=== PATIENT | male | born 1945 | race Caucasian/White ===

== ENCOUNTER → 2018-04-30 07:45 | Outpatient (CLI) | payer OTHER, SELFPAY ==
--- NOTE | 2018-04-30 07:49 | US_ITS ---
STUDY: THYROID ULTRASOUND REASON FOR EXAM: Male, 72 years old. Nodules follow-up. TECHNIQUE: Ultrasound evaluation of the thyroid was performed with real-time and static briggs-scale imaging. COMPARISON: None. FINDINGS: RIGHT LOBE: The right lobe of the thyroid gland measures 4.9 x 1.7 x 1.7 cm. There is a homogeneous echotexture. There is a stable 10 x 8 x 7 mm complex nodule at the mid pole. A second 7 x 6 x 4 mm hypoechoic/cystic lesion in the anterior midpole is also unchanged. LEFT LOBE: The left lobe of the thyroid gland measures 4.9 x 1.8 x 1.7 cm. There is a homogeneous echotexture. A complex mixed echogenicity 14 x 11 x 11 mm lesion in the upper pole is grossly unchanged. This shows marginal flow on color Doppler. Ill-defined solid 11 x 8 x 8 mm nodule in the posterolateral mid to lower pole is mildly increased in size. 3 x 3 x 1 mm cystic-appearing lesion in the anterior mid to lower pole is unchanged. ISTHMUS: The isthmus measures 4.0 mm. The 5 x 4 mm cyst/nodule of the thyroid isthmus seen on previous study is not apparent today. The regional lymph nodes are normal. US/Thyroid IMPRESSION: Findings of a multinodular goiter again noted. An 11 mm solid nodule in the posterolateral mid to lower pole left lobe is mildly increased in size. One might consider ultrasound-guided needle biopsy. Electronically Signed: Yonis Dill MD at 15:58 EDT , Service support ,
== END ==
PROVIDERS: Family Provider Internal Medicine; PCP Internal Medicine; Visit Provider Internal Medicine
DX: E04.1 Nontoxic single thyroid nodule (principal)
CPT/HCPCS: 76536

== ENCOUNTER → 2018-06-03 15:10 | Outpatient (CLI) | payer OTHER, SELFPAY ==
[2018-06-03 16:00] LABS: PSA,Total - Annual Screen 3.55 ng/mL (0.00-4.00)
== END ==
PROVIDERS: Family Provider Internal Medicine; PCP Internal Medicine; Visit Provider Urology
DX: Z12.5 Encounter for screening for malignant neoplasm of prostate (principal)
CPT/HCPCS: 36415; 84153; G0103

== ENCOUNTER → 2018-09-19 07:08 | Outpatient (CLI) | payer SELFPAY ==
--- NOTE | 2018-09-19 07:13 | CT_ITS ---
STUDY: CT CHEST WITHOUT CONTRAST REASON FOR EXAM: Male, 72 years old. Asthma. Cough RADIATION DOSAGE (If Supplied By Facility): CTDIvol = ( 13.28 ) mGy, DLP = ( 489.55 ) mGycm TECHNIQUE: Transaxial imaging was performed without the administration of intravenous contrast material. Multiplanar coronal and sagittal images were reformatted. Individualized dose optimization techniques were used for this CT. COMPARISON: None. FINDINGS: There is right upper lung calcified granuloma. There is left upper lobe calcified granuloma. There are scattered 0.2 cm noncalcified nodular densities. There is no demonstrated pleural abnormality. There are calcifications of the coronary arteries. There are calcified mediastinal and right hilar lymph nodes. Normal hilar regions. Normal unenhanced pulmonary arteries. There is atherosclerotic calcification of the aortic arch with tortuosity and elongation of the aortic arch and descending thoracic aorta. There are multi-level degenerative changes of the thoracic spine. Degenerative change of the shoulders. There is fatty infiltration of the liver. CT/Chest without Contrast IMPRESSION: No focal infiltrate. Old granulomatous disease. Electronically Signed: Robbi Benítez MD at 10:40 EDT , Service support ,
== END ==
PROVIDERS: Family Provider Internal Medicine; PCP Internal Medicine; Referring Provider Internal Medicine Pulmonary Disease; Visit Provider Internal Medicine Pulmonary Disease
DX: J45.909 Unspecified asthma, uncomplicated (principal); R05 Cough
CPT/HCPCS: 71250

== ENCOUNTER → 2019-05-12 09:29 | Outpatient (CLI) | payer MEDICARE, BC, SELFPAY ==
--- NOTE | 2019-05-12 09:48 | ECHOD_ITS ---
Reason For Study: PVCs Procedure This was a 2D Doppler, Color Flow transthoracic echocardiogram. Exam performed in department. Left Ventricle Normal LV size. The estimated ejection fraction is 60 %. Normal diastology for age. No regional wall motion abnormalities noted. Right Ventricle Normal RV size. Normal systolic function. Atria Normal left atrium. Normal right atrium. Patent foramen ovale. Mitral Valve Normal mitral valve. Mild (1+) eccentric mitral valve insufficiency. Tricuspid Valve Normal tricuspid valve. Mild (1+) tricuspid valve insufficiency. Pulmonary artery systolic pressure is 35 mmHg. Aortic Valve Trisinus/trileaflet aortic valve. Mild focal aortic valve calcification. Pulmonic Valve Normal pulmonic valve. Great Vessels Normal aortic root. The pulmonary artery is normal size. Normal inferior vena cava. Pericardium/Pleural No pericardial effusion. Medication Performed a rapid injection of agitated mix of 9 cc saline and 1cc air to assess for atrial septal defect. MMode/2D Measurements & Calculations LVIDd: 5.0 cm IVSd: 1.2 cm Ao root diam: 3.4 cm LVIDs: 3.1 cm LVPWd: 1.1 cm RVDd: 4.2 cm FS: 38.1 % LAV(MOD-bp): 64.6 ml LVAd ap4: 31.8 cm2 SV(MOD-sp4): 67.9 ml LAV(MOD-bp) Indexed: 31.7 ml/m2 EDV(MOD-sp4): 101.5 ml LAV(MOD-sp2): 82.9 ml EDV(sp4-el): 105.1 ml LAV(MOD-sp4): 46.4 ml LVAs ap4: 16.3 cm2 ESV(MOD-sp4): 33.6 ml ESV(sp4-el): 33.6 ml EF(MOD-sp4): 66.9 % EF(sp4-el): 68.1 % SV(sp4-el): 71.6 ml LA A4 area: 17.8 cm2 LA dimension(2D): 5.0 cm RA A4 area: 24.7 cm2 Doppler Measurements & Calculations MV E max adria: 71.7 cm/sec Lat Peak E' Adria: 8.5 cm/sec Med Peak E' Adria: 5.6 cm/sec MV A max adria: 49.1 cm/sec E/E' lat: 8.4 E/E' med: 12.8 MV E/A: 1.5 Ao V2 max: 140.6 cm/sec AI max adria: 396.7 cm/sec LV V1 max: 107.5 cm/sec Ao max P.9 mmHg AI max P.0 mmHg LV V1 max P.7 mmHg Ao V2 mean: 98.4 cm/sec Ao mean P.3 mmHg AI dec slope: 212.1 cm/sec2 Ao V2 VTI: 31.7 cm AI P1/2t: 547.6 msec PA V2 max: 102.7 cm/sec PI end-d adria: 124.1 cm/sec TR max adria: 282.5 cm/sec TR max P.9 mmHg Interpretation Summary Normal LV size. The estimated ejection fraction is 60 %. Normal diastology for age. Mild (1+) eccentric mitral valve insufficiency. Patent foramen ovale. Ordering Physician: Kiara Spence Referring Physician: Kiara Spence Performed By: Torrie Qiu, VALERIE, RVT
== END ==
PROVIDERS: Family Provider Internal Medicine; PCP Internal Medicine; Referring Provider Internal Medicine; Visit Provider Internal Medicine
DX: I49.3 Ventricular premature depolarization (principal); E04.1 Nontoxic single thyroid nodule
CPT/HCPCS: 93225; 93226; 93306; A4216

== ENCOUNTER → 2019-05-29 17:34 | Outpatient (CLI) | payer MEDICARE, BC, SELFPAY ==
--- NOTE | 2019-05-29 17:38 | CT_ITS ---
HISTORY:RT RENAL MASSSURG-UROLIFT RT RENAL MASSSURG-UROLIFT TECHNIQUE: Helically acquired images were obtained of the abdomen and pelvis following IV contrast. A radiation dose optimization technique was used for this scan. IV Contrast dosage and agent:100CC Isovue 300 Oral contrast: None. COMPARISON: None FINDINGS: # of images incl. paperwork: [phone] LOWER CHEST: Lung bases are clear. No cardiomegaly or pericardial effusion observed. LIVER: Steatosis. No focal masses GALLBLADDER AND BILIARY TREE: No calcified gallstones. There is no gallbladder distension or wall edema. No intra- or extrahepatic biliary ductal dilation. KIDNEYS AND URETERS: There is a heterogenous enhancing mass seen within the right kidney. This measures approximately 6 cm transverse by 5 cm AP by 5.2 cm craniocaudad. This extends into the renal cortex as well as the mandibular. No significant hydronephrosis. There are additional simple appearing cysts seen bilaterally. I would recommend MRI with contrast for additional information if clinically indicated. The ureters are not distended ADRENAL GLANDS: Non-enlarged. SPLEEN: Normal size without focal cystic or solid mass. PANCREAS: Mild steatosis BOWEL: The stomach is unremarkable There are fluid-filled mildly distended loops of ileum. This may be secondary to ileus or enteritis. There are small bowel loops that contain fecalized material suggesting slow transit. Correlate clinically. No diverticulitis. The appendix is unremarkable LYMPH NODES: No enlarged mesenteric or retroperitoneal lymph nodes. PERITONEUM: No ascites or free air. No other fluid collection. VESSELS: Scattered atherosclerotic plaque URINARY BLADDER: Bladder is poorly distended with wall thickening. Correlate clinically for cystitis. REPRODUCTIVE ORGANS: The prostate gland contains multiple metallic implants. ABDOMINAL WALL: No discrete abdominal or pelvic wall hernia observed. BONES: Degenerative changes seen within the lumbar spine. Grade 1 anterior spondylolisthesis of L5 on S1 with bilateral spondylolysis at L5. Intra-vertebral disc protrusion at the level of L3 inferior endplate Subchondral cysts at the iliac side of the right sacroiliac joint. Also at the bilateral acetabulum. No acute osseous abnormality. CT/Abdomen/Pelvis WITH Contrast IMPRESSION: Heterogenous enhancing lesion of the right kidney. This is suspect for a renal neoplasm. Consider MRI for further evaluation with contrast if clinically indicated Additional bilateral renal cysts are noted Mildly distended fluid-filled loops of ileum. There are also loops of small bowel that contain fecalized material suggesting slow transit Poorly distended bladder with wall thickening. Correlate clinically for cystitis Individualized dose optimization techniques were used for this CT. at 2908 Reported and signed by: Tonya Hankins DO Electronically Signed: Tonya Hankins DO at 21:56 EDT Tel , Service support ,
== END ==
PROVIDERS: Family Provider Internal Medicine; PCP Internal Medicine; Referring Provider Internal Medicine; Visit Provider Internal Medicine
DX: N28.89 Other specified disorders of kidney and ureter (principal)
CPT/HCPCS: 74177; Q9967

== ENCOUNTER → 2019-06-03 08:24 | Outpatient (CLI) | payer MEDICARE, BC, SELFPAY ==
[2019-06-03] VITALS (8 sets, daily range): BP systolic 129–210; BP diastolic 75–106; PULSE 56–69; RESP 18; TEMP 36.6; O2SAT 91–97; BMI 24.5
--- NOTE | 2019-06-03 | IMM_PTH ---
PATIENT: LUKE MENDEZ LOC: CT U#:[id number] AGE/SX: 80/M ROOM: RE06/03/[address]: Dr. Willard Kirby DO : 1945 BED: DIS: SPEC #: [id number] RECD: 06/04/19 12:36 STATUS: NATY REQ #: [id number] NGA: 06/03/19 00:[address]: Willard Kirby DEPT: IMMUNOHISTOCHEMISTRY RECD BY: Manuela Quiñones ENTERED: 06/04/19 12:39 SP TYPE: IMMUNO OTHR DR: Dr. Kiara Spence DO Tissues: Vertebra, NOS Procedures: RCC (add) NAPSIN A (add) CD10 (add) CK20 (add) CK5-6 (add) CK7 (add) CK8 (add) HEP PAR (add) TTF1 (add) Vimentin (add) Pankeratin (initial) P40 (add) PSAP (add) PHYSICIAN & [address] [address] SPECIMEN INFORMATION: Tissue Source: T12 lesion, right side Clinical Info: T12 lesion, right side Specimen Number: [id number] CPT code: 83716, 13109 x12 METHODOLOGY: Deparaffinized sections of prefer/formalin-fixed tissue or PAP/DQ stained slides are incubated with monoclonal/polyclonal antibodies/oligonucleotide probes. Localization is made via biotin free immunoperoxidase method. Appropriate controls are performed and reacted as expected. Results on target cell population are indicated in the following table: RESULTS: ANTIBODY / CLONE RESULT AE1-3 (AE1/AE3/PCK26) positive CK7 (OV-TL12/30) negative CK8 (34bxqkT90) positive CD20 (L26) negative CD10 (56C6) positive Vimentin (V9) positive TTF-1 (8G7G3/1) negative Napsin A (Rabbit Polyclonal) positive HepPar (OCh1E5) negative RCC (PN-15) positive PSAP (PASE/4LJ) negative CK5-6 (D5 & 1684) negative P40 (BC28) negative These tests were developed and their performance characteristics determined by [facility]. They may not have been cleared or approved by the U.S. Food and Drug Administration. The FDA has determined that such clearance or approval is not necessary. INTERPRETATION: T12 lesion, right side, CT-guided biopsy: Metastatic carcinoma, consistent with renal primary. SJ:ruiz 06/05/19
--- NOTE | 2019-06-03 | ASPIGT_PTH ---
PATIENT: LUKE MENDEZ LOC: CT U#:[id number] AGE/SX: 80/M ROOM: RE06/03/[address]: Dr. Willard Kirby DO : 1945 BED: DIS: SPEC #: [id number] RECD: 06/03/19 10:30 STATUS: NATY RESaumya #: [id number] NGA: 06/03/19 00:[address]: Willard Kirby DEPT: SURGICAL PATHOLOGY RECD BY: Cristy Orantes ENTERED: 06/03/19 11:04 SP TYPE: ASP RAD OTHR DR: Dr. Kiara Spence DO Tissues: Vertebra, NOS Procedures: FNA Specimen Adequacy Special Stain Group II Surgery Specimen Level IV Imprint (control) HEADER OPERATION: CT guided T12 biopsy PRE-OP DIAGNOSIS: T12 lesion, right side TISSUE SUBMITTED: T12 lesion, right side CT-guided core biopsy 18 gauge core x4 MICROSCOPIC DIAGNOSIS T12 lesion, right side, CT-guided core biopsy: Metastatic carcinoma, consistent with renal primary, Terri grade 3. See comment. MEGHANA:ruiz 06/04/19 COMMENT The specimen is evaluated at the time of biopsy by Dr. Corrales. Immediate Evaluation: Set #1 (4 smears) - Mostly blood. Rare atypical cells. Set #2 (3 smears) - Mostly blood. Rare atypical cells. Immunohistochemistry ([id number]) supports the above diagnosis. Correlation with clinical, radiologic findings and appropriate follow up are necessary. Case has been reviewed in consultation with Dr. Adams who concurs with the above diagnosis. IDC:AM MICROSCOPIC DESCRIPTION Slides are reviewed. GROSS DESCRIPTION Received in fixative is one container labeled with the patient's name and designated T12 lesion biopsy. The specimen consists of multiple irregular fragments of light hussein soft tissue that in aggregate measure 1 x 0.2 x 0.1 cm. The specimen is totally submitted in one cassette. Seven touch imprints (four for set #1, three for set #2) were prepared at the time of core biopsy. / MEGHANA:ruiz 06/03/19 TC:0 CPT: 91216, 23552, 30124
--- NOTE | 2019-06-03 08:37 | CT_ITS ---
STUDY: CT CHEST WITH CONTRAST REASON FOR EXAM: Male, 73 years old. Right renal mass. T12 metastatic lesion. RADIATION DOSAGE (If Supplied By Facility): CTDIvol = ( 18.10 ) mGy, DLP = ( 327.14 ) mGycm TECHNIQUE: Transaxial imaging was performed following intravenous administration of 100mL IV Isovue 300. Multiplanar coronal and sagittal images were reformatted. Individualized dose optimization techniques were used for this CT. COMPARISON: Comparison is made with prior study dated September 19, 2018. FINDINGS: Mild degree of thickening of the right major fissure. There is no demonstrated pleural abnormality. There are calcifications of the coronary arteries. There are multiple small lymph nodes within the mediastinum, which are normal in size and morphology most compatible with reactive lymph hyperplasia. Normal hilar regions. Normal enhanced pulmonary arteries. There is atherosclerotic calcification of the aortic arch. There is a 2.6 cm x 3.9 cm soft tissue mass causing destruction of the pedicle of the T12 vertebrae on the right side. This extends into the spinal canal and the right intervertebral foramen. The mineralization of the thoracic vertebrae. Fatty infiltration of the liver. CT/Chest WITH Contrast IMPRESSION: 2.6 cm x 3.9 cm soft tissue mass causing destruction of the pedicle of the T12 vertebrae on the right side. No other abnormality is seen. Electronically Signed: Lucho Bond, at 11:14 EDT , Service support ,
--- NOTE | 2019-06-03 08:39 | CT_ITS ---
PROCEDURE: CT GUIDED biopsy of the right pedicle of the T12 vertebrae. DATE: June 03, 2019. INDICATION: Male, 73 years old. Metastatic renal cell carcinoma. PHYSICIAN: Lucho Bond M.D. RADIATION DOSAGE (If Supplied By Facility): CTDIvol = ( 18 ) mGy, DLP = ( 327.14 ) mGycm. Individualized dosed catheterization techniques were utilized. PROCEDURE: The risks, benefits, and alternatives to the procedure were explained to the patient. The specific risk of hemorrhage requiring further treatment or intervention was detailed and accepted. Follow-up instructions were discussed with the patient as well. Written informed consent was obtained. The patient was brought into the CT suite and placed in the prone position. . An appropriate entry site was identified. The overlying skin was prepped and draped in the usual sterile fashion. 1% lidocaine was administered subcutaneously for local anesthesia. Conscious sedation was performed. The patient received 2 mg of Versed and 50 mcg of fentanyl intravenously. Conscious sedation was started at 9:49 AM and terminated at 10:16 AM. The patient was independently monitored by the department nurse. Under CT guidance, a total of 4 passes were performed utilizing a 18-gauge core biopsy needle. The specimens were then placed in the appropriate fluid and transported to the laboratory for analysis. Hemostasis was obtained. The patient tolerated the procedure well without immediate complications. CT/Biopsy/Inj or Needle Placement IMPRESSION: Successful CT guided biopsy of the right T12 pedicle, as described above. Electronically Signed: Lucho Bond, at 11:09 EDT , Service support ,
[2019-06-03 08:47] LABS: Prothrombin Time (Protime)PT. 12.7 SECONDS (11.7-14.9)
[2019-06-03] MEDS: fentaNYL 100 MCG/2 ML Ampul IV (09:49)
[2019-06-03] MEDS: Midazolam 2 MG/2 ML Syringe IV (09:49)
== END ==
PROVIDERS: Family Provider Internal Medicine; PCP Internal Medicine; Referring Provider Internal Medicine Hematology & Oncology; Visit Provider Internal Medicine Hematology & Oncology
DX: N28.89 Other specified disorders of kidney and ureter (principal); C80.1 Malignant (primary) neoplasm, unspecified; C79.51 Secondary malignant neoplasm of bone
CPT/HCPCS: 62267; 36415; 71260; 77012; 85610; 88172; 88305; 88313; 88341; 88342; 99156; 99157; J7040; Q9967; A4216

== ENCOUNTER → 2019-06-11 08:52 | Outpatient (CLI) | payer MEDICARE, BC, SELFPAY ==
[2019-06-03 09:17] VITALS: BMI 24.5
--- NOTE | 2019-06-11 08:54 | US_ITS ---
STUDY: THYROID ULTRASOUND REASON FOR EXAM: Male, 73 years old. Nodules TECHNIQUE: Ultrasound evaluation of the thyroid was performed with real-time and static briggs-scale imaging. COMPARISON: 04/30/2018 FINDINGS: RIGHT LOBE: The right lobe of the thyroid gland measures 4.6 x 1.9 x 1.7 cm. There is a heterogeneous echotexture. Stable complex 1 cm nodule, stable 8 mm cyst. LEFT LOBE: The left lobe of the thyroid gland measures 4.5 x 1.9 x 2.0 cm. There is a homogeneous echotexture. Stable complex 1.5 cm nodule ISTHMUS: The isthmus measures 3 mm. The regional lymph nodes are normal. US/Thyroid IMPRESSION: Normal sized thyroid gland. The right lobe is heterogeneous with a stable complex solid/cystic 1 cm nodule and simple 0.8 cm cyst. Homogeneous left lobe of the thyroid gland with a stable 1.5 cm solid/cystic nodule. Electronically Signed: Yonis Levine MD at 10:07 EDT , Service support ,
== END ==
PROVIDERS: Family Provider Internal Medicine; PCP Internal Medicine; Referring Provider Internal Medicine; Visit Provider Internal Medicine
DX: E04.1 Nontoxic single thyroid nodule (principal)
CPT/HCPCS: 76536

== ENCOUNTER → 2019-07-07 13:24 | Outpatient (CLI) | payer MEDICARE, BC, SELFPAY ==
[2019-07-04 11:29] VITALS: BMI 23.8
--- NOTE | 2019-07-07 13:26 | STEWCON_ITS ---
Reason For Study: Pre-Op Stress Results Protocol: Cirilo Protocol Maximum Predicted HR: 147 bpm Target HR: 125 bpm % Maximum Predicted HR: 127 % DurationHeart Rate Stage (mm:ss) (bpm) BP Comment Baseline 96 108/60No Chest Pain; Diluted Definity 3 ML Given Cirilo Protocol Stage I 3:00 150 128/62No Chest Pain; Mild Dyspnea Cirilo Protocol Stage II 1:45 187 140/60No Chest Pain; Mild to Moderate Dyspnea Recovery 93 130/62No Chest Pain Stress Duration: 4:45 mm:ss Maximum Stress HR: 187 bpm METS: 7 Baseline Echocardiogram Findings The estimated ejection fraction is 65 %. Stress Echo Wall motion Data Resting WM Intermediate WM Stress WM Resting Wall Motion Wall Motion Stress No regional wall motion No regional wall motion abnormalities noted. abnormalities noted. EKG Data The baseline ECG displays normal sinus rhythm. The patient exercised according to the regular Cirilo protocol for a total duration of 4:45. The maximum heart rate attained was 187 beats per minute. This was 127% of maximum predicted heart rate. The patient exercised into stage 2 of the Cirilo protocol. During stress, there were no ST or T wave changes noted to suggest ischemia. No clinical angina was noted. Interpretation Summary The estimated ejection fraction is 65 %. Normal, adequate, Cirilo treadmill echocardiogram. Negative for ischemia by EKG and echocardiographic criteria. No anginal symptoms noted. Frequent PACs and rare PVCs noted. Below average exercise capacity for age. Decreased sensitivity due to poor echo windows requiring Definity agent. Test terminated due to dyspnea and frequent PACs. Final LVEF is 75%. No complications. The study was technically difficult. Contrast injection was performed. Ordering Physician: Kiel Marquez Referring Physician: Kiara Spence Performed By: Torrie Qiu, VALERIE, RVT
== END ==
PROVIDERS: Family Provider Internal Medicine; PCP Internal Medicine; Referring Provider Internal Medicine Cardiovascular Disease; Visit Provider Internal Medicine Cardiovascular Disease
DX: Z01.810 Encounter for preprocedural cardiovascular examination (principal); I48.91 Unspecified atrial fibrillation; Q21.1 Atrial septal defect; I10 Essential (primary) hypertension; E78.5 Hyperlipidemia, unspecified
CPT/HCPCS: 93017; 93350; Q9957; A4216; C8928

== ENCOUNTER → 2019-07-08 10:38 | Outpatient (CLI) | payer MEDICARE, BC, SELFPAY ==
[2019-07-04 11:29] VITALS: BMI 23.8
--- NOTE | 2019-07-08 10:41 | RAD_ITS ---
STUDY: X-RAY CHEST REASON FOR EXAM: Male, 73 years old. Preop for abdominal surgery TECHNIQUE: PA and lateral views of the chest. COMPARISON: Previous CTs FINDINGS: There are interstitial fibrotic changes of the lungs. There is no demonstrated pleural abnormality. Normal size heart. Normal mediastinum and teresa. Normal visualized pulmonary arteries. Normal visualized aortic arch and descending thoracic aorta. There are diffuse degenerative changes of the visualized thoracic spine. Normal visualized ribs, clavicles, and shoulders. There is no demonstrated abnormality of the visualized soft tissue structures of the upper abdomen. RAD/Chest PA and Lateral IMPRESSION: Chronic interstitial changes, no superimposed acute pulmonary process Electronically Signed: Yonis Levine MD at 10:53 EDT , Service support ,
--- NOTE | 2019-07-08 13:03 | CT_ITS ---
STUDY: CTA CHEST REASON FOR EXAM: Male, 73 years old. Hypoxia RADIATION DOSAGE (If Supplied By Facility): CTDIvol = ( 10.8 ) mGy, DLP = ( 490.50 ) mGycm TECHNIQUE: The examination was performed with the intravenous administration of 100 IV Isovue 370. Post-processing of the angiographic images was performed, with multiplanar reformation and 3D reconstruction. Individualized dose optimization techniques were used for this CT. COMPARISON: None. FINDINGS: Normal enhancement of the main pulmonary artery and right and left pulmonary arteries. Normal enhancement of the bilateral peripheral pulmonary arteries. There is no demonstrated pulmonary embolism. Normal thoracic aorta and visualized great vessels. There is no demonstrated aortic dissection. Normal heart and pericardium. There is no demonstrated mediastinal lymphadenopathy or mediastinal mass lesion. Normal hilar regions. Normal visualized trachea and bronchi. The lungs are well expanded. Mild dependent atelectasis in the lung bases bilaterally. Normal pleura. No evidence of pleural effusion. Unremarkable chest wall structures. There are degenerative changes of thoracic spine. There is diffuse fatty infiltration of the liver. CT/CTA Chest W/WO Contrast IMPRESSION: Normal CTA chest examination, without a demonstrated pulmonary embolism or arterial dissection. Mild dependent atelectasis in the lung bases bilaterally. Diffuse fatty change of liver parenchyma. Electronically Signed: Lucas Lockwood MD at 14:27 EDT Tel [phone], Service support ,
== END ==
PROVIDERS: Family Provider Internal Medicine; PCP Internal Medicine; Referring Provider Internal Medicine; Visit Provider Internal Medicine
DX: R09.02 Hypoxemia (principal); R05 Cough
CPT/HCPCS: 71046; 71275; Q9967

== ENCOUNTER 2019-07-09 05:54 | Inpatient (IN) | payer MEDICARE, BC, SELFPAY ==
[2019-06-03 09:17] VITALS: BMI 24.5
[2019-07-01 11:17] VITALS: BP 105/70; PULSE 98; RESP 18; TEMP 36.4; O2SAT 96; BMI 23.8
--- NOTE | 2019-07-01 11:25 | SDCEKG_ITS ---
Test Reason : Blood Pressure : / mmHG Vent. Rate : 100 BPM Atrial Rate : 208 BPM P-R Int : 000 ms QRS Dur : 084 ms QT Int : 328 ms P-R-T Axes : 000 037 069 degrees QTc Int : 423 ms Atrial fibrillation Abnormal ECG Confirmed by KAYLI ROBLEDO ([id number]), film editor supervisor MARIE PAGAN ([id number]) on 07/03/2019 2:13:42 PM Referred By: PROJU Confirmed By:KAYLI ROBLEDO
[2019-07-01 11:57] LABS: Hematocrit 43.5 % (40-54); Hemoglobin 14.1 g/dL (13.0-16.5); Mean Corp Hgb Conc 32.4 g/dL (32-36); Mean Corpuscular Hgb 33.3 pg (27.0-32.0); Mean Corpuscular Volume 102.8 fL (80-94); Mean Platelet Vol. 10.1 fl (6.2-12.0); Platelet Count 108 K/mm3 (150-450); RBC Distribution Width SD 52.8 fl (35.1-43.9); Red Blood Count 4.23 M/mm3 (4.6-6.2); White Blood Count 7.7 K/mm3 (4.4-11.0)
[2019-07-01 12:07] LABS: Prothrombin Time (Protime)PT. 12.6 SECONDS (11.7-14.9)
[2019-07-01 12:08] LABS: Partial Thromboplast Time 27.2 Seconds (24.1-36.2)
[2019-07-01 12:28] LABS: AST(SGOT) 27 U/L (15-37); Alanine Aminotransfer ALT/SGPT 72 U/L (16-61); Albumin, Serum 2.7 g/dL (3.2-5.0); Alkaline Phosphatase 60 U/L (45-117); Anion Gap 8 (5-15); BUN 27 mg/dL (7-18); Bilirubin, Direct 0.14 mg/dL (0.00-0.30); Calcium,Total 8.8 mg/dL (8.5-10.1); Chloride 104 mmol/L (98-107); Creatinine, Serum 1.23 mg/dL (0.70-1.30); EST Glomerular Filtration Rate 61 mL/min (>60); Est Glom Filt Rate - Afr Amer 74 mL/min (>60); Estimated Creatinine Clearance 58.71 ml/min; Globulin 3.8 g/dL (2.2-4.2); Glucose 125 mg/dL (74-106); Potassium 3.9 mmol/L (3.5-5.1); Protein, Total 6.5 g/dL (6.4-8.2); Sodium Level 142 mmol/L (136-145)
[2019-07-04 11:29] VITALS: BMI 23.8
--- NOTE | 2019-07-04 12:10 | HP_ITS ---
HPI HPI History of Present Illness Surgical H&P: Yes Details: Mr. Cr is a very pleasant 73-year-old gentleman with a history of hypertension, hyperlipidemia, nondiabetic, who was recently diagnosed with renal cancer and is scheduled to have a right radical nephrectomy. EKG was performed and preop admission on 07/01/2019 which showed what appeared to be atrial flutter with controlled ventricular response. This was a new diagnosis for the patient, and he was referred to our office. Currently a repeat EKG shows normal sinus rhythm, left atrial enlargement, normal intervals, incomplete right bundle branch block, no previous myocardial infarction. Patient has never smoked, does not use drugs, drinks about 1 drink of caffeine per day. He denies any chest pain, angina, shortness of breath, dyspnea on exertion. Patient was completely unaware of his palpitations or his atrial flutter on his EKG. The patient does state that he has had some challenges from a respiratory standpoint and has been treated in the past with inhalers, as well as prednisone. He has been on antibiotics for the past 10 days without much improvement. He states that he most likely took his inhaler immediately prior to his recent EKG which showed atrial flutter. He has never been diagnosed with atrial fibrillation or atrial flutter in the past. He has no previous cardiac history He underwent a 24-hour Holter monitor on 05/15/2019 which showed normal sinus rhythm with periods of Wenke Bach and nonconducted PACs, 334 atrial couplets cut 2 atrial triplets and rare isolated PVCs and one ventricular couplet. His echocardiogram dated 05/12/2019 showed an EF of 60%, RVSP of 35 mmHg, mild MR and mild TR. Also was found to have a patent PFO. His most recent stress test on 06/02/2016 was a exercise/MPI which was negative for inducible ischemia. In our office today's blood pressure is 90/50, pulse is 88 and regular. Physical exam demonstrates clear lungs bilaterally, regular rate and rhythm, normal S1/S2. No murmurs are noted. He has no edema. EKG is as above. Intake Vital Signs 07/04/19 Height 6 ft 07/04/19 Weight: 176 lb 07/04/19 Body Mass Index (BMI) 23.8 07/04/19 Blood Pressure 90/50 L 07/04/19 Blood Pressure Location Lt brachial 07/04/19 Blood Pressure Position Sitting 07/04/19 Respiratory Rate 20 H 07/04/19 Pulse Rate 88 07/04/19 Pulse Source Auscultation Intake Visit Reasons: ABN EKG (REGINA) Allergies No Known Allergies Allergy (Verified 07/04/19 08:46) Medications Fluticasone/Vilanterol [Breo Ellipta Inhaler] 1 ea IH DAILY 06/03/19 [History Confirmed 07/04/19] Levocetirizine Dihydrochloride 5 mg PO DAILY 07/01/19 [History Confirmed 07/04/19] Montelukast [Singulair] 10 mg PO DAILY 07/01/19 [History Confirmed 07/04/19] Prednisone 10 mg PO DAILY 07/01/19 [History Confirmed 07/04/19] albuterol sulfate 90 mcg/actuation breath activated powder inhaler 1 inh INHALATION Q4H PRN 07/04/19 [History Confirmed 07/04/19] diazepam 5 mg tablet 5 mg PO DAILY PRN tab 07/04/19 [History Confirmed 07/04/19] doxazosin 4 mg tablet 4 mg PO BID tab 07/04/19 [History Confirmed 07/04/19] naproxen 500 mg tablet 500 mg PO BID PRN 07/04/19 [History Confirmed 07/04/19] oxycodone 5 mg tablet 5 mg PO .COMPLEX 07/04/19 [History Confirmed 07/04/19] simvastatin 20 mg tablet 20 mg PO QHS 07/04/19 [History Confirmed 07/04/19] trazodone 50 mg tablet 75 mg PO QHS PRN tab 07/04/19 [History Confirmed 07/04/19] PFS Medical History Pre-operative cardiovascular examination (Acute) New onset atrial fibrillation (Acute) Patent foramen ovale (Chronic) Renal cancer (Acute) Right kidney mass (Acute) Hypertension (Chronic) Hyperlipidemia (Chronic) Bradycardia (Chronic) Thyroid nodule (Chronic) Moderate persistent asthma (Chronic) Arthritis (Chronic) History of deviated nasal septum (Chronic) Degenerative disc disease (Chronic) Allergic rhinitis (Acute) Paresthesia (Resolved) Surgical History Hx of repair of right rotator cuff (Resolved) History of cystoscopy (Chronic 06/22/17) Post-circumcision adhesion of penis (Chronic 2014) history of transrectal biopsy ultrasound (Chronic 06/22/17) Family History Mother Colon cancer Father Emphysema lung Social History (Updated 07/04/19 @ 12:11 by Kiel Marquez MD) Smoking Status: Never smoker second hand exposure: No alcohol intake: current alcohol intake frequency: a few times a month substance use type: does not use caffeine: Yes what type of physical activity do you participate in: bicycling frequency: 5-6 times per week duration: other details: 15 miles seatbelt use: always ROS Const Const: Positive for other (Is to have right radical nephrectomy 07/09, new onset a-fib per PAT ekg); negative for fatigue, weakness, body ache, fever(s), headache(s), chills, frequent falls, night sweats, daytime sleepiness, difficulty sleeping, excessive sweating, weight gain, weight loss, increased appetite, poor appetite or anorexia Eyes Eyes: Negative for blind spots, loss of peripheral vision, transient loss of vision, blurry vision, change in vision, double vision, floaters, tunnel vision or other ENT ENT: Negative for headache(s), dizziness, hearing loss, tinnitus, Nosebleed/epistaxis, balance problems, post nasal drip, lip swelling, tongue swelling, bleeding gums, hoarseness, neck pain, dry mouth or other Cardio Chest Pain: No Palpitations: No Edema: None Muscle aches with walking: None Resp Respiratory: Positive for SOB with activity (less active at present, usually rode bike 5 miles a day.) and Cough (productive yellow, on ATB); negative for SOB at rest, SOB orthopnea\SOB lying down, Coughing up blood/hemoptysis, chest congestion, pain on inspiration, snoring, stridor, wheezing, crackles, paroxysmal nocturnal dyspnea or other GI GI: Negative nausea, vomiting, heartburn, constipation, belching, bloating, cramping, vomiting blood/hematemesis, bright, red blood in stools, black,tarry stools, loose stools, Difficulty Swallowing or other : Negative for hematuria, frequent nighttime urination/ nocturia, erectile dysfunction or abnormal vaginal bleeding Musc Musc: Negative for muscle aches/ myalgia, muscle weakness, joint pain or balance problems Skin Skin: Negative redness, non-healing lesions, rash, unusual bruising, skin ulcer, wounds, jaundice or other Neuro Neuro: Negative for dizziness, lightheadedness, near syncope, syncope, orthostatic symptoms, frequent falls, headache(s), weakness, confusion, memory loss, restless legs, blurry vision, double vision, vertigo, seizures, lack of coordination or other Mario Hematologic/Lymphatic: Negative for easy bleeding, easy bruising, enlarged lymph nodes or other Endo Endo: Negative for fatigue, cold intolerance, heat intolerance, excessive sweating, flushing, increased thirst/drinking, increased hunger, hair loss, hair growth or other Psych Psych: Negative for anxiety, depression, thoughts of harming anyone, thoughts of harming yourself, visual hallucinations, panic attacks or audible hallucinations Allergy Allergy/Immunology: Negative for throat swelling, Negative for tongue swelling, Negative for hives, Negative for rash, Negative for lip swelling Cardiology Exam Const Appearance: cooperative, healthy appearing and no acute distress Nutritional Appearance: well nourished Orientation: alert, oriented x3 and oriented to person Head Head: normal to inspection, normocephalic and atraumatic Nose: external nose normal Face and Sinus: face symmetric Mouth: oral mucosae normal Eyes General: appearance normal, both eyes and all related structures Eyelids: eyelids normal Conjunctivae: conjunctivae normal Pupils: PERRL and normal by confrontation EOM: EOM intact bilaterally Neck Neck: normal visual inspection and full ROM Carotids: normal carotid upstroke Chest Chest inspection: normal inspection of the chest Auscultation: Bilateral: Clear to Auscultation Cardio Palpation: normal PMI Rate: regular rate Rhythm: regular rhythm Heart sounds: S1 normal and S2 normal GI GI: normal to inspection, no hepatosplenomegaly and bowel sounds present Neuro General: alert, awake, oriented x3, CN's II-XI intact bilaterally and moves all extremities Skin Skin: no rashes or lesions noted Extremities Pulses: Normal: Right Femoral Pulse, Left Femoral Pulse, Right Dorsalis Pedis Pulse, Left Dorsalis Pedis Pulse, Right Posterior Tibial Pulse, Left Posterior Tibial Pulse, Right Radial Pulse, Left Radial Pulse Lower Extremity Edema: None: Bilateral Psych Psychological: normal affect Assessment & Plan 1. Pre-operative cardiovascular examination Z01.810 Plan 1. Preoperative stratification: The patient presents for preoperative stratification for right radical nephrectomy for renal cancer which appears to have spread to T12. His most recent echocardiogram in April 2019 showed essentially intact and normal LV function and normal pulmonary pressures. He may also noted a possible PFO. The patient denies any chest pain, angina, does have chronic lung issues, and is being treated by Dr. Shafer with inhaler therapy. His preop EKG demonstrated what appeared to be a atypical flutter, with controlled ventricular response which may have been affected by his inhaler therapy. I recommended the patient undergo a treadmill echocardiogram to risk stratify him for upcoming surgery as well as from a cardiac standpoint. If the stress test is negative, he will be deemed at low risk for noncardiac surgery. If his stress test however shows any abnormalities of ischemia, he may require diagnostic coronary angiogram prior to his right radical nephrectomy. His EKG is reverted back to normal sinus rhythm and given his need for urgent renal cancer surgery, we will hold off on applying antibiotic therapy at this time. I would however recommend he start on Cardizem CD 120 mill grams p.o. daily given his atrial flutter so as not to interfere with doing his surgery, or to hopefully prevent perioperative atrial fibrillation/atrial flutter. Orders Orders: 12 Lead EKG performed by [facility] Stress Test Echo W/Contrast 07/07/19 2. Hyperlipidemia E78.5 Plan 2. Hyperlipidemia: Repeat lipids are pending. Continue Zocor. 3. Return office in 6 months. This note was generated using a voice recognition system and there may be incorrect words, spelling or punctuation that were not noted when reviewing the office note prior to saving. Orders Orders: Stress Test Echo W/Contrast 07/07/19 Plan Detail Other Orders Orders: 12 Lead EKG performed by [facility] I48.91, N28.89, Q21.1 Stress Test Echo W/Contrast 07/07/19 I10, I48.91, Q21.1 Other Medications New: diazepam (Valium) 5 mg PO DAILY PRN trazodone 75 mg PO QHS PRN oxycodone 5 mg PO q 4 to 6 hours prn; Follow Up +6M (Marquez) Coding Level of Care Code Off vis,new,level 4 Diagnoses Pre-operative cardiovascular examination Z01.810 Hyperlipidemia E78.5 Coding Level of Care Code Off vis,new,level 4 Diagnoses Pre-operative cardiovascular examination Z01.810 Hyperlipidemia E78.5 Supplemental Info Supplemental Information Diagnostics Electrocardiogram 07/04/19 Echocardiogram 05/12/19 Stress Test Nuclear Medicine 06/02/16 07/04/19 1211 <Electronically signed by Kiel Marquez MD> Date _ Kiel Marquez MD
[2019-07-09] VITALS (16 sets, daily range): BP systolic 98–145; BP diastolic 46–78; PULSE 63–115; RESP 14–20; TEMP 36.4–38.1; O2SAT 92–96; BMI 23.8
--- NOTE | 2019-07-09 | KID_PTH ---
PATIENT: LUKE MENDEZ LOC: MS3 U#:[id number] AGE/SX: 73/M ROOM: [facility]321 RE07/09/[address]: Dr. Kory Adkins MD : 1945 BED: 1 DIS: 07/12/2019 SPEC #: [id number] RECD: 07/09/19 10:04 STATUS: NATY LUANA #: [id number] NGA: 07/09/19 00:[address]: Kory Adkins DEPT: SURGICAL PATHOLOGY RECD BY: Manuela Quiñones ENTERED: 07/09/19 11:11 SP TYPE: KIDNEY OTHR DR: Dr. Kiara Spence DO Tissues: Kidney, NOS Procedures: Frozen Section (charge) Surgery Specimen Level V HEADER OPERATION: Lap robotic radical nephrectomy PRE-OP DIAGNOSIS: Renal cancer TISSUE SUBMITTED: Right kidney sent for frozen at 0957 FROZEN SECTION DIAGNOSIS Right kidney, radical nephrectomy: Renal cell carcinoma. 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 See Cancer Summary below. RENAL CANCER SUMMARY: Procedure - Radical nephrectomy. Specimen laterality - right. Tumor site - middle portion of the kidney, larger tumor lower portion of kidney - smaller tumor Tumor size -- Larger tumor - 6.5 x 5 x 5 cm - Smaller tumor - 3.5 cm in greatest dimension Tumor focality - multifocal Microscopic extent of tumor - tumor limited to kidney Histologic type - larger tumor - mixed clear cell and chromophobe carcinoma Smaller tumor - cystic clear cell renal cell carcinoma. Sarcomatoid features - not identified. Tumor necrosis - not identified. Histologic grade (Terri nuclear grade)- larger tumor - grade 3 Smaller tumor - grade 1 Microscopic tumor extension - tumor limited to kidney. Margins - margins uninvolved by invasive carcinoma. Lymph-Vascular invasion - not identified. Regional lymph nodes - no nodes submitted or found Distant metastasis - present. See comment. Pathologic finding in non-neoplastic kidney - interstitial chronic inflammation PATHOLOGIC STAGE: pT1b (M), pNX, pM1 The above summary is in compliance with [employer] (CAP) Cancer Protocols Checklist and [place] Joint Committee on Cancer (AJCC), Staging Manual, 7th Ed. SJ:bradley 07/14/19 COMMENT Please make reference to previous specimen [id number] guided core biopsy diagnosis metastatic carcinoma, consistent with renal primary. Case has been reviewed in consultation with Dr. Adams who concurs with the above diagnosis. IDC:AM MICROSCOPIC DESCRIPTION Slides are reviewed. GROSS DESCRIPTION Received fresh for frozen section diagnosis labeled with the patient's name is a specimen designated right kidney. The specimen consists of a radical nephrectomy specimen consisting of a right kidney containing a mass and is surrounded by an irregular envelope of fibroadipose tissue. Neoplasm does not extend into the perirenal fat which measures up to 4 cm in thickness and not present at the soft tissue line of the specimen. The specimen weighs 704 gm and measures 24 x 13 x 6 cm. The kidney measures 13 x7 x 5 cm. The mass involves the mid portion of the kidney. Dissection of the renal veins, particularly those draining the area of the mass does not show the intravascular presence of the neoplasm. On sectioning, the tumorous mass is roughly spherical and measures 6.5 x 5 x 5 cm. It is composed of yellow soft tissue in which there are foci of hemorrhage and softening. The tumor does not invade to the pelvocaliceal system and renal sinus. The tumor is sharply demarcated from the renal parenchymal which appears essentially unremarkable. A second cystic lesion is also noted in the lower portion of the kidney which measures 3.5 cm in greatest dimension. The cyst wall is smooth and measures 0.1 cm in thickness. Additional satellite nodules of tumor are not present in the renal tissue. The adrenal gland is not identified. A 6.5 cm segment of ureter is present and is essentially unremarkable. Product Safety Administrator sections are submitted in 12 cassettes as follows: 1 - frozen section, tumor with adjacent normal renal parenchyma, 2 - resection margins, renal vessels and ureter, 3 & 4 - cystic lesion with adjacent renal tissue, 5-9 - tumor, 10 - renal pelvis, ureter and renal sinus adipose tissue, 11 - uninvolved portion of kidney, 12 - perirenal adipose tissue with inked margin. / SJ:ruiz 07/10/19 TC: 0 CPT: 08933, 54468 More sections are submitted as follows: 13-15, the larger tumor is 16 with cystic lesion. MEGHANA:bradley 07/14/19 ADDENDUM ADDENDUM ADDENDUM ADDENDUM ADDENDUM ADDENDUM ADDENDUM ADDENDUM ADDENDUM ADDENDUM 09/25/2019 12:19 ADDENDUM 09/25/2019 12:19 ADDENDUM 09/25/2019 12:19 ADDENDUM 09/25/2019 12:19 ADDENDUM 09/25/2019 12:19 This addendum is added to incorporate an outside pathology consultation report. The case was examined at [facility] (#[id number]) and the following diagnosis was rendered. Right kidney, radical nephrectomy: Renal cell carcinoma, clear cell type. Please see complete above mentioned consultation report in EMR
--- NOTE | 2019-07-09 | IMM_PTH ---
PATIENT: LUKE MENDEZ LOC: MS3 U#:[id number] AGE/SX: 73/M ROOM: MS321 RE07/09/[address]: Dr. Kory Adkins MD : 1945 BED: 1 DIS: 07/12/2019 SPEC #: [id number] RECD: 07/15/19 10:46 STATUS: NATY REQ #: [id number] NGA: 07/09/19 00:[address]: Kory Adkins DEPT: IMMUNOHISTOCHEMISTRY RECD BY: Cristy Orantes ENTERED: 07/15/19 10:47 SP TYPE: IMMUNO OTHR DR: DO Dr. Jasper Paredes DO Tissues: Kidney, NOS Procedures: RCC (add) CD10 (add) CK7 (add) CK8 (add) Vimentin (add) 34BE12 (add) Pankeratin (initial) Pankeratin (add) PHYSICIAN & [address] [address] SPECIMEN INFORMATION: Tissue Source: Right kidney Clinical Info: Renal cancer Specimen Number: [id number] Block 7 and Block 16 CPT code: 20354 x2, 17672 x12 METHODOLOGY: Deparaffinized sections of prefer/formalin-fixed tissue or PAP/DQ stained slides are incubated with monoclonal/polyclonal antibodies/oligonucleotide probes. Localization is made via biotin free immunoperoxidase method. Appropriate controls are performed and reacted as expected. Results on target cell population are indicated in the following table: RESULTS: ANTIBODY / CLONE RESULT Block 7 AE1-3 (AE1/AE3/PCK26) positive, focal CK7 (OV-TL12/30) negative CK8 (28ndjnL16) positive CD10 (56C6) positive Vimentin (V9) negative 34BE12 (34BE12) negative RCC (PN-15) positive, focal Block 16 AE1-3 (AE1/AE3/PCK26) positive CK7 (OV-TL12/30) positive CK8 (57wzcnA03) positive CD10 (56C6) positive Vimentin (V9) positive 34BE12 (34BE12) negative RCC (PN-15) positive, weak These tests were developed and their performance characteristics determined by [facility]. They may not have been cleared or approved by the U.S. Food and Drug Administration. The FDA has determined that such clearance or approval is not necessary. INTERPRETATION: Right kidney, radical nephrectomy: Larger lesion - Renal cell carcinoma, mixed type, clear cell and chromophobe carcinoma. Smaller cystic lesion - Cystic clear cell renal cell carcinoma. Case has been reviewed in consultation with Dr. Adams who concurs with the above diagnosis. IDC:RA SJ:bradley 07/16/2019
[2019-07-09] MEDS: Lactated Ringers 1,000 ML 100 ML IV ×3 (07:05→11:08)
[2019-07-09] MEDS: Ipratropium/Albuterol Sulfate 3 ML AMPUL.NEB INHALATION ×2 (07:17→11:40)
[2019-07-09] MEDS: Cefazolin 2 GM in 0.9% Normal Saline 100 ML IV (07:29)
[2019-07-09] MEDS: Bupivacaine Mpf 0.5% 30 ML VIAL (10:20)
--- NOTE | 2019-07-09 11:00 | OP.PCM_ITS ---
Report of Operation Date of Procedure: 07/09/19 Pre-Operative Diagnosis: Right large renal mass known history of metastatic disease Post-Operative Diagnosis: The same Surgery/Procedure Performed:: Laparoscopic robotic assisted right radical nephrectomy Description of Surgical Findings:: 73-year-old male who presented with a large right renal mass unfortunately also we found that he has a mass in the spine that was treated with radiation ther apy. In consultation with his screwhead stoner and polisher we have agreed to proceed with a cytoreductive nephrectomy patient understands that this may not be curative that he may have micrometastatic disease. Prior to the procedure he had a an extensive work-up with cardiology who cleared him and he also was being treated for pulmonary bronchitis by his physician and runner man. He has lost some weight which is concerning but at this point he is probably the strongest he is going to be so and we decided to proceed with a radical nephrectomy today for a cytoreductive in the left nephrectomy. Patient understands that this may not be curative and we may find that he has more disease later on. 73-year-old male was taken back to the operating room after smooth induction of general anesthesia he was placed supine on the table and then we placed in the full flank with the right side up the abdomen was shaved prepped and draped in usual sterile fashion the bed was flexed he was positioned in the table with a axillary roll in place support in the back legs flexed. After position the patient for a approach to the right kidney with a flank approach we made our first incision in the abdomen advanced a Veress needle into the abdomen filled the abdomen with CO2 gas placed my camera trocar, and also placed my right arm trocar, left arm trocar, and then fourth arm trocar, placed in air seal port be tween my camera and left arm. And then we docked the robot and proceeded with the dissection first thing and it was incised the white line of Toldt and reflected the colon off the kidney I started in the mid kidney worked my all the way down to the pelvis and then worked from the mid kidney up behind the liver up to the top of the kidney once this was completely reflected then I kocherized the duodenum then identified the inferior vena cava and I slowly marched down the inferior vena cava inferiorly below the gonadal elevated the kidney up and identified the ureter and the gonadal vein and then was able to elevate underneath Gerota fascia at this point I then used the fourth time to get underneath the arm the kidney elevate the kidney up and then I went through the gonadal vein at the insertion point into the inferior vena cava placed 2 clips down and one clip up and then slowly marched along the inferior vena cava until I encountered the renal vein this was dissected out very carefully around the renal vein I went superior to the renal vein and identified the adrenal gland and then behind the renal vein identified 1 of the arteries, renal artery. Place a clip on this we artery 2 clips down to put up and I transected this appeared to be the only artery so then I laced 2 clips down in the renal vein and one clip up but after doing this I encountered some backbleeding from the kidney I dissected further to the hilum and encountered a second branching renal artery this was then clipped fairly quickly and ended the backbleeding from the kidney placed 2 clips on this down one clip up and then transected to the renal artery and then dissected the kidney off its posterior attachments the fat was really sticky very sticky sticky fat coming off the the hilum of the kidney more sticky than usual try to take as much lymph node tissue with the kidney and and removing the kidney off the hilum marched superiorly left the adrenal gland in place as it was not involved and then dissected underneath the kidney all the way up to the top of the kidney I then came above the kidney and reflected the kidney off the sidewall I then transected to the lower tail the kidney going to the ureter and the gonadal vein the kidney was then rolled and freed up completely we placed an Endo Catch bag opened up her extraction site in the lower abdomen and extracted the kidney and a bag. We then lowered the pneumoperitoneum went back in there was no significant bleeding from the hilum we pelvic irrigated copiously inside the abdomen lower the pressure of the watch the hilum again there was no signs of bleeding we then closed the extraction site with interrupted stitches and then we closed our to 1012 trochars with Chuck Perdomo stitch patient's all the stitches were then used to particular stitches of the skin incisions bandages were placed he was extubated taken back to PACU in good condition frozen section was sent off and this came back renal cell carcinoma about 6 cm in size. When spoke to the family regarding the findings and surgery and will have to await the final pathology report. Type of Anesthesia:: General Drains: quinn - Admit VTE Documentation VTE Present on Admission: No VTE Mechan Device Prophylaxis: SCD's
[2019-07-09 11:05] LABS: Hematocrit 35.9 % (40-54); Hemoglobin 11.6 g/dL (13.0-16.5); Mean Corp Hgb Conc 32.3 g/dL (32-36); Mean Corpuscular Hgb 33.5 pg (27.0-32.0); Mean Corpuscular Volume 103.8 fL (80-94); Mean Platelet Vol. 9.5 fl (6.2-12.0); POSITIVE COUNT YES; POSITIVE DIFFERENTIAL YES; POSITIVE MORPHOLOGY YES; Platelet Count 154 K/mm3 (150-450); RBC Distribution Width CV 14.1 % (11.6-14.6); RBC Distribution Width SD 53.5 fl (35.1-43.9); Red Blood Count 3.46 M/mm3 (4.6-6.2)
[2019-07-09 11:06] LABS: Differential Indicated MANUAL DIFF
[2019-07-09 11:19] LABS: Anion Gap 6 (5-15); BUN 22 mg/dL (7-18); Calcium,Total 8.1 mg/dL (8.5-10.1); Chloride 109 mmol/L (98-107); Creatinine, Serum 1.16 mg/dL (0.70-1.30); EST Glomerular Filtration Rate 66 mL/min (>60); Est Glom Filt Rate - Afr Amer 79 mL/min (>60); Estimated Creatinine Clearance 62.25 ml/min; Glucose 226 mg/dL (74-106); Potassium 4.6 mmol/L (3.5-5.1); Sodium Level 141 mmol/L (136-145)
[2019-07-09 11:26] LABS: Lymphocyte 7 % (19-41); Metamyelocyte 1 % (0-1); Monocyte 1 % (0-10); Myelocyte 2 (0-0); Neutrophil-Band 3 % (0-5); Neutrophil-Segmented 85 % (47-70); Promyelocyte 1 (0-0); Total Cells Counted 100 (MANUAL DIFF)
[2019-07-09 11:27] LABS: Platelet Estimate ADEQUATE (ADEQ); Red Cell Morphology NORM C+C NORMAL (NORM C&C)
[2019-07-09 11:28] LABS: Absolute Lymphocyte Count 0.56 X10^3/uL (0.83-4.51)
[2019-07-09] MEDS: Morphine 2 MG/ML Syringe IV ×4 (13:09→21:59)
[2019-07-09] MEDS: Hydrocortisone Sod Succinate 100 MG/2 ML Vial IV ×2 (14:15→21:11)
[2019-07-09] MEDS: 0.45% Normal Saline 1,000 ML 125 ML IV ×2 (14:15→22:34)
[2019-07-09] MEDS: 0.9% NaCl Peripheral Flush Adult/Peds IV ×2 (17:15→19:26)
[2019-07-09] MEDS: levoFLOXacin 500 MG Tablet PO (17:22)
[2019-07-09] MEDS: Acetaminophen 500 MG Tablet PO (18:31)
[2019-07-09] MEDS: oxyCODONE CR 15 MG Tablet PO (18:32)
[2019-07-09] MEDS: Albuterol 2.5 MG/3 ML VIAL.NEB. INHALATION (19:06)
[2019-07-09] MEDS: Docusate Sodium 100 MG Capsule PO (21:10)
[2019-07-09] MEDS: Atorvastatin Calcium 10 MG Tablet PO (21:10)
[2019-07-09] MEDS: HYDROcodone Bitartrate/Apap 5/325 Tablet PO (21:11)
[2019-07-10] VITALS (8 sets, daily range): BP systolic 115–172; BP diastolic 46–89; PULSE 71–101; RESP 16–20; TEMP 36.3–37.2; O2SAT 90–98
[2019-07-10] MEDS: Enoxaparin 40 MG/0.4 ML Syringe SC (05:45)
[2019-07-10] MEDS: levoFLOXacin 500 MG Tablet PO (05:45)
[2019-07-10] MEDS: Hydrocortisone Sod Succinate 100 MG/2 ML Vial IV (05:45)
[2019-07-10] MEDS: oxyCODONE CR 15 MG Tablet PO ×2 (05:46→17:55)
[2019-07-10 06:05] LABS: Anion Gap 6 (5-15); BUN 19 mg/dL (7-18); BUN/Creat Ratio 17.9 RATIO (10-20); Calcium,Total 7.8 mg/dL (8.5-10.1); Chloride 109 mmol/L (98-107); Creatinine, Serum 1.06 mg/dL (0.70-1.30); EST Glomerular Filtration Rate 73 mL/min (>60); Est Glom Filt Rate - Afr Amer 88 mL/min (>60); Estimated Creatinine Clearance 68.12 ml/min; Glucose 129 mg/dL (74-106); Potassium 4.4 mmol/L (3.5-5.1); Sodium Level 142 mmol/L (136-145)
[2019-07-10] MEDS: 0.45% Normal Saline 1,000 ML 125 ML IV (06:38)
[2019-07-10] MEDS: Albuterol 2.5 MG/3 ML VIAL.NEB. INHALATION (06:46)
--- NOTE | 2019-07-10 07:34 | PCM.PN.BLA ---
Progress Note Postoperative day #1 status post a right radical nephrectomy for renal cell carcinoma clinically is doing well he does have bronchitis with a cough he is on Levaquin with this we can restart his doxazosin today and will remove the catheter for voiding trial good to KVO his fluids we will advance him to a full liquid diet. And then we will have him ambulate in the hallways. Still requiring oxygen will see when he is ready to go home awaiting consult from pulmonary.
[2019-07-10] MEDS: HYDROcodone Bitartrate/Apap 5/325 Tablet PO ×2 (08:27→21:11)
[2019-07-10] MEDS: predniSONE 10 MG Tablet PO (08:28)
[2019-07-10] MEDS: dilTIAZem CD 120 MG Capsule PO (08:29)
[2019-07-10] MEDS: Docusate Sodium 100 MG Capsule PO ×2 (08:29→21:12)
[2019-07-10] MEDS: Pantoprazole Sodium 20 MG Tablet PO (08:29)
[2019-07-10] MEDS: Montelukast 10 MG Tablet PO (08:29)
[2019-07-10] MEDS: Loratadine 10 MG Tablet 5 MG PO (08:29)
[2019-07-10] MEDS: Magnesium Hydroxide 30 ML UDC 15 ML PO (08:32)
[2019-07-10] MEDS: Doxazosin 4 MG Tablet PO ×2 (08:32→21:14)
[2019-07-10] MEDS: guaiFENesin 1,200 MG Tablet 1200 MG PO ×2 (10:16→21:12)
[2019-07-10] MEDS: Ipratropium/Albuterol Sulfate 3 ML AMPUL.NEB INHALATION ×3 (11:06→18:53)
[2019-07-10 11:56] LABS: Pathologist Review Reviewed
--- NOTE | 2019-07-10 12:40 | CASEMGMT ---
RN CM FULLER BRUSH WORKER CM to room to meet with patient for initial transition planning/care coordination assessment. TAWNYA EDWARDS introduced self and role at [facility]. Pt voices understanding and consents to assessment at this time. Pt resting in bed in no distress at this time. Pt is A/O at this time and answers all questions appropriately. Care providers, pharmacy, and demographics verified/updated at this time. PCP:Jordy Specialists:Hollis--pulmonology, Jed-uirology, Jimmy-cardiology, Basali-pain mgmt Preferred [facility]acy: [facility] Insurance:Christian VELASQUEZ Prescription Benefit: [employer] Living Will/HPOA: Has both LW and HCPOA who is his , Eden ROBERTS: and 3 adult children Living Arrangements:Lives with his in 2 story home w/basement. Has FFSU. Independent prior to admission. able to assist as needed. Transportation: Pt states drives self and states no transportation concerns at this time. will drive @ d/c. DME: States has the following DME: tub bench, nebulizer Pt states no need for further DME at this time. HHC/SNF: No history of either and denies needs. Pt wishes to return home and states has no concerns with going home at time of discharge. CM to follow for home oxygen needs and any further discharge planning/needs. Pt voices no further concerns/needs at this time. Advised pt to ask for CM if any further questions/concerns/needs arise. Voices understanding. PLAN: Home with spousal support and discharge plans in place. Pastor OMALLEY RN, CM
[2019-07-10] MEDS: Morphine 2 MG/ML Syringe IV (13:34)
[2019-07-10] MEDS: 0.9% NaCl Peripheral Flush Adult/Peds IV (13:35)
[2019-07-10] MEDS: Atorvastatin Calcium 10 MG Tablet PO (21:12)
[2019-07-11] VITALS (14 sets, daily range): BP systolic 91–145; BP diastolic 49–92; PULSE 72–142; RESP 16–20; TEMP 36.8–37.1; O2SAT 91–96
[2019-07-11] MEDS: levoFLOXacin 500 MG Tablet PO (06:00)
[2019-07-11] MEDS: oxyCODONE CR 15 MG Tablet PO ×2 (06:00→18:59)
[2019-07-11] MEDS: Enoxaparin 40 MG/0.4 ML Syringe SC (06:00)
[2019-07-11] MEDS: Ipratropium/Albuterol Sulfate 3 ML AMPUL.NEB INHALATION ×4 (06:58→19:25)
--- NOTE | 2019-07-11 08:06 | PCM.PROGNOTE ---
Subjective: Advancing sputum with flutter valve Copious amounts of clear material today No chest pressure or pain Shortness of breath is minimal He does report wheezing He has been compliant with aerosol treatments Not describing abdominal discomfort Review of systems significant for loss abdominal bloating, no leg pain, dry mucous membranes, no chest pressure pain, - Physical Exam General: Alert, Oriented x3, Cooperative HEENT: Atraumatic, PERRLA, EOMI, Normocephalic Oral: Dry Mucosa Neck: Supple, No JVD, Negative Carotid Bruits, Trachea Midline Lungs: - - Good air entry, expiratory wheeze, scattered rhonchi, coarse rhonchi are bilateral, no change in 24 hour, no rales prolonged expiratory phase 1: 1.5 Cardiovascular: Regular rate, Regular Rhythm, No murmurs, - - No S3, borderline tachycardia Abdomen: Bowel Sounds Present, Soft, - - Bowel sounds present minimal tenderness no hepatosplenomegaly, some distention Extremities: No edema, Capillary Refill Less than 3 Seconds Skin: No rashes, No breakdown Musculoskeletal: No Tenderness to Palpation of Joints or Extremities Neurological: Cranial nerves II-XII grossly intact Psych/Mental Status: Normal Affect, Appropriate Vital Signs Temp Pulse Resp BP Pulse Ox 98.7 F 96 18 139/83 H 91 07/11/19 02:00 07/11/19 06:58 07/11/19 06:58 07/11/19 02:00 07/11/19 06:58 Oxygen Flow Rate (L/min) 2 Oxygen Delivery Method Room Air Weight: 79.7 kg Body Mass Index (BMI) 23.8 Intake and Output for Last 24 Hours 07/09/19 07/10/19 07/11/19 23:59 23:59 23:59 Intake Total 4381.67 / 4381.67 2477.92 / 2777.92 400 / 400 Output Total 1350 / 1350 3425 / 3625 1400 / 1400 Balance 3031.67 / 3031.67 -947.08 / -847.08 -1000 / -1000 Microbiology Past 72 Hours 07/10/19 08:40 Gram Stain - Final Sputum, Expectorated/Coughed Laboratory Tests Past 24 Hrs 07/09/19 10:55 [address] Review Reviewed Medical Necessity - Tobacco Use Smoking Status: Never smoker Tobacco Use: Non-smoker Assessment/Plan All Active Problems (Last Reviewed 07/04/19 @ 11:29 by Anuradha Salazar) Pre-operative cardiovascular examination (Acute) New onset atrial fibrillation (Acute) Renal cancer (Acute) Right kidney mass (Acute) Renal insufficiency (Acute) Hx of repair of right rotator cuff (Resolved) Allergic rhinitis (Acute) Paresthesia (Resolved) Atypical presentation with 6 weeks of chronic cough poorly responsive to steroids and antibiotics Aggressive pulmonary toilet for 24 hours, little benefit Flutter valve every hour, aerosol treatments every 4 hours, Mucinex 1200 twice a day, completing IV steroids for stress dosing Sputum culture is pending Patient is not hypoxic and the dyspnea is no worse He indicates that he coughed up a lot this morning On discharge today I am recommending nebulized budesonide 1000 mg twice a day I suggest follow-up in my office early next week Continue Breo 200 Albuterol nebulized 4 times a day Mucinex 1200 twice a day Await sputum culture Call for questions
[2019-07-11] MEDS: predniSONE 10 MG Tablet PO (09:41)
[2019-07-11] MEDS: guaiFENesin 1,200 MG Tablet 1200 MG PO ×2 (09:41→20:10)
[2019-07-11] MEDS: Pantoprazole Sodium 20 MG Tablet PO (09:42)
[2019-07-11] MEDS: dilTIAZem CD 120 MG Capsule PO (09:42)
[2019-07-11] MEDS: Docusate Sodium 100 MG Capsule PO ×2 (09:42→20:10)
[2019-07-11] MEDS: Montelukast 10 MG Tablet PO (09:42)
[2019-07-11] MEDS: Loratadine 10 MG Tablet 5 MG PO (09:42)
[2019-07-11] MEDS: 0.9% NaCl Peripheral Flush Adult/Peds IV ×2 (09:44→11:09)
[2019-07-11] MEDS: Magnesium Hydroxide 30 ML UDC 15 ML PO (09:46)
[2019-07-11] MEDS: Doxazosin 4 MG Tablet PO (09:48)
--- NOTE | 2019-07-11 10:44 | PCM.PROGNOTE ---
Subjective: had a fallthis am will consult medical for evaluation. reg diet ambulate ++ flatus - Physical Exam General: Alert, Oriented x3, Cooperative HEENT: Atraumatic, PERRLA, EOMI, Normocephalic Neck: Supple, No JVD, Negative Carotid Bruits Lungs: Clear to auscultation, Normal air movement Cardiovascular: Regular rate, No murmurs Abdomen: Bowel Sounds Present, Soft, Non Tender Extremities: No edema, Capillary Refill Less than 3 Seconds Skin: No rashes, No breakdown Musculoskeletal: No Tenderness to Palpation of Joints or Extremities Neurological: Cranial nerves II-XII grossly intact Psych/Mental Status: Normal Affect, Appropriate Vital Signs Temp Pulse Resp BP Pulse Ox 98.2 F 92 16 145/92 H 95 07/11/19 09:25 07/11/19 09:25 07/11/19 09:25 07/11/19 09:25 07/11/19 09:25 Oxygen Flow Rate (L/min) 2 Oxygen Delivery Method Room Air Weight: 79.7 kg Body Mass Index (BMI) 23.8 Orthostatic Vital Signs Start: 07/11/19 09:53 Freq: q24h Status: Active Protocol: Activity Type Activity Date Activity User E-Sign Co-Sign Detail Recorded Client Recorded Date Recorded By Document 07/11/19 09:25 [facility] [id number] 07/11/19 09:54 [facility] 07/11/19 09:25 Orthostatic Vitals Standing -Blood Pressure (90/60-120/80) 92/49 L -Extremity Use Right Arm -Pulse Rate (60-100) 72 Lying -Blood Pressure (90/60-120/80) 145/92 H -Extremity Use Right Arm -Pulse Rate (60-100) 92 Intake and Output for Last 24 Hours 07/09/19 07/10/19 07/11/19 23:59 23:59 23:59 Intake Total 4381.67 / 4381.67 2477.92 / 2777.92 400 / 400 Output Total 1350 / 1350 3425 / 3625 1400 / 1400 Balance 3031.67 / 3031.67 -947.08 / -847.08 -1000 / -1000 Microbiology Past 72 Hours 07/10/19 08:40 Gram Stain - Final Sputum, Expectorated/Coughed Laboratory Tests Past 24 Hrs 07/09/19 10:[address] Review Reviewed Medical Necessity - Tobacco Use Smoking Status: Never smoker Tobacco Use: Non-smoker Assessment/Plan All Active Problems (Last Reviewed 07/04/19 @ 11:29 by Anuradha Salazar) Pre-operative cardiovascular examination (Acute) New onset atrial fibrillation (Acute) Renal cancer (Acute) Right kidney mass (Acute) Renal insufficiency (Acute) Hx of repair of right rotator cuff (Resolved) Allergic rhinitis (Acute) Paresthesia (Resolved) 73 yo male right nephrectomyd adv reg diet fluid bolus ambulat maybe home tomorrow. check labs
[2019-07-11] MEDS: 0.9% Normal Saline 1,000 ML 999 ML IV (11:09)
[2019-07-11] MEDS: HYDROcodone Bitartrate/Apap 5/325 Tablet PO ×2 (11:13→20:09)
--- NOTE | 2019-07-11 12:29 | PN_ITS ---
Subjective: Pt fell while ambulating today. + orthos. He is now resting comfortably in bed with no dizziness/LH/palp. He does c/o some wheezing for which he follows Dr. Shafer. He carries a dx of asthma and says it has been worse the past 2 weeks. He currently has minimal pain. - Physical Exam General: Alert, Oriented x3, Cooperative HEENT: Atraumatic, PERRLA, EOMI, Normocephalic Neck: Supple, No JVD, Negative Carotid Bruits Lungs: Normal air movement, Rhonchi Cardiovascular: Regular rate, No murmurs Abdomen: Bowel Sounds Present, Soft, Non Tender Extremities: No edema, Capillary Refill Less than 3 Seconds Skin: No rashes, No breakdown Musculoskeletal: No Tenderness to Palpation of Joints or Extremities Neurological: Cranial nerves II-XII grossly intact Psych/Mental Status: Normal Affect, Appropriate Vital Signs Temp Pulse Resp BP Pulse Ox 98.2 F 98 18 145/92 H 95 07/11/19 09:25 07/11/19 10:58 07/11/19 10:58 07/11/19 09:25 07/11/19 09:25 Oxygen Flow Rate (L/min) 2 Oxygen Delivery Method Room Air Weight: 175 lb 11.335 oz Body Mass Index (BMI) 23.8 Orthostatic Vital Signs Start: 07/11/19 09:53 Freq: q24h Status: Active Protocol: Activity Type Activity Date Activity User E-Sign Co-Sign Detail Recorded Client Recorded Date Recorded By Document 07/11/19 09:25 [facility] [id number] 07/11/19 09:54 [facility] 07/11/19 09:25 Orthostatic Vitals Standing -Blood Pressure (90/60-120/80) 92/49 L -Extremity Use Right Arm -Pulse Rate (60-100) 72 Lying -Blood Pressure (90/60-120/80) 145/92 H -Extremity Use Right Arm -Pulse Rate (60-100) 92 Intake and Output for Last 24 Hours 07/09/19 07/10/19 07/11/19 23:59 23:59 23:59 Intake Total 4381.67 / 4381.67 2477.92 / 2777.92 1400 / 1400 Output Total 1350 / 1350 3425 / 3625 1400 / 1400 Balance 3031.67 / 3031.67 -947.08 / -847.08 0 / 0 Microbiology Past 72 Hours 07/10/19 08:40 Gram Stain - Final Sputum, Expectorated/Coughed Respiratory Culture - Preliminary Gram negative carlene Medical Necessity - Tobacco Use Smoking Status: Never smoker Tobacco Use: Non-smoker Assessment/Plan All Active Problems (Last Reviewed 07/04/19 @ 11:29 by Anuradha Salazar) Pre-operative cardiovascular examination (Acute) New onset atrial fibrillation (Acute) Renal cancer (Acute) Right kidney mass (Acute) Renal insufficiency (Acute) Hx of repair of right rotator cuff (Resolved) Allergic rhinitis (Acute) Paresthesia (Resolved) 1. Fall 2/2 Orthostatic hypotension - with small scalp abrasion. bolus 1L and trend orthos q8. Check repeat H/H. 2. renal cancer s/p right nephrectomy post op D#2 3. asthma - Dr. Shafer following. Continue budesonide and duonebs. Recent CTA chest 07/08/19 some atelectasis. Encouraged IS and PEP therapy. 4. Afib - pt of Dr. Marquez. Rate controlled. Cardizem. Not on OAC. DVT ppx: per surgery - lovenox. Thank you for the opportunity to participate in the care of this patient. This patient was seen by Apolinar Blackmon PA-C under the supervision of Dr. Rowe.
[2019-07-11 12:42] LABS: Hematocrit 36.9 % (40-54); Hemoglobin 11.7 g/dL (13.0-16.5)
[2019-07-11] MEDS: Atorvastatin Calcium 10 MG Tablet PO (20:10)
[2019-07-12] VITALS (7 sets, daily range): BP systolic 112–158; BP diastolic 66–86; PULSE 78–152; RESP 16–18; TEMP 36.9–37.6; O2SAT 92–96
[2019-07-12] MEDS: HYDROcodone Bitartrate/Apap 5/325 Tablet PO ×2 (03:42→08:29)
[2019-07-12] MEDS: oxyCODONE CR 15 MG Tablet PO (06:45)
[2019-07-12] MEDS: Enoxaparin 40 MG/0.4 ML Syringe SC (06:48)
[2019-07-12] MEDS: levoFLOXacin 500 MG Tablet PO (06:49)
[2019-07-12] MEDS: Ipratropium/Albuterol Sulfate 3 ML AMPUL.NEB INHALATION ×2 (07:32→11:45)
--- NOTE | 2019-07-12 08:01 | DS.PCM_ITS ---
Discharge Date and Diagnosis Date of Admission: 07/09/19 Date of Discharge: 07/12/19 - Secondary Discharge Diagnosis Chronic Problems (Last Reviewed 07/04/19 @ 11:29 by Anuradha Salazar) Patent foramen ovale (Chronic) Per echo 05/12/2019@ [facility] Hypertension (Chronic) Hyperlipidemia (Chronic) Bradycardia (Chronic) Thyroid nodule (Chronic) Moderate persistent asthma (Chronic) Arthritis (Chronic) History of deviated nasal septum (Chronic) Degenerative disc disease (Chronic) Hospital Course and Treatment Pulmonary, and hospitalist service Operations: - - Right robotic radical nephrectomy Procedures: None Summary of Care Provided: The patient is a 73 year old male who was found to have renal cell carcinoma in his right kidney also had a metastatic spot in his near his spine, he underwent radiotherapy for the metastatic spot the plan to do immunotherapy but we can proceed with cytoreductive nephrectomy. He underwent cytoreductive nephrectomy on 07/09/2018 minimal blood loss after surgery he was stable. Did not receive any blood transfusions. On postoperative day #1 he was advanced to full liquid diet was ambulating. On postoperative day #2 he was advanced to regular diet Hep-Lock his fluids he did have a syncopal event and was given a fluid bolus was found to be orthostatic. Also during his hospital stay required hospitalist consult to help medical management. Also be consulted pulmonary because of his bronchitis which she had before surgery. He was given breathing treatments continue with steroids and Levaquin for antibiotics. On postoperative day #3 he had a good nights rest, tolerating regular diet, had coughed up a lot of mucus and was feeling better, was breathing well on room air did not require any oxygen he ambulated the hallways, his abdomen was soft and benign, had passed gas no bowel movement yet but his belly was benign and soft. He was discharged to home with instructions to resume all his medications, Girdletree for pain, Colace, and finish another 10 days of Levaquin he is also going to follow-up with pulmonary as an outpatient. He will follow-up with urology in a week for postop check and also will follow up with his oncologist in about 2 or 3 weeks to possibly start immunotherapy. - Physical Exam General: Alert, Oriented x3, Cooperative HEENT: Atraumatic, PERRLA, EOMI, Normocephalic Neck: Supple, No JVD, Negative Carotid Bruits Lungs: Clear to auscultation, Normal air movement Cardiovascular: Regular rate, No murmurs Abdomen: Bowel Sounds Present, Soft, Non Tender Extremities: No edema, Capillary Refill Less than 3 Seconds Skin: No rashes, No breakdown Musculoskeletal: No Tenderness to Palpation of Joints or Extremities Neurological: Cranial nerves II-XII grossly intact Psych/Mental Status: Normal Affect, Appropriate Vital Signs Temp Pulse Resp BP Pulse Ox 98.5 F 86 18 152/80 H 96 07/12/19 03:00 07/12/19 07:30 07/12/19 03:00 07/12/19 06:00 07/12/19 03:00 Oxygen Flow Rate (L/min) 2 Oxygen Delivery Method Room Air Weight: 79.7 kg Body Mass Index (BMI) 23.8 Orthostatic Vital Signs Start: 07/11/19 09:53 Freq: Q8H Status: Active Protocol: Activity Type Activity Date Activity User E-Sign Co-Sign Detail Recorded Client Recorded Date Recorded By Document 07/12/19 06:00 [facility] [id number] 07/12/19 06:52 [facility] 07/12/19 06:00 Orthostatic Vitals Sitting -Blood Pressure (90/60-120/80) 131/84 H -Extremity Use Right Arm -Pulse Rate (60-100) 136 H Standing -Blood Pressure (90/60-120/80) 112/66 -Extremity Use Right Arm -Pulse Rate (60-100) 152 H Lying -Blood Pressure (90/60-120/80) 152/80 H -Extremity Use Right Arm -Pulse Rate (60-100) 84 Intake and Output for Last 24 Hours 07/10/19 07/11/19 07/12/19 23:59 23:59 23:59 Intake Total 2477.92 / 2777.92 2900 / 3250 350 / 350 Output Total 3425 / 3625 1400 / 1850 1250 / 1250 Balance -947.08 / -847.08 1500 / 1400 -900 / -900 Microbiology Past 72 Hours 07/10/19 08:40 Gram Stain - Final Sputum, Expectorated/Coughed Respiratory Culture - Final Pseudomonas aeroginosa Laboratory Tests Past 24 Hrs 07/11/19 12:28 Hgb 11.7 L Hct 36.9 L Discharge Diet: Light diet - advance as tolerated Discharge Activity: May Not Drive, May not drive while taking narcotic pain medications. May shower in (days): 1 Call your doctor if your incision/area has: Continuous Slow Oozing, Sudden Increased Bleeding, Increased Pain/ Swelling, Increased Redness, Foul Smelling Discharge, Swelling at the incision site Call your doctor if you observe: Fever of 101 or Higher, Inability to have a bowel movement, Shortness of breath, Uncontrolled pain Suture Line Care: Avoid Pulling/Pushing, Avoid Pinching/Bending Home Medications: Medications to take at Discharge Fluticasone/Vilanterol [Breo Ellipta Inhaler] 1 ea IH DAILY 06/03/19 Levocetirizine Dihydrochloride 5 mg PO DAILY 07/01/19 Montelukast [Singulair] 10 mg PO DAILY 07/01/19 Prednisone 10 mg PO DAILY 07/01/19 albuterol sulfate 90 mcg/actuation breath activated powder inhaler 1 inh INHALATION Q4H PRN 07/04/19 diazepam 5 mg tablet 5 mg PO DAILY PRN tab 07/04/19 diltiazem ER 120 mg capsule,24 hr,extended release 120 mg PO DAILY #30 cap 07/04/19 doxazosin 4 mg tablet 4 mg PO BID tab 07/04/19 naproxen 500 mg tablet 500 mg PO BID PRN 07/04/19 oxycodone 5 mg tablet 5 mg PO .COMPLEX 07/04/19 simvastatin 20 mg tablet 20 mg PO QHS 07/04/19 trazodone 50 mg tablet 75 mg PO QHS PRN tab 07/04/19 Oxycodone Myristate [Xtampza ER] 13.5 mg PO Q12H 07/09/19 Docusate Sodium [Colace] 100 mg PO BID #20 cap 07/12/19 Hydrocodone/Acetaminophen [Girdletree 5-325 Tablet] 1 ea PO Q4H PRN PRN 5 Days #14 tab 07/12/19 Levofloxacin [Levaquin] 500 mg PO DAILY #10 tab 07/12/19 Following Prescrptions Were Given to Patient: Docusate Sodium [Colace] 100 mg PO BID #20 cap Prescription Printed Levofloxacin [Levaquin] 500 mg PO DAILY #10 tab Prescription Printed Hydrocodone/Acetaminophen [Girdletree 5-325 Tablet] 1 ea PO Q4H PRN PRN 5 Days #14 tab PRN Reason: Pain Prescription Printed Primary Care Physician: Kiara Spence DO [Primary Care Provider] - Please Follow Up With: Kory Adkins MD When: please call to make an appointment. Medical Necessity - Tobacco Use Smoking Status: Never smoker Tobacco Use: Non-smoker Meaningful Use Info Meaningful Use Diagnoses (Choose all that apply): None applicable
[2019-07-12] MEDS: guaiFENesin 1,200 MG Tablet 1200 MG PO (08:28)
[2019-07-12] MEDS: Montelukast 10 MG Tablet PO (08:28)
[2019-07-12] MEDS: predniSONE 10 MG Tablet PO (08:28)
[2019-07-12] MEDS: Pantoprazole Sodium 20 MG Tablet PO (08:28)
[2019-07-12] MEDS: Loratadine 10 MG Tablet 5 MG PO (08:28)
[2019-07-12] MEDS: dilTIAZem CD 120 MG Capsule PO (08:28)
--- NOTE | 2019-07-12 08:31 | NURSING ---
am meds given at this time as pt takes at home
== END 2019-07-12 12:45 | disposition home or self-care (01) | DRG 657 ==
LOC: ACINP 05:55 → MS3 08:23
PROVIDERS: Anesthesiology; Physician Assistant; Admitting Provider Urology; Family Provider Internal Medicine; PCP Internal Medicine; Referring Provider Urology; Visit Provider Urology
PROC: 0TT04ZZ Resection of Right Kidney, Percutaneous Endoscopic Approach (ICD-10-PCS; CPT 50546; principal; 2019-07-09 07:10)
DX: C64.1 Malignant neoplasm of right kidney, except renal pelvis (principal); C79.51 Secondary malignant neoplasm of bone; Q21.1 Atrial septal defect; Z92.3 Personal history of irradiation; J40 Bronchitis, not specified as acute or chronic; I95.1 Orthostatic hypotension; I48.91 Unspecified atrial fibrillation; S00.01XA Abrasion of scalp, initial encounter; W19.XXXA Unspecified fall, initial encounter; Y92.231 Patient bathroom in hospital as the place of occurrence of the external cause; E78.5 Hyperlipidemia, unspecified; J45.40 Moderate persistent asthma, uncomplicated; I10 Essential (primary) hypertension; R05 Cough
CPT/HCPCS: 36415; 71046; 71275; 80048; 80076; 85014; 85018; 85025; 85027; 85610; 85730; 86850; 86900; 86901; 86920; 86922; 87070; 87077; 87184; 87186; 87205; 88307; 88331; 88341; 88342; 93005; 93017; 93350; 94640; 94667; 94668; 97161; 97166; J7030; J7120; Q9957; Q9967; A4216; C8928; J2405

== ENCOUNTER 2019-07-14 06:06 | Inpatient (IN) | payer MEDICARE, BC, SELFPAY ==
[2019-07-09 12:39] VITALS: BMI 23.8
[2019-07-14] VITALS (23 sets, daily range): BP systolic 68–149; BP diastolic 50–99; PULSE 56–133; RESP 15–26; TEMP 36.8–37.8; O2SAT 91–95; BMI 24.3; BMI 23.6
--- NOTE | 2019-07-14 06:25 | RAD_ITS ---
HISTORY: Fever . RECENT KIDNEY REMOVAL SURGERY EXAMINATION/TECHNIQUE: XR Chest 2 Views: COMPARISON: 07/08/2019 FINDINGS: EKG leads in place. Normal heart size. Left basilar mild subsegmental atelectasis. As seen on the lateral view, bilateral tiny pleural effusions, new compared to the previous exam. No vascular congestion or pulmonary consolidation. No pneumothorax. Atherosclerotic thoracic aorta. RAD/Chest PA and Lateral IMPRESSION: 1. Left basilar mild subsegmental atelectasis. Bilateral tiny pleural effusions, new compared to previous. 2. No pneumonia seen. at 0718 Reported and signed by: Esau Souza MD Electronically Signed: Esau Souza, at 7:16 EDT Tel , Service support ,
--- NOTE | 2019-07-14 06:45 | CT_ITS ---
HISTORY: ABD PAIN, FEVER TODAY, S/P NEPHRECTOMY 07/09/19, ABD DISTENDED, HX-ASTHMA, KIDNEY CA-T12 LESION WITH RAD TX, PREV UROLIFT EXAMINATION: CT Abdomen And Pelvis W/O Contrast TECHNIQUE: Helically acquired images were obtained of the abdomen and pelvis without oral or IV contrast as per renal stone protocol. A radiation dose optimization technique was used for this scan. IV Contrast dosage and agent: None. Oral contrast: None. COMPARISON: None FINDINGS: Recent right nephrectomy. Large subcutaneous emphysema at the right flank and gas extends to the anterolateral abdominal wall in the right. This may reflect laparoscopic insufflation of air. Additional smaller soft tissue gas emphysema deep to the oblique muscle group at the right flank. Additional small gas collection within the right retroperitoneum. No pneumoperitoneum and no pneumothorax seen. Small free fluid within the pelvis posterior to the urinary bladder and additional small free fluid at the right abdomen surrounding the liver and involving the subhepatic space. Lower thorax: Tiny right pleural effusion with right basilar subsegmental atelectasis. Left basilar mild subsegmental atelectasis. No pericardial effusion. No radiopaque gallstones and no biliary dilatation. The liver is upper normal in size and shows fatty infiltration. No focal hepatic lesion. Normal spleen. Atrophic pancreas. Surgical absence of the right kidney. The left kidney is normal in position and shows a 4 x 2 mm calyceal stone and adjacent 2 mm calyceal stone at the lower pole. No hydronephrosis or hydroureter. Bilateral wedge into glands appear normal. Abdominal aorta is atherosclerotic as normal in caliber. No retroperitoneal lymph enlargement. GI tract: No obstruction. Mild diverticulosis coli. Pelvis: Small free fluid. Normal urinary bladder. The prostate gland shows fiducial markers. No pelvic lymph node enlargement. Right inguinal small soft tissue gas which represents inferior extension of subcutaneous is seen at the right flank and anterolateral right abdomen. 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 The lesion measures approximately 4.3 x 2.[address]/Abdomen/Pelvis without Cont IMPRESSION: 1. Recent right nephrectomy with considerable subcutaneous emphysema at the right flank extending to the anterolateral abdominal wall on the right. This gas may be laparoscopic in origin. 2. No pneumothorax or pneumoperitoneum. 3. Pelvic and right abdominal small free fluid which is new compared to previous CT and compatible with postsurgical change. 4. Right retroperitoneal small gas collection without air-fluid level compatible with postsurgical change. 5. Left renal small nonobstructing stones. Negative for hydronephrosis. 6. 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 7. Tiny right pleural effusion with bibasilar mild atelectatic changes. Individualized dose optimization techniques were used for this CT. at 0757 Reported and signed by: Esau Souza MD Electronically Signed: Esau Souza, at 7:56 EDT Tel , Service support ,
--- NOTE | 2019-07-14 06:48 | ED.VISSUMM ---
- ER Visit Summary Date of Service: 07/14/19 Chief Complaint: Fever History of Present Illness: The patient is a 73 M who presents with a fever that began today. Patient states he had a recent right nephrectomy by Dr. Adkins. Patient started having fever of 102 this morning. Patient states he has pain in his right flank and right low back. Patient states this is worse with movement. Patient states he has oxycodone at home which has been helping with his pain. Patient did not take any today. Patient does admit to some shortness of breath. Patient states he has been using his incentive spirometer. Physical Examination: Vital signs are stable except for tachycardia of 124. Patient is afebrile here. Patient is in no acute distress. Oral mucosa is pink and moist. Neck is supple. Trachea is midline. There is no JVD noted. Heart was regular and tachycardic. Lungs are clear and equal bilaterally. There is adequate respiratory effort. Abdomen is soft. Bowel sounds are normal. There is right-sided tenderness. There is no rebound. There is some voluntary guarding. The incisions appear to be healing well. There is erythema warmth over the right abdomen. Cranial nerves II through XII are intact. There are no focal motor or sensory deficits noted. Test Results: CBC and basic metabolic profile were obtained. Creatinine was slightly elevated at 1.56 BUN was 23. PA and lateral chest x-ray was obtained. There is left basilar atelectasis but no acute infiltrate. CT scan of the abdomen and pelvis was obtained. Lactate level was obtained was normal at 1.6. Blood cultures were obtained. Emergency Department Course and Treatment: Patient was given IV fluids and morphine here. Disposition: Care of the patient was turned over to the oncoming physician pending CT results. Impression: 1. Postoperative fever This note was generated with [employer] dictation software. It may contain incorrect words, spelling, and punctuation that were not noted in review of the chart prior to signing ED Disposition - Plan for ED Patient: Referrals: Kiara Spence DO [Primary Care Provider] -
[2019-07-14 06:57] LABS: Hematocrit 39.9 % (40-54); Hemoglobin 13.2 g/dL (13.0-16.5); Mean Corp Hgb Conc 33.1 g/dL (32-36); Mean Corpuscular Hgb 33.7 pg (27.0-32.0); Mean Corpuscular Volume 101.8 fL (80-94); Mean Platelet Vol. 9.9 fl (6.2-12.0); POSITIVE COUNT YES; POSITIVE MORPHOLOGY YES; Platelet Count 207 K/mm3 (150-450); RBC Distribution Width CV 14.1 % (11.6-14.6); RBC Distribution Width SD 52.3 fl (35.1-43.9); Red Blood Count 3.92 M/mm3 (4.6-6.2); White Blood Count 8.3 K/mm3 (4.4-11.0)
[2019-07-14 07:01] LABS: Differential Indicated MANUAL DIFF; Prothrombin Time (Protime)PT. 13.3 SECONDS (11.7-14.9)
[2019-07-14 07:02] LABS: Partial Thromboplast Time 30.3 Seconds (24.1-36.2)
[2019-07-14 07:02] LABS: Lactic Acid 1.6 mmol/L (0.4-2.0)
[2019-07-14 07:11] LABS: ALB/GLOB Ratio 0.5 RATIO (0.9-2.4); AST(SGOT) 48 U/L (15-37); Alanine Aminotransfer ALT/SGPT 77 U/L (16-61); Albumin, Serum 2.2 g/dL (3.2-5.0); Alkaline Phosphatase 64 U/L (45-117); Anion Gap 6 (5-15); BUN 23 mg/dL (7-18); BUN/Creat Ratio 14.7 RATIO (10-20); Calcium,Total 8.5 mg/dL (8.5-10.1); Chloride 106 mmol/L (98-107); Creatinine, Serum 1.56 mg/dL (0.70-1.30); EST Glomerular Filtration Rate 47 mL/min (>60); Est Glom Filt Rate - Afr Amer 56 mL/min (>60); Estimated Creatinine Clearance 46.29 ml/min; Globulin 4.3 g/dL (2.2-4.2); Glucose 98 mg/dL (74-106); Potassium 4.8 mmol/L (3.5-5.1); Protein, Total 6.5 g/dL (6.4-8.2); Sodium Level 138 mmol/L (136-145)
[2019-07-14] MEDS: 0.9% Normal Saline 1,000 ML 50 ML IV (07:14)
[2019-07-14] MEDS: Morphine 4 MG/ML Syringe IV ×2 (07:14→13:15)
[2019-07-14 07:23] LABS: Eosinophil 1 % (0-5); Lymphocyte 3 % (19-41); Metamyelocyte 2 % (0-1); Monocyte 3 % (0-10); Myelocyte 1 (0-0); Neutrophil-Segmented 90 % (47-70); Nucleated Red Bld Cells,Manual 1 % (0-5); Platelet Estimate ADEQUATE (ADEQ); Red Cell Morphology NORM C+C NORMAL (NORM C&C); Total Cells Counted 100 (MANUAL DIFF)
[2019-07-14 07:24] LABS: Absolute Lymphocyte Count 0.25 X10^3/uL (0.83-4.51); Absolute Neutrophil Count 7.5 X10^3/uL (2.0-7.7); Lymphocyte # 0.25 X10^3/ul (4.0); Neutrophil # 7.47 X10^3/uL (2.7-7.7)
[2019-07-14 09:43] LABS: Bacteria 0 SEEN /hpf (None Seen); Mucous, Urine 0 SEEN /hpf (<or=2+); Squamous Epithelial Cells - UA 0 SEEN /hpf (0-5); White Blood Cells 0 SEEN /hpf (0-5)
[2019-07-14 09:45] LABS: Color, Urine Yellow (Yellow); Glucose, Dipstick Normal (Normal); Ketone-Dipstick Negative (Negative); Leukocyte Esterase-Dipstick Negative /ul (Negative); Nitrite-Dipstick Negative (Negative); Occult Blood-Urine 250 /ul (Negative); Protein-Dipstick 15 mg/dl (Negative); Urine Bilirubin Dipstick Negative (Negative); Urine Clarity Sl. Cloudy (Clear); Urine Urobilinogen Normal (Normal); Urine pH 6.5 (5.0 - 8.0)
[2019-07-14 09:50] LABS: Red Blood Cells-Urine 10-25 SEEN /hpf (0-5)
[2019-07-14] MEDS: 0.9% Normal Saline 1,000 ML 999 ML IV (10:21)
[2019-07-14] MEDS: 0.9% Normal Saline 1,000 ML 150 ML IV ×3 (10:21→23:53)
--- NOTE | 2019-07-14 10:32 | CT_ITS ---
STUDY: CT CHEST WITHOUT CONTRAST REASON FOR EXAM: Male, 73 years old. Fever and shortness of breath. Chronic bronchitis. RADIATION DOSAGE (If Supplied By Facility): CTDIvol = ( 16.59 ) mGy, DLP = ( 607.19 ) mGycm TECHNIQUE: Transaxial imaging was performed without the administration of intravenous contrast material. Multiplanar coronal and sagittal images were reformatted. Individualized dose optimization techniques were used for this CT. COMPARISON: Comparison is made with prior examination dated July 08, 2019 and June 03, 2019. FINDINGS: There now is evidence of subcutaneous emphysema overlying the right lower thoracic wall. Small bilateral pleural effusions with mild dependent bibasilar atelectasis. There are now increased markings with areas of confluence in the anterior aspect of both right and left upper lobes. There are calcifications of the coronary arteries. Small pericardial effusion. This is new as compared to prior study. There are multiple small lymph nodes within the mediastinum, which are normal in size and morphology most compatible with reactive lymph hyperplasia. Calcified right hilar lymph nodes. Normal unenhanced pulmonary arteries. There is atherosclerotic calcification of the aortic arch. Stable soft tissue mass with bony destruction involving the T12 vertebrae more prominent on the right side. Stable appearance of the thoracic spine with demineralization. Stable soft tissue mass on the right side of the T12 thoracic vertebrae. Fatty infiltration of the liver. CT/Chest without Contrast IMPRESSION: New small bilateral pleural effusions with bibasilar atelectasis. Increased markings in the anterior aspects of both upper lobes. New small pericardial effusion. There now is evidence of subcutaneous emphysema overlying the right lower chest. Electronically Signed: Lucho Bond, at 11:28 EDT , Service support ,
[2019-07-14] MEDS: Albuterol 2.5 MG/3 ML VIAL.NEB. INHALATION (11:30)
--- NOTE | 2019-07-14 12:05 | HP.PCM_ITS ---
Problem List (1) ARF (acute renal failure) Status: Acute (2) Patent foramen ovale Status: Chronic Comment: Per echo 05/12/2019@ [facility] (3) Renal cancer Status: Chronic Qualifiers: Laterality: right Qualified Code(s): C64.1 - Malignant neoplasm of right kidney, except renal pelvis Comment: S/P right nephrectomy 07/09/[address] Adkins (4) Hypertension Status: Chronic (5) Hyperlipidemia Status: Chronic (6) Bradycardia Status: Chronic (7) Thyroid nodule Status: Chronic (8) Moderate persistent asthma Status: Chronic (9) Arthritis Status: Chronic (10) History of deviated nasal septum Status: Chronic (11) Degenerative disc disease Status: Chronic (12) Allergic rhinitis Status: Acute (13) Pseudomonas pneumonia Status: Acute (14) Paroxysmal atrial fibrillation Status: Chronic (15) Chronic back pain Status: Chronic (16) Narcotic dependence Status: Chronic History of Present Illness Date of Admission: 07/14/19 Chief Complaint: fever The patient is a 73 year old M with a Past medical history of paroxysmal atrial fibrillation, hypertension, hyperlipidemia, moderate persistent asthma, chronic pain syndrome with chronic back pain, narcotic dependence, renal cancer with a large metastatic mass adjacent to and involving T12, patent foramen ovale, thyroid nodule and bradycardia who presented to the ED at [facility] on 07/14 c/o fevers. He had a R nephrectomy on 07/09/19. 1 Day prior to the surgery he had a fever with shaking chills and cough. A sputum culture on 07/10/19 grew pseudomonas aeruginosa resistant to fluoroquinolones. He was discharged from the hospital on 07/12/2019 on Levaquin. He has an aerosol machine at home and was using it prior to surgery. He tells me he cleans the machine after each use. He has been coughing up a lot of sputum. He denies chest pain. He does have SOB and he feels very fatigued. He has been passing gas and had a BM today. Denies Nausea/vomiting/lightheadedness. He denies chest pain and hemoptysis and has not calf pain. He is c/o pain in the abdomen and the back and is requesting MS. He had not taken any Percocet for breakthrough today. He received MS 4 mg in the ED. He is being admitted to the hospital with suspected PNA and will continue the Zosyn started in the ED. Past Medical History Past Medical History (Chronic Problems): Chronic Problems (Last Reviewed 07/04/19 @ 11:29 by Anuradha Salazar) Paroxysmal atrial fibrillation (Chronic) Chronic back pain (Chronic) Narcotic dependence (Chronic) Patent foramen ovale (Chronic) Per echo 05/12/2019@ [facility] Renal cancer (Chronic) S/P right nephrectomy 07/09/[address] Adkins Hypertension (Chronic) Hyperlipidemia (Chronic) Bradycardia (Chronic) Thyroid nodule (Chronic) Moderate persistent asthma (Chronic) Arthritis (Chronic) History of deviated nasal septum (Chronic) Degenerative disc disease (Chronic) Medical History: Medical History (Last Reviewed 07/14/19 @ 15:33 by Phoebe Moe DO) Patent foramen ovale (Chronic) Q21.1 Per echo 05/12/2019@ [facility] Renal cancer (Chronic) C64.9 S/P right nephrectomy 07/09/[address] Adkins Hypertension (Chronic) I10 Hyperlipidemia (Chronic) E78.5 Bradycardia (Chronic) R00.1 Thyroid nodule (Chronic) E04.1 Moderate persistent asthma (Chronic) J45.40 Arthritis (Chronic) M19.90 History of deviated nasal septum (Chronic) Z87.09 Degenerative disc disease (Chronic) Allergic rhinitis (Acute) J30.9 Paresthesia (Resolved) R20.2 Allergies No Known Allergies Allergy (Verified 07/14/19 06:07) Home Medications: Ambulatory Orders Medication Instructions Recorded Fluticasone/Vilanterol [Breo 1 ea IH DAILY 06/03/19 Ellipta 100-25 Mcg INH] Levocetirizine Dihydrochloride 5 mg PO DAILY 07/01/19 Montelukast [Singulair] 10 mg PO DAILY 07/01/19 simvastatin 20 mg tablet 20 mg PO QHS 07/04/19 Oxycodone Myristate [Xtampza ER] 13.5 mg PO Q12H 07/09/19 Albuterol Sulfate [Proair 1 inh INHALATION 4X/DAY #1 07/12/19 Respiclick] [email or web address] Docusate Sodium [Colace] 100 mg PO BID #20 cap 07/12/19 Guaifenesin [Mucinex] 1,200 mg PO BID tab 07/12/19 Hydrocodone/Acetaminophen [[place] 1 ea PO Q4H PRN PRN 5 Days #14 tab 07/12/19 5-325 Tablet] Doxazosin Mesylate 8 mg PO BID 07/14/19 Naproxen [Naprosyn] 500 mg PO BID PRN PRN 07/14/19 Surgical History: Surgical History (Last Reviewed 07/14/19 @ 15:33 by Phoebe Moe DO) Hx of repair of right rotator cuff (Resolved) Z98.890 2003 History of cystoscopy Onset Date: 06/22/17 Z98.890 Post-circumcision adhesion of penis Onset Date: 2014 N99.89, N47.5 history of transrectal biopsy ultrasound Onset Date: 06/22/17 Lives: Spouse/ Significant Other Smoking Status: Never smoker Tobacco Use: Non-smoker Alcohol: Occasional Drugs: None - *Family History Maternal Family History: Family History (Last Reviewed 07/04/19 @ 11:29 by Anuradha Salazar) Mother Colon cancer Father Emphysema lung History Items: No pertinent history Paternal Family History: Family History (Last Reviewed 07/04/19 @ 11:29 by Anuradha Salazar) Mother Colon cancer Father Emphysema lung History Items: No pertinent history Review of Systems Constitutional: Reports: Fever, Weakness. Denies: Chills, Weight Change HEENT: Denies: Head Aches, Sinus Congestion, Sinus Drainage Cardiovascular: Reports: - - has been getting up at night and sitting up on the side of the bed so that he can cough up secretions. Denies: Chest Pain, Light Headedness, Palpitations, Syncope Respiratory: Reports: Shortness of Breath. Denies: Cough, Hemoptysis, Shortness of breath at rest, Sputum production Gastrointestinal: Denies: Abdominal Pain, Nausea, Vomiting Genitourinary: Denies: Dysuria Musculoskeletal: Denies: Joint Pain, Joint Tenderness Skin: Reports: Wounds - he has incisions from the recent R nephrectomy and has extensive ecchymosis over the right side of the abdomen.. Denies: Jaundice, Rash Neurological: Denies: Slurred speech, Confusion, Focal weakness, Numbness, Tingling Psychiatric: Denies: Anxiety, Depression, Homicidal Ideations, Suicidal Ideations Hematologic/ Lymphatic: Denies: Easy Bruising, Easy Bleeding, Hx of blood clot VTE Information - Inpt Only VTE Present on Admission: No VTE Mechan Device Prophylaxis: SCD's, Knee High CHRISSIE Hose VTE Pharm Prophylaxis ordered?: Yes Patient Problems: Active and Suspected Problems (Last Reviewed 07/04/19 @ 11:29 by Anuradha Salazar) Pseudomonas pneumonia (Acute) ARF (acute renal failure) (Acute) - Physical Exam General: Alert, Oriented x3, Cooperative, Well developed, Well nourished HEENT: Atraumatic, PERRLA, EOMI, Normocephalic Oral: Dry Mucosa Neck: Supple, No JVD, Negative Carotid Bruits, - - Carotids have brisk upstroke and good pulse volume bilaterally Lungs: Diminished, Wheezes Cardiovascular: Regular rate, Normal S1, Normal S2, No murmurs, Irregular Rate, No rub noted, No Gallop Abdomen: Soft, Non-Distended, Tender - There is extensive bruising on the right side of the abdomen .....I do not appreciate any significant erythema. There is mild increased warmth to touch when compared to the left. The skin is dry and cracked over the Left abdomen. Extremities: No clubbing, No cyanosis, No edema, No Calf Tenderness, Peripheral Pulses Normal Skin: No rashes, No breakdown Neurological: Cranial nerves II-XII grossly intact, Neuro grossly intact Psych/Mental Status: Normal Affect, Appropriate Vital Signs Temp Pulse Resp BP Pulse Ox 98.2 F 60 18 126/67 H 94 07/14/19 11:14 07/14/19 11:30 07/14/19 11:30 07/14/19 11:14 07/14/19 11:30 Oxygen Delivery Method Room Air Weight: 174 lb 1.6 oz Body Mass Index (BMI) 23.6 Intake and Output for Last 24 Hours 07/12/19 07/13/19 07/14/19 23:59 23:59 23:59 Intake Total 806.93 / 806.93 Balance 806.93 / 806.93 Laboratory Tests Past 24 Hrs 07/14/19 07/14/19 07/14/19 06:20 06:20 06:20 WBC 8.3 RBC 3.92 L Hgb 13.2 Hct 39.9 L MCV 101.8 H MCH 33.7 H MCHC 33.1 RDW Std Deviation 52.3 H RDW Coeff of Santana 14.1 Plt Count 207 MPV 9.9 Neut % (Auto) Not Reportable Absolute Neuts (auto) 7.5 Absolute Lymphs (auto) 0.25 L Total Counted 100 Neutrophils % (Manual) 90 H Lymphocytes % (Manual) 3 L Monocytes % (Manual) 3 Eosinophils % (Manual) 1 Metamyelocytes % 2 H Myelocytes % 1 H Nucleated RBCs/100 WBC 1 Diff Path Review May foll Platelet Estimate ADEQUATE RBC Morphology NORM C+C PT 13.3 INR 1.0 APTT 30.3 Sodium 138 Potassium 4.8 Chloride 106 Carbon Dioxide 26.0 Anion Gap 6 BUN 23 H Creatinine 1.56 H Estim Creat Clear Calc 46.29 Est GFR (MDRD) Af Amer 56 L Est GFR (MDRD) Non-Af 47 L BUN/Creatinine Ratio 14.7 Glucose 98 Lactic Acid Calcium 8.5 Total Bilirubin 0.60 AST 48 H ALT 77 H Alkaline Phosphatase 64 Total Protein 6.5 Albumin 2.2 L Globulin 4.3 H Albumin/Globulin Ratio 0.5 L Urine Color Urine Clarity Urine pH Ur Specific [place] Urine Protein Urine Glucose (UA) Urine Ketones Urine Occult Blood Urine Nitrite Urine Bilirubin Urine Urobilinogen Ur Leukocyte Esterase Urine RBC Urine WBC Ur Squamous Epith Cells Urine Bacteria Urine Mucus 07/14/19 07/14/19 06:25 09:36 WBC RBC Hgb Hct MCV MCH MCHC RDW Std Deviation RDW Coeff of [place] Plt Count MPV Neut % (Auto) Absolute Neuts (auto) Absolute Lymphs (auto) Total Counted Neutrophils % (Manual) Lymphocytes % (Manual) Monocytes % (Manual) Eosinophils % (Manual) Metamyelocytes % Myelocytes % Nucleated RBCs/100 WBC Diff Path Review Platelet Estimate RBC Morphology PT INR APTT Sodium Potassium Chloride Carbon Dioxide Anion Gap BUN Creatinine Estim Creat Clear Calc Est GFR (MDRD) Af Amer Est GFR (MDRD) Non-Af BUN/Creatinine Ratio Glucose Lactic Acid 1.6 Calcium Total Bilirubin AST ALT Alkaline Phosphatase Total Protein Albumin Globulin Albumin/Globulin Ratio Urine Color Yellow Urine Clarity Sl. Cloudy Urine pH 6.5 Ur Specific [place] 1.010 Urine Protein 15 H Urine Glucose (UA) Normal Urine Ketones Negative Urine Occult Blood 250 H Urine Nitrite Negative Urine Bilirubin Negative Urine Urobilinogen Normal Ur Leukocyte Esterase Negative Urine RBC 10-25 SEEN Urine WBC 0 SEEN Ur Squamous Epith Cells 0 SEEN Urine Bacteria 0 SEEN Urine Mucus 0 SEEN Assessment/Plan All Active Problems (Last Reviewed 07/04/19 @ 11:29 by Anuradha Salazar) Pseudomonas pneumonia (Acute) ARF (acute renal failure) (Acute) Hx of repair of right rotator cuff (Resolved) Allergic rhinitis (Acute) Paresthesia (Resolved) Impressions 1. Severe Sepsis with ARF due to CAP - present at admission 07/09/19. Due to Pseudomonas aeruginosa resistant to fluoroquinolones. Zosyn started in the ED and will continue, along with aerosolized tobramycin. Will need IV antibiotics at DC. Continue the PEP and IS. Duoneb aerosols Q 4 hours while awake and Albuterol Q2 hours PRN. Sputum for GM stain and C&S. BC's X 2 drawn in the ED. 2. POD #5 S/P Right nephrectomy for renal cell cancer with metastatic disease at T12, status post radiation 3. Paroxysmal atrial fibrillation - follows with Dr. Marquez- HR has increased after duoneb and with infection. Will start low dose lopressor in light of the hx of bradycardia. EKG showed NSR with PAC's. No suspicious ST or T wave changes 4. Chronic back pain - Continue Oxycontin and PRN Oxycodone for breakthrough pain. MS for severe pain > 6 5. Moderate persistent asthma - Duonebs Q 4H while awake and Albuterol Q 2 H PRN 6. ARF with creat increased from 1.06 on -1.56 today. 6. Hyperlipidemia/hypertension/Thyroid nodule/patent foramen ovale complicate care/management/prognosis Code Visit Inpatient E&M: 94672 Init Hosp L3
--- NOTE | 2019-07-14 12:25 | EKG12_ITS ---
Test Reason : A-FIB
[2019-07-14] MEDS: Doxazosin 4 MG Tablet 8 MG PO ×2 (12:31→20:45)
[2019-07-14] MEDS: guaiFENesin 1,200 MG Tablet 1200 MG PO ×2 (12:32→20:46)
[2019-07-14] MEDS: oxyCODONE CR 15 MG Tablet PO ×2 (12:32→22:04)
--- NOTE | 2019-07-14 12:35 | PCM.PN.BLA ---
Progress Note 73 yo male with pneumonia and bronchitis before nephrectomy last week discharged on sunday. comes back with weakness, fever, productive cough has resistance pneumonia. bruising and eccymosis on flank - ok. no issues.
[2019-07-14] MEDS: Metoprolol Tartrate 25 MG Tablet 12.5 MG PO ×2 (14:28→20:46)
[2019-07-14] MEDS: Ipratropium/Albuterol Sulfate 3 ML AMPUL.NEB INHALATION ×2 (15:43→19:21)
[2019-07-14] MEDS: Tobramycin 80 MG/2 ML Vial INHALATION (15:43)
[2019-07-14] MEDS: oxyCODONE 5 MG Tablet PO (17:26)
[2019-07-14 18:20] LABS: Urine Sodium 127 mmol/L (Not Establ.)
[2019-07-14] MEDS: Budesonide Respules 0.5 MG/2 ML AMPUL.NEB. INHALATION (19:21)
[2019-07-14] MEDS: Atorvastatin Calcium 10 MG Tablet PO (20:46)
[2019-07-14 22:09] LABS: Lactic Acid 1.1 mmol/L (0.4-2.0)
[2019-07-15] VITALS (18 sets, daily range): BP systolic 110–135; BP diastolic 59–84; PULSE 81–112; RESP 16–20; TEMP 36.8–37.8; O2SAT 94–97
[2019-07-15] MEDS: Enoxaparin 40 MG/0.4 ML Syringe SC (05:18)
[2019-07-15] MEDS: 0.9% Normal Saline 1,000 ML 150 ML IV ×3 (06:31→19:26)
[2019-07-15] MEDS: Tobramycin 80 MG/2 ML Vial INHALATION ×2 (07:25→19:20)
[2019-07-15] MEDS: Ipratropium/Albuterol Sulfate 3 ML AMPUL.NEB INHALATION ×4 (07:25→19:00)
[2019-07-15] MEDS: Budesonide Respules 0.5 MG/2 ML AMPUL.NEB. INHALATION ×2 (07:25→19:10)
--- NOTE | 2019-07-15 09:10 | PCM.PROGNOTE ---
Patient Problems: Active and Suspected Problems (Last Reviewed 07/14/19 @ 15:33 by Phoebe Moe DO) Pseudomonas pneumonia (Acute) ARF (acute renal failure) (Acute) Subjective: #2 Zosyn All events of the past 24 hours of been reviewed. T-max is 100 ?F Vital signs are stable and he is 96 to 97% saturated on a 1 L nasal cannula at rest. Fractional excretion of sodium is 2.9% which is consistent with intrinsic renal disease and not prerenal azotemia. Creatinine is 1.46 today, down from 1.56 at admission and the BUN is 19, down from 23. Phosphorus is low at 1.5 and the magnesium is 1.7. Calcium corrected for hypoalbuminemia is limits. Tells me that he feels worse today. He is more SOB, emperatriz with exertion. Denies CP. No N/V/abdominal pain. No pain in the legs. Back pain is adequately controlled with OxyContin and OxyIR 10 mg p.o. every 4 hours as needed for breakthrough pain. He is not required any morphine sulfate since 07/14/2019. Objective: PHYSICAL EXAM: GENERAL: alert, oriented X 3, Cooperative, looks very tired ORAL: mucosa is not as dry today, no mucosal lesions NECK: No JVD, supple, trachea midline, no cervical or supraclavicular nodes LUNGS: no wheezes, no rhonchi and has a few crackles on the right anteriorly, no conversational dyspnea, symmetric chest expansion, no accessory muscle use HEART: tachycardic......worse with any exertion, Normal S1 and S2, no rub, no gallop ABDOMEN: soft, mildly distended and tympanic, BS present, no guarding with palpation, the bruising on the right abdomen is better ...no extension beyond the border marked in the ED 07/14 EXTREMITIES: no edema, no cyanosis, no calf tenderness, peripheral pulses are 3/3 bilaterally SKIN: No rashes, no breakdown NEUROLOGIC: no focal neurologic deficits PSYCH: appropriate, normal affect, pleasant - Physical Exam Vital Signs Temp Pulse Resp BP Pulse Ox 99.6 F H 81 20 H 135/82 H 96 07/15/19 03:30 07/15/19 07:37 07/15/19 07:25 07/15/19 03:30 07/15/19 07:25 Oxygen Flow Rate (L/min) 1 Oxygen Delivery Method Nasal Cannula Weight: 174 lb 1.6 oz Body Mass Index (BMI) 23.6 Orthostatic Vital Signs Start: 07/14/19 14:09 Freq: q24h Status: Active Protocol: Activity Type Activity Date Activity User E-Sign Co-Sign Detail Recorded Client Recorded Date Recorded By Document 07/14/19 13:00 DUTCH [id number] 07/14/19 14:11 07/14/19 13:00 Orthostatic Vitals Standing -Blood Pressure (90/60-120/80 mm Hg) 68/50 L -Extremity Use Left Arm -Pulse Rate (60-100 beats/min) 110 H Sitting -Blood Pressure (90/60-120/80 mm Hg) 98/66 -Extremity Use Left Arm -Pulse Rate (60-100 beats/min) 80 Lying -Blood Pressure (90/60-120/80 mm Hg) 126/67 H -Extremity Use Left Arm -Pulse Rate (60-100 beats/min) 56 L Intake and Output for Last 24 Hours 07/13/19 07/14/19 07/15/19 23:59 23:59 23:59 Intake Total 4635.83 / 5055.83 1525.0 / 1525.0 Output Total 1550 / 1550 Balance 4635.83 / 4455.83 -25.0 / -25.0 Laboratory Tests Past 24 Hrs 07/14/19 07/14/19 07/14/19 09:36 14:30 14:30 Lactic Acid Urine Color Yellow Urine Clarity Sl. Cloudy Urine pH 6.5 Ur Specific [place] 1.010 Urine Protein 15 H Urine Glucose (UA) Normal Urine Ketones Negative Urine Occult Blood 250 H Urine Nitrite Negative Urine Bilirubin Negative Urine Urobilinogen Normal Ur Leukocyte Esterase Negative Urine RBC 10-25 SEEN Urine WBC 0 SEEN Ur Squamous Epith Cells 0 SEEN Urine Bacteria 0 SEEN Urine Mucus 0 SEEN Ur Random Sodium 127 Urine Creatinine 49.10 07/14/19 21:35 Lactic Acid 1.1 Urine Color Urine Clarity Urine pH Ur Specific [place] Urine Protein Urine Glucose (UA) Urine Ketones Urine Occult Blood Urine Nitrite Urine Bilirubin Urine Urobilinogen Ur Leukocyte Esterase Urine RBC Urine WBC Ur Squamous Epith Cells Urine Bacteria Urine Mucus Ur Random Sodium Urine Creatinine Medical Necessity - Tobacco Use Smoking Status: Never smoker Tobacco Use: Non-smoker Assessment/Plan All Active Problems (Last Reviewed 07/14/19 @ 15:33 by Phoebe Moe, ) Pseudomonas pneumonia (Acute) ARF (acute renal failure) (Acute) Hx of repair of right rotator cuff (Resolved) Allergic rhinitis (Acute) Paresthesia (Resolved) Impressions 1. Severe Sepsis with ARF due to CAP - present at admission 07/09/19. Due to Pseudomonas aeruginosa resistant to fluoroquinolones. Zosyn started in the ED and will continue, along with aerosolized tobramycin. Will need IV antibiotics at DC. Continue the PEP and IS. Duoneb aerosols Q 4 hours while awake and Albuterol Q2 hours PRN. Sputum for GM stain and C&S. BC's X 2 drawn in the ED. 2. 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 Paroxysmal atrial fibrillation - follows with Dr. Marquez- HR has increased after duoneb and with infection. Will start low dose lopressor in light of the hx of bradycardia. EKG showed NSR with PAC's. No suspicious ST or T wave changes 4. Chronic back pain - Continue Oxycontin and PRN Oxycodone for breakthrough pain. MS for severe pain > 6 5. Moderate persistent asthma - Duonebs Q 4H while awake and Albuterol Q 2 H PRN 6. ARF with creat increased from 1.06 on 8201 07-1.56 today. 7. Hypophosphatemia-supplementation ordered 8. Hyperlipidemia/hypertension/Thyroid nodule/patent foramen ovale complicate care/management/prognosis The sputum sent to the lab was mostly saliva and not suitable for culture. Will resend another sputum and have respiratory induce if necessary. Continue Lopressor 12.5 mg p.o. twice daily Recheck lab in the a.m. Ambulatory pulse ox on room air prior to discharge, supplemental oxygen when out of bed exerting himself Code Visit Inpatient E&M: 56905 Subs Hosp L3
[2019-07-15] MEDS: Doxazosin 4 MG Tablet 8 MG PO ×2 (09:17→21:31)
[2019-07-15] MEDS: Metoprolol Tartrate 25 MG Tablet 12.5 MG PO ×2 (09:18→21:29)
[2019-07-15] MEDS: Docusate Sodium 100 MG Capsule PO ×2 (09:18→21:31)
[2019-07-15] MEDS: guaiFENesin 1,200 MG Tablet 1200 MG PO ×2 (09:18→21:29)
[2019-07-15] MEDS: Loratadine 10 MG Tablet 5 MG PO (09:18)
[2019-07-15] MEDS: Montelukast 10 MG Tablet PO (09:19)
[2019-07-15] MEDS: oxyCODONE CR 15 MG Tablet PO ×2 (09:22→21:34)
[2019-07-15 10:09] LABS: Anion Gap 7 (5-15); BUN 19 mg/dL (7-18); Calcium,Total 7.4 mg/dL (8.5-10.1); Chloride 110 mmol/L (98-107); Creatinine, Serum 1.46 mg/dL (0.70-1.30); EST Glomerular Filtration Rate 50 mL/min (>60); Est Glom Filt Rate - Afr Amer 61 mL/min (>60); Estimated Creatinine Clearance 49.46 ml/min; Glucose 169 mg/dL (74-106); Magnesium 1.7 mg/dL (1.6-2.6); Phosphorus 1.5 mg/dL (2.5-4.9); Potassium 3.8 mmol/L (3.5-5.1); Sodium Level 140 mmol/L (136-145)
--- NOTE | 2019-07-15 11:45 | CASEMGMT ---
RN CM Face to Face with patient for initial transition planning/care coordination assessment. RN CM introduced self and role at [facility]. Patient lying in bed, alert and oriented. Patient willing to participate in assessment and is able to answer all questions appropriately. Care providers, pharmacy, and demographics verified. Patient wishes to discharge home with HHC and IV ATBs. Patient states he has no further needs or concerns at this time. CM to follow for discharge planning needs that may arise. PCP: Jordy Specialists: Kofi, oncology; Jose Luis, radiologist; Hollis, supervisor wall mirror department; Jimmy, director data analytics Preferred Pharmacy: [facility] Insurance: [employer] [place] Prescription Benefit: yes, [place] Living Will/HPOA: yes, [place] LNOK: Living Arrangements: Patient lives with in house. Patient is independent at home. Transportation: self/ DME/HHC: Patient has a nebulizer. Denies previous HHC or SNF RN CM provided list of HHC and Infusion agency to review and select preferences. RN CM will follow-up in am to review choices and setup referral. Disposition Plan: Patient to discharge with HHC, family support and folllow-up plans in place. Lisette OMALLEY, RN, CM
[2019-07-15] MEDS: oxyCODONE 5 MG Tablet PO (19:24)
[2019-07-15] MEDS: Atorvastatin Calcium 10 MG Tablet PO (21:30)
[2019-07-16] VITALS (19 sets, daily range): BP systolic 97–138; BP diastolic 67–89; PULSE 73–108; RESP 16–20; TEMP 36.5–37.3; O2SAT 86–96
[2019-07-16 05:55] LABS: Hematocrit 33.3 % (40-54); Hemoglobin 10.8 g/dL (13.0-16.5); Mean Corp Hgb Conc 32.4 g/dL (32-36); Mean Corpuscular Hgb 33.3 pg (27.0-32.0); Mean Corpuscular Volume 102.8 fL (80-94); POSITIVE COUNT YES; POSITIVE MORPHOLOGY YES; Platelet Count 171 K/mm3 (150-450); RBC Distribution Width SD 53.1 fl (35.1-43.9); Red Blood Count 3.24 M/mm3 (4.6-6.2); White Blood Count 6.7 K/mm3 (4.4-11.0)
[2019-07-16 06:15] LABS: Differential Indicated MANUAL DIFF
[2019-07-16 06:16] LABS: Anion Gap 7 (5-15); BUN 17 mg/dL (7-18); BUN/Creat Ratio 13.7 RATIO (10-20); Calcium,Total 7.4 mg/dL (8.5-10.1); Chloride 114 mmol/L (98-107); Creatinine, Serum 1.24 mg/dL (0.70-1.30); EST Glomerular Filtration Rate 61 mL/min (>60); Est Glom Filt Rate - Afr Amer 73 mL/min (>60); Estimated Creatinine Clearance 58.23 ml/min; Glucose 90 mg/dL (74-106); Magnesium 1.9 mg/dL (1.6-2.6); Phosphorus 3.1 mg/dL (2.5-4.9); Potassium 4.3 mmol/L (3.5-5.1); Sodium Level 144 mmol/L (136-145)
[2019-07-16] MEDS: 0.9% Normal Saline 1,000 ML 75 ML IV (06:28)
--- NOTE | 2019-07-16 06:35 | PCM.PROGNOTE ---
Patient Problems: Active and Suspected Problems (Last Reviewed 07/14/19 @ 15:33 by Phoebe Moe DO) Pseudomonas pneumonia (Acute) ARF (acute renal failure) (Acute) Subjective: Day #3 Zosyn and aerosolized tobramycin All events of the past 24 hours of been reviewed. He has been afebrile since 07/15/2019 at 0915. Tachycardia has improved. Blood pressure is within normal limits. Pulse ox is 96% on 1 L nasal cannula. Fluid balance on 07/15/2019 was +1839. He had 3250 cc of urine output. Hemoglobin is 10.8 with macrocytic indices following hydration. Lab was personally reviewed. The white blood cell count today is 6.7. Creatinine is down to 1.24 phosphorus and magnesium are within normal limits. He looks much better today. Smiling, better color in his face and more alert. He denies chest pain, shortness of breath at rest, palpitations, nausea, diarrhea, sores in his mouth. Still getting SOB with walking to the BR and also has some cough and SOB when lying flat now. - Physical Exam General: Alert, Oriented x3, Cooperative, No apparent distress Oral: Moist Mucosa, No Gingival or Mucosal Lesions/ Ulcerations Neck: Supple, No Nodes, Trachea Midline Lungs: No rhonchi, No wheeze, Rales - few in the bases, - - better inspiratory effort today and better air exchange Cardiovascular: Regular rate, Regular Rhythm, Normal S1, Normal S2, No Gallop Abdomen: Bowel Sounds Present, Soft, Distended, - - he has some pitting in the R flank today but no pitting in the left flank the bruising is fading and the dry skin is improving. Pain is adequately controlled in the abdomen. continues to have back pain and he has been taking the Oxy IR infrequently Skin: No rashes Neurological: Cranial nerves II-XII grossly intact, Neuro grossly intact Psych/Mental Status: Normal Affect, Appropriate - smiling today and more animated Vital Signs Temp Pulse Resp BP Pulse Ox 98.8 F 91 16 133/84 H 96 07/16/19 03:30 07/16/19 03:30 07/16/19 03:30 07/16/19 03:30 07/16/19 03:30 Oxygen Flow Rate (L/min) 1 Oxygen Delivery Method Nasal Cannula Weight: 174 lb 1.6 oz Body Mass Index (BMI) 23.6 Orthostatic Vital Signs Start: 07/14/19 14:09 Freq: q24h Status: Active Protocol: Activity Type Activity Date Activity User E-Sign Co-Sign Detail Recorded Client Recorded Date Recorded By Document 07/14/19 13:00 DUTCH [id number] 07/14/19 14:11 DUTCH 07/14/19 13:00 Orthostatic Vitals Standing -Blood Pressure (90/60-120/80 mm Hg) 68/50 L -Extremity Use Left Arm -Pulse Rate (60-100 beats/min) 110 H Sitting -Blood Pressure (90/60-120/80 mm Hg) 98/66 -Extremity Use Left Arm -Pulse Rate (60-100 beats/min) 80 Lying -Blood Pressure (90/60-120/80 mm Hg) 126/67 H -Extremity Use Left Arm -Pulse Rate (60-100 beats/min) 56 L Intake and Output for Last 24 Hours 07/14/19 07/15/19 07/16/19 23:59 23:59 23:59 Intake Total 4635.83 / 5055.83 5088.96 / 5088.96 797.29 / 797.29 Output Total 3250 / 3250 Balance 4635.83 / 4455.83 1838.96 / 1838.96 797.29 / 797.29 Laboratory Tests Past 24 Hrs 07/15/19 07/16/19 07/16/19 09:32 05:36 05:36 WBC 6.7 RBC 3.24 L Hgb 10.8 L Hct 33.3 L MCV 102.8 H MCH 33.3 H MCHC 32.4 RDW Std Deviation 53.1 H RDW Coeff of Santana 14.0 Plt Count 171 MPV 9.0 Neut % (Auto) Not Reportable Absolute Neuts (auto) Pending Sodium 140 144 Potassium 3.8 4.3 Chloride 110 H 114 H Carbon Dioxide 23.0 23.0 Anion Gap 7 7 BUN 19 H 17 Creatinine 1.46 H 1.24 Estim Creat Clear Calc 49.46 58.23 Est GFR (MDRD) Af Amer 61 73 Est GFR (MDRD) Non-Af 50 L 61 BUN/Creatinine Ratio 13.0 13.7 Glucose 169 H 90 Calcium 7.4 L 7.4 L Phosphorus 1.5 L 3.1 Magnesium 1.7 1.9 Medical Necessity - Tobacco Use Smoking Status: Never smoker Tobacco Use: Non-smoker Assessment/Plan All Active Problems (Last Reviewed 07/14/19 @ 15:33 by Phoebe Moe DO) Pseudomonas pneumonia (Acute) ARF (acute renal failure) (Acute) Hx of repair of right rotator cuff (Resolved) Allergic rhinitis (Acute) Paresthesia (Resolved) Impressions 1. CAP - present at admission 07/09/19. Due to Pseudomonas aeruginosa resistant to fluoroquinolones. Zosyn started in the ED and will continue, along with aerosolized tobramycin. Will need IV antibiotics at DC. Continue the PEP and IS. Duoneb aerosols Q 4 hours while awake and Albuterol Q2 hours PRN. Sputum for GM stain and C&S. BC's X 2 drawn in the ED. Severe sepsis ruled out. 2. 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 His back pain has been chronic and is located in the low back. 3. Paroxysmal atrial fibrillation - follows with Dr. Marquez. Started on low dose lopressor at admission to control tachycardia. EKG showed NSR with PAC's. No suspicious ST or T wave changes. HR is controlled and the BP is stable 4. Chronic back pain - Continue Oxycontin and PRN Oxycodone for breakthrough pain. MS for severe pain > 6...has not taken since 07/14 5. Moderate persistent asthma - Duonebs Q 4H while awake and Albuterol Q 2 H PRN 6. ARF with creat increased from 1.06 on 07/10/19-1.56 at admission. Improving, creatinine is 1.24 today. 7. Hypophosphatemia-resolved 8. Hyperlipidemia/hypertension/Thyroid nodule/patent foramen ovale complicate care/management/prognosis The sputum sent to the lab was mostly saliva and not suitable for culture. Will resend another sputum and have respiratory induce if necessary. Continue Lopressor 12.5 mg p.o. twice daily Ambulatory pulse ox on room air prior to discharge, supplemental oxygen when out of bed exerting himself Consult Dr. Barry in this immunocompromised pt with pseudomonas aeruginosa and cancer. CXR today......abd is more distended and he is c/o orthopnea......IV fluids discontinued. Code Visit Inpatient E&M: 87848 Subs Hosp L2
[2019-07-16 06:37] LABS: Anisocytosis 1+; Eosinophil 1 % (0-5); Hypochromasia 1+; Lymphocyte 9 % (19-41); Metamyelocyte 1 % (0-1); Microcytosis 1+; Neutrophil-Band 4 % (0-5); Neutrophil-Segmented 85 % (47-70); Platelet Estimate ADEQUATE (ADEQ); Polychromasia 1+; Total Cells Counted 100 (MANUAL DIFF)
[2019-07-16] MEDS: Enoxaparin 40 MG/0.4 ML Syringe SC (06:47)
[2019-07-16] MEDS: Budesonide Respules 0.5 MG/2 ML AMPUL.NEB. INHALATION ×2 (06:57→19:27)
[2019-07-16] MEDS: Ipratropium/Albuterol Sulfate 3 ML AMPUL.NEB INHALATION ×4 (06:57→19:27)
[2019-07-16] MEDS: Tobramycin 80 MG/2 ML Vial INHALATION ×2 (07:21→19:27)
[2019-07-16 09:23] LABS: Pathologist Review Reviewed
--- NOTE | 2019-07-16 09:43 | CASEMGMT ---
Addendum entered by David Echols 07/16/19 14:43: Confirmation received that fax of IV Zosyn Script to [facility] and [facility] went through successfully. Addendum entered by David Echols 07/16/19 14:41: Dr Barry has been in to see pt. Script obtained for IV Zosyn x 1 week once pt is discharged. Script faxed to [facility] and to [facility] at this time. Awaiting financials from [facility]. Addendum entered by David Echols 07/16/19 12:17: Call received from Christy @ [facility] and they are able to accept pt. Addendum entered by David Echols 07/16/19 10:16: New referral packet faxed to [facility] for financial information to be calculated. Will fax script for antibiotic to them once it is available. Original Note: TAWNYA EDWARDS NOTE: To room to talk with pt about discharge planning. Introduced self and role. Pt states he has reviewed [facility] agencies and states would like [facility] and [facility] for medication supplier. Call placed to Christy @ [facility] and message left w/referral and anticipated discharge tomorrow. Awaiting return call. Pastor OMALLEY RN, CM
--- NOTE | 2019-07-16 10:25 | RAD_ITS ---
STUDY: X-RAY CHEST REASON FOR EXAM: Male, 73 years old. Fever and shortness of breath. TECHNIQUE: AP and lateral views of the chest. COMPARISON: Comparison is made with prior study dated July 14, 2019. FINDINGS: EKG electrodes are seen. Blunting of the left costophrenic angle. Hyperinflation. Normal size heart. Normal mediastinum and teresa. Normal visualized pulmonary arteries. Normal visualized aortic arch and descending thoracic aorta. There is demineralization of the osseous structures. Normal visualized ribs, clavicles, and shoulders. There is no demonstrated abnormality of the visualized soft tissue structures of the upper abdomen. RAD/Chest PA and Lateral IMPRESSION: Blunting of the left costophrenic angle. The lungs are clear. Electronically Signed: Lucho Bond, at 14:37 EDT , Service support ,
[2019-07-16] MEDS: Doxazosin 4 MG Tablet 8 MG PO ×2 (11:16→22:16)
[2019-07-16] MEDS: Metoprolol Tartrate 25 MG Tablet 12.5 MG PO ×2 (11:16→22:15)
[2019-07-16] MEDS: Montelukast 10 MG Tablet PO (11:16)
[2019-07-16] MEDS: Loratadine 10 MG Tablet 5 MG PO (11:16)
[2019-07-16] MEDS: guaiFENesin 1,200 MG Tablet 1200 MG PO ×2 (11:16→22:15)
[2019-07-16] MEDS: Docusate Sodium 100 MG Capsule PO ×2 (11:16→22:16)
[2019-07-16] MEDS: oxyCODONE CR 15 MG Tablet PO ×2 (11:22→22:17)
--- NOTE | 2019-07-16 11:25 | CASEMGMT ---
SW spoke w/pt, let him know that LW/POA not on file here. He states they are with his deputy assessor. SW asked pt if he is able to bring copies to hospital at some point, pt states understanding. CHANA Cano
[2019-07-16] MEDS: Acetaminophen 325 MG Tablet 650 MG PO (12:03)
--- NOTE | 2019-07-16 14:25 | PCM.HP.ID ---
Problem List (1) Pseudomonas pneumonia Status: Acute Reason for Consult: pneumonia Consulted by: Dr. Moe History of Present Illness: The patient is a 73 year old M with recent R nephrectomy, admitted 07/14 with fever, SOB, cough. Fever to 102. Had been dealing with cough/congestion/SOB for several weeks prior to surgery, had been on multiple courses of abx without much improved. Sx worsened after surgery, sent home on levaquin. Developed fever, came back to ED. Admitted on zosyn and tobineb. Prior sputum cx showed PsA that was R to levaquin. Feeling better. Some headache, some nausea. Full ROS performed and neg except as noted above. - Medical History Past Medical History (Chronic Problems): Chronic Problems (Last Reviewed 07/14/19 @ 15:33 by Phoebe Moe DO) Paroxysmal atrial fibrillation (Chronic) Chronic back pain (Chronic) Narcotic dependence (Chronic) Patent foramen ovale (Chronic) Per echo 05/12/2019@ [facility] Renal cancer (Chronic) S/P right nephrectomy 07/09/[address] Adkins Hypertension (Chronic) Hyperlipidemia (Chronic) Bradycardia (Chronic) Thyroid nodule (Chronic) Moderate persistent asthma (Chronic) Arthritis (Chronic) History of deviated nasal septum (Chronic) Degenerative disc disease (Chronic) Allergies/Adverse Reactions: Allergies No Known Allergies Allergy (Verified 07/14/19 06:07) Home Medications: Ambulatory Orders Medication Instructions Recorded Fluticasone/Vilanterol [Breo 1 ea IH DAILY 06/03/19 Ellipta 100-25 Mcg INH] Levocetirizine Dihydrochloride 5 mg PO DAILY 07/01/19 Montelukast [Singulair] 10 mg PO DAILY 07/01/19 simvastatin 20 mg tablet 20 mg PO QHS 07/04/19 Oxycodone Myristate [Xtampza ER] 13.5 mg PO Q12H 07/09/19 Albuterol Sulfate [Proair 1 inh INHALATION 4X/DAY #1 07/12/19 Respiclick] aer.pow.[email or web address] Docusate Sodium [Colace] 100 mg PO BID #20 cap 07/12/19 Guaifenesin [Mucinex] 1,200 mg PO BID tab 07/12/19 Hydrocodone/Acetaminophen [Hersey 1 ea PO Q4H PRN PRN 5 Days #14 tab 07/12/19 5-325 Tablet] Doxazosin Mesylate 8 mg PO BID 07/14/19 Naproxen [Naprosyn] 500 mg PO BID PRN PRN 07/14/19 Piperacil/Tazobactam [Zosyn] 3.375 gm IV Q8 7 Days #21 vial 07/16/19 - Social History Tobacco Use: non-smoker Vital Signs Temp Pulse Resp BP Pulse Ox 99.1 F 80 20 H 120/77 86 07/16/19 07:58 07/16/19 11:16 07/16/19 10:46 07/16/19 07:58 07/16/19 13:41 Oxygen Flow Rate (L/min) [ 4 AMBULATION with Oxygen] Oxygen Flow Rate (L/min) 2 Oxygen Delivery Method Nasal Cannula Weight: 78.97 kg Body Mass Index (BMI) 23.6 Orthostatic Vital Signs Start: 07/14/19 14:09 Freq: q24h Status: Active Protocol: Activity Type Activity Date Activity User E-Sign Co-Sign Detail Recorded Client Recorded Date Recorded By Document 07/14/19 13:00 [id number] 07/14/19 14:11 RK 07/14/19 13:00 Orthostatic Vitals Standing -Blood Pressure (90/60-120/80) 68/50 L -Extremity Use Left Arm -Pulse Rate (60-100) 110 H Sitting -Blood Pressure (90/60-120/80) 98/66 -Extremity Use Left Arm -Pulse Rate (60-100) 80 Lying -Blood Pressure (90/60-120/80) 126/67 H -Extremity Use Left Arm -Pulse Rate (60-100) 56 L Microbiology Past 72 Hours 07/14/19 06:20 Blood Culture - Preliminary Blood Culture (Wb) - Anticubital Left No growth in 48 hours. 07/14/19 06:25 Blood Culture - Preliminary Blood Culture (Wb) - Anticubital Right No growth in 48 hours. Laboratory Tests Past 24 Hrs 07/14/19 07/16/19 07/16/19 06:20 05:36 05:36 WBC 6.7 RBC 3.24 L Hgb 10.8 L Hct 33.3 L MCV 102.8 H MCH 33.3 H MCHC 32.4 RDW Std Deviation 53.1 H RDW Coeff of [place] 14.0 Plt Count 171 MPV 9.0 Neut % (Auto) Not Reportable Absolute Neuts (auto) 6.0 Absolute Lymphs (auto) 0.60 L Total Counted 100 Neutrophils % (Manual) 85 H Band Neutrophils % 4 Lymphocytes % (Manual) 9 L Eosinophils % (Manual) 1 Metamyelocytes % 1 [address] Review Reviewed May foll Platelet Estimate ADEQUATE Polychromasia 1+ Hypochromasia 1+ Anisocytosis 1+ Microcytosis 1+ Sodium 144 Potassium 4.3 Chloride 114 H Carbon Dioxide 23.0 Anion Gap 7 BUN 17 Creatinine 1.24 Estim Creat Clear Calc 58.23 Est GFR (MDRD) Af Amer 73 Est GFR (MDRD) Non-Af 61 BUN/Creatinine Ratio 13.7 Glucose 90 Calcium 7.4 L Phosphorus 3.1 Magnesium 1.9 - Other Studies Radiology: [] reviewed Other Studies: [] Route of nutrition/ use of supplements: [] Nutritional Intake: [] IV Site: [] Jaeger Catheter: [] - Physical Exam General: Alert, Oriented x3, Cooperative, No apparent distress HEENT: Atraumatic, PERRLA, EOMI Neck: Supple, No Nodes Lungs: Rhonchi Cardiovascular: Regular rate, Regular Rhythm, No murmurs Abdomen: Soft, Non Tender, Non-Distended, - - incisions healing well Extremities: No edema Skin: No rashes IV Site: Peripheral, without redness Musculoskeletal: No Tenderness to Palpation of Joints or Extremities Neurological: Cranial nerves II-XII grossly intact - Assessment/Plan Antibiotics: [] Assessment/Plan: [] Active and Suspected Problems (Last Reviewed 07/14/19 @ 15:33 by Phoebe Moe DO) Pseudomonas pneumonia (Acute) ARF (acute renal failure) (Acute) PsA pneumonia - improving on zosyn. Wbc normal, no fever here. Will order midline, plan on 7 more days of zosyn. Will follow, thank you, d/w case finishing machine adjuster and primary team
[2019-07-16] MEDS: oxyCODONE 5 MG Tablet PO (19:13)
--- NOTE | 2019-07-16 20:02 | NURSING ---
[facility] called and stated they did not have a nurse for tonight. They would send someone tomorrow (07/17) to place the midline.
--- NOTE | 2019-07-16 21:07 | NURSING ---
Zohreh nino [facility] called and stated a nurse will be here tomorrow (07/17) between 0930 & [address] a midline.
[2019-07-16] MEDS: Atorvastatin Calcium 10 MG Tablet PO (22:16)
[2019-07-17] VITALS (15 sets, daily range): BP systolic 101–126; BP diastolic 65–80; PULSE 81–117; RESP 16–18; TEMP 36.7–37.2; O2SAT 85–96
[2019-07-17] MEDS: Acetaminophen 325 MG Tablet 650 MG PO (01:50)
[2019-07-17] MEDS: 0.9% NaCl IVPB Med Flush (250 mL) 15 ML IV (05:50)
[2019-07-17] MEDS: Enoxaparin 40 MG/0.4 ML Syringe SC (05:52)
[2019-07-17] MEDS: oxyCODONE 5 MG Tablet PO (05:59)
[2019-07-17] MEDS: Budesonide Respules 0.5 MG/2 ML AMPUL.NEB. INHALATION (07:02)
[2019-07-17] MEDS: Tobramycin 80 MG/2 ML Vial INHALATION (07:02)
[2019-07-17] MEDS: Ipratropium/Albuterol Sulfate 3 ML AMPUL.NEB INHALATION ×2 (07:02→11:26)
[2019-07-17 08:08] LABS: Pathologist Review Reviewed
--- NOTE | 2019-07-17 09:25 | CASEMGMT ---
TAWNYA EDWARDS updated [facility] with script for IV ATB. TAWNYA EDWARDS will fax Midline information when available. TAWNYA EDWARDS confirmed with [facility] start of care, with planned start of care for 07/17/192099. TAWNYA EDWARDS updated [facility] with planned start of care. TAWNYA EDWARDS updated patient regarding setup and start of care for HHC and IV ATBs. CM will continue to follow this patient and plan for a safe discharge.
[2019-07-17] MEDS: oxyCODONE CR 15 MG Tablet PO (09:47)
[2019-07-17] MEDS: Doxazosin 4 MG Tablet 8 MG PO (09:47)
[2019-07-17] MEDS: Docusate Sodium 100 MG Capsule PO (09:47)
[2019-07-17] MEDS: guaiFENesin 1,200 MG Tablet 1200 MG PO (09:47)
[2019-07-17] MEDS: Montelukast 10 MG Tablet PO (09:48)
[2019-07-17] MEDS: Loratadine 10 MG Tablet 5 MG PO (09:48)
[2019-07-17] MEDS: Metoprolol Tartrate 25 MG Tablet 12.5 MG PO (09:48)
--- NOTE | 2019-07-17 10:41 | PCM.PN.ID ---
Patient Problems: Active and Suspected Problems (Last Reviewed 07/14/19 @ 15:33 by Phoebe Moe DO) Pseudomonas pneumonia (Acute) ARF (acute renal failure) (Acute) Subjective: Feeling better, still quite SOB with exertion. No n/v/d, no fever - Physical Exam General: Alert, Cooperative, No apparent distress Lungs: Rhonchi, Wheezes Cardiovascular: Regular rate, Regular Rhythm Abdomen: Soft, Non Tender, Non-Distended Skin: No rashes Vital Signs Temp Pulse Resp BP Pulse Ox 98.1 F 84 18 124/65 H 92 07/17/19 07:58 07/17/19 09:48 07/17/19 07:58 07/17/19 07:58 07/17/19 07:58 Oxygen Flow Rate (L/min) [ 4 AMBULATION with Oxygen] Oxygen Flow Rate (L/min) 1 Oxygen Delivery Method Nasal Cannula Weight: 78.97 kg Body Mass Index (BMI) 23.6 Intake and Output for Last 24 Hours 07/15/19 07/16/19 07/17/19 23:59 23:59 23:59 Intake Total 5088.96 / 5088.96 1831.04 / 1831.04 700.25 / 700.25 Output Total 3250 / 3250 1900 / 1900 1300 / 1300 Balance 1838.96 / 1838.96 -68.96 / -68.96 -599.75 / -599.75 Microbiology Past 72 Hours 07/14/19 06:20 Blood Culture - Preliminary Blood Culture (Wb) - Anticubital Left No growth in 48 hours. 07/14/19 06:25 Blood Culture - Preliminary Blood Culture (Wb) - Anticubital Right No growth in 48 hours. Laboratory Tests Past 24 Hrs 07/16/19 05:36 Diff Path Review Reviewed Medical Necessity - Tobacco Use Smoking Status: Never smoker Tobacco Use: Non-smoker Route of nutrition/ use of supplements: [] Nutritional Intake: [] IV Site: [] Jaeger Catheter: [] - Assessment/Plan Antibiotics: [] Assessment/Plan: [] Active and Suspected Problems (Last Reviewed 07/14/19 @ 15:33 by Phoebe Moe DO) Pseudomonas pneumonia (Acute) ARF (acute renal failure) (Acute) PsA pneumonia - improving on zosyn. Wbc normal, no fever here. Will order midline, plan on 7 more days of zosyn. Will follow, d/w piano case and bench assembler
[2019-07-17] MEDS: 0.9% NaCl Peripheral Flush Adult/Peds IV ×2 (10:43→13:33)
--- NOTE | 2019-07-17 11:20 | CASEMGMT ---
TAWNYA EDWARDS updated that patient qualified for oxygen at discharge. TAWNYA EDWARDS received script for home oxygen and FWW. Patient has been utilizing walker while in hospital. TAWNYA EDWARDS provided patient with list of DME and patient agreeable to [employer]. TAWNYA EDWARDS faxed referral to [employer]. TAWNYA EDWARDS received call from Lora at [facility] regarding cost of atb and supplies. Cost for weekly dispense is $271.69. Lora to call patient with cost. TAWNYA EDWARDS updated patient regarding setup of oxygen and walker and arranged to have delivered to hospital prior to discharge. Patient had no further needs or concerns at this time.
[2019-07-17 11:23] LABS: Ferritin 982 ng/mL (26-388); Iron 27 ug/dL (65-175); Iron Binding Capacity,Total 111 ug/dL (250-450); PERCENT IRON SATURATION 24.3 % (15.0-55.0)
[2019-07-17] MEDS: 0.9% NaCl Midline IV Flush IV (12:25)
[2019-07-17] MEDS: Furosemide 40 MG/4 ML Vial IV (12:25)
--- NOTE | 2019-07-17 12:25 | CASEMGMT ---
Social Work Met with pt, pt and dgt in room. Pt and dgt leaving as SW entered room. Discussed with pt current diagnosis of renal cell CA and effects this has had on pt and family. Emotional support provided and discussed self care and setting boundaries with family and visitors. SW also provided written and verbal information of Palliative Medicine Program. Pt unaware of this program and readily accepted information. Pt stating he will read and consider the program. No further needs at this time. SAMREEN Womack
--- NOTE | 2019-07-17 12:31 | PCM.DC ---
- Discharge Diagnoses Current Active Problems: Current Active and Chronic Problems (Last Reviewed 07/14/19 @ 15:33 by Phoebe Moe DO) Pseudomonas pneumonia (Acute) ARF (acute renal failure) (Acute) Paroxysmal atrial fibrillation (Chronic) Chronic back pain (Chronic) Narcotic dependence (Chronic) You will use the following diet at home:: Other - Resume previous diet. Maintain a good protein and calorie intake so that your wounds may heal and you can get stronger. If you appetite is not great start a nutrtional supplement such as ENSURE once or twice a day. Your food should be the consistency of: Regular Your liquids should be the consistency of: Regular/Thin Discharge Activity: - - Gradually increase activity as tolerated. Work up gradually to walking 30 minutes daily. you will need to rest and then walk intermittently dueing the day because you have been through a lot and you are going to fatigue easily and get short of breath with exertion......getting stronger takes a little longer when you are a little older BUT, if you don't exercise you will not get stronger.....no pain, no gain. Weight Bearing Status: Full weight bearing Lifting Restrictions: 5-10 lbs Call your doctor if you observe: Fever of 101 or Higher, Inability to urinate, Inability to have a bowel movement, Dizziness, Fainting spells, Chest pain, - - Call your PCP if severe diarrhea ( > 5 stools a day), painful sores in the mouth, painful swallowing, rash or itching. Taking a probiotic such as Lactobacillus or Kefir can help with loose stools while taking antibiotics. Instructions: Depression Affects Your Mind and Body, Counseling for Depression, Depression: Tips to Help Yourself Additional Instructions: There is no shame in asking for help. There are many things you can not control at this time......that is very hard for those of us used to being in charge. Pick carefully what you are going to be in control of.......there are 3 things that are very important, maintaining a good diet, getting adequate sleep and getting exercise.....focus on these things. I am giving you some literature on Depression......symptoms to look for and treatment modalities. Many people have trouble getting through this.......some people succumb to their depression rather than their cancer. State of mind and maintaining a good outlook are very important in any patient with cancer......stay positive and good luck Carlos. I would be happy to care for you if you are ever in the hospital again. Allergies/Adverse Reactions: Allergies No Known Allergies Allergy (Verified 07/14/19 06:07) Medications to take at Discharge Fluticasone/Vilanterol [Breo Ellipta 100-25 Mcg INH] 1 ea IH DAILY 06/03/19 Levocetirizine Dihydrochloride 5 mg PO DAILY 07/01/19 Montelukast [Singulair] 10 mg PO DAILY 07/01/19 simvastatin 20 mg tablet 20 mg PO QHS 07/04/19 Oxycodone Myristate [Xtampza ER] 13.5 mg PO Q12H 07/09/19 Albuterol Sulfate [Proair Respiclick] 1 inh INHALATION 4X/DAY #1 aer.pow.ba 07/12/19 Docusate Sodium [Colace] 100 mg PO BID #20 cap 07/12/19 Guaifenesin [Mucinex] 1,200 mg PO BID tab 07/12/19 Hydrocodone/Acetaminophen [[place] 5-325 Tablet] 1 ea PO Q4H PRN PRN 5 Days #14 tab 07/12/19 Doxazosin Mesylate 8 mg PO BID 07/14/19 Naproxen [Naprosyn] 500 mg PO BID PRN PRN 07/14/19 Piperacil/Tazobactam [Zosyn] 3.375 gm IV Q8 7 Days #21 vial 07/16/19 Ipratropium/Albuterol Sulfate [Duoneb] 3 ml INHALATION Q4HWA.RT #56 ampul.neb 07/17/19 Lactobacillus Acidophilus [Acidophilus] 1 tab PO TIDCM #30 tab 07/17/19 Metoprolol Tartrate [Lopressor (beta lisa)] 12.5 mg PO BID #30 tab 07/17/19 Oxycodone [Oxyir] 5 - 10 mg PO Q4H PRN PRN 7 Days #40 tablet 07/17/19 The following prescriptions were given: Lactobacillus Acidophilus [Acidophilus] 1 tab PO TIDCM #30 tab Transmission Status: Pending to [facility] Ipratropium/Albuterol Sulfate [Duoneb] 3 ml INHALATION Q4HWA.RT #56 ampul.neb Transmission Status: Pending to [facility] Metoprolol Tartrate [Lopressor (beta lisa)] 12.5 mg PO BID #30 tab Transmission Status: Pending to [facility] Oxycodone [Oxyir] 5 - 10 mg PO Q4H PRN PRN 7 Days #40 tablet PRN Reason: Mild-Mod Pain (-03/28) Transmission Status: Sent to [facility] Piperacil/Tazobactam [Zosyn] 3.375 gm IV Q8 7 Days #21 vial Prescription Printed Primary Care Physician: Kiara Spence DO [Primary Care Provider] - Please follow up with your Primary Care Physician in: 1-2 weeks Test Results: Test results from this visit will be discussed in further detail at your follow-up appointment, if applicable. Please Follow Up With: Torito Shafer MD When: 5-7 days Please Follow Up With: Willard Kirby DO Proposed Discharge Date: 07/17/19
--- NOTE | 2019-07-17 12:47 | DS.PCM_ITS ---
Discharge Date and Diagnosis - Problem List Patient Problems: Active and Suspected Problems (Last Reviewed 07/14/19 @ 15:33 by Phoebe Moe DO) Acute respiratory insufficiency (Acute) Hypophosphatemia (Acute) Pseudomonas pneumonia (Acute) ARF (acute renal failure) (Acute) Date of Admission: 07/14/19 Date of Discharge: 07/17/19 - Primary Discharge Diagnosis Active and Suspected Problems (Last Reviewed 07/14/19 @ 15:33 by Phoebe Moe DO) Pseudomonas pneumonia (Acute) ARF (acute renal failure) (Acute) Acute respiratory insufficiency (Acute) with hypoxemia Hypophosphatemia (Acute) - Secondary Discharge Diagnosis Chronic Problems (Last Reviewed 07/14/19 @ 15:33 by Phoebe Moe DO) H/O right nephrectomy (Chronic) 07/09/19 for renal cell CA Paroxysmal atrial fibrillation (Chronic) Chronic back pain (Chronic) Narcotic dependence (Chronic) Patent foramen ovale (Chronic) Per echo 05/12/2019@ [facility] 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 Adkins Hypertension (Chronic) Hyperlipidemia (Chronic) Bradycardia (Chronic) Thyroid nodule (Chronic) Moderate persistent asthma (Chronic) Arthritis (Chronic) History of deviated nasal septum (Chronic) Degenerative disc disease (Chronic) Hospital Course and Treatment Imaging Results: Clinical Impression(s) from Imaging Studies Chest X-Ray 07/14/19 06:25 IMPRESSION: 1. Left basilar mild subsegmental atelectasis. Bilateral tiny pleural effusions, new compared to previous. 2. No pneumonia seen. at 0718 Reported and signed by: Esau Souza MD Electronically Signed: Esau Souza, at 7:16 EDT Tel , Service support , Abdomen/Pelvis CT 07/14/19 06:45 IMPRESSION: 1. Recent right nephrectomy with considerable subcutaneous emphysema at the right flank extending to the anterolateral abdominal wall on the right. This gas may be laparoscopic in origin. 2. No pneumothorax or pneumoperitoneum. 3. Pelvic and right abdominal small free fluid which is new compared to previous CT and compatible with postsurgical change. 4. Right retroperitoneal small gas collection without air-fluid level compatible with postsurgical change. 5. Left renal small nonobstructing stones. Negative for hydronephrosis. 6. 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 7. Tiny right pleural effusion with bibasilar mild atelectatic changes. Individualized dose optimization techniques were used for this CT. at 0757 Reported and signed by: Esau Souza MD Electronically Signed: Esau Souza, at 7:56 EDT Tel , Service support , Chest CT 07/14/19 10:32 IMPRESSION: New small bilateral pleural effusions with bibasilar atelectasis. Increased markings in the anterior aspects of both upper lobes. New small pericardial effusion. There now is evidence of subcutaneous emphysema overlying the right lower chest. Electronically Signed: Lucho Bond, at 11:28 EDT , Service support , Chest X-Ray 07/16/19 10:25 IMPRESSION: Blunting of the left costophrenic angle. The lungs are clear. Electronically Signed: Lucho Bond, at 14:37 EDT , Service support , Laboratory Results - last 24 hr 07/16/19 07/17/19 05:36 10:43 Diff Path Review Reviewed Iron 27 L TIBC 111 L Iron Saturation 24.3 Ferritin 982 H Microbiology 07/14/19 06:20 Blood Culture (Wb) - Anticubital Left Blood Culture - Preliminary No growth in 48 hours. 07/14/19 06:25 Blood Culture (Wb) - Anticubital Right Blood Culture - Preliminary No growth in 48 hours. He was unable to produce a sputum. sputum from the first admission for nephrectomy was positive for pseudomonas aeruginosa resistant to fluoroquinolones Dr. Macho Adkins-urology Dr. Torito Barry-infectious disease Operations: None, - - Right robotic radical nephrectomy Procedures: None Summary of Care Provided: Mr. King is a 73 YO male with a past medical history of paroxysmal atrial fibrillation, hypertension, hyperlipidemia, moderate persistent asthma, chronic pain syndrome with chronic back pain, narcotic dependence (follows with Dr. Cade), renal cancer with a large metastatic mass adjacent to and involving T12 for which he has received radiation, patent foramen ovale, thyroid nodule and bradycardia who presented to the ED at [facility] on 07/14/19 c/o fevers. He had a R nephrectomy on 07/09/19. 1 Day prior to the surgery he had a fever with shaking chills and cough. A sputum culture on 07/10/19 grew pseudomonas aeruginosa resistant to fluoroquinolones. He was discharged from the hospital on 07/12/2019 on Levaquin prior to the sputum culture being resulted. He has an aerosol machine at home and was using it prior to surgery. He tells me he cleans the machine after each use. He has been coughing up a lot of sputum. He denied chest pain. He had SOB and he felt very fatigued. He had been passing gas and had a BM on the day of admission to the hospital. He denied Nausea/vomiting/lightheadedness. He denied chest pain and hemoptysis and also denied calf pain. He is c/o pain in the abdomen and the back. Vital signs at presentation to the emergency department were temperature 98.4, pulse rate 120, blood pressure 149/83, respiratory rate 18 and he was 94% saturated on room air at rest. White blood cell count was 8.3 with a marked left shift. BMP was remarkable for a BUN of 23 with a creatinine of 1.56, up from 1.06 on 07/10/2019. Urine analysis had 0 WBCs. Chest x-ray showed left basilar mild subsegmental atelectasis with bilateral tiny pleural effusions. A CT scan of the chest was obtained and showed new small bilateral pleural effusions with bibasilar atelectasis, increased markings with areas of confluence in the anterior aspects of both upper lobes. He was admitted to the hospital with a diagnosis of fever secondary to community-acquired pseudomonas aeruginosa pneumonia resistant to fluoroquinolones. He was maintained on Zosyn which had been started in the emergency department and nebulized tobramycin was added. Lovenox was ordered for DVT prophylaxis. He had a cough but, he was unable to bring up a good sputum......the specimen submitted was primarily spit. He was seen in consult by Dr. Adkins who deferred to the hospitalist service for management of pneumonia. CREAT improved with hydration and on 07/16/2019 was 1.24 with a BUN of 17. He was seen in consult by Dr. Barry from infectious disease who recommended 7 additional days of Zosyn at [place]. Repeat chest x-ray on 06/15/2019 showed blunting of the left costophrenic angle with no other obvious abnormalities. He had tachycardia in the hospital due to infection and deconditioning and he was started on Lopressor 12.5 mg BID and he tolerated this without bradycardia or hypotension. The rhythm was NSR with ST with exertion and some PAC's. No AF and no significant ventricular ectopy. On 07/17/2019 he was afebrile with a blood pressure of 108/66. HR was in the 80's and 90's at rest. He looked tired but was in a good mood. Pulse ox on room air at rest was 91%. The pulse ox on room air with ambulation was 85% and the patient required 2 L of nasal O2 to keep his oxygen saturation greater than 89% with ambulation. He gets very short of breath with ambulation. His abdomen was distended and he had pitting in the R flank related to the previous surgery. He was given a single dose of Lasix 40 mg. He was discharged home with Home Health and will have 7 days of IV Zosyn at home. He will follow up with Dr. Spence in 1-[address] Shafer in 1 week...sooner if the SOB increases. He will also need to follow up with Dr. Kirby going forward. General: Alert, oriented ?3, cooperative, pleasant and appropriate, looks tired Neck: Supple, trachea midline, no enlarged cervical nodes, no enlarged supraclavicular nodes Lungs: better exchange today, symmetric chest expansion, not tachypneic at rest, no conversational dyspnea, no accessory muscle use, he does get tachypneic with any exertion, there are rhonchi today that mostly resolved after he coughed a few times Heart: Regular rate and rhythm, normal S1, normal S2, no murmur, no gallop, no rub Abdomen: Soft, NT, distended and mildly tympanic, bowel sounds present Extremities: No clubbing, no peripheral edema, TEDS are in place, no cyanosis This note was generated with [employer] dictation software. It may contain incorrect words, spelling, and punctuation that were not noted in checking the note before signing. Patient Problems: Active and Suspected Problems (Last Reviewed 07/14/19 @ 15:33 by Phoebe Moe DO) Acute respiratory insufficiency (Acute) Hypophosphatemia (Acute) Pseudomonas pneumonia (Acute) ARF (acute renal failure) (Acute) - Physical Exam Vital Signs Temp Pulse Resp BP Pulse Ox 99.0 F 97 18 108/66 95 07/17/19 10:46 07/17/19 11:26 07/17/19 11:26 07/17/19 10:46 07/17/19 11:26 Oxygen Flow Rate (L/min) [ 2 AMBULATION with Oxygen] Oxygen Flow Rate (L/min) 2 Oxygen Delivery Method Nasal Cannula Weight: 174 lb 1.6 oz Body Mass Index (BMI) 23.6 Intake and Output for Last 24 Hours 07/15/19 07/16/19 07/17/19 23:59 23:59 23:59 Intake Total 5088.96 / 5088.96 1831.04 / 1831.04 700.25 / 700.25 Output Total 3250 / 3250 1900 / 1900 1300 / 1300 Balance 1838.96 / 1838.96 -68.96 / -68.96 -599.75 / -599.75 Microbiology Past 72 Hours 07/14/19 06:20 Blood Culture - Preliminary Blood Culture (Wb) - Anticubital Left No growth in 48 hours. 07/14/19 06:25 Blood Culture - Preliminary Blood Culture (Wb) - Anticubital Right No growth in 48 hours. Laboratory Tests Past 24 Hrs 07/16/19 07/17/19 05:36 10:43 Diff Path Review Reviewed Iron 27 L TIBC 111 L Iron Saturation 24.3 Ferritin 982 H Discharge Activity: - - Gradually increase activity as tolerated. Work up gradually to walking 30 minutes daily. you will need to rest and then walk intermittently dueing the day because you have been through a lot and you are going to fatigue easily and get short of breath with exertion......getting stronger takes a little longer when you are a little older BUT, if you don't exercise you will not get stronger.....no pain, no gain. Weight Bearing Status: Full weight bearing Call your doctor if you observe: Fever of 101 or Higher, Inability to urinate, Inability to have a bowel movement, Dizziness, Fainting spells, Chest pain, - - Call your PCP if severe diarrhea ( > 5 stools a day), painful sores in the mouth, painful swallowing, rash or itching. Taking a probiotic such as Lactobacillus or Kefir can help with loose stools while taking antibiotics. Home Medications: Medications to take at Discharge Fluticasone/Vilanterol [Breo Ellipta 100-25 Mcg INH] 1 ea IH DAILY 06/03/19 Levocetirizine Dihydrochloride 5 mg PO DAILY 07/01/19 Montelukast [Singulair] 10 mg PO DAILY 07/01/19 simvastatin 20 mg tablet 20 mg PO QHS 07/04/19 Oxycodone Myristate [Xtampza ER] 13.5 mg PO Q12H 07/09/19 Albuterol Sulfate [Proair Respiclick] 1 inh INHALATION 4X/DAY #1 aer.pow.ba 07/12/19 Docusate Sodium [Colace] 100 mg PO BID #20 cap 07/12/19 Guaifenesin [Mucinex] 1,200 mg PO BID tab 07/12/19 Hydrocodone/Acetaminophen [[place] 5-325 Tablet] 1 ea PO Q4H PRN PRN 5 Days #14 tab 07/12/19 Doxazosin Mesylate 8 mg PO BID 07/14/19 Naproxen [Naprosyn] 500 mg PO BID PRN PRN 07/14/19 Piperacil/Tazobactam [Zosyn] 3.375 gm IV Q8 7 Days #21 vial 07/16/19 Ipratropium/Albuterol Sulfate [Duoneb] 3 ml INHALATION Q4HWA.RT #56 ampul.neb 07/17/19 Lactobacillus Acidophilus [Acidophilus] 1 tab PO TIDCM #30 tab 07/17/19 Metoprolol Tartrate [Lopressor (beta lisa)] 12.5 mg PO BID #30 tab 07/17/19 Oxycodone [Oxyir] 5 - 10 mg PO Q4H PRN PRN 7 Days #40 tablet 07/17/19 Following Prescrptions Were Given to Patient: Lactobacillus Acidophilus [Acidophilus] 1 tab PO TIDCM #30 tab Transmission Status: Pending to [facility] Ipratropium/Albuterol Sulfate [Duoneb] 3 ml INHALATION Q4HWA.RT #56 ampul.neb Transmission Status: Pending to [facility] Metoprolol Tartrate [Lopressor (beta lisa)] 12.5 mg PO BID #30 tab Transmission Status: Pending to [facility] Oxycodone [Oxyir] 5 - 10 mg PO Q4H PRN PRN 7 Days #40 tablet PRN Reason: Mild-Mod Pain (-03/28) Transmission Status: Sent to [facility] Piperacil/Tazobactam [Zosyn] 3.375 gm IV Q8 7 Days #21 vial Prescription Printed Primary Care Physician: Kiara Spence DO [Primary Care Provider] - Please follow up with your Primary Care Physician in: 1-2 weeks Please Follow Up With: Torito Shafer MD When: 5-7 days Please Follow Up With: Willard Kirby DO Patient Instructions: Depression Affects Your Mind and Body, Counseling for Depression, Depression: Tips to Help Yourself Minutes spent on discharge:: 40 Patient Condition:: Stable Medical Necessity - Tobacco Use Smoking Status: Never smoker Tobacco Use: Non-smoker Meaningful Use Info Meaningful Use Diagnoses (Choose all that apply): None applicable Code Visit Inpatient E&M: 15709 Disch Hosp
--- NOTE | 2019-07-18 13:37 | CASEMGMT ---
TAWNYA EDWARDS Discharge Follow-Up Phone Call. Lace: 11 Strata: 3 Discharge Date: 07/17/19 Adm Dx: Post-op Fever, Suspected PNA Attempted discharge follow-up phone call. No answer. Message left for pt to return call to MS3 Lisette BOWLING CM, if he has any questions about the discharge instructions, medications, or follow-up appts. Phone number provided. Pastor OMALLEY RN, CM
== END 2019-07-17 16:10 | disposition home or self-care (01) | DRG 178 ==
LOC: ED 07:49 → MS3 10:29
PROVIDERS: Emergency Medicine; Family Medicine; Admitting Provider Internal Medicine; Emergency Provider Emergency Medicine; Family Provider Internal Medicine; PCP Internal Medicine; Referring Provider Internal Medicine; Visit Provider Internal Medicine
DX: J15.1 Pneumonia due to Pseudomonas (principal); N17.9 Acute kidney failure, unspecified; Q21.1 Atrial septal defect; R09.02 Hypoxemia; E83.39 Other disorders of phosphorus metabolism; R06.89 Other abnormalities of breathing; Z90.5 Acquired absence of kidney; I48.0 Paroxysmal atrial fibrillation; E78.5 Hyperlipidemia, unspecified; I10 Essential (primary) hypertension; J45.40 Moderate persistent asthma, uncomplicated; G89.4 Chronic pain syndrome; M54.9 Dorsalgia, unspecified; Z85.528 Personal history of other malignant neoplasm of kidney; Z92.3 Personal history of irradiation; Z16.23 Resistance to quinolones and fluoroquinolones
CPT/HCPCS: 36415; 71046; 71250; 74176; 80048; 80053; 81001; 82570; 82728; 83540; 83550; 83605; 83735; 84100; 84300; 85025; 85610; 85730; 87040; 87070; 87077; 87205; 93005; 94640; 94667; 94668; 94760; 97802; 99285; J7030; J7040; J7050; A4216; J1940

== ENCOUNTER → 2019-07-24 13:44 | Outpatient (CLI) | payer MEDICARE, BC, SELFPAY ==
[2019-07-14 11:14] VITALS: BMI 23.6
--- NOTE | 2019-07-24 14:09 | RAD_ITS ---
STUDY: X-RAY CHEST REASON FOR EXAM: Male, 73 years old. Pneumonia. TECHNIQUE: PA and lateral views of the chest. COMPARISON: Chest, July 16, 2019. FINDINGS: There is hyperinflation lungs without acute infiltrate or mass. There is blunting of the bilateral posterior costophrenic angles. Normal size heart. Normal mediastinum and teresa. Normal visualized pulmonary arteries. There is atherosclerotic calcification of the aortic arch with tortuosity. Normal visualized thoracic spine. Normal visualized ribs, clavicles, and shoulders. There is no demonstrated abnormality of the visualized soft tissue structures of the upper abdomen. RAD/Chest PA and Lateral IMPRESSION: Stable blunting of the posterior costophrenic angles without acute cardiopulmonary disease. Electronically Signed: Kaden Montiel DO at 21:58 EDT Tel [phone], Service support ,
--- NOTE | 2019-07-24 14:10 | RAD_ITS ---
STUDY: X-RAY - ABDOMEN/PELVIS REASON FOR EXAM: Male, 73 years old. Diffuse abdominal pain TECHNIQUE: 4 AP views COMPARISON: None. FINDINGS: Normal visualized lung bases. There is an unremarkable bowel gas pattern. There is no demonstrated free abdominal air. The visualized liver, spleen and kidneys are grossly normal in size and morphology. Normal soft tissue structures. There are degenerative bony changes with a mild levoscoliosis. RAD/Abd Inc Decub and/or Erect IMPRESSION: No acute findings Electronically Signed: Yonis Levine MD at 14:52 EDT , Service support ,
== END ==
PROVIDERS: Family Provider Internal Medicine; PCP Internal Medicine; Referring Provider Internal Medicine Pulmonary Disease; Visit Provider Internal Medicine Pulmonary Disease
DX: J18.9 Pneumonia, unspecified organism (principal)
CPT/HCPCS: 71046; 74018; 74019

== ENCOUNTER → 2019-07-24 15:29 | Outpatient (CLI) | payer MEDICARE, BC, SELFPAY ==
[2019-07-14 11:14] VITALS: BMI 23.6
--- NOTE | 2019-07-24 15:32 | US_ITS ---
STUDY: LIMITED FOUR-QUADRANT ABDOMINAL ULTRASOUND REASON FOR EXAM: Male, 73 years old. Ascites evaluation TECHNIQUE: Limited four-quadrant abdominal sonogram performed. COMPARISON: None. FINDINGS: Four-quadrant abdominal ultrasound performed and shows a small amount of fluid around the periphery of the right lobe of the liver. No significant ascites noted within the abdomen Small pleural effusion US/Abdomen Limited IMPRESSION: No significant ascites Small amount of fluid around the periphery of the liver Small right pleural effusion Electronically Signed: Yonis Levine MD at 16:09 EDT , Service support ,
== END ==
PROVIDERS: Family Provider Internal Medicine; PCP Internal Medicine; Referring Provider Urology; Visit Provider Urology
DX: R18.8 Other ascites (principal); J18.9 Pneumonia, unspecified organism
CPT/HCPCS: 71046; 74019; 76705

== ENCOUNTER 2019-07-25 12:48 | Outpatient (RCR) | payer MEDICARE, BC, SELFPAY ==
[2019-07-14 11:14] VITALS: BMI 23.6
[2019-07-25 13:07] LABS: Absolute Lymphocyte Count 1.44 X10^3/uL (0.83-4.51); Basophil# 0.03 X10^3/uL; Basophil% 0.5 % (0-1); Eosinophils% 1.6 % (0-5); Hematocrit 33.4 % (40-54); Hemoglobin 10.7 g/dL (13.0-16.5); Lymphocyte # 1.44 X10^3/ul (4.0); Lymphocyte % 23.6 % (19-41); Mean Corpuscular Hgb 33.2 pg (27.0-32.0); Mean Corpuscular Volume 103.7 fL (80-94); Mean Platelet Vol. 9.4 fl (6.2-12.0); Monocyte# 0.39 X10^3/uL; Monocyte% 6.4 % (0-10); NRBC Flagged by Analyzer 0.3 % (0-5); Neutrophil # 3.95 X10^3/uL (2.7-7.7); Neutrophil % 64.9 % (47-70); Platelet Count 305 K/mm3 (150-450); RBC Distribution Width CV 14.7 % (11.6-14.6); RBC Distribution Width SD 54.9 fl (35.1-43.9); Red Blood Count 3.22 M/mm3 (4.6-6.2); White Blood Count 6.1 K/mm3 (4.4-11.0)
[2019-07-25 13:36] LABS: ALB/GLOB Ratio 0.5 RATIO (0.9-2.4); AST(SGOT) 81 U/L (15-37); Alanine Aminotransfer ALT/SGPT 71 U/L (16-61); Albumin, Serum 2.2 g/dL (3.2-5.0); Alkaline Phosphatase 66 U/L (45-117); Anion Gap 7 (5-15); BUN 18 mg/dL (7-18); BUN/Creat Ratio 10.6 RATIO (10-20); Calcium,Total 8.6 mg/dL (8.5-10.1); Chloride 106 mmol/L (98-107); EST Glomerular Filtration Rate 42 mL/min (>60); Est Glom Filt Rate - Afr Amer 51 mL/min (>60); Globulin 4.2 g/dL (2.2-4.2); Glucose 129 mg/dL (74-106); LDH 299 U/L (87-241); Potassium 3.9 mmol/L (3.5-5.1); Protein, Total 6.4 g/dL (6.4-8.2); Sodium Level 139 mmol/L (136-145)
== END 2019-08-18 23:59 ==
LOC: HHLAB 12:48
PROVIDERS: Family Provider Internal Medicine; PCP Internal Medicine; Referring Provider Internal Medicine; Visit Provider Internal Medicine
DX: F11.10 Opioid abuse, uncomplicated (principal); R00.1 Bradycardia, unspecified; E78.5 Hyperlipidemia, unspecified; E04.1 Nontoxic single thyroid nodule; M15.0 Primary generalized (osteo)arthritis; N17.9 Acute kidney failure, unspecified; Z90.5 Acquired absence of kidney; Z45.2 Encounter for adjustment and management of vascular access device; Z79.2 Long term (current) use of antibiotics; Z99.81 Dependence on supplemental oxygen; Q21.1 Atrial septal defect
CPT/HCPCS: 80053; 83615; 85025

== ENCOUNTER 2019-07-28 12:22 | Inpatient (IN) | payer MEDICARE, BC, SELFPAY ==
[2019-07-14 11:14] VITALS: BMI 23.6
[2019-07-28] VITALS (11 sets, daily range): BP systolic 103–131; BP diastolic 62–77; PULSE 60–101; RESP 17–20; TEMP 36.4–36.8; O2SAT 91–95; BMI 24.0; BMI 23.5
--- NOTE | 2019-07-28 | FLU_PTH ---
PATIENT: LUKE MENDEZ LOC: U U#:[id number] AGE/SX: 73/M ROOM: [facility] RE07/28/[address]: Dr. Terry Park MD : 1945 BED: 1 DIS: 07/30/2019 SPEC #: [id number] RECD: 07/28/19 16:15 STATUS: NATY REQ #: [id number] NGA: 07/28/19 00:[address]: Louise Williamson DEPT: CYTOLOGY RECD BY: Cristy Orantes ENTERED: 07/29/19 08:57 SP TYPE: Fluid OTHR DR: DO Dr. Kiel Paredes MD Dr. Ghasem E Ashelfah, MD Dr. Juan Miguel Proano, MD Dr. Prakash Chand, MD Tissues: PARACENTESIS FLUID Procedures: Special Stain Group II Surgery Specimen Level IV Cytospin Fluid HEADER OPERATION: Ultrasound guided right paracentesis PRE-OP DIAGNOSIS: Spontaneous bacterial peritonei TISSUE SUBMITTED: Paracentesis fluid for cytology DIAGNOSIS CYTOLOGY Paracentesis fluid for cytology (cytospin and cell block): Negative for malignant cells. See comment. MEGHANA:ruiz 07/30/19 COMMENT The specimen is grossly turbid, white and milky consistent with chylous effusion. Correlation with clinical findings and appropriate follow up are necessary. Please make reference to previous specimen ([id number]) T12 lesion, right side, CT-guided core biopsy with diagnosis of metastatic carcinoma, consistent with renal primary and ([id number]) right kidney, radical nephrectomy with diagnosis of renal cell carcinoma. CYTOLOGY STUDY Slides are reviewed. CYTOLOGY GROSS Received is 170 ml of milky pale pink fluid labeled with the patient's name and and designated per the requisition as paracentesis. Submitted for cytology preparation including cell block. / CC:cc 07/29/19 TC:5 CPT: 42288, 32437
--- NOTE | 2019-07-28 12:44 | RAD_ITS ---
STUDY: X-RAY CHEST REASON FOR EXAM: Male, 73 years old. Nonproductive cough, dyspnea. Decreased breath sounds. Tachycardia. TECHNIQUE: AP and lateral views of the chest. COMPARISON: Comparison is made with prior study dated July 24, 2019. FINDINGS: EKG electrodes are seen. Blunting of the right costophrenic angle. No acute infiltrate is seen. There is no demonstrated pleural abnormality. Normal size heart. Normal mediastinum and teresa. Normal visualized pulmonary arteries. There is atherosclerotic calcification of the aortic arch with tortuosity. There is demineralization of the osseous structures. Normal visualized ribs, clavicles, and shoulders. There is no demonstrated abnormality of the visualized soft tissue structures of the upper abdomen. RAD/Chest PA and Lateral IMPRESSION: Blunting of the right costophrenic angle. Electronically Signed: Lucho Bond, at 13:49 EDT , Service support ,
--- NOTE | 2019-07-28 12:44 | EKG12_ITS ---
Test Reason : SOB Blood Pressure : / mmHG Vent. Rate : 085 BPM Atrial Rate : 072 BPM P-R Int : 000 ms QRS Dur : 086 ms QT Int : 348 ms P-R-T Axes : 000 055 069 degrees QTc Int : 414 ms Atrial fibrillation Abnormal ECG Confirmed by JUSTO THURMAN MD ([id number]), editor managing director MARIE PAGAN ([id number]) on 07/29/2019 9:25:54 AM Referred By: Kiel Marquez Confirmed By:JUSTO THURMAN MD
--- NOTE | 2019-07-28 12:46 | ED.DCSUM_ITS ---
History of Present Illness Chief Complaint: Shortness of Breath Informant: Patient, Family, Significant Other Onset: - July 25 Context: Sudden Onset Timing: Continuous Quality: Shortness of breath Location: Respiratory Current Severity: Mild Maximum Severity: Severe Worsened by: Minimal activity Relieved by: Nothing Associated Symptoms: Dyspnea on exertion, nonproductive cough Narrative: Patient is an elderly male who had a nephrectomy by Dr. Adkins in June. He was cleared from a cardiac standpoint by Dr. Marquez. He had paroxysmal A. fib prior to surgery. He after his nephrectomy for pneumonia. He completed IV anti biotics on Sunday. He denies leg pain, swelling discoloration. He states his legs were swollen prior to the administration of Lasix. Prior similar symptoms: Yes Recent Illness/Hospitalization: Yes - Past Medical History (1) Pseudomonas pneumonia Status: Acute (2) Chronic back pain Status: Chronic (3) H/O right nephrectomy Status: Chronic (4) Hyperlipidemia Status: Chronic (5) Hypertension Status: Chronic (6) Moderate persistent asthma Status: Chronic (7) Paroxysmal atrial fibrillation Status: Chronic (8) Patent foramen ovale Status: Chronic Comment: Per echo 05/12/2019@ [facility] (9) Renal cancer Status: Chronic Comment: S/P right nephrectomy 07/09/[address] Adkins Past Medical History - Allergies and Home Meds Allergies/Adverse Reactions: Allergies No Known Allergies Allergy (Verified 07/28/19 12:25) Primary Care Physician: Kiara Spence DO [Primary Care Provider] - Prior records reviewed: Yes Surgical History: - - Recent nephrectomy Smoking Status: Never smoker Alcohol: None Drugs: None - Family History Maternal Family History: Family History (Last Reviewed 07/04/19 @ 11:29 by Anuradha Salazar) Mother Colon cancer Father Emphysema lung Family History: Reports: No pertinent history Paternal Family History: Family History (Last Reviewed 07/04/19 @ 11:29 by Anuradha Salazar) Mother Colon cancer Father Emphysema lung Family History: Reports: No pertinent history Review of Systems General: Reports: Malaise. Denies: Chills, Fever, Sweats Eyes: Denies: Visual changes - bilaterally, Blurred Vision - bilaterally, Diplopia ENT: Denies: Rhinorrhea, Sore throat Cardiovascular: Denies: Chest pain, Palpitations Respiratory: Reports: Dyspnea, Cough, Dyspnea on exertion. Denies: Sputum, Orthopnea, Paroxysmal nocturnal dyspnea Gastrointestinal: Denies: Abdominal pain, Nausea, Vomiting, Diarrhea, Melena, Hematochezia Genitourinary: Denies: Dysuria, Hematuria, Frequency Musculoskeletal: Denies: Myalgias, Arthralgias, Neck pain, Back pain, Extremity Pain Skin: Denies: Rash, Wounds Neurological: Denies: Headache, Weakness, Numbness Hematologic: Denies: Easy bruising, Easy bleeding Allergy: Denies: Uticaria, Swelling of the mouth Physical Exam Vital Signs/Narrative: Vital Signs Temp Pulse Resp BP Pulse Ox 07/28/19 12:23 97.6 F L 83 20 H 115/62 93 Inital Vital Signs reviewed: Yes General: Well nourished, Well developed, Acute Distress Head: Normocephalic, Atraumatic Eyes: Perrl, EOMI. Negative for: Pale conjunctiva, Scleral icterus ENT: Moist mucous membranes, No rhinorrhea Neck: Supple, Nontender Cardiovascular: Regular rate, Regular rhythm, No murmurs, Normal S1, Normal S2 Respiratory: Chest nontender, Rales, Decreased Air Movement - Left significantly compared to right Abdomen: Soft, Nontender, Normal bowel sounds, Hypoactive bowel sounds Back: Nontender, Normal Inspection Extremities: Nontender, No edema Skin: Normal color, No rash Neurological: Alert, Oriented x3, Cranial nerves II-XII grossly intact, Normal Strength, Normal Sensation Psychological: Normal affect, Normal Mood Diagnostic/Tx/Re-eval Chest X-Ray - ED: 2 View, Read by ED Physician, Unchanged, Normal, Heart, Bony Structures, No Acute Disease, Chronic Changes, Right Effusion Impressions Chest X-Ray 07/28/19 12:44 IMPRESSION: Blunting of the right costophrenic angle. Electronically Signed: Lucho Bond, at 13:49 EDT , Service support , 07/28/19 12:44 Chest PA and Lateral [RAD] Stat Laboratory Results 07/28/19 07/28/19 13:10 13:10 WBC 8.9 RBC 3.40 L Hgb 11.1 L Hct 35.1 L MCV 103.2 H MCH 32.6 H MCHC 31.6 L RDW Std Deviation 55.3 H RDW Coeff of Santana 15.0 H Plt Count 319 MPV 9.2 Immature Gran % (Auto) 2.000 H Neut % (Auto) 74.4 H Lymph % (Auto) 17.0 L Garrard % (Auto) 6.1 Eos % (Auto) 0.2 Baso % (Auto) 0.3 Absolute Neuts (auto) 6.6 Absolute Lymphs (auto) 1.52 Nucleated RBC % 0.2 Sodium 140 Potassium 4.3 Chloride 106 Carbon Dioxide 26.0 Anion Gap 8 BUN 25 H Creatinine 1.62 H Estim Creat Clear Calc 44.57 Est GFR (MDRD) Af Amer 54 L Est GFR (MDRD) Non-Af 45 L BUN/Creatinine Ratio 15.4 Glucose 134 H Calcium 8.8 Troponin I < 0.015 Chest x-ray per my read and interpretation by radiology does not explain patient's respiratory symptoms. With normal troponin, normal white count, unre markable chest x-ray need to evaluate for pulmonary embolus. Creatinine is elevated 1.62 with a GFR of 45. Will administer 3 cc/kg bolus prior to CTA of the chest. He is slightly anemic. This would not explain his symptoms either. CT/CTA Chest W/WO Contrast IMPRESSION: Small right pleural effusion with right basilar atelectasis. No evidence of pulmonary embolism. Stable destruction of the right pedicle of the T12 vertebrae. Ascites. Fatty infiltration of the liver. Electronically Signed: Lucho Bond, at 15:19 EDT , Service support , CT/Abdomen/Pelvis W IV Cont ONLY IMPRESSION: Ascites. Small bilateral effusions slightly worse on the right side with right basilar atelectasis. Small pericardial effusion. 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 Lytic lesion in the left iliac bone. Status post right nephrectomy. Electronically Signed: Lucho Bond, at 15:16 EDT , Service support , - EKG Initial EKG Interpretation: Atrial Fibrillation - Ventricular rate is 85. QRS duration is 86 ms. QT duration is 348 ms. [place] is normal. Prior: Changed - Medical Decision Making With history of recent hospitalization, nephrectomy for renal cancer need to evaluate for pulmonary embolus, pneumothorax, congestive heart failure, recurrent pneumonia. Since patient has rhonchi and wheezing will treat with albuterol. Reviewed CT abdomen and pelvis with Dr. Moore. He states there is a significant amount of ascitic fluid compared to last week. Informed by radiologist that patient has vashti purulent material and only able to drain by gravity 120 cc. He was unable to aspirate because the fluid was thick. Appropriate studies were obtained. Blood cultures were obtained and he was treated with Zosyn and vancomycin. Dr. Adkins is notified. ED Disposition - Plan for ED Patient: Diagnosis: Spontaneous bacterial peritonitis, Paroxysmal atrial fibrillation Referrals: Kiara Spence DO [Primary Care Provider] -
[2019-07-28] MEDS: Albuterol 2.5 MG/3 ML VIAL.NEB. INHALATION ×4 (12:55→21:06)
[2019-07-28 13:22] LABS: Absolute Lymphocyte Count 1.52 X10^3/uL (0.83-4.51); Absolute Neutrophil Count 6.6 X10^3/uL (2.0-7.7); Basophil# 0.03 X10^3/uL; Basophil% 0.3 % (0-1); Eosinophil# 0.02 X10^3/uL; Eosinophils% 0.2 % (0-5); Hematocrit 35.1 % (40-54); Hemoglobin 11.1 g/dL (13.0-16.5); Lymphocyte # 1.52 X10^3/ul (4.0); Mean Corp Hgb Conc 31.6 g/dL (32-36); Mean Corpuscular Hgb 32.6 pg (27.0-32.0); Mean Corpuscular Volume 103.2 fL (80-94); Mean Platelet Vol. 9.2 fl (6.2-12.0); Monocyte# 0.54 X10^3/uL; Monocyte% 6.1 % (0-10); NRBC Flagged by Analyzer 0.2 % (0-5); Neutrophil # 6.63 X10^3/uL (2.7-7.7); Neutrophil % 74.4 % (47-70); Platelet Count 319 K/mm3 (150-450); RBC Distribution Width SD 55.3 fl (35.1-43.9); White Blood Count 8.9 K/mm3 (4.4-11.0)
[2019-07-28 13:41] LABS: Anion Gap 8 (5-15); BUN 25 mg/dL (7-18); BUN/Creat Ratio 15.4 RATIO (10-20); Calcium,Total 8.8 mg/dL (8.5-10.1); Chloride 106 mmol/L (98-107); Creatinine, Serum 1.62 mg/dL (0.70-1.30); EST Glomerular Filtration Rate 45 mL/min (>60); Est Glom Filt Rate - Afr Amer 54 mL/min (>60); Estimated Creatinine Clearance 44.57 ml/min; Glucose 134 mg/dL (74-106); Potassium 4.3 mmol/L (3.5-5.1); Sodium Level 140 mmol/L (136-145)
--- NOTE | 2019-07-28 14:10 | CT_ITS ---
STUDY: CTA CHEST REASON FOR EXAM: Male, 73 years old. Dyspnea. History of renal cell carcinoma. RADIATION DOSAGE (If Supplied By Facility): CTDIvol = ( 15.49 ) mGy, DLP = ( 1452.12 ) mGycm TECHNIQUE: The examination was performed with the intravenous administration of 100 IV Isovue 370. Post-processing of the angiographic images was performed, with multiplanar reformation and 3D reconstruction. Individualized dose optimization techniques were used for this CT. COMPARISON: Comparison is made with prior study dated July 14, 2019. FINDINGS: Normal enhancement of the main pulmonary artery and right and left pulmonary arteries. Normal enhancement of the bilateral peripheral pulmonary arteries. There is no demonstrated pulmonary embolism. There is atherosclerotic calcification of the aortic arch with tortuosity. There is no demonstrated aortic dissection. Small pericardial effusion. There are visualized mediastinal lymph nodes, which are within normal size limits, and with normal morphology. Normal hilar regions. Normal visualized trachea and bronchi. The lungs are well expanded. Small right pleural effusion with underlying basilar atelectasis. Minimal increased groundglass appearance in the anterior aspect of the right upper lobe. Mild increased markings in the anterior aspects of both upper lobes suggestive of mild scarring. Normal chest wall structures. Stable destruction and soft tissue mass along the posterior aspect of the T12 vertebrae on the right side. Ascites. Diffuse fatty infiltration of the liver. CT/CTA Chest W/WO Contrast IMPRESSION: Small right pleural effusion with right basilar atelectasis. No evidence of pulmonary embolism. Stable destruction of the right pedicle of the T12 vertebrae. Ascites. Fatty infiltration of the liver. Electronically Signed: Lucho Bond, at 15:19 EDT , Service support ,
--- NOTE | 2019-07-28 14:34 | CT_ITS ---
STUDY: CT ABDOMEN AND PELVIS WITH CONTRAST REASON FOR EXAM: Male, 73 years old. Dyspnea. History of renal cell carcinoma and status post nephrectomy. Abdominal distention. RADIATION DOSAGE (If Supplied By Facility): CTDIvol = ( 15.49 ) mGy, DLP = ( 1452.12 ) mGycm TECHNIQUE: Transaxial images were obtained from the dome of the diaphragm to the symphysis pubis without oral contrast. 100 IV Isovue 370 was administered. Sagittal and coronal images were reconstructed. Individualized dose optimization techniques were used for this CT. COMPARISON: Comparison is made with prior study dated July 14, 2019. FINDINGS: Small bilateral pleural effusions right greater than left with right basilar atelectasis. Small pericardial effusion. Since prior examination, there has been an increase in the amount of ascitic fluid surrounding the liver and spleen as well as within the lower abdomen and pelvis. There is decreased attenuation of the liver consistent with steatosis. Normal gallbladder and extrahepatic biliary system. Normal spleen. Normal pancreas. Normal bilateral adrenal glands. Status post right nephrectomy. There is a 1.9 cm x 2.1 cm cyst in the lateral aspect of the left kidney. Normal visualized stomach. Normal small intestine. Normal colon. The appendix is visualized and appears normal. There is diffuse atherosclerotic calcification of the abdominal aorta and major visceral branches., without a demonstrated aneurysm. Normal inferior vena cava. Normal retroperitoneum. Papillary-like enhancement along the bladder wall posteriorly on the right side. Follow-up is recommended. Radiation seeds are seen within the prostate. The previously seen subcutaneous emphysematous changes overlying the right anterior and lateral abdomen as clear. Minimal residual thickening of the overlying skin. Loss of height of the T12 vertebrae. Soft tissue destruction of the right pedicle at the T12 level with involvement of the spinal canal. This space narrowing and spondylosis at the L3-L4 level. There is also evidence of a lytic lesion in the left iliac bone anteriorly. CT/Abdomen/Pelvis W IV Cont ONLY IMPRESSION: Ascites. Small bilateral effusions slightly worse on the right side with right basilar atelectasis. Small pericardial effusion. 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 Lytic lesion in the left iliac bone. Status post right nephrectomy. Electronically Signed: Lucho Bond, at 15:16 EDT , Service support ,
--- NOTE | 2019-07-28 15:33 | US_ITS ---
PROCEDURE: Ultrasound guided paracentesis. DATE OF EXAMINATION: July 28, 2019.. INDICATION: Male, 73 years old. Ascites. PHYSICIAN: Lucho Bond M.D. TECHNIQUE: The risks, benefits, and alternatives to the procedure were explained to the patient. The specific risks of bleeding, infection, and damage to bowel were detailed and accepted. Witnessed informed consent was obtained. The abdomen was ultrasonographically surveyed. An appropriate pocket of fluid was identified at the right lower quadrant. The skin were cleaned and prepped in the usual sterile fashion. Using ultrasound guidance, the peritoneal cavity was accessed with a 5-British paracentesis needle/catheter system. The trocar was removed. A total of 220 ml of purulent material were removed from the peritoneal cavity. A sample was sent to the laboratory for analysis. The catheter was removed and a sterile dressing was applied. The procedure was well tolerated. US/Paracentesis with US IMPRESSION: Ultrasound guided paracentesis. Electronically Signed: Lucho Bond, at 8:18 EDT , Service support ,
--- NOTE | 2019-07-28 15:50 | NURSING ---
paracentesis - pt understands procedure and care bp 131/81, heart rate 102, respt 18, 93% on room air drainage cloudy withe pink, unable to draw to much out, suctioning did not work, able to free flow into container pt tolerating procedure well 1555 125/73 heart rate 99, respirations 18. pulse ox 93 5 on room air 1605 draining white pink drainage thin, unable to suction, free flowing into speciment cups approx 150 cc drainage obtained. surgifoam dressing applied, report called to ER nurse Korina,
--- NOTE | 2019-07-28 16:27 | ED.RN ---
PT TO BE ADMITTED D/T PURELENT MATHEUS FROM PARACENTESIS. NO NEED TO AMB FOR POX PER DR. GODINEZ SINCE KNOW REASONING FOR SOB AND TACHYCARDIA
[2019-07-28 16:36] LABS: Auto B Fluid Analyzer BKGD Ct COUNTS W/IN LIMITS (W/IN LIMITS); Source- Body Fluid PERITONEAL FLUID
--- NOTE | 2019-07-28 16:36 | CASEMGMT ---
RN CM Assessment Introduced role of RN CM to patient, patient Eden and daughter at bedside.? Patient is alert, oriented and able?to participate in RN CM Assessment. ?States no changes from last admission except for DME and HHC. Care providers, pharmacy, and demographics verified. Presentation: SOB. H/o Kidney CA & T12 Lesion, Rt Nephrectomy done in June by Dr Adkins, Radiation to Back. Had a Paracentesis done this ER visit. Admit Dx: Spontaneous Bacterial Peritonitis, Acute Kidney Injury Re-Admit: Yes, 07/14-07/17/19 for Post op fever, suspected PNA Barriers/Issues: None PCP: Kiara Spence Specialists: Onc- Dr Kirby, Rad- Dr Amaya, Pulm- Dr Shafer, Cardio- Dr Marquez Preferred Pharmacy: [facility] Insurance: [employer] A$B, [employer] Benefit:?Yes LNOK: Eden King LW/HPOA: Yes, HPOA- Eden King. None on file at [facility]. Living Arrangements:? Lives with at address verified on Demographics. ADL?s: Independent with ADLs, was using walker after last DC but has not had to use the past couple days, has been ambulating Independently. Transportation: Self/ DME: [place], Home O2- Has not had to use since was DC'd with it, states that he only used it to get into the car on last DC. Walker. HHC: Current with [facility], IV Abx ended Sunday, was supposed to have a visit today by HHC. SNF: None Goal: Home. Denies any issues/concerns or questions at this time with DC planning. Aware CM remains available for any emerging needs. DC PLAN: Home with resumption of HHC. Possible IV Abx on DC. MARVIN Caal
[2019-07-28 16:37] LABS: Appearance/Body Fluid TURBID
--- NOTE | 2019-07-28 16:40 | PCM.HP.STD ---
Problem List (1) Spontaneous bacterial peritonitis Status: Acute (2) H/O right nephrectomy Status: Chronic (3) Paroxysmal atrial fibrillation Status: Chronic (4) Narcotic dependence Status: Chronic (5) Patent foramen ovale Status: Chronic Comment: Per echo 05/12/2019@ [facility] (6) Renal cancer Status: Chronic Qualifiers: Laterality: right Qualified Code(s): C64.1 - Malignant neoplasm of right kidney, except renal pelvis Comment: S/P right nephrectomy 07/09/[address] Adkins (7) Hypertension Status: Chronic (8) Hyperlipidemia Status: Chronic (9) Moderate persistent asthma Status: Chronic History of Present Illness Date of Admission: 07/28/19 Chief Complaint: Shortness of breath. The patient is a 73 year old M with past medical history as mentioned above presented to the emergency room because of shortness of breath. Patient was discharged from the hospital on July 17, 2019 after admission for pneumonia and he completed antibiotic course few days ago. After patient discharged home by couple of days, he started having shortness of breath which has been progressive since he was discharged, initially was only upon moderate activity and in the last couple of days, he gets short of breath even with minimal activity, relieved with rest, associated with mild dry cough without sputum production as well as fatigue and weakness. Patient was discharged on IV Zosyn for Pseudomonas aeruginosa pneumonia and he completed the IV Zosyn on July 24, 2019. He underwent laparoscopic robotic assisted right radical nephrectomy on July 09, 2019 For right-sided renal cancer. Also, he complained of abdominal distention over the last several days but denies any abdominal pain. Patient denies fever or chills. He denies chest pain, palpitation, denies or lightheadedness. He denies abdominal pain, nausea, vomiting, constipation or diarrhea. He denies urinary symptoms. In the emergency department, he was afebrile, heart rate was stable, blood pressure was stable and pulse ox was maintained on room air. His routine blood work was remarkable for hemoglobin of 11.1 g/dL, BUN of 25, creatinine of 1.62. EKG revealed atrial for ablation, rate is controlled, no acute changes. Troponin was negative. Chest x-ray revealed blunting of the right costophrenic angle, no acute infiltrate or consolidation. CTA chest done today also revealed small right pleural effusion, no PE or dissection, stable destruction of right pedicle of T12 with ascites. CT scan abdomen and pelvis with IV contrast revealed ascites, small bilateral pleural effusion, small pericardial effusion, T12 bony metastasis, lytic lesion in the left iliac bone, status post right nephrectomy. Patient underwent paracentesis and reportedly, vashti thick pus was drained of his abdomen. He is being admitted for spontaneous bacterial peritonitis, acute kidney injury, recent history of pneumonia. Past Medical History Past Medical History (Chronic Problems): Chronic Problems (Last Updated 07/28/19 @ 17:08 by Caro Miller MD) H/O right nephrectomy (Chronic) Paroxysmal atrial fibrillation (Chronic) Chronic back pain (Chronic) Narcotic dependence (Chronic) Patent foramen ovale (Chronic) Per echo 05/12/2019@ [facility] Renal cancer (Chronic) S/P right nephrectomy 07/09/[address] Adkins Hypertension (Chronic) Hyperlipidemia (Chronic) Bradycardia (Chronic) Thyroid nodule (Chronic) Moderate persistent asthma (Chronic) Arthritis (Chronic) Degenerative disc disease (Chronic) Medical History: Medical History (Last Updated 07/28/19 @ 17:08 by Caro Miller MD) Patent foramen ovale (Chronic) Q21.1 Per echo 05/12/2019@ [facility] Renal cancer (Chronic) C64.9 S/P right nephrectomy 07/09/[address] Adkins Hypertension (Chronic) I10 Hyperlipidemia (Chronic) E78.5 Bradycardia (Chronic) R00.1 Thyroid nodule (Chronic) E04.1 Moderate persistent asthma (Chronic) J45.40 Arthritis (Chronic) M19.90 Degenerative disc disease (Chronic) Allergies No Known Allergies Allergy (Verified 07/28/19 12:25) Home Medications: Ambulatory Orders Medication Instructions Recorded Fluticasone/Vilanterol [Breo 1 ea IH DAILY 06/03/19 Ellipta 100-25 Mcg INH] Montelukast [Singulair] 10 mg PO DAILY 07/01/19 simvastatin 20 mg tablet 20 mg PO QHS 07/04/19 Oxycodone Myristate [Xtampza ER] 13.5 mg PO Q12H 07/09/19 Albuterol Sulfate [Proair 1 inh INHALATION 4X/DAY #1 07/12/19 Respiclick] [email or web address] Ipratropium/Albuterol Sulfate 3 ml INHALATION Q4HWA.RT #56 07/17/19 [Duoneb] ampul.neb Albuterol IH (ProAir) [Proair Hfa 2 puff INHALATION Q6H PRN PRN 07/28/19 (SP)Vent Pts] Docusate Sodium [Colace] 100 mg PO DAILY 07/28/19 Doxazosin Mesylate [Cardura] 4 mg PO BID 07/28/19 Lactobacillus Acidophilus 1 tab PO DAILY 07/28/19 [Acidophilus] Surgical History: Surgical History (Last Updated 07/28/19 @ 16:40 by Caro Miller MD) History of cystoscopy Onset Date: 06/22/17 Z98.890 Post-circumcision adhesion of penis Onset Date: 2014 N99.89, N47.5 history of transrectal biopsy ultrasound Onset Date: 06/22/17 Surgical History: - - Recent nephrectomy Psychiatric History: No pertinent psych hx Lives: Spouse/ Significant Other Smoking Status: Never smoker Alcohol: None Drugs: None - *Family History Maternal Family History: Family History (Last Reviewed 07/04/19 @ 11:29 by Anuradha Salazar) Mother Colon cancer Father Emphysema lung History Items: No pertinent history Paternal Family History: Family History (Last Reviewed 07/04/19 @ 11:29 by Anuradha Salazar) Mother Colon cancer Father Emphysema lung History Items: No pertinent history Review of Systems Constitutional: Reports: Weakness. Denies: Anorexia, Chills, Fever Eyes: Denies: Blurred vision, Double vision, Drainage, Redness HEENT: Denies: Difficulty Hearing, Ear Pain, Eye Pain, Nasal Congestion, Sore Throat Cardiovascular: Denies: Chest Pain, Chest Pressure, Heaviness, Light Headedness, Palpitations, Paroxysmal Noc. Dyspnea, Syncope Respiratory: Reports: Cough, Shortness of Breath, Shortness of breath upon exertion. Denies: Hemoptysis, Pleuritic Pain, Sputum production, Wheezing Gastrointestinal: Denies: Abdominal Pain, Constipation, Diarrhea, Nausea, Vomiting Genitourinary: Denies: Dysuria, Frequency, Hematuria Musculoskeletal: Denies: Arm Pain, Back Pain, Foot Pain Skin: Denies: Dryness, Rash Neurological: Denies: Balance problems, Double vision, Change in Speech, Slurred speech, Confusion, Focal weakness, Headaches, Incoordination Psychiatric: Denies: Anxiety, Depression Endocrine: Denies: Change in Body Habitus, Polydipsia, Polyuria VTE Information - Inpt Only VTE Present on Admission: No VTE Mechan Device Prophylaxis: SCD's VTE Pharm Prophylaxis ordered?: Yes Patient Problems: Active and Suspected Problems (Last Updated 07/28/19 @ 17:08 by Caro Miller MD) Spontaneous bacterial peritonitis (Acute) - Physical Exam General: Alert, Oriented x3, Cooperative, No apparent distress HEENT: Atraumatic, PERRLA, EOMI, Normocephalic Oral: Moist Mucosa, No Gingival or Mucosal Lesions/ Ulcerations Neck: Supple, No JVD, Negative Carotid Bruits, Trachea Midline, Thyroid Normal Size and Texture Lungs: Clear to auscultation, No wheeze, No rales, Diminished, Rhonchi Cardiovascular: Normal S1, Normal S2, No murmurs, PMI Normal, Irregular Rate Abdomen: Bowel Sounds Present, Soft, Non Tender, No Hepato-splenomegaly, Distended, - - Ascites. Site of laparoscopic openings and surgical incisions are clean and dry. Extremities: No clubbing, No cyanosis, No edema Skin: No rashes, No breakdown, Ulcer/ Wound Lymphatic: No Cervical, Supraclavicular, or Inguinal Adenopathy Neurological: Cranial nerves II-XII grossly intact, Motor Exam 5/5 strength throughout Psych/Mental Status: Normal Affect, Appropriate, Alert and oriented to time, place, person, mood and affect Vital Signs Temp Pulse Resp BP Pulse Ox 97.6 F L 95 18 103/77 91 07/28/19 12:23 07/28/19 15:09 07/28/19 15:09 07/28/19 15:07/28/19 15:09 Oxygen Delivery Method Room Air Weight: 177 lb Body Mass Index (BMI) 24.0 Laboratory Tests Past 24 Hrs 07/28/19 07/28/19 07/28/19 13:10 13:10 15:45 WBC 8.9 RBC 3.40 L Hgb 11.1 L Hct 35.1 L MCV 103.2 H MCH 32.6 H MCHC 31.6 L RDW Std Deviation 55.3 H RDW Coeff of Santana 15.0 H Plt Count 319 MPV 9.2 Immature Gran % (Auto) 2.000 H Neut % (Auto) 74.4 H Lymph % (Auto) 17.0 L [place] % (Auto) 6.1 Eos % (Auto) 0.2 Baso % (Auto) 0.3 Absolute Neuts (auto) 6.6 Absolute Lymphs (auto) 1.52 Nucleated RBC % 0.2 Sodium 140 Potassium 4.3 Chloride 106 Carbon Dioxide 26.0 Anion Gap 8 BUN 25 H Creatinine 1.62 H Estim Creat Clear Calc 44.57 Est GFR (MDRD) Af Amer 54 L Est GFR (MDRD) Non-Af 45 L BUN/Creatinine Ratio 15.4 Glucose 134 H Calcium 8.8 Troponin I < 0.015 Fluid Source Fluid Color Fluid Appearance Fluid pH Fluid WBC Fluid RBC Fluid Tot Cell Count Fl Pathologist Comment Fluid Glucose Pending Fluid Comment 2 07/28/19 07/28/19 15:45 15:45 WBC RBC Hgb Hct MCV MCH MCHC RDW Std Deviation RDW Coeff of [place]ana Plt Count MPV Immature Gran % (Auto) Neut % (Auto) Lymph % (Auto) [place] % (Auto) Eos % (Auto) Baso % (Auto) Absolute Neuts (auto) Absolute Lymphs (auto) Nucleated RBC % Sodium Potassium Chloride Carbon Dioxide Anion Gap BUN Creatinine Estim Creat Clear Calc Est GFR (MDRD) Af Amer Est GFR (MDRD) Non-Af BUN/Creatinine Ratio Glucose Calcium Troponin I Fluid Source Pending Fluid Color Pending Fluid Appearance Pending Fluid pH Pending Fluid WBC Pending Fluid RBC Pending Fluid Tot Cell Count Pending Fl Pathologist Comment Pending Fluid Glucose Fluid Comment 2 Pending Clinical Impression(s) from Imaging Studies Chest X-Ray 07/28/19 12:44 IMPRESSION: Blunting of the right costophrenic angle. Electronically Signed: Lucho Bond, at 13:49 EDT , Service support , Chest CTA 07/28/19 14:10 IMPRESSION: Small right pleural effusion with right basilar atelectasis. No evidence of pulmonary embolism. Stable destruction of the right pedicle of the T12 vertebrae. Ascites. Fatty infiltration of the liver. Electronically Signed: Lucho Bond, at 15:19 EDT , Service support , Abdomen/Pelvis CT 07/28/19 14:34 IMPRESSION: Ascites. Small bilateral effusions slightly worse on the right side with right basilar atelectasis. Small pericardial effusion. 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 Lytic lesion in the left iliac bone. Status post right nephrectomy. Electronically Signed: Lucho Bond, at 15:16 EDT , Service support , Assessment/Plan All Active Problems (Last Updated 07/28/19 @ 17:08 by Caro Miller MD) Spontaneous bacterial peritonitis (Acute) Pseudomonas pneumonia (Acute) This is a 72 years old male patient presented to the emergency room because of progressively increasing shortness of breath over the last 10 days with mild cough in the setting of recent history of pneumonia, completed 7 days of IV Zosyn after discharge from the hospital on July 17, 2019, found to have ascites that was thick pus upon paracentesis and he is being admitted for spontaneous bacterial peritonitis, acute kidney injury and shortness of breath in the setting of paroxysmal atrial fibrillation. #1 acute spontaneous bacterial peritonitis: Thick puslike fluid drainage on paracentesis, official report is pending. CT scan abdomen and pelvis with IV contrast revealed bilateral small pleural effusion, ascites, status post right nephrectomy, no evidence of intra-abdominal abscesses. This could be a complication of his recent radical nephrectomy. Patient's vital signs are stable, no evidence of sepsis or severe sepsis. He received IV Zosyn in the ED. Plan: Admit to PCU, cardiac monitoring, blood culture, follow ascitic fluid analysis and culture, start IV Rocephin, urology consult because patient went for radical right nephrectomy on July 17, 2019, repeat CBC and BMP tomorrow morning, IV fluids, IV antiemetics, PT OT evaluation and treatment. #2 acute kidney injury: This is fairly acute after his nephrectomy, creatinine was 1.4-1.5 on admission on June and today, it is 1.62. Baseline creatinine before that was normal. This is probably because of recent nephrectomy. Plan: IV fluids, input output chart, repeat BMP tomorrow morning. #3 recent history of Pseudomonas aeruginosa pneumonia: Completed IV Zosyn for 7 days after discharge which was completed on July 24, 2019. Chest x-ray reviewed, no acute infiltrate or consolidation. #4 status post recent right radical nephrectomy: CT scan abdomen and pelvis reviewed as above. Plan as above. #5 paroxysmal atrial fibrillation/small pericardial effusion: Patient was on atenolol which was discontinued 2 days ago by PCP, Dr. marquis. I spoke with Dr. MARQUIS over the phone and she requested cardiology consult to see the patient. Patient never been on anticoagulation. Patient had 2D echocardiogram on April, that revealed normal LV size and function, ejection fraction was 60%, patent foramen ovale. He had a stress echocardiogram on June, before his surgery that was normal and negative for ischemia by EKG and echocardiographic criteria and ejection fraction was 65%. At this time, patient is in A. fib, ventricular response is controlled. He is not on any rate control medicine. Plan: Cardiology consult. #6 asthma: Clinically stable, pulse ox is maintained on room air. Plan for DuoNeb every 6 hours, albuterol as needed, oxygen by nasal cannula if needed. #7 hyperlipidemia: Hold statins. #8 patent foramen ovale: Stable, no acute issues. #9 DVT prophylaxis: Subcu heparin. This note was generated with [employer] dictation software. It may contain incorrect words, spelling, and punctuation that were not noted in checking the note before signing. Code Visit Inpatient E&M: 64410 Init Hosp L3
[2019-07-28 16:50] LABS: Body Fluid Mononuclear WBC # 1.339 10^3/uL; Body Fluid Mononuclear WBC % 92.1 %; Body Fluid Polynuclear WBC # 0.115 10^3/uL; Body Fluid Polynuclear WBC % 7.9 %; Body Fluid Total Cells Counted 1.526 10^3/ul; Red Cell Count/Body Fluid 0.007 10^6/ul; White Blood Count/Body Fluid 1.454 10^3/uL
[2019-07-28 17:05] LABS: Glucose, Body Fluid 245 mg/dL (40-70)
[2019-07-28 17:59] LABS: Lymphocytes 66 %; Monocytes 12 %; Neutrophil (Segs) 22 %
[2019-07-28 18:00] LABS: Body Fluid QC Type(s) BF3Q
[2019-07-28 18:23] LABS: International Normalized Ratio 1.2; Prothrombin Time (Protime)PT. 14.8 SECONDS (11.7-14.9)
[2019-07-28] MEDS: Ipratropium/Albuterol Sulfate 3 ML AMPUL.NEB INHALATION (18:40)
[2019-07-28] MEDS: Ceftriaxone 1 GM/50 ML BAG IV (18:40)
[2019-07-28] MEDS: Acetaminophen 325 MG Tablet 650 MG PO (18:41)
[2019-07-28] MEDS: oxyCODONE CR 15 MG Tablet PO (18:41)
[2019-07-28] MEDS: 0.9% Normal Saline 1,000 ML 100 ML IV (18:42)
[2019-07-28 18:43] LABS: AST(SGOT) 37 U/L (15-37); Alanine Aminotransfer ALT/SGPT 53 U/L (16-61); Albumin, Serum 2.4 g/dL (3.2-5.0); Alkaline Phosphatase 65 U/L (45-117); Globulin 4.4 g/dL (2.2-4.2); Protein, Total 6.8 g/dL (6.4-8.2); Thyroid Stim Hormone (TSH) 0.87 uIU/mL (0.358-3.74)
[2019-07-28 19:58] LABS: Cytology, Body Fluid / CSF SEE PATHOLOGY REPORT
[2019-07-28 20:20] LABS: LDH,Body Fluid 124 Units/l (Not Establ.)
[2019-07-28 21:35] LABS: Protein, Body Fluid 3.7 g/dL (Not Establ.)
[2019-07-28] MEDS: Heparin Injection (Vial) 5,000 UNIT/ML VIAL 5000 UNIT SC (22:00)
[2019-07-28] MEDS: Doxazosin 4 MG Tablet PO (22:00)
[2019-07-28 23:36] LABS: Bacteria 0 SEEN /hpf (None Seen); Mucous, Urine 0 SEEN /hpf (<or=2+); Red Blood Cells-Urine 0 SEEN /hpf (0-5); Squamous Epithelial Cells - UA 0 SEEN /hpf (0-5); White Blood Cells 0 SEEN /hpf (0-5)
[2019-07-28 23:37] LABS: Color, Urine Yellow (Yellow); Glucose, Dipstick Normal (Normal); Ketone-Dipstick Negative (Negative); Leukocyte Esterase-Dipstick Negative /ul (Negative); Nitrite-Dipstick Negative (Negative); Occult Blood-Urine Negative /ul (Negative); Protein-Dipstick Negative (Negative); Urine Bilirubin Dipstick Negative (Negative); Urine Clarity Clear (Clear); Urine Urobilinogen Normal (Normal)
[2019-07-29] VITALS (14 sets, daily range): BP systolic 103–133; BP diastolic 51–78; PULSE 57–114; RESP 16–20; TEMP 36.7–37; O2SAT 92–96
[2019-07-29] MEDS: 0.9% Normal Saline 1,000 ML 100 ML IV (03:01)
[2019-07-29] MEDS: oxyCODONE CR 15 MG Tablet PO ×2 (06:15→18:38)
[2019-07-29 06:50] LABS: Absolute Lymphocyte Count 0.69 X10^3/uL (0.83-4.51); Absolute Neutrophil Count 5.2 X10^3/uL (2.0-7.7); Basophil# 0.02 X10^3/uL; Basophil% 0.3 % (0-1); Hematocrit 31.8 % (40-54); Hemoglobin 10.2 g/dL (13.0-16.5); Lymphocyte # 0.69 X10^3/ul (4.0); Lymphocyte % 10.3 % (19-41); Mean Corp Hgb Conc 32.1 g/dL (32-36); Mean Corpuscular Hgb 33.1 pg (27.0-32.0); Mean Corpuscular Volume 103.2 fL (80-94); Mean Platelet Vol. 9.2 fl (6.2-12.0); Monocyte# 0.47 X10^3/uL; NRBC Flagged by Analyzer 0.3 % (0-5); Neutrophil # 5.18 X10^3/uL (2.7-7.7); Neutrophil % 76.9 % (47-70); Platelet Count 294 K/mm3 (150-450); RBC Distribution Width CV 15.4 % (11.6-14.6); RBC Distribution Width SD 57.1 fl (35.1-43.9); Red Blood Count 3.08 M/mm3 (4.6-6.2); White Blood Count 6.7 K/mm3 (4.4-11.0)
[2019-07-29] MEDS: Ipratropium/Albuterol Sulfate 3 ML AMPUL.NEB INHALATION ×4 (06:55→19:21)
--- NOTE | 2019-07-29 06:55 | CON.PCM_ITS ---
Reason for Consult Date of Consultation: 07/29/19 History of Present Illness: The patient is a 73 year old M underwent robotic right nephrectomy for renal cell carcinoma on 07/09/2018. Patient came to the hospital due to shortness of breath with activity and reported A. fib. On admission patient had a CT abdomen pelvis did show ascites. Paracentesis was done which did show white fluid purulent looking, Gram stain was only white blood cells +1 no reported organisms. Patient's white blood cell count was within normal range. Patient was previously on antibiotics which stopped last and he was on prednisone 10 mg p.o. daily over the weekend and Sunday. Patient denies any abdominal pain, nausea, vomiting. Patient states he has had a little bit lower appetite but still had an appetite. Was asked to see the patient per Dr. Adkins if he needed to take the patient to surgery if this was due to infection. Past Medical History Past Medical History (Chronic Problems): Chronic Problems (Last Updated 07/28/19 @ 17:08 by Caro Miller MD) H/O right nephrectomy (Chronic) Paroxysmal atrial fibrillation (Chronic) Chronic back pain (Chronic) Narcotic dependence (Chronic) Patent foramen ovale (Chronic) Per echo 05/12/2019@ [facility] Renal cancer (Chronic) S/P right nephrectomy 07/09/[address] Adkins Hypertension (Chronic) Hyperlipidemia (Chronic) Bradycardia (Chronic) Thyroid nodule (Chronic) Moderate persistent asthma (Chronic) Arthritis (Chronic) Degenerative disc disease (Chronic) Medical History: Medical History (Last Updated 07/28/19 @ 17:08 by Caro Miller MD) Patent foramen ovale (Chronic) Q21.1 Per echo 05/12/2019@ [facility] Renal cancer (Chronic) C64.9 S/P right nephrectomy 07/09/[address] Adkins Hypertension (Chronic) I10 Hyperlipidemia (Chronic) E78.5 Bradycardia (Chronic) R00.1 Thyroid nodule (Chronic) E04.1 Moderate persistent asthma (Chronic) J45.40 Arthritis (Chronic) M19.90 Degenerative disc disease (Chronic) Allergies No Known Allergies Allergy (Verified 07/28/19 12:25) Home Medications: Ambulatory Orders Medication Instructions Recorded Fluticasone/Vilanterol [Breo 1 ea IH DAILY 06/03/19 Ellipta 100-25 Mcg INH] Montelukast [Singulair] 10 mg PO DAILY 07/01/19 simvastatin 20 mg tablet 20 mg PO QHS 07/04/19 Oxycodone Myristate [Xtampza ER] 13.5 mg PO Q12H 07/09/19 Albuterol Sulfate [Proair 1 inh INHALATION 4X/DAY #1 07/12/19 Respiclick] aer.[email or web address] Ipratropium/Albuterol Sulfate 3 ml INHALATION Q4HWA.RT #56 07/17/19 [Duoneb] ampul.neb Albuterol IH (ProAir) [Proair Hfa 2 puff INHALATION Q6H PRN PRN 07/28/19 (SP)Vent Pts] Docusate Sodium [Colace] 100 mg PO DAILY 07/28/19 Doxazosin Mesylate [Cardura] 4 mg PO BID 07/28/19 Lactobacillus Acidophilus 1 tab PO DAILY 07/28/19 [Acidophilus] Surgical History: Surgical History (Last Updated 07/28/19 @ 16:40 by Caro Miller MD) History of cystoscopy Onset Date: 06/22/17 Z98.890 Post-circumcision adhesion of penis Onset Date: 2014 N99.89, N47.5 history of transrectal biopsy ultrasound Onset Date: 06/22/17 Surgical History: - - Recent nephrectomy Psychiatric History: No pertinent psych hx Lives: Spouse/ Significant Other Smoking Status: Never smoker Alcohol: None Drugs: None - *Family History Maternal Family History: Family History (Last Reviewed 07/04/19 @ 11:29 by Anuradha Salazar) Mother Colon cancer Father Emphysema lung History Items: No pertinent history Paternal Family History: Family History (Last Reviewed 07/04/19 @ 11:29 by Anuradha Salazar) Mother Colon cancer Father Emphysema lung History Items: No pertinent history Review of Systems Constitutional: Denies: Fever Eyes: Denies: Blurred vision HEENT: Denies: Difficulty Swallowing Cardiovascular: Denies: Chest Pain Respiratory: Reports: Shortness of Breath Gastrointestinal: Denies: Abdominal Pain, Nausea, Vomiting Genitourinary: Denies: Dysuria Musculoskeletal: Reports: Back Pain Skin: Denies: Rash Neurological: Denies: Balance problems Psychiatric: Denies: Anxiety, Depression Hematologic/ Lymphatic: Denies: Easy Bruising, Easy Bleeding Patient Problems: Active and Suspected Problems (Last Updated 07/28/19 @ 17:08 by Caro Miller MD) Spontaneous bacterial peritonitis (Acute) - Physical Exam General: Alert, Oriented x3, Cooperative, No apparent distress HEENT: Atraumatic Lungs: Normal air movement Cardiovascular: Regular rate Abdomen: Soft, Non Tender, Distended - Mild to moderate Neurological: Cranial nerves II-XII grossly intact Psych/Mental Status: Normal Affect Vital Signs Temp Pulse Resp BP Pulse Ox 98.5 F 97 16 122/67 H 92 07/29/19 03:10 07/29/19 03:10 07/29/19 03:10 07/29/19 03:10 07/29/19 03:10 Oxygen Delivery Method Room Air Weight: 173 lb 6.4 oz Body Mass Index (BMI) 23.5 Intake and Output for Last 24 Hours 07/27/19 07/28/19 07/29/19 23:59 23:59 23:59 Intake Total 1274.76 / 1274.76 301.67 / 301.67 Output Total 350 / 350 Balance 1274.76 / 1274.76 -48.33 / -48.33 Microbiology Past 72 Hours 07/28/19 15:45 Gram Stain - Preliminary Fluid - Peritoneal Laboratory Tests Past 24 Hrs 07/28/19 07/28/19 07/28/19 13:10 13:10 13:10 WBC 8.9 RBC 3.40 L Hgb 11.1 L Hct 35.1 L MCV 103.2 H MCH 32.6 H MCHC 31.6 L RDW Std Deviation 55.3 H RDW Coeff of [place] 15.0 H Plt Count 319 MPV 9.2 Immature Gran % (Auto) 2.000 H Neut % (Auto) 74.4 H Lymph % (Auto) 17.0 L Hunt % (Auto) 6.1 Eos % (Auto) 0.2 Baso % (Auto) 0.3 Absolute Neuts (auto) 6.6 Absolute Lymphs (auto) 1.52 Nucleated RBC % 0.2 PT INR Sodium 140 Potassium 4.3 Chloride 106 Carbon Dioxide 26.0 Anion Gap 8 BUN 25 H Creatinine 1.62 H Estim Creat Clear Calc 44.57 Est GFR (MDRD) Af Amer 54 L Est GFR (MDRD) Non-Af 45 L BUN/Creatinine Ratio 15.4 Glucose 134 H Calcium 8.8 Total Bilirubin 0.40 Direct Bilirubin 0.10 AST 37 ALT 53 Alkaline Phosphatase 65 Troponin I < 0.015 Total Protein 6.8 Albumin 2.4 L Globulin 4.4 H TSH 0.87 Urine Color Urine Clarity Urine pH Ur Specific [place] Urine Protein Urine Glucose (UA) Urine Ketones Urine Occult Blood Urine Nitrite Urine Bilirubin Urine Urobilinogen Ur Leukocyte Esterase Urine RBC Urine WBC Ur Squamous Epith Cells Urine Bacteria Urine Mucus Fluid Source Fluid Color Fluid Appearance Fluid pH Fluid WBC Fluid RBC Fluid Tot Cell Count Fld Polynuclear WBCs # Fld Polynuclear WBCs % Fluid Mononuclear WBCs Fld Mononuclear WBCs % Fluid Neutrophils Fluid Lymphocytes Fluid Monocytes Fl Pathologist Comment Fluid Glucose Fluid Total Protein Fluid LDH Fluid Amylase Fluid Comment 2 Miscellaneous Cytology Miscellaneous Test 07/28/19 07/28/19 07/28/19 15:45 15:45 15:45 WBC RBC Hgb Hct MCV MCH MCHC RDW Std Deviation RDW Coeff of [place] Plt Count MPV Immature Gran % (Auto) Neut % (Auto) Lymph % (Auto) Hunt % (Auto) Eos % (Auto) Baso % (Auto) Absolute Neuts (auto) Absolute Lymphs (auto) Nucleated RBC % PT INR Sodium Potassium Chloride Carbon Dioxide Anion Gap BUN Creatinine Estim Creat Clear Calc Est GFR (MDRD) Af Amer Est GFR (MDRD) Non-Af BUN/Creatinine Ratio Glucose Calcium Total Bilirubin Direct Bilirubin AST ALT Alkaline Phosphatase Troponin I Total Protein Albumin Globulin TSH Urine Color Urine Clarity Urine pH Ur Specific [place] Urine Protein Urine Glucose (UA) Urine Ketones Urine Occult Blood Urine Nitrite Urine Bilirubin Urine Urobilinogen Ur Leukocyte Esterase Urine RBC Urine WBC Ur Squamous Epith Cells Urine Bacteria Urine Mucus Fluid Source PERITONEAL FLUID Fluid Color Fluid Appearance TURBID Fluid pH Pending Fluid WBC 1.454 Fluid RBC 0.007 Fluid Tot Cell Count 1.526 Fld Polynuclear WBCs # 0.115 Fld Polynuclear WBCs % 7.9 Fluid Mononuclear WBCs 1.339 Fld Mononuclear WBCs % 92.1 Fluid Neutrophils 22 Fluid Lymphocytes 66 Fluid Monocytes 12 Fl Pathologist Comment May follow Fluid Glucose 245 H Fluid Total Protein Fluid LDH Fluid Amylase Fluid Comment 2 SEE COMMENT Miscellaneous Cytology Miscellaneous Test 07/28/19 07/28/19 07/28/19 15:45 15:45 15:45 WBC RBC Hgb Hct MCV MCH MCHC RDW Std Deviation RDW Coeff of [place] Plt Count MPV Immature Gran % (Auto) Neut % (Auto) Lymph % (Auto) Hunt % (Auto) Eos % (Auto) Baso % (Auto) Absolute Neuts (auto) Absolute Lymphs (auto) Nucleated RBC % PT INR Sodium Potassium Chloride Carbon Dioxide Anion Gap BUN Creatinine Estim Creat Clear Calc Est GFR (MDRD) Af Amer Est GFR (MDRD) Non-Af BUN/Creatinine Ratio Glucose Calcium Total Bilirubin Direct Bilirubin AST ALT Alkaline Phosphatase Troponin I Total Protein Albumin Globulin TSH Urine Color Urine Clarity Urine pH Ur Specific [place] Urine Protein Urine Glucose (UA) Urine Ketones Urine Occult Blood Urine Nitrite Urine Bilirubin Urine Urobilinogen Ur Leukocyte Esterase Urine RBC Urine WBC Ur Squamous Epith Cells Urine Bacteria Urine Mucus Fluid Source Fluid Color Fluid Appearance Fluid pH Fluid WBC Fluid RBC Fluid Tot Cell Count Fld Polynuclear WBCs # Fld Polynuclear WBCs % Fluid Mononuclear WBCs Fld Mononuclear WBCs % Fluid Neutrophils Fluid Lymphocytes Fluid Monocytes Fl Pathologist Comment Fluid Glucose Fluid Total Protein Fluid LDH 124 Fluid Amylase Pending Fluid Comment 2 Miscellaneous Cytology Pending Miscellaneous Test 07/28/19 07/28/19 07/28/19 15:45 15:45 18:00 WBC RBC Hgb Hct MCV MCH MCHC RDW Std Deviation RDW Coeff of [place] Plt Count MPV Immature Gran % (Auto) Neut % (Auto) Lymph % (Auto) Hunt % (Auto) Eos % (Auto) Baso % (Auto) Absolute Neuts (auto) Absolute Lymphs (auto) Nucleated RBC % PT 14.8 INR 1.2 Sodium Potassium Chloride Carbon Dioxide Anion Gap BUN Creatinine Estim Creat Clear Calc Est GFR (MDRD) Af Amer Est GFR (MDRD) Non-Af BUN/Creatinine Ratio Glucose Calcium Total Bilirubin Direct Bilirubin AST ALT Alkaline Phosphatase Troponin I Total Protein Albumin Globulin TSH Urine Color Urine Clarity Urine pH Ur Specific [place] Urine Protein Urine Glucose (UA) Urine Ketones Urine Occult Blood Urine Nitrite Urine Bilirubin Urine Urobilinogen Ur Leukocyte Esterase Urine RBC Urine WBC Ur Squamous Epith Cells Urine Bacteria Urine Mucus Fluid Source Fluid Color Fluid Appearance Fluid pH Fluid WBC Fluid RBC Fluid Tot Cell Count Fld Polynuclear WBCs # Fld Polynuclear WBCs % Fluid Mononuclear WBCs Fld Mononuclear WBCs % Fluid Neutrophils Fluid Lymphocytes Fluid Monocytes Fl Pathologist Comment Fluid Glucose Fluid Total Protein 3.7 Fluid LDH Fluid Amylase Fluid Comment 2 Miscellaneous Cytology Miscellaneous Test Pending 07/28/19 07/29/19 07/29/19 23:20 06:13 06:13 WBC 6.7 RBC 3.08 L Hgb 10.2 L Hct 31.8 L MCV 103.2 H MCH 33.1 H MCHC 32.1 RDW Std Deviation 57.1 H RDW Coeff of [place] 15.4 H Plt Count 294 MPV 9.2 Immature Gran % (Auto) 2.500 H Neut % (Auto) 76.9 H Lymph % (Auto) 10.3 L Hunt % (Auto) 7.0 Eos % (Auto) 3.0 Baso % (Auto) 0.3 Absolute Neuts (auto) 5.2 Absolute Lymphs (auto) 0.69 L Nucleated RBC % 0.3 PT INR Sodium Pending Potassium Pending Chloride Pending Carbon Dioxide Pending Anion Gap Pending BUN Pending Creatinine Pending Estim Creat Clear Calc Est GFR (MDRD) Af Amer Pending Est GFR (MDRD) Non-Af Pending BUN/Creatinine Ratio Pending Glucose Pending Calcium Pending Total Bilirubin Direct Bilirubin AST ALT Alkaline Phosphatase Troponin I Total Protein Albumin Globulin TSH Urine Color Yellow Urine Clarity Clear Urine pH 5.0 Ur Specific [place] 1.010 Urine Protein Negative Urine Glucose (UA) Normal Urine Ketones Negative Urine Occult Blood Negative Urine Nitrite Negative Urine Bilirubin Negative Urine Urobilinogen Normal Ur Leukocyte Esterase Negative Urine RBC 0 SEEN Urine WBC 0 SEEN Ur Squamous Epith Cells 0 SEEN Urine Bacteria 0 SEEN Urine Mucus 0 SEEN Fluid Source Fluid Color Fluid Appearance Fluid pH Fluid WBC Fluid RBC Fluid Tot Cell Count Fld Polynuclear WBCs # Fld Polynuclear WBCs % Fluid Mononuclear WBCs Fld Mononuclear WBCs % Fluid Neutrophils Fluid Lymphocytes Fluid Monocytes Fl Pathologist Comment Fluid Glucose Fluid Total Protein Fluid LDH Fluid Amylase Fluid Comment 2 Miscellaneous Cytology Miscellaneous Test Assessment/Plan All Active Problems (Last Updated 07/28/19 @ 17:08 by Caro Miller MD) Spontaneous bacterial peritonitis (Acute) Pseudomonas pneumonia (Acute) 73-year-old male with ascites, status post robotic right nephrectomy for renal cell carcinoma 07/09/2019 1. Ascites?patient's Gram stain showed 1+ white blood cell count no comment on any organisms, culture pending, white blood cell count on admission was within normal range at 8.6. Patient did have prednisone 10 mg p.o. daily on the weekend and Sunday. Patient states that since surgery he has noticed some distention in his abdomen but denied any abdominal pain. Patient does take oxycodone for his back pain. Currently patient's abdomen is soft, nontender, moderately distended, no peritoneal signs. Unknown etiology of ascites, with no abdominal pain or elevated white blood cell count do not think this would be an abscess or spontaneous bacterial peritonitis as his PMNs were 115 less than the 250 and the Gram stain did not show any organisms, await cytology. We can check for triglycerides for chylous ascites however triglycerides need to be sent out takes about 5 days. Will discuss with Dr. Adkins. Discussed with Dr. Adkins no current plans for surgery Louise Williamson M.D. Pager: [phone] [facility] [address] [place] [address], [facility], [address] [place] [id number] Office: [phone] Code Visit Inpatient E&M: 06492 Init Hosp L2
[2019-07-29 07:14] LABS: Anion Gap 8 (5-15); BUN 20 mg/dL (7-18); BUN/Creat Ratio 14.2 RATIO (10-20); Chloride 110 mmol/L (98-107); Creatinine, Serum 1.41 mg/dL (0.70-1.30); EST Glomerular Filtration Rate 52 mL/min (>60); Est Glom Filt Rate - Afr Amer 63 mL/min (>60); Estimated Creatinine Clearance 51.21 ml/min; Glucose 93 mg/dL (74-106); Potassium 3.9 mmol/L (3.5-5.1); Sodium Level 144 mmol/L (136-145)
--- NOTE | 2019-07-29 07:16 | CON.PCM_ITS ---
Reason for Consult Date of Consultation: 07/29/19 Reason for Consultation: Atrial fibrillation History of Present Illness: The patient is a 73 year old M who presented to the emergency room because of shortness of breath. Patient was discharged from the hospital on July 17, 2019 after admission for pneumonia and he completed antibiotic course few days ago. After patient discharged home by couple of days, he started having shortness of breath which has been progressive since he was discharged, initially was only upon moderate activity and in the last couple of days, he gets short of breath even with minimal activity, relieved with rest, associated with mild dry cough without sputum production as well as fatigue and weakness. Patient was discharged on IV Zosyn for Pseudomonas aeruginosa pneumonia and he completed the IV Zosyn on July 24, 2019. He underwent laparoscopic robotic assisted right radical nephrectomy on July 09, 2019 For right-sided renal cancer. Also, he complained of abdominal distention over the last several days but denies any abdominal pain. Patient denies fever or chills. He denies chest pain, palpitation, denies or lightheadedness. He denies abdominal pain, nausea, vomiting, constipation or diarrhea. He denies urinary symptoms. In the emergency department, he was afebrile, heart rate was stable, blood pressure was stable and pulse ox was maintained on room air. His routine blood work was remarkable for hemoglobin of 11.1 g/dL, BUN of 25, creatinine of 1.62. EKG revealed atrial for ablation, rate is controlled, no acute changes. Troponin was negative. Chest x-ray revealed blunting of the right costophrenic angle, no acute infiltrate or consolidation. CTA chest done today also revealed small right pleural effusion, no PE or dissection, stable destruction of right pedicle of T12 with ascites. CT scan abdomen and pelvis with IV contrast revealed ascites, small bilateral pleural effusion, small pericardial effusion, T12 bony metastasis, lytic lesion in the left iliac bone, status post right nephrectomy. Patient underwent paracentesis and reportedly, vashti thick pus was drained of his abdomen. He is being admitted for spontaneous bacterial peritonitis, acute kidney injury, recent history of pneumonia. Cardiology was consulted due to his irregular heartbeat. He has had no palpitations and does not feel his irregular heartbeat and he denies any chest pain. His most recent echocardiogram performed during his admission in April demonstrated an ejection fraction of 60 to 65% with a small pericardial effusion. Past Medical History Allergies/Adverse Reactions: Allergies No Known Allergies Allergy (Verified 07/28/19 12:25) Home Medications: Ambulatory Orders Medication Instructions Recorded Fluticasone/Vilanterol [Breo 1 ea IH DAILY 06/03/19 Ellipta 100-25 Mcg INH] Montelukast [Singulair] 10 mg PO DAILY 07/01/19 simvastatin 20 mg tablet 20 mg PO QHS 07/04/19 Oxycodone Myristate [Xtampza ER] 13.5 mg PO Q12H 07/09/19 Albuterol Sulfate [Proair 1 inh INHALATION 4X/DAY #1 07/12/19 Respiclick] aer.[email or web address] Ipratropium/Albuterol Sulfate 3 ml INHALATION Q4HWA.RT #56 07/17/19 [Duoneb] ampul.neb Albuterol IH (ProAir) [Proair Hfa 2 puff INHALATION Q6H PRN PRN 07/28/19 (SP)Vent Pts] Docusate Sodium [Colace] 100 mg PO DAILY 07/28/19 Doxazosin Mesylate [Cardura] 4 mg PO BID 07/28/19 Lactobacillus Acidophilus 1 tab PO DAILY 07/28/19 [Acidophilus] Past Medical History (Chronic Problems): Chronic Problems (Last Updated 07/28/19 @ 17:08 by Caro Miller MD) H/O right nephrectomy (Chronic) Paroxysmal atrial fibrillation (Chronic) Chronic back pain (Chronic) Narcotic dependence (Chronic) Patent foramen ovale (Chronic) Per echo 05/12/2019@ [facility] Renal cancer (Chronic) S/P right nephrectomy 07/09/[address] Adkins Hypertension (Chronic) Hyperlipidemia (Chronic) Bradycardia (Chronic) Thyroid nodule (Chronic) Moderate persistent asthma (Chronic) Arthritis (Chronic) Degenerative disc disease (Chronic) Surgical History: - - Recent nephrectomy Psychiatric History: No pertinent psych hx - *Family History Maternal Family History: Family History (Last Reviewed 07/04/19 @ 11:29 by Anuradha Salazar) Mother Colon cancer Father Emphysema lung History Items: No pertinent history Paternal Family History: Family History (Last Reviewed 07/04/19 @ 11:29 by Anuradha Salazar) Mother Colon cancer Father Emphysema lung History Items: No pertinent history Lives: Spouse/ Significant Other Smoking Status: Never smoker Alcohol: None Drugs: None Review of Systems - Review of Systems General: Reports: Fatigue, Malaise. Denies: Fever, Night Sweats HEENT: Denies: Vision Change Cardiovascular: Reports: Shortness of Breath, Shortness of Breath at Rest. Denies: Chest Discomfort, Orthopnea, PND, Peripheral Edema, Palpitations, Li ghtheadedness, Dizziness, Near Syncope, Syncope Respiratory: Denies: Cough, Sputum Production, Hemoptysis Gastrointestinal: Denies: Hematemesis, Hematochezia, Melena Genitourinary: Denies: Dysuria, Hematuria Muscoloskeletal: Denies: Myalgias Skin: Denies: Rash Neurological: Reports: Weakness. Denies: Dizziness Psychiatric: Denies: Anxiety Endocrine: Denies: Unexplained Weight Loss Hematologic/ Lymphatic: Denies: Anemia Subjectve: Pleasant gentleman in mild respiratory distress Objective: Vital Signs Temp Pulse Resp BP Pulse Ox 98.5 F 97 16 122/67 H 92 07/29/19 03:10 07/29/19 03:10 07/29/19 03:10 07/29/19 03:10 07/29/19 03:10 Oxygen Delivery Method Room Air Weight: 173 lb 6.4 oz Body Mass Index (BMI) 23.5 Intake and Output for Last 24 Hours 07/27/19 07/28/19 07/29/19 23:59 23:59 23:59 Intake Total 1274.76 / 1274.76 301.67 / 301.67 Output Total 350 / 350 Balance 1274.76 / 1274.76 -48.33 / -48.33 General: Awake, Alert, Oriented x 3 HEENT: PERRL, EOMI, Sclera Non Icteric Neck: Supple, Good ROM, No Lymph Node Enlargement Lungs: Diminished Kd Bases Cardiovascular: Regular Rhythm, Normal S1, Normal S2, No Murmurs, No Rubs, No Gallops Vascular: No Carotid Bruits, Normal Femoral Pulses, Normal Radial Pulses, Normal Dorsalis Pedal Pulse, Normal Posterior Tibial Pulses Abdomen: Bowel Sounds Present, Soft, Non Tender, No HSM, No Organomegaly Extremities: No Cyanosis, No Clubbing, No edema Musculoskeletal: No Erythema Skin: No Rashes Lymphatic: No Lymph Node Enlargement Neurological: No Focal Motor or Sensory Deficit Psych/Mental Status: Appropriate 07/28/19 13:10: WBC 8.9, RBC 3.40 L, Hgb 11.1 L, Hct 35.1 L, MCV 103.2 H, MCH 32.6 H, MCHC 31.6 L, Plt Count 319, MPV 9.2, Immature Gran % (Auto) 2.000 H, Neut % (Auto) 74.4 H, Lymph % (Auto) 17.0 L, [place] % (Auto) 6.1, Eos % (Auto) 0.2, Baso % (Auto) 0.3, Absolute Neuts (auto) 6.6, Nucleated RBC % 0.2 07/28/19 13:10: Sodium 140, Potassium 4.3, Chloride 106, Carbon Dioxide 26.0, Anion Gap 8, BUN 25 H, Creatinine 1.62 H, Est GFR (MDRD) Af Amer 54 L, Est GFR (MDRD) Non-Af 45 L, BUN/Creatinine Ratio 15.4, Glucose 134 H, Calcium 8.8, Troponin I < 0.015 07/28/19 13:10: Total Bilirubin 0.40, Direct Bilirubin 0.10 07/28/19 18:00: PT 14.8, INR 1.2 07/28/19 23:20: Urine Color Yellow, Urine Clarity Clear, Urine pH 5.0, Ur Specific [place] 1.010, Urine Protein Negative, Urine Glucose (UA) Normal, Urine Ketones Negative, Urine Occult Blood Negative, Urine Nitrite Negative, Urine Bilirubin Negative, Urine Urobilinogen Normal, Ur Leukocyte Esterase Negative, Urine RBC 0 SEEN, Urine WBC 0 SEEN 07/29/19 06:13: Sodium 144, Potassium 3.9, Chloride 110 H, Carbon Dioxide 26.0, Anion Gap 8, BUN 20 H, Creatinine 1.41 H, Est GFR (MDRD) Af Amer 63, Est GFR (MDRD) Non-Af 52 L, BUN/Creatinine Ratio 14.2, Glucose 93, Calcium 8.0 L 07/29/19 06:13: WBC 6.7, RBC 3.08 L, Hgb 10.2 L, Hct 31.8 L, MCV 103.2 H, MCH 33.1 H, MCHC 32.1, Plt Count 294, MPV 9.2, Immature Gran % (Auto) 2.500 H, Neut % (Auto) 76.9 H, Lymph % (Auto) 10.3 L, [place] % (Auto) 7.0, Eos % (Auto) 3.0, Baso % (Auto) 0.3, Absolute Neuts (auto) 5.2, Nucleated RBC % 0.3 Rhythm: Current telemetry monitoring appears to demonstrate sinus rhythm EKG: Initial presenting EKG demonstrates atrial fibrillation with a rate of 85 bpm. Assessment/Plan 1. Paroxysmal atrial fibrillation * Etiology of the above is likely secondary to the pericardial irritation from the pericardial effusion as well as the process which is ongoing. At this time he appears to be in sinus rhythm. My recommendation will be to continue his calcium channel lisa as was initiated during his preoperative evaluation.. * Due to his concomitant conditions I would not suggest the addition of anticoagulation at this particular time. * Continue to follow with you. * * Thank you for allowing me to participate in the care of your patient. Please don't hesitate to call if any issues arise
--- NOTE | 2019-07-29 08:34 | CON.PCM_ITS ---
Reason for Consult Date of Consultation: 07/29/19 Reason for Consultation: Abdominal ascites History of Present Illness: The patient is a 73 year old male with known history of metastatic renal cell carcinoma, clear-cell type he had a metastatic lesion to his spine. He has chronic back pain unclear etiology suspected could be from this metastatic lesion but others physicians think it is not, nevertheless he underwent radiation therapy to this metastatic lesion. He then underwent consultation for hematology oncology who recommended a cytoreductive nephrectomy since he had only one metastatic site. About 3 weeks ago he underwent a laparoscopic radical nephrectomy during the procedure he had a lot of engorged lymph tissue, very sweaty lymph as coming to the hilum. Pathology was negative for any lymph nodes involved but it was positive for renal cell carcinoma clear cell type. Last week I saw the patient after discharge from the hospital he was started to develop a little bit of abdominal distention we did ultrasound had minimal fluid at that point nothing the drain we decided to continue with observation. Also during this time he has been having a chronic bronchitis/pneumonia which is been treated. He still has a productive cough still has a deep cough when he breathes and inhaled and and out. He had been seeing pulmonology for this. He presented to the emergency room because he is having more shortness of breath, he states that he can barely even stand and he gets short of breath, he can barely walk and get short of breath. He is able to take really deep breaths even with his ascites of the ascites is worse. He underwent paracentesis yesterday in the emergency room which drained fluid that looked like pus, Gram stain was only +1 white blood cells. No bacteria on Gram stain. Culture is pending. Also send the fluid for cytology, and triglycerides which is still pending. Consultation was obtained from general surgery as to management of his ascites whether this should be surgically drained. At this point after reviewing the patient's symptoms we do not think this is intra-abdominal abscess. We will continue with IV antibiotics until cultures are negative but suspect most likely this is ascites, it could also be chylous ascites. He continues to have work-up with medical team and cardiology for shortness of breath. Past Medical History Past Medical History (Chronic Problems): Chronic Problems (Last Updated 07/28/19 @ 17:08 by Caro Miller MD) H/O right nephrectomy (Chronic) Paroxysmal atrial fibrillation (Chronic) Chronic back pain (Chronic) Narcotic dependence (Chronic) Patent foramen ovale (Chronic) Per echo 05/12/2019@ [facility] Renal cancer (Chronic) S/P right nephrectomy 07/09/[address] Adkins Hypertension (Chronic) Hyperlipidemia (Chronic) Bradycardia (Chronic) Thyroid nodule (Chronic) Moderate persistent asthma (Chronic) Arthritis (Chronic) Degenerative disc disease (Chronic) Medical History: Medical History (Last Updated 07/28/19 @ 17:08 by Caro Miller MD) Patent foramen ovale (Chronic) Q21.1 Per echo 05/12/2019@ [facility] Renal cancer (Chronic) C64.9 S/P right nephrectomy 07/09/[address] Adkins Hypertension (Chronic) I10 Hyperlipidemia (Chronic) E78.5 Bradycardia (Chronic) R00.1 Thyroid nodule (Chronic) E04.1 Moderate persistent asthma (Chronic) J45.40 Arthritis (Chronic) M19.90 Degenerative disc disease (Chronic) Allergies No Known Allergies Allergy (Verified 07/28/19 12:25) Home Medications: Ambulatory Orders Medication Instructions Recorded Fluticasone/Vilanterol [Breo 1 ea IH DAILY 06/03/19 Ellipta 100-25 Mcg INH] Montelukast [Singulair] 10 mg PO DAILY 07/01/19 simvastatin 20 mg tablet 20 mg PO QHS 07/04/19 Oxycodone Myristate [Xtampza ER] 13.5 mg PO Q12H 07/09/19 Albuterol Sulfate [Proair 1 inh INHALATION 4X/DAY #1 07/12/19 Respiclick] aer.[email or web address] Ipratropium/Albuterol Sulfate 3 ml INHALATION Q4HWA.RT #56 07/17/19 [Duoneb] ampul.neb Albuterol IH (ProAir) [Proair Hfa 2 puff INHALATION Q6H PRN PRN 07/28/19 (SP)Vent Pts] Docusate Sodium [Colace] 100 mg PO DAILY 07/28/19 Doxazosin Mesylate [Cardura] 4 mg PO BID 07/28/19 Lactobacillus Acidophilus 1 tab PO DAILY 07/28/19 [Acidophilus] Surgical History: Surgical History (Last Updated 07/28/19 @ 16:40 by Caro Miller MD) History of cystoscopy Onset Date: 06/22/17 Z98.890 Post-circumcision adhesion of penis Onset Date: 2014 N99.89, N47.5 history of transrectal biopsy ultrasound Onset Date: 06/22/17 Surgical History: - - Recent nephrectomy Psychiatric History: No pertinent psych hx Lives: Spouse/ Significant Other Smoking Status: Never smoker Alcohol: None Drugs: None - *Family History Maternal Family History: Family History (Last Reviewed 07/04/19 @ 11:29 by Anuradha Salazar) Mother Colon cancer Father Emphysema lung History Items: No pertinent history Paternal Family History: Family History (Last Reviewed 07/04/19 @ 11:29 by Anuradha Salazar) Mother Colon cancer Father Emphysema lung History Items: No pertinent history Review of Systems Constitutional: Reports: Anorexia, Malaise, Weakness HEENT: Denies: Head Aches, Sinus Congestion, Sinus Drainage Cardiovascular: Denies: Chest Pain, Palpitations Respiratory: Reports: Cough, Shortness of Breath, Shortness of breath upon exertion Gastrointestinal: Denies: Abdominal Pain, Nausea, Vomiting Genitourinary: Denies: Dysuria Musculoskeletal: Denies: Joint Pain, Joint Tenderness Skin: Denies: Rash, Wounds Neurological: Denies: Numbness, Tingling, Focal weakness Psychiatric: Denies: Anxiety, Depression, Homicidal Ideations, Suicidal Ideations Hematologic/ Lymphatic: Denies: Easy Bruising, Easy Bleeding Physical Exam - Physical Exam Vital Signs Temp 98.5 F 07/29/19 03:10 Pulse 107 H 07/29/19 07:20 Resp 16 07/29/19 03:10 BP 122/67 H 07/29/19 03:10 Pulse Ox 92 07/29/19 03:10 Intake & Output 07/27/19 07/28/19 07/29/19 23:59 23:59 23:59 Intake Total 1274.76 / 1274.76 765.00 / 765.00 Output Total 350 / 350 Balance 1274.76 / 1274.76 415.00 / 415.00 Weight: 78.653 kg Intake: Oral 480 / 480 Intake, IV Amount 794.76 / 794.76 765.00 / 765.00 0.9% Normal Saline 1,000 ML @ 528.33 / 528.33 765.00 / 765.00 100 mls/hr IV .Q10H [facility] Rx#: [id number] 0.9% Normal Saline 1,000 ML In 116.43 / 116.43 Viaflex Bag 1 BAG/BAG @ 3 ML/KG /HR 240.858 mls/hr IV .Q4H10M [facility] Rx#:[id number] Rocephin 1 gm In 50 ml @ 100 50 / 50 mls/hr IV Q12 [facility] Rx#:[id number] Zosyn 4.5 GM In 0.9% Normal 100 / 100 Saline 100 ML @ 200 mls/hr IV X1 [facility] Rx#:[id number] Output: Urine 350 / 350 Other: Number of Voids 2 General: Alert, Oriented x3 HEENT: Atraumatic Oral: Moist Mucosa Neck: Supple Abdomen: Bowel Sounds Present, Soft, Distended Rectal: Exam deferred Microbiology Past 72 Hours 07/28/19 15:45 Gram Stain - Preliminary Fluid - Peritoneal Laboratory Tests Past 24 Hrs 07/28/19 07/28/19 07/28/19 13:10 13:10 13:10 WBC 8.9 RBC 3.40 L Hgb 11.1 L Hct 35.1 L MCV 103.2 H MCH 32.6 H MCHC 31.6 L RDW Std Deviation 55.3 H RDW Coeff of Santana 15.0 H Plt Count 319 MPV 9.2 Immature Gran % (Auto) 2.000 H Neut % (Auto) 74.4 H Lymph % (Auto) 17.0 L Banner % (Auto) 6.1 Eos % (Auto) 0.2 Baso % (Auto) 0.3 Absolute Neuts (auto) 6.6 Absolute Lymphs (auto) 1.52 Nucleated RBC % 0.2 PT INR Sodium 140 Potassium 4.3 Chloride 106 Carbon Dioxide 26.0 Anion Gap 8 BUN 25 H Creatinine 1.62 H Estim Creat Clear Calc 44.57 Est GFR (MDRD) Af Amer 54 L Est GFR (MDRD) Non-Af 45 L BUN/Creatinine Ratio 15.4 Glucose 134 H Calcium 8.8 Total Bilirubin 0.40 Direct Bilirubin 0.10 AST 37 ALT 53 Alkaline Phosphatase 65 Troponin I < 0.015 Total Protein 6.8 Albumin 2.4 L Globulin 4.4 H TSH 0.87 Urine Color Urine Clarity Urine pH Ur Specific [place] Urine Protein Urine Glucose (UA) Urine Ketones Urine Occult Blood Urine Nitrite Urine Bilirubin Urine Urobilinogen Ur Leukocyte Esterase Urine RBC Urine WBC Ur Squamous Epith Cells Urine Bacteria Urine Mucus Fluid Source Fluid Color Fluid Appearance Fluid pH Fluid WBC Fluid RBC Fluid Tot Cell Count Fld Polynuclear WBCs # Fld Polynuclear WBCs % Fluid Mononuclear WBCs Fld Mononuclear WBCs % Fluid Neutrophils Fluid Lymphocytes Fluid Monocytes Fl Pathologist Comment Fluid Glucose Fluid Total Protein Fluid LDH Fluid Amylase Fluid Comment 2 Miscellaneous Cytology Miscellaneous Test 07/28/19 07/28/19 07/28/19 15:45 15:45 15:45 WBC RBC Hgb Hct MCV MCH MCHC RDW Std Deviation RDW Coeff of [place] Plt Count MPV Immature Gran % (Auto) Neut % (Auto) Lymph % (Auto) Banner % (Auto) Eos % (Auto) Baso % (Auto) Absolute Neuts (auto) Absolute Lymphs (auto) Nucleated RBC % PT INR Sodium Potassium Chloride Carbon Dioxide Anion Gap BUN Creatinine Estim Creat Clear Calc Est GFR (MDRD) Af Amer Est GFR (MDRD) Non-Af BUN/Creatinine Ratio Glucose Calcium Total Bilirubin Direct Bilirubin AST ALT Alkaline Phosphatase Troponin I Total Protein Albumin Globulin TSH Urine Color Urine Clarity Urine pH Ur Specific [place] Urine Protein Urine Glucose (UA) Urine Ketones Urine Occult Blood Urine Nitrite Urine Bilirubin Urine Urobilinogen Ur Leukocyte Esterase Urine RBC Urine WBC Ur Squamous Epith Cells Urine Bacteria Urine Mucus Fluid Source PERITONEAL FLUID Fluid Color Fluid Appearance TURBID Fluid pH Pending Fluid WBC 1.454 Fluid RBC 0.007 Fluid Tot Cell Count 1.526 Fld Polynuclear WBCs # 0.115 Fld Polynuclear WBCs % 7.9 Fluid Mononuclear WBCs 1.339 Fld Mononuclear WBCs % 92.1 Fluid Neutrophils 22 Fluid Lymphocytes 66 Fluid Monocytes 12 Fl Pathologist Comment May follow Fluid Glucose 245 H Fluid Total Protein Fluid LDH Fluid Amylase Fluid Comment 2 SEE COMMENT Miscellaneous Cytology Miscellaneous Test 07/28/19 07/28/19 07/28/19 15:45 15:45 15:45 WBC RBC Hgb Hct MCV MCH MCHC RDW Std Deviation RDW Coeff of [place] Plt Count MPV Immature Gran % (Auto) Neut % (Auto) Lymph % (Auto) Banner % (Auto) Eos % (Auto) Baso % (Auto) Absolute Neuts (auto) Absolute Lymphs (auto) Nucleated RBC % PT INR Sodium Potassium Chloride Carbon Dioxide Anion Gap BUN Creatinine Estim Creat Clear Calc Est GFR (MDRD) Af Amer Est GFR (MDRD) Non-Af BUN/Creatinine Ratio Glucose Calcium Total Bilirubin Direct Bilirubin AST ALT Alkaline Phosphatase Troponin I Total Protein Albumin Globulin TSH Urine Color Urine Clarity Urine pH Ur Specific [place] Urine Protein Urine Glucose (UA) Urine Ketones Urine Occult Blood Urine Nitrite Urine Bilirubin Urine Urobilinogen Ur Leukocyte Esterase Urine RBC Urine WBC Ur Squamous Epith Cells Urine Bacteria Urine Mucus Fluid Source Fluid Color Fluid Appearance Fluid pH Fluid WBC Fluid RBC Fluid Tot Cell Count Fld Polynuclear WBCs # Fld Polynuclear WBCs % Fluid Mononuclear WBCs Fld Mononuclear WBCs % Fluid Neutrophils Fluid Lymphocytes Fluid Monocytes Fl Pathologist Comment Fluid Glucose Fluid Total Protein Fluid LDH 124 Fluid Amylase Pending Fluid Comment 2 Miscellaneous Cytology Pending Miscellaneous Test 07/28/19 07/28/19 07/28/19 15:45 15:45 18:00 WBC RBC Hgb Hct MCV MCH MCHC RDW Std Deviation RDW Coeff of [place] Plt Count MPV Immature Gran % (Auto) Neut % (Auto) Lymph % (Auto) Banner % (Auto) Eos % (Auto) Baso % (Auto) Absolute Neuts (auto) Absolute Lymphs (auto) Nucleated RBC % PT 14.8 INR 1.2 Sodium Potassium Chloride Carbon Dioxide Anion Gap BUN Creatinine Estim Creat Clear Calc Est GFR (MDRD) Af Amer Est GFR (MDRD) Non-Af BUN/Creatinine Ratio Glucose Calcium Total Bilirubin Direct Bilirubin AST ALT Alkaline Phosphatase Troponin I Total Protein Albumin Globulin TSH Urine Color Urine Clarity Urine pH Ur Specific [place] Urine Protein Urine Glucose (UA) Urine Ketones Urine Occult Blood Urine Nitrite Urine Bilirubin Urine Urobilinogen Ur Leukocyte Esterase Urine RBC Urine WBC Ur Squamous Epith Cells Urine Bacteria Urine Mucus Fluid Source Fluid Color Fluid Appearance Fluid pH Fluid WBC Fluid RBC Fluid Tot Cell Count Fld Polynuclear WBCs # Fld Polynuclear WBCs % Fluid Mononuclear WBCs Fld Mononuclear WBCs % Fluid Neutrophils Fluid Lymphocytes Fluid Monocytes Fl Pathologist Comment Fluid Glucose Fluid Total Protein 3.7 Fluid LDH Fluid Amylase Fluid Comment 2 Miscellaneous Cytology Miscellaneous Test Pending 07/28/19 07/29/19 07/29/19 23:20 06:13 06:13 WBC 6.7 RBC 3.08 L Hgb 10.2 L Hct 31.8 L MCV 103.2 H MCH 33.1 H MCHC 32.1 RDW Std Deviation 57.1 H RDW Coeff of [place]ana 15.4 H Plt Count 294 MPV 9.2 Immature Gran % (Auto) 2.500 H Neut % (Auto) 76.9 H Lymph % (Auto) 10.3 L Banner % (Auto) 7.0 Eos % (Auto) 3.0 Baso % (Auto) 0.3 Absolute Neuts (auto) 5.2 Absolute Lymphs (auto) 0.69 L Nucleated RBC % 0.3 PT INR Sodium 144 Potassium 3.9 Chloride 110 H Carbon Dioxide 26.0 Anion Gap 8 BUN 20 H Creatinine 1.41 H Estim Creat Clear Calc 51.21 Est GFR (MDRD) Af Amer 63 Est GFR (MDRD) Non-Af 52 L BUN/Creatinine Ratio 14.2 Glucose 93 Calcium 8.0 L Total Bilirubin Direct Bilirubin AST ALT Alkaline Phosphatase Troponin I Total Protein Albumin Globulin TSH Urine Color Yellow Urine Clarity Clear Urine pH 5.0 Ur Specific [place] 1.010 Urine Protein Negative Urine Glucose (UA) Normal Urine Ketones Negative Urine Occult Blood Negative Urine Nitrite Negative Urine Bilirubin Negative Urine Urobilinogen Normal Ur Leukocyte Esterase Negative Urine RBC 0 SEEN Urine WBC 0 SEEN Ur Squamous Epith Cells 0 SEEN Urine Bacteria 0 SEEN Urine Mucus 0 SEEN Fluid Source Fluid Color Fluid Appearance Fluid pH Fluid WBC Fluid RBC Fluid Tot Cell Count Fld Polynuclear WBCs # Fld Polynuclear WBCs % Fluid Mononuclear WBCs Fld Mononuclear WBCs % Fluid Neutrophils Fluid Lymphocytes Fluid Monocytes Fl Pathologist Comment Fluid Glucose Fluid Total Protein Fluid LDH Fluid Amylase Fluid Comment 2 Miscellaneous Cytology Miscellaneous Test Assessment/Plan All Active Problems (Last Updated 07/28/19 @ 17:08 by Caro Miller MD) Spontaneous bacterial peritonitis (Acute) Pseudomonas pneumonia (Acute) 73-year-old male with a fairly complicated history. #1 neurologic stable, has back pain chronic etiology is questionable could be from metastatic lesion very close to the spine and spinal cord. #2 pulmonary, on x-ray and CAT scan no clear active pneumonia but still has bronchitis, could be chronic bronchitis. Has shortness of breath could be related to cardiac we will continue with work- up. #3 cardiac currently being worked up by cardiology team. #4 nutrition, nutrition is poor once patient is able to eat will encourage p.o. he is able to tolerate food and is having regular bowel movements GI function is working but nutritionally has significant deficit. #5 abdominal, has ascites etiology is still unclear were awaiting culture which we suspect will be negative, will awaiting cytology, awaiting triglycerides. Long-term management is certainly dependent on diagnosis of what is the cause of the ascites explained to the patient sometimes is difficult to get a clear diagnosis. He may need occasional drainage of his ascites if he becomes symptomatic. 73-year-old male status post radical nephrectomy in the right side with metastatic renal cell carcinoma radiated spot in his back CT scan did say there is a lytic lesion in the left iliac wing I looked at the original CAT scan this was present there beforehand, CT scan also was reading a possible papillary lesion in the bladder but I think this is just contrast from the CAT scan we will have him do an ultrasound of his bladder later today. We will continue to follow the patient.
--- NOTE | 2019-07-29 08:44 | US_ITS ---
STUDY: RENAL ULTRASOUND - COMPLETE REASON FOR EXAM: Male, 73 years old. Bladder mass TECHNIQUE: Ultrasound evaluation of the kidneys was performed with real-time and static navarro-scale imaging. COMPARISON: None. FINDINGS: RIGHT KIDNEY: Not visualized consistent with nephrectomy. DISTAL RIGHT URETER:. LEFT KIDNEY: Normal location of the left kidney, which is normal in size. The left kidney measures 12.4 x 5.3 cm. There is a normal cortex of the left kidney. The renal cortex measures 1.5 cm. There is a cyst measuring 2 x 2 cm. There are no left renal calculi. There is no left hydronephrosis. DISTAL LEFT URETER: There is non-visualization of the distal left ureter. There is no demonstrated left ureterovesical junction calculus. There is a visualized left ureteral jet. BLADDER: The distended urinary bladder has a volume of 218.9 ml. There is asymmetric thickening of the posterior wall the bladder on the right which may be consistent with neoplasm. . There are no demonstrated bladder calculi. 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 Cystoscopy recommended for further evaluation Electronically Signed: Rojelio Chase MD at 17:08 EDT , Service support ,
--- NOTE | 2019-07-29 09:17 | EKG12_ITS ---
Test Reason : Blood Pressure : / mmHG Vent. Rate : 094 BPM Atrial Rate : 094 BPM P-R Int : 200 ms QRS Dur : 080 ms QT Int : 334 ms P-R-T Axes : 046 057 068 degrees QTc Int : 417 ms Sinus rhythm with Premature atrial complexes Low voltage QRS Borderline ECG When compared with ECG of 28-JUL-2019 12:50, Sinus rhythm has replaced Atrial fibrillation Confirmed by KAYLI MARQUEZ ([id number]), editorial cartoonist SUKHDEV MCKENZIE ([id number]) on 08/05/2019 1:11:20 PM Referred By: Kayli Marquez Confirmed By:KAYLI MARQUEZ
[2019-07-29] MEDS: Ceftriaxone 1 GM/50 ML BAG IV ×2 (10:12→21:35)
[2019-07-29] MEDS: Docusate Sodium 100 MG Capsule PO (10:14)
[2019-07-29] MEDS: guaiFENesin 600 MG Tablet PO (10:14)
[2019-07-29] MEDS: Heparin Injection (Vial) 5,000 UNIT/ML VIAL 5000 UNIT SC ×2 (10:14→21:01)
[2019-07-29] MEDS: Doxazosin 4 MG Tablet PO ×2 (10:14→21:01)
[2019-07-29] MEDS: dilTIAZem CD 120 MG Capsule PO (10:18)
--- NOTE | 2019-07-29 10:25 | NURSING ---
pt had previously scheduled appointment with Dr Cade for this date 07/29, but due to inpatient admission, is unable to make appointment. pt requested this RN call office and reschedule. appointment rescheduled for Saturday 08/04 at 1145. pt and family notified.
--- NOTE | 2019-07-29 11:53 | PCM.PROGNOTE ---
<Apolinar Blackmon - Last Filed: 07/29/19 12:35> Patient Problems: Active and Suspected Problems (Last Updated 07/28/19 @ 17:08 by Caro Miller MD) Spontaneous bacterial peritonitis (Acute) Subjective: Ongoing productive cough. SOB with any exertion. No fever/chills. Ongoing abdominal distention. No LE edema. No CP. No palp, No LH. Severe Lower back pain. Pt states he plans to pursue another back injection for this with Basali. He requests to be seen by his oncologists. He has no issues urinating. He is aware of his diagnosis and mets to t12. He has had a nephrectomy and radiation, no plans for chemo/immunotherapy. - Physical Exam General: Alert, Oriented x3, Cooperative HEENT: Atraumatic, PERRLA, EOMI, Normocephalic Neck: Supple, No JVD, Negative Carotid Bruits Lungs: Rhonchi Cardiovascular: Regular rate, No murmurs Abdomen: Bowel Sounds Present, Soft, Non Tender, Distended Extremities: No edema, Capillary Refill Less than 3 Seconds Skin: No rashes, No breakdown Musculoskeletal: No Tenderness to Palpation of Joints or Extremities Neurological: Cranial nerves II-XII grossly intact Psych/Mental Status: Normal Affect, Appropriate, Alert and oriented to time, place, person, mood and affect Vital Signs Temp Pulse Resp BP Pulse Ox 98.1 F 95 16 103/64 92 07/29/19 08:45 07/29/19 08:45 07/29/19 08:45 07/29/19 08:45 07/29/19 08:45 Oxygen Delivery Method Room Air Weight: 173 lb 6.403 oz Body Mass Index (BMI) 23.5 Intake and Output for Last 24 Hours 07/27/19 07/28/19 07/29/19 23:59 23:59 23:59 Intake Total 1274.76 / 1274.76 1070.00 / 1070.00 Output Total 350 / 350 Balance 1274.76 / 1274.76 720.00 / 720.00 Microbiology Past 72 Hours 07/28/19 15:45 Gram Stain - Final Fluid - Peritoneal Body Fluid Culture - Preliminary No growth-Final to follow Laboratory Tests Past 24 Hrs 07/28/19 07/28/19 07/28/19 13:10 13:10 13:10 WBC 8.9 RBC 3.40 L Hgb 11.1 L Hct 35.1 L MCV 103.2 H MCH 32.6 H MCHC 31.6 L RDW Std Deviation 55.3 H RDW Coeff of [place] 15.0 H Plt Count 319 MPV 9.2 Immature Gran % (Auto) 2.000 H Neut % (Auto) 74.4 H Lymph % (Auto) 17.0 L [place] % (Auto) 6.1 Eos % (Auto) 0.2 Baso % (Auto) 0.3 Absolute Neuts (auto) 6.6 Absolute Lymphs (auto) 1.52 Nucleated RBC % 0.2 PT INR Sodium 140 Potassium 4.3 Chloride 106 Carbon Dioxide 26.0 Anion Gap 8 BUN 25 H Creatinine 1.62 H Estim Creat Clear Calc 44.57 Est GFR (MDRD) Af Amer 54 L Est GFR (MDRD) Non-Af 45 L BUN/Creatinine Ratio 15.4 Glucose 134 H Calcium 8.8 Total Bilirubin 0.40 Direct Bilirubin 0.10 AST 37 ALT 53 Alkaline Phosphatase 65 Troponin I < 0.015 Total Protein 6.8 Albumin 2.4 L Globulin 4.4 H TSH 0.87 Urine Color Urine Clarity Urine pH Ur Specific [place] Urine Protein Urine Glucose (UA) Urine Ketones Urine Occult Blood Urine Nitrite Urine Bilirubin Urine Urobilinogen Ur Leukocyte Esterase Urine RBC Urine WBC Ur Squamous Epith Cells Urine Bacteria Urine Mucus Fluid Source Fluid Color Fluid Appearance Fluid pH Fluid WBC Fluid RBC Fluid Tot Cell Count Fld Polynuclear WBCs # Fld Polynuclear WBCs % Fluid Mononuclear WBCs Fld Mononuclear WBCs % Fluid Neutrophils Fluid Lymphocytes Fluid Monocytes Fl Pathologist Comment Fluid Glucose Fluid Total Protein Fluid LDH Fluid Amylase Fluid Comment 2 Miscellaneous Cytology Miscellaneous Test 07/28/19 07/28/19 07/28/19 15:45 15:45 15:45 WBC RBC Hgb Hct MCV MCH MCHC RDW Std Deviation RDW Coeff of [place] Plt Count MPV Immature Gran % (Auto) Neut % (Auto) Lymph % (Auto) [place] % (Auto) Eos % (Auto) Baso % (Auto) Absolute Neuts (auto) Absolute Lymphs (auto) Nucleated RBC % PT INR Sodium Potassium Chloride Carbon Dioxide Anion Gap BUN Creatinine Estim Creat Clear Calc Est GFR (MDRD) Af Amer Est GFR (MDRD) Non-Af BUN/Creatinine Ratio Glucose Calcium Total Bilirubin Direct Bilirubin AST ALT Alkaline Phosphatase Troponin I Total Protein Albumin Globulin TSH Urine Color Urine Clarity Urine pH Ur Specific [place] Urine Protein Urine Glucose (UA) Urine Ketones Urine Occult Blood Urine Nitrite Urine Bilirubin Urine Urobilinogen Ur Leukocyte Esterase Urine RBC Urine WBC Ur Squamous Epith Cells Urine Bacteria Urine Mucus Fluid Source PERITONEAL FLUID Fluid Color Fluid Appearance TURBID Fluid pH Pending Fluid WBC 1.454 Fluid RBC 0.007 Fluid Tot Cell Count 1.526 Fld Polynuclear WBCs # 0.115 Fld Polynuclear WBCs % 7.9 Fluid Mononuclear WBCs 1.339 Fld Mononuclear WBCs % 92.1 Fluid Neutrophils 22 Fluid Lymphocytes 66 Fluid Monocytes 12 Fl Pathologist Comment May follow Fluid Glucose 245 H Fluid Total Protein Fluid LDH Fluid Amylase Fluid Comment 2 SEE COMMENT Miscellaneous Cytology Miscellaneous Test 07/28/19 07/28/19 07/28/19 15:45 15:45 15:45 WBC RBC Hgb Hct MCV MCH MCHC RDW Std Deviation RDW Coeff of [place] Plt Count MPV Immature Gran % (Auto) Neut % (Auto) Lymph % (Auto) [place] % (Auto) Eos % (Auto) Baso % (Auto) Absolute Neuts (auto) Absolute Lymphs (auto) Nucleated RBC % PT INR Sodium Potassium Chloride Carbon Dioxide Anion Gap BUN Creatinine Estim Creat Clear Calc Est GFR (MDRD) Af Amer Est GFR (MDRD) Non-Af BUN/Creatinine Ratio Glucose Calcium Total Bilirubin Direct Bilirubin AST ALT Alkaline Phosphatase Troponin I Total Protein Albumin Globulin TSH Urine Color Urine Clarity Urine pH Ur Specific [place] Urine Protein Urine Glucose (UA) Urine Ketones Urine Occult Blood Urine Nitrite Urine Bilirubin Urine Urobilinogen Ur Leukocyte Esterase Urine RBC Urine WBC Ur Squamous Epith Cells Urine Bacteria Urine Mucus Fluid Source Fluid Color Fluid Appearance Fluid pH Fluid WBC Fluid RBC Fluid Tot Cell Count Fld Polynuclear WBCs # Fld Polynuclear WBCs % Fluid Mononuclear WBCs Fld Mononuclear WBCs % Fluid Neutrophils Fluid Lymphocytes Fluid Monocytes Fl Pathologist Comment Fluid Glucose Fluid Total Protein Fluid LDH 124 Fluid Amylase Pending Fluid Comment 2 Miscellaneous Cytology Pending Miscellaneous Test 07/28/19 07/28/19 07/28/19 15:45 15:45 18:00 WBC RBC Hgb Hct MCV MCH MCHC RDW Std Deviation RDW Coeff of [place] Plt Count MPV Immature Gran % (Auto) Neut % (Auto) Lymph % (Auto) [place] % (Auto) Eos % (Auto) Baso % (Auto) Absolute Neuts (auto) Absolute Lymphs (auto) Nucleated RBC % PT 14.8 INR 1.2 Sodium Potassium Chloride Carbon Dioxide Anion Gap BUN Creatinine Estim Creat Clear Calc Est GFR (MDRD) Af Amer Est GFR (MDRD) Non-Af BUN/Creatinine Ratio Glucose Calcium Total Bilirubin Direct Bilirubin AST ALT Alkaline Phosphatase Troponin I Total Protein Albumin Globulin TSH Urine Color Urine Clarity Urine pH Ur Specific [place] Urine Protein Urine Glucose (UA) Urine Ketones Urine Occult Blood Urine Nitrite Urine Bilirubin Urine Urobilinogen Ur Leukocyte Esterase Urine RBC Urine WBC Ur Squamous Epith Cells Urine Bacteria Urine Mucus Fluid Source Fluid Color Fluid Appearance Fluid pH Fluid WBC Fluid RBC Fluid Tot Cell Count Fld Polynuclear WBCs # Fld Polynuclear WBCs % Fluid Mononuclear WBCs Fld Mononuclear WBCs % Fluid Neutrophils Fluid Lymphocytes Fluid Monocytes Fl Pathologist Comment Fluid Glucose Fluid Total Protein 3.7 Fluid LDH Fluid Amylase Fluid Comment 2 Miscellaneous Cytology Miscellaneous Test Pending 07/28/19 07/29/19 07/29/19 23:20 06:13 06:13 WBC 6.7 RBC 3.08 L Hgb 10.2 L Hct 31.8 L MCV 103.2 H MCH 33.1 H MCHC 32.1 RDW Std Deviation 57.1 H RDW Coeff of [place] 15.4 H Plt Count 294 MPV 9.2 Immature Gran % (Auto) 2.500 H Neut % (Auto) 76.9 H Lymph % (Auto) 10.3 L [place] % (Auto) 7.0 Eos % (Auto) 3.0 Baso % (Auto) 0.3 Absolute Neuts (auto) 5.2 Absolute Lymphs (auto) 0.69 L Nucleated RBC % 0.3 PT INR Sodium 144 Potassium 3.9 Chloride 110 H Carbon Dioxide 26.0 Anion Gap 8 BUN 20 H Creatinine 1.41 H Estim Creat Clear Calc 51.21 Est GFR (MDRD) Af Amer 63 Est GFR (MDRD) Non-Af 52 L BUN/Creatinine Ratio 14.2 Glucose 93 Calcium 8.0 L Total Bilirubin Direct Bilirubin AST ALT Alkaline Phosphatase Troponin I Total Protein Albumin Globulin TSH Urine Color Yellow Urine Clarity Clear Urine pH 5.0 Ur Specific [place] 1.010 Urine Protein Negative Urine Glucose (UA) Normal Urine Ketones Negative Urine Occult Blood Negative Urine Nitrite Negative Urine Bilirubin Negative Urine Urobilinogen Normal Ur Leukocyte Esterase Negative Urine RBC 0 SEEN Urine WBC 0 SEEN Ur Squamous Epith Cells 0 SEEN Urine Bacteria 0 SEEN Urine Mucus 0 SEEN Fluid Source Fluid Color Fluid Appearance Fluid pH Fluid WBC Fluid RBC Fluid Tot Cell Count Fld Polynuclear WBCs # Fld Polynuclear WBCs % Fluid Mononuclear WBCs Fld Mononuclear WBCs % Fluid Neutrophils Fluid Lymphocytes Fluid Monocytes Fl Pathologist Comment Fluid Glucose Fluid Total Protein Fluid LDH Fluid Amylase Fluid Comment 2 Miscellaneous Cytology Miscellaneous Test Medical Necessity - Tobacco Use Smoking Status: Never smoker Assessment/Plan All Active Problems (Last Updated 07/28/19 @ 17:08 by Caro Miller MD) Spontaneous bacterial peritonitis (Acute) Pseudomonas pneumonia (Acute) 1. Ascites - fluid pending. Concern is for oncologic process due to metastatic renal cell carcinoma. No surgical indication per Dr. Williamson and Dr. Adkins 2. Renal cell carcinoma - pt of Dr. Kirby. Oncology consulted. Mets to t12. reportedly lymph node biopsies were negative. s/p right nephrectomy. 3. Recent pseudomonas pna - still with productive cough. No fever/chills/leukocytosis. Completed outpatient IV zosyn. PEP/IS therapy, mucinex, bronchodilators. Urine antigens negative. 4. Asthma - no acute exacerbation , no wheezing. 5. PAfib - now NSR. resume cardizem. Cardiology following. 6. HTN - stable 7. HLD - statin 8. Hx thyroid nodule - prior bx without CA. 9. Macrocytic anemia - trend. 10. CKDIII - improved. DVT ppx: SCDs This patient was seen by Apolinar Blackmon PA-C under the supervision of Dr. Park <Terry Park - Last Filed: 07/29/19 15:00> Subjective: The patient was admitted with progressively increasing shortness of breath, mild cough in the setting of recent Pseudomonas pneumonia treated with 7 days of IV Zosyn after discharge from the hospital on July 17, 2019. Patient was found to have ascites which has been slowly increasing with abdominal distention after right laparoscopic radical nephrectomy on July 09, 2019. Patient also went into A. fib with RVR with history of paroxysmal A. fib. Postage Machine Operator was consulted. Patient is converted to normal sinus rhythm. Had diagnostic paracentesis about 220 mL of thick white color was removed. Initially was thought with purulent but from fluid cell count, it seems lymphocyte predominant with total protein 3.7. Patient denies abdominal pain, fever or chills. In ER, patient had a heart rate between 8200/min. CT chest and CT abdomen were done. - Physical Exam General: Alert, Oriented x3, Cooperative HEENT: Atraumatic, PERRLA, EOMI, Normocephalic Neck: Supple, No JVD, Negative Carotid Bruits Lungs: Diminished - Air entry diminished in the right lung base., Rhonchi Cardiovascular: Regular rate, Regular Rhythm, Normal S1, Normal S2, No murmurs Abdomen: Bowel Sounds Present, Soft, Non Tender, Distended - Distention consistent with ascites with fluid thrill present. No rebound tenderness. Extremities: No edema, Capillary Refill Less than 3 Seconds Skin: No rashes, No breakdown Musculoskeletal: No Tenderness to Palpation of Joints or Extremities, Arthritic Changes Neurological: Cranial nerves II-XII grossly intact, Deep Tendon Reflexes 2+/4 and Symmetrical, Neuro grossly intact Psych/Mental Status: Normal Affect, Appropriate Vital Signs Temp Pulse Resp BP Pulse Ox 98.1 F 110 H 20 H 103/64 92 07/29/19 08:45 07/29/19 12:03 07/29/19 11:41 07/29/19 08:45 07/29/19 08:45 Oxygen Delivery Method Room Air Weight: 173 lb 6.403 oz Body Mass Index (BMI) 23.5 Intake and Output for Last 24 Hours 07/27/19 07/28/19 07/29/19 23:59 23:59 23:59 Intake Total 1274.76 / 1274.76 1370.00 / 1370.00 Output Total 1000 / 1000 Balance 1274.76 / 1274.76 370.00 / 370.00 Microbiology Past 72 Hours 07/29/19 12:10 Streptococcus pneumoniae Antigen (M - Final Urine, Clean Catch 07/29/19 12:10 Legionella Antigen - Final Urine, Clean Catch 07/28/19 15:45 Gram Stain - Final Fluid - Peritoneal Body Fluid Culture - Preliminary No growth-Final to follow Laboratory Tests Past 24 Hrs 07/28/19 07/28/19 07/28/19 13:10 15:45 15:45 WBC RBC Hgb Hct MCV MCH MCHC RDW Std Deviation RDW Coeff of [place] Plt Count MPV Immature Gran % (Auto) Neut % (Auto) Lymph % (Auto) [place] % (Auto) Eos % (Auto) Baso % (Auto) Absolute Neuts (auto) Absolute Lymphs (auto) Nucleated RBC % PT INR Sodium Potassium Chloride Carbon Dioxide Anion Gap BUN Creatinine Estim Creat Clear Calc Est GFR (MDRD) Af Amer Est GFR (MDRD) Non-Af BUN/Creatinine Ratio Glucose Calcium Total Bilirubin 0.40 Direct Bilirubin 0.10 AST 37 ALT 53 Alkaline Phosphatase 65 Total Protein 6.8 Albumin 2.4 L Globulin 4.4 H TSH 0.87 Urine Color Urine Clarity Urine pH Ur Specific [place] Urine Protein Urine Glucose (UA) Urine Ketones Urine Occult Blood Urine Nitrite Urine Bilirubin Urine Urobilinogen Ur Leukocyte Esterase Urine RBC Urine WBC Ur Squamous Epith Cells Urine Bacteria Urine Mucus Fluid Source Fluid Color Fluid Appearance Fluid pH Pending Fluid WBC Fluid RBC Fluid Tot Cell Count Fld Polynuclear WBCs # Fld Polynuclear WBCs % Fluid Mononuclear WBCs Fld Mononuclear WBCs % Fluid Neutrophils Fluid Lymphocytes Fluid Monocytes Fl Pathologist Comment Fluid Glucose 245 H Fluid Total Protein Fluid LDH Fluid Amylase Fluid Comment 2 Miscellaneous Cytology Miscellaneous Test 07/28/19 07/28/19 07/28/19 15:45 15:45 15:45 WBC RBC Hgb Hct MCV MCH MCHC RDW Std Deviation RDW Coeff of [place] Plt Count MPV Immature Gran % (Auto) Neut % (Auto) Lymph % (Auto) [place] % (Auto) Eos % (Auto) Baso % (Auto) Absolute Neuts (auto) Absolute Lymphs (auto) Nucleated RBC % PT INR Sodium Potassium Chloride Carbon Dioxide Anion Gap BUN Creatinine Estim Creat Clear Calc Est GFR (MDRD) Af Amer Est GFR (MDRD) Non-Af BUN/Creatinine Ratio Glucose Calcium Total Bilirubin Direct Bilirubin AST ALT Alkaline Phosphatase Total Protein Albumin Globulin TSH Urine Color Urine Clarity Urine pH Ur Specific [place] Urine Protein Urine Glucose (UA) Urine Ketones Urine Occult Blood Urine Nitrite Urine Bilirubin Urine Urobilinogen Ur Leukocyte Esterase Urine RBC Urine WBC Ur Squamous Epith Cells Urine Bacteria Urine Mucus Fluid Source PERITONEAL FLUID Fluid Color Fluid Appearance TURBID Fluid pH Fluid WBC 1.454 Fluid RBC 0.007 Fluid Tot Cell Count 1.526 Fld Polynuclear WBCs # 0.115 Fld Polynuclear WBCs % 7.9 Fluid Mononuclear WBCs 1.339 Fld Mononuclear WBCs % 92.1 Fluid Neutrophils 22 Fluid Lymphocytes 66 Fluid Monocytes 12 Fl Pathologist Comment Reviewed Fluid Glucose Fluid Total Protein Fluid LDH 124 Fluid Amylase Pending Fluid Comment 2 SEE COMMENT Miscellaneous Cytology Miscellaneous Test 07/28/19 07/28/19 07/28/19 15:45 15:45 15:45 WBC RBC Hgb Hct MCV MCH MCHC RDW Std Deviation RDW Coeff of [place] Plt Count MPV Immature Gran % (Auto) Neut % (Auto) Lymph % (Auto) [place] % (Auto) Eos % (Auto) Baso % (Auto) Absolute Neuts (auto) Absolute Lymphs (auto) Nucleated RBC % PT INR Sodium Potassium Chloride Carbon Dioxide Anion Gap BUN Creatinine Estim Creat Clear Calc Est GFR (MDRD) Af Amer Est GFR (MDRD) Non-Af BUN/Creatinine Ratio Glucose Calcium Total Bilirubin Direct Bilirubin AST ALT Alkaline Phosphatase Total Protein Albumin Globulin TSH Urine Color Urine Clarity Urine pH Ur Specific [place] Urine Protein Urine Glucose (UA) Urine Ketones Urine Occult Blood Urine Nitrite Urine Bilirubin Urine Urobilinogen Ur Leukocyte Esterase Urine RBC Urine WBC Ur Squamous Epith Cells Urine Bacteria Urine Mucus Fluid Source Fluid Color Fluid Appearance Fluid pH Fluid WBC Fluid RBC Fluid Tot Cell Count Fld Polynuclear WBCs # Fld Polynuclear WBCs % Fluid Mononuclear WBCs Fld Mononuclear WBCs % Fluid Neutrophils Fluid Lymphocytes Fluid Monocytes Fl Pathologist Comment Fluid Glucose Fluid Total Protein 3.7 Fluid LDH Fluid Amylase Fluid Comment 2 Miscellaneous Cytology Pending Miscellaneous Test Pending 07/28/19 07/28/19 07/29/19 18:00 23:20 06:13 WBC RBC Hgb Hct MCV MCH MCHC RDW Std Deviation RDW Coeff of [place] Plt Count MPV Immature Gran % (Auto) Neut % (Auto) Lymph % (Auto) [place] % (Auto) Eos % (Auto) Baso % (Auto) Absolute Neuts (auto) Absolute Lymphs (auto) Nucleated RBC % PT 14.8 INR 1.2 Sodium 144 Potassium 3.9 Chloride 110 H Carbon Dioxide 26.0 Anion Gap 8 BUN 20 H Creatinine 1.41 H Estim Creat Clear Calc 51.21 Est GFR (MDRD) Af Amer 63 Est GFR (MDRD) Non-Af 52 L BUN/Creatinine Ratio 14.2 Glucose 93 Calcium 8.0 L Total Bilirubin Direct Bilirubin AST ALT Alkaline Phosphatase Total Protein Albumin Globulin TSH Urine Color Yellow Urine Clarity Clear Urine pH 5.0 Ur Specific [place] 1.010 Urine Protein Negative Urine Glucose (UA) Normal Urine Ketones Negative Urine Occult Blood Negative Urine Nitrite Negative Urine Bilirubin Negative Urine Urobilinogen Normal Ur Leukocyte Esterase Negative Urine RBC 0 SEEN Urine WBC 0 SEEN Ur Squamous Epith Cells 0 SEEN Urine Bacteria 0 SEEN Urine Mucus 0 SEEN Fluid Source Fluid Color Fluid Appearance Fluid pH Fluid WBC Fluid RBC Fluid Tot Cell Count Fld Polynuclear WBCs # Fld Polynuclear WBCs % Fluid Mononuclear WBCs Fld Mononuclear WBCs % Fluid Neutrophils Fluid Lymphocytes Fluid Monocytes Fl Pathologist Comment Fluid Glucose Fluid Total Protein Fluid LDH Fluid Amylase Fluid Comment 2 Miscellaneous Cytology Miscellaneous Test 07/29/19 06:13 WBC 6.7 RBC 3.08 L Hgb 10.2 L Hct 31.8 L MCV 103.2 H MCH 33.1 H MCHC 32.1 RDW Std Deviation 57.1 H RDW Coeff of [place] 15.4 H Plt Count 294 MPV 9.2 Immature Gran % (Auto) 2.500 H Neut % (Auto) 76.9 H Lymph % (Auto) 10.3 L [place] % (Auto) 7.0 Eos % (Auto) 3.0 Baso % (Auto) 0.3 Absolute Neuts (auto) 5.2 Absolute Lymphs (auto) 0.69 L Nucleated RBC % 0.3 PT INR Sodium Potassium Chloride Carbon Dioxide Anion Gap BUN Creatinine Estim Creat Clear Calc Est GFR (MDRD) Af Amer Est GFR (MDRD) Non-Af BUN/Creatinine Ratio Glucose Calcium Total Bilirubin Direct Bilirubin AST ALT Alkaline Phosphatase Total Protein Albumin Globulin TSH Urine Color Urine Clarity Urine pH Ur Specific [place] Urine Protein Urine Glucose (UA) Urine Ketones Urine Occult Blood Urine Nitrite Urine Bilirubin Urine Urobilinogen Ur Leukocyte Esterase Urine RBC Urine WBC Ur Squamous Epith Cells Urine Bacteria Urine Mucus Fluid Source Fluid Color Fluid Appearance Fluid pH Fluid WBC Fluid RBC Fluid Tot Cell Count Fld Polynuclear WBCs # Fld Polynuclear WBCs % Fluid Mononuclear WBCs Fld Mononuclear WBCs % Fluid Neutrophils Fluid Lymphocytes Fluid Monocytes Fl Pathologist Comment Fluid Glucose Fluid Total Protein Fluid LDH Fluid Amylase Fluid Comment 2 Miscellaneous Cytology Miscellaneous Test Assessment/Plan This patient was seen in conjunction with Apolinar DEUTSCH. I have independently interviewed and examined the patient and reviewed pertinent history, examination findings, laboratory and plan of management. I have reviewed the note and agree with the documented findings with the few additional points. In brief, patient is 72-year-old gentleman with history of metastatic renal cell cancer diagnosed biopsy from T12 metastatic lesion status post right laparoscopic radical nephrectomy on July 09, 2019, biopsy showed clear cell type is being admitted for progressively increasing shortness of breath, cough with recent Pseudomonas pneumonia treated with 7 days of IV antibiotics Zosyn after discharge from hospital on July 17, 2019. This time, patient also had A. fib with RVR which got converted to normal sinus rhythm. Patient seen by lane marker installer. Patient had 220 mL diagnostic paracentesis about 220 mL of thick white color was removed. Initially was thought with purulent but from fluid cell count, it seems lymphocyte predominant with total protein 3.7. Cell count shows 1454 total WBC count, 92% mononuclear cell out of a 66% lymphocyte, 12% monocytes and about 8% polynuclear cells. Glucose 245. Total protein 3.7. It seems noninfectious as neutrophil count is about 8%, no organisms seen on fluid culture and glucose is high 245. Pathologist reported negative for malignant cells consistent with chylous effusion. Cytology report is pending. High glucose count, total protein goes along with cholecystitis. Patient seen by surgeon and ascites fluid triglyceride ordered. Patient put on a very low-fat diet. Patient also seen by urologist, Dr. Wanda Porter. CT renal shows lytic lesion in left iliac wing and T12 vertebra. CT abdomen pelvis showed bony metastasis is involving the T12 vertebrae as well as osteopenia of the L1 vertebrae and Lytic lesion in the left iliac bone which as per urologist was present before the surgery. CT abdomen showed possible papillary lesion in the bladder which may be just contrast from CAT scan as per urologist. He ordered ultrasound of bladder. Patient has elevated creatinine 1.62 at time of admission. Creatinine varies from 1.5-1.7 after surgery. Improved to 1.4. Probably it is elevated after right radical nephrectomy; expected from single kidney. DVT prophylaxis: Subcut heparin. I have discussed my assessment with Apolinar DEUTSCH and orders have been reviewed. 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 Clinical Impression(s) from Imaging Studies Chest X-Ray 07/28/19 12:44 IMPRESSION: Blunting of the right costophrenic angle. Electronically Signed: Lucho Bond, at 13:49 EDT , Service support , Chest CTA 07/28/19 14:10 IMPRESSION: Small right pleural effusion with right basilar atelectasis. No evidence of pulmonary embolism. Stable destruction of the right pedicle of the T12 vertebrae. Ascites. Fatty infiltration of the liver. Electronically Signed: Lucho Bond, at 15:19 EDT , Service support , Abdomen/Pelvis CT 07/28/19 14:34 IMPRESSION: Ascites. Small bilateral effusions slightly worse on the right side with right basilar atelectasis. Small pericardial effusion. 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 Lytic lesion in the left iliac bone. Status post right nephrectomy. Microbiology Past 72 Hours 07/29/19 12:10 Urine, Clean Catch Streptococcus pneumoniae Antigen (M - Final 07/29/19 12:10 Urine, Clean Catch Legionella Antigen - Final 07/28/19 15:45 Fluid - Peritoneal Gram Stain - Final 07/28/19 15:45 Fluid - Peritoneal Body Fluid Culture - Preliminary No growth-Final to follow Laboratory Results 07/28/19 13:10: Total Bilirubin 0.40, Direct Bilirubin 0.10, AST 37, ALT 53, Alkaline Phosphatase 65, Total Protein 6.8, Albumin 2.4 L, Globulin 4.4 H, TSH 0.87 07/28/19 15:45: Fluid Glucose 245 H 07/28/19 15:45: Fluid pH Pending 07/28/19 15:45: Fluid Source PERITONEAL FLUID, Fluid Color , Fluid Appearance TURBID, Fluid WBC 1.454, Fluid RBC 0.007, Fluid Tot Cell Count 1.526, Fld Polynuclear WBCs # 0.115, Fld Polynuclear WBCs % 7.9, Fluid Mononuclear WBCs 1.339, Fld Mononuclear WBCs % 92.1, Fluid Neutrophils 22, Fluid Lymphocytes 66, Fluid Monocytes 12, Fl Pathologist Comment Reviewed, Fluid Comment 2 SEE COMMENT 07/28/19 15:45: Fluid LDH 124 07/28/19 15:45: Fluid Amylase Pending 07/28/19 15:45: Miscellaneous Cytology Pending 07/28/19 15:45: Fluid Total Protein 3.7 07/28/19 15:45: Miscellaneous Test Pending 07/28/19 18:00: PT 14.8, INR 1.2 07/28/19 23:20: Urine Color Yellow, Urine Clarity Clear, Urine pH 5.0, Ur Specific [place] 1.010, Urine Protein Negative, Urine Glucose (UA) Normal, Urine Ketones Negative, Urine Occult Blood Negative, Urine Nitrite Negative, Urine Bilirubin Negative, Urine Urobilinogen Normal, Ur Leukocyte Esterase Negative, Urine RBC 0 SEEN, Urine WBC 0 SEEN, Ur Squamous Epith Cells 0 SEEN, Urine Bacteria 0 SEEN, Urine Mucus 0 SEEN 07/29/19 06:13: Sodium 144, Potassium 3.9, Chloride 110 H, Carbon Dioxide 26.0, Anion Gap 8, BUN 20 H, Creatinine 1.41 H, Estim Creat Clear Calc 51.21, Est GFR (MDRD) Af Amer 63, Est GFR (MDRD) Non-Af 52 L, BUN/Creatinine Ratio 14.2, Glucose 93, Calcium 8.0 L 07/29/19 06:13: WBC 6.7, RBC 3.08 L, Hgb 10.2 L, Hct 31.8 L, MCV 103.2 H, MCH 33.1 H, MCHC 32.1, RDW Std Deviation 57.1 H, RDW Coeff of Santana 15.4 H, Plt Count 294, MPV 9.2, Immature Gran % (Auto) 2.500 H, Neut % (Auto) 76.9 H, Lymph % (Auto) 10.3 L, Harlan % (Auto) 7.0, Eos % (Auto) 3.0, Baso % (Auto) 0.3, Absolute Neuts (auto) 5.2, Absolute Lymphs (auto) 0.69 L, Nucleated RBC % 0.3 Code Visit Inpatient E&M: 41386 Subs Hosp L3
[2019-07-29 12:19] LABS: Pathologist Comment/Body Fluid Reviewed
[2019-07-29] MEDS: Furosemide 40 MG/4 ML Vial IV (12:54)
[2019-07-29] MEDS: 0.9% NaCl Peripheral Flush Adult/Peds IV (12:57)
--- NOTE | 2019-07-29 13:00 | CASEMGMT ---
This RN CM to room to discuss AD at this time and pt is out of the dept for testing at this time but and daughter are at bedside. Per /daughter, pt does have LW/HPOA and this RN CM made them aware that the AD's are not on file at [facility] at this time, voice understanding. Per /daughter, pt's strip mill operator friend completed them and they should be able to get copies easily and are aware to bring in. Pt/ voice no further questions/concerns/needs at this time. SStaten RN CM
--- NOTE | 2019-07-29 15:07 | EKG12_ITS ---
Test Reason : Blood Pressure : / mmHG Vent. Rate : 092 BPM Atrial Rate : 092 BPM P-R Int : 200 ms QRS Dur : 080 ms QT Int : 344 ms P-R-T Axes : 058 053 064 degrees QTc Int : 425 ms Sinus rhythm with marked sinus arrhythmia Otherwise normal ECG When compared with ECG of 29-JUL-2019 11:39, MANUAL COMPARISON REQUIRED, DATA IS UNCONFIRMED Confirmed by KAYLI MARQUEZ ([id number]), index editor SUKHDEV MCKENZIE ([id number]) on 08/05/2019 1:11:31 PM Referred By: Kayli Marquez Confirmed By:KAYLI MARQUEZ
[2019-07-29 16:18] LABS: BNP,B-Type NATRIURETIC PEPTIDE 101.3 pg/mL (0-100)
[2019-07-29] MEDS: Benzonatate 100 MG Capsule PO (18:41)
[2019-07-29] MEDS: guaiFENesin/Codeine 5 ML UDC 10 ML PO (18:41)
--- NOTE | 2019-07-29 18:41 | CON.PCM_ITS ---
Problem List (1) H/O right nephrectomy Status: Chronic (2) Renal cancer Status: Chronic Qualifiers: Laterality: right Qualified Code(s): C64.1 - Malignant neoplasm of right kidney, except renal pelvis Comment: S/P right nephrectomy 07/09/[address] Adkins (3) Bone metastasis Status: Chronic - Consult Date of Consult: 07/29/[address] Kirby with metastatic (clear cell) renal carcinoma presented with acute shortness of breath to the emergency room. My final recommendation will be communicated to Dr. Park, the medical team, and also by electronic medical records. - Reason for Consult Metastatic renal cell carcinoma Terri grade 3 Status post right radical nephrectomy 3 weeks ago Complicated by pneumonia & Chylous ascitic fluid. History of Present Illness: The patient is a 73 year old M underwent robotic right nephrectomy for clear cells right renal carcinoma on 07/09/2018. Postoperative, patient had bilateral pneumonia and exacerbation of asthma and was recently discharged from the hospital. Patient presented with back pain early May, and MRI scan of the spine showed a lytic bone lesion at T12 worrisome for metastatic disease. He had a CT-guided biopsy which showed carcinoma of renal primary, forming grade 3. Patient did not have symptom of spinal cord compression but he underwent palliative radiation therapy. CT scan of the abdomen and pelvis evaluation showed a 6cm x 5 cm exophytic hypodensity in the lower pole of the right kidney. CT chest showed no evidence of metastatic disease. Patient came to the hospital today because of shortness of breath with activity and reported A. fib. On admission patient had a CT abdomen pelvis did showed increased ascites. Paracentesis was done which did show white/milky fluid consistent with a chylous effusion, Gram stain was only white blood cells +1 no reported organisms. Patient's white blood cell count was within normal range. Patient was previously on antibiotics which stopped last and he was on prednisone 10 mg p.o. daily over the weekend and Sunday. Patient denies any abdominal pain, nausea, vomiting. Patient states he has had a little bit lower appetite since he was discharged home. He currently denies any back pain or hip pain. His abdomin is distended complain of difficulty breathing when he is lying down. Past Medical History Past Medical History (Chronic Problems): Chronic Problems (Last Updated 07/28/19 @ 17:08 by Caro Miller MD) H/O right nephrectomy (Chronic) Paroxysmal atrial fibrillation (Chronic) Chronic back pain (Chronic) Narcotic dependence (Chronic) Patent foramen ovale (Chronic) Per echo 05/12/2019@ [facility] Renal cancer (Chronic) S/P right nephrectomy 07/09/[address] Adkins Hypertension (Chronic) Hyperlipidemia (Chronic) Bradycardia (Chronic) Thyroid nodule (Chronic) Moderate persistent asthma (Chronic) Arthritis (Chronic) Degenerative disc disease (Chronic) Medical History: Medical History (Last Updated 07/28/19 @ 17:08 by Caro Miller MD) Patent foramen ovale (Chronic) Q21.1 Per echo 05/12/2019@ [facility] Renal cancer (Chronic) C64.9 S/P right nephrectomy 07/09/[address] Adkins Hypertension (Chronic) I10 Hyperlipidemia (Chronic) E78.5 Bradycardia (Chronic) R00.1 Thyroid nodule (Chronic) E04.1 Moderate persistent asthma (Chronic) J45.40 Arthritis (Chronic) M19.90 Degenerative disc disease (Chronic) Allergies No Known Allergies Allergy (Verified 07/28/19 12:25) Home Medications: Ambulatory Orders Medication Instructions Recorded Fluticasone/Vilanterol [Breo 1 ea IH DAILY 06/03/19 Ellipta 100-25 Mcg INH] Montelukast [Singulair] 10 mg PO DAILY 07/01/19 simvastatin 20 mg tablet 20 mg PO QHS 07/04/19 Oxycodone Myristate [Xtampza ER] 13.5 mg PO Q12H 07/09/19 Albuterol Sulfate [Proair 1 inh INHALATION 4X/DAY #1 07/12/19 Respiclick] aer.pow.ba Ipratropium/Albuterol Sulfate 3 ml INHALATION Q4HWA.RT #56 07/17/19 [Duoneb] ampul.neb Albuterol IH (ProAir) [Proair Hfa 2 puff INHALATION Q6H PRN PRN 07/28/19 (SP)Vent Pts] Docusate Sodium [Colace] 100 mg PO DAILY 07/28/19 Doxazosin Mesylate [Cardura] 4 mg PO BID 07/28/19 Lactobacillus Acidophilus 1 tab PO DAILY 07/28/19 [Acidophilus] Surgical History: Surgical History (Last Updated 07/28/19 @ 16:40 by Caro Miller MD) History of cystoscopy Onset Date: 06/22/17 Z98.890 Post-circumcision adhesion of penis Onset Date: 2014 N99.89, N47.5 history of transrectal biopsy ultrasound Onset Date: 06/22/17 Surgical History: - - Recent nephrectomy Psychiatric History: No pertinent psych hx Lives: Spouse/ Significant Other Smoking Status: Never smoker Alcohol: None Drugs: None - *Family History Maternal Family History: Family History (Last Reviewed 07/04/19 @ 11:29 by Anuradha Salazar) Mother Colon cancer Father Emphysema lung History Items: No pertinent history Paternal Family History: Family History (Last Reviewed 07/04/19 @ 11:29 by Anuradha Salazar) Mother Colon cancer Father Emphysema lung History Items: No pertinent history Review of Systems Constitutional: Denies: Fever Eyes: Denies: Blurred vision HEENT: Denies: Difficulty Swallowing Cardiovascular: Denies: Chest Pain Respiratory: Reports: Shortness of Breath Gastrointestinal: Denies: Abdominal Pain, Nausea, Vomiting Genitourinary: Denies: Dysuria Musculoskeletal: Reports: Back Pain Skin: Denies: Rash Neurological: Denies: Balance problems Psychiatric: Denies: Anxiety, Depression Hematologic/ Lymphatic: Denies: Easy Bruising, Easy Bleeding Patient Problems: Active and Suspected Problems (Last Updated 07/28/19 @ 17:08 by Caro Miller MD) Spontaneous bacterial peritonitis (Acute) - Physical Exam General: Alert, Oriented x3, Cooperative, No apparent distress HEENT: Atraumatic Lungs: Normal air movement Cardiovascular: Regular rate Abdomen: Soft, Non Tender, Distended - Mild to moderate, + shifting dullness with ascites Neurological: Cranial nerves II-XII grossly intact Psych/Mental Status: Normal Affect Vital Signs Temp Pulse Resp BP Pulse Ox 98.5 F 97 16 122/67 H 92 07/29/19 03:10 07/29/19 03:10 07/29/19 03:10 07/29/19 03:10 07/29/19 03:10 Oxygen Delivery Method Room Air Weight: 173 lb 6.4 oz Body Mass Index (BMI) 23.5 Intake and Output for Last 24 Hours 09/08/19 09/09/19 09/10/19 23:59 23:59 23:59 Intake Total 1274.76 / 1274.76 301.67 / 301.67 Output Total 350 / 350 Balance 1274.76 / 1274.76 -48.33 / -48.33 Microbiology Past 72 Hours 07/29/19 12:10 Streptococcus pneumoniae Antigen (M - Final Urine, Clean Catch 07/29/19 12:10 Legionella Antigen - Final Urine, Clean Catch 07/28/19 15:45 Gram Stain - Final Fluid - Peritoneal Body Fluid Culture - Preliminary No growth-Final to follow Laboratory Tests Past 24 Hrs 07/28/19 07/28/19 07/28/19 09:00 15:45 15:45 WBC RBC Hgb Hct MCV MCH MCHC RDW Std Deviation RDW Coeff of Santana Plt Count MPV Immature Gran % (Auto) Neut % (Auto) Lymph % (Auto) [place] % (Auto) Eos % (Auto) Baso % (Auto) Absolute Neuts (auto) Absolute Lymphs (auto) Nucleated RBC % Sodium Potassium Chloride Carbon Dioxide Anion Gap BUN Creatinine Estim Creat Clear Calc Est GFR (MDRD) Af Amer Est GFR (MDRD) Non-Af BUN/Creatinine Ratio Glucose Calcium B-Natriuretic Peptide Urine Color Urine Clarity Urine pH Ur Specific [place] Urine Protein Urine Glucose (UA) Urine Ketones Urine Occult Blood Urine Nitrite Urine Bilirubin Urine Urobilinogen Ur Leukocyte Esterase Urine RBC Urine WBC Ur Squamous Epith Cells Urine Bacteria Urine Mucus Fl Pathologist Comment Reviewed Fluid Total Protein Fluid LDH 124 Fluid Amylase Miscellaneous Cytology Miscellaneous Test Pending 07/28/19 07/28/19 07/28/19 15:45 15:45 15:45 WBC RBC Hgb Hct MCV MCH MCHC RDW Std Deviation RDW Coeff of Santana Plt Count MPV Immature Gran % (Auto) Neut % (Auto) Lymph % (Auto) [place] % (Auto) Eos % (Auto) Baso % (Auto) Absolute Neuts (auto) Absolute Lymphs (auto) Nucleated RBC % Sodium Potassium Chloride Carbon Dioxide Anion Gap BUN Creatinine Estim Creat Clear Calc Est GFR (MDRD) Af Amer Est GFR (MDRD) Non-Af BUN/Creatinine Ratio Glucose Calcium B-Natriuretic Peptide Urine Color Urine Clarity Urine pH Ur Specific [place] Urine Protein Urine Glucose (UA) Urine Ketones Urine Occult Blood Urine Nitrite Urine Bilirubin Urine Urobilinogen Ur Leukocyte Esterase Urine RBC Urine WBC Ur Squamous Epith Cells Urine Bacteria Urine Mucus Fl Pathologist Comment Fluid Total Protein 3.7 Fluid LDH Fluid Amylase Pending Miscellaneous Cytology Pending Miscellaneous Test 07/28/19 07/28/19 07/29/19 15:45 23:20 06:13 WBC RBC Hgb Hct MCV MCH MCHC RDW Std Deviation RDW Coeff of Santana Plt Count MPV Immature Gran % (Auto) Neut % (Auto) Lymph % (Auto) [place] % (Auto) Eos % (Auto) Baso % (Auto) Absolute Neuts (auto) Absolute Lymphs (auto) Nucleated RBC % Sodium 144 Potassium 3.9 Chloride 110 H Carbon Dioxide 26.0 Anion Gap 8 BUN 20 H Creatinine 1.41 H Estim Creat Clear Calc 51.21 Est GFR (MDRD) Af Amer 63 Est GFR (MDRD) Non-Af 52 L BUN/Creatinine Ratio 14.2 Glucose 93 Calcium 8.0 L B-Natriuretic Peptide Urine Color Yellow Urine Clarity Clear Urine pH 5.0 Ur Specific [place] 1.010 Urine Protein Negative Urine Glucose (UA) Normal Urine Ketones Negative Urine Occult Blood Negative Urine Nitrite Negative Urine Bilirubin Negative Urine Urobilinogen Normal Ur Leukocyte Esterase Negative Urine RBC 0 SEEN Urine WBC 0 SEEN Ur Squamous Epith Cells 0 SEEN Urine Bacteria 0 SEEN Urine Mucus 0 SEEN Fl Pathologist Comment Fluid Total Protein Fluid LDH Fluid Amylase Miscellaneous Cytology Miscellaneous Test Pending 07/29/19 07/29/19 06:13 15:30 WBC 6.7 RBC 3.08 L Hgb 10.2 L Hct 31.8 L MCV 103.2 H MCH 33.1 H MCHC 32.1 RDW Std Deviation 57.1 H RDW Coeff of Santana 15.4 H Plt Count 294 MPV 9.2 Immature Gran % (Auto) 2.500 H Neut % (Auto) 76.9 H Lymph % (Auto) 10.3 L [place] % (Auto) 7.0 Eos % (Auto) 3.0 Baso % (Auto) 0.3 Absolute Neuts (auto) 5.2 Absolute Lymphs (auto) 0.69 L Nucleated RBC % 0.3 Sodium Potassium Chloride Carbon Dioxide Anion Gap BUN Creatinine Estim Creat Clear Calc Est GFR (MDRD) Af Amer Est GFR (MDRD) Non-Af BUN/Creatinine Ratio Glucose Calcium B-Natriuretic Peptide 101.3 H Urine Color Urine Clarity Urine pH Ur Specific [place] Urine Protein Urine Glucose (UA) Urine Ketones Urine Occult Blood Urine Nitrite Urine Bilirubin Urine Urobilinogen Ur Leukocyte Esterase Urine RBC Urine WBC Ur Squamous Epith Cells Urine Bacteria Urine Mucus Fl Pathologist Comment Fluid Total Protein Fluid LDH Fluid Amylase Miscellaneous Cytology Miscellaneous Test Assessment/Plan All Active Problems (Last Updated 07/28/19 @ 17:08 by Caro Miller MD) 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 Status post radiation for T12 bone metastasis. Shortness of breath secondary to combination from hospital-acquired pneumonia, reactive airway disease and increased ascites from chylous effusion. Stage IV renal cell carcinoma ([place]). 1. Agree with current medical management and antibiotic therapy pending blood and fluid cultures. 2. Consider therapeutic paracentesis to remove ascitic fluid if patient still have trouble breathing tomorrow. 3. I briefly discussed with patient and family regarding treatment options for metastatic renal cell carcinoma. He needs to recover from his current illness before starting active treatment with Axitnib and pembrolizuma. Also consider getting a bone scan before starting active treatment for his renal cell cancer. cc: Dr. Macho Adkins, Dr. Willard Kirby, Dr. Terry Park
[2019-07-30] VITALS (7 sets, daily range): BP systolic 103–126; BP diastolic 59–78; PULSE 70–108; RESP 16–20; TEMP 36.7–36.9; O2SAT 89–95
[2019-07-30 05:34] LABS: Absolute Lymphocyte Count 0.96 X10^3/uL (0.83-4.51); Absolute Neutrophil Count 3.7 X10^3/uL (2.0-7.7); Basophil# 0.04 X10^3/uL; Basophil% 0.7 % (0-1); Eosinophil# 0.29 X10^3/uL; Hematocrit 32.9 % (40-54); Hemoglobin 10.4 g/dL (13.0-16.5); Lymphocyte # 0.96 X10^3/ul (4.0); Lymphocyte % 16.5 % (19-41); Mean Corp Hgb Conc 31.6 g/dL (32-36); Mean Corpuscular Hgb 32.9 pg (27.0-32.0); Mean Corpuscular Volume 104.1 fL (80-94); Mean Platelet Vol. 9.4 fl (6.2-12.0); Monocyte# 0.69 X10^3/uL; Monocyte% 11.8 % (0-10); NRBC Flagged by Analyzer 0.5 % (0-5); Neutrophil # 3.67 X10^3/uL (2.7-7.7); Neutrophil % 62.9 % (47-70); POSITIVE COUNT YES; Platelet Count 296 K/mm3 (150-450); RBC Distribution Width CV 15.1 % (11.6-14.6); Red Blood Count 3.16 M/mm3 (4.6-6.2); White Blood Count 5.8 K/mm3 (4.4-11.0)
[2019-07-30 05:38] LABS: Anion Gap 8 (5-15); BUN 18 mg/dL (7-18); BUN/Creat Ratio 12.5 RATIO (10-20); Chloride 111 mmol/L (98-107); Creatinine, Serum 1.44 mg/dL (0.70-1.30); EST Glomerular Filtration Rate 51 mL/min (>60); Est Glom Filt Rate - Afr Amer 62 mL/min (>60); Estimated Creatinine Clearance 50.15 ml/min; Glucose 90 mg/dL (74-106); Potassium 3.7 mmol/L (3.5-5.1); Sodium Level 145 mmol/L (136-145)
[2019-07-30 06:14] LABS: Differential Indicated SCAN CRITERIA MET
[2019-07-30 06:15] LABS: Differential Comment SCANNED
[2019-07-30 06:16] LABS: Platelet Estimate ADEQUATE (ADEQ); Platelet Morphology LARGE
[2019-07-30] MEDS: oxyCODONE CR 15 MG Tablet PO (06:30)
[2019-07-30] MEDS: Ipratropium/Albuterol Sulfate 3 ML AMPUL.NEB INHALATION (06:49)
--- NOTE | 2019-07-30 07:38 | PN.CARD_ITS ---
Subjectve: Patient seen and evaluated. Appears to be not significantly different. Objective: Vital Signs Temp Pulse Resp BP Pulse Ox 98.4 F 75 16 106/69 92 07/30/19 02:45 07/30/19 02:59 07/30/19 02:45 07/30/19 02:45 07/30/19 02:45 Oxygen Delivery Method Room Air Weight: 173 lb 6.403 oz Body Mass Index (BMI) 23.5 Intake and Output for Last 24 Hours 07/28/19 07/29/19 07/30/19 23:59 23:59 23:59 Intake Total 1274.76 / 1274.76 2220.00 / 2220.00 Output Total 2074 / 2074 325 / 325 Balance 1274.76 / 1274.76 145.00 / 145.00 -325 / -325 General: Awake, Alert, Oriented x 3 HEENT: PERRL, EOMI, Sclera Non Icteric Neck: Supple, Good ROM, No Lymph Node Enlargement Lungs: Clear to auscultation Cardiovascular: Regular Rhythm, Normal S1, Normal S2, No Murmurs, No Rubs, No Gallops Vascular: No Carotid Bruits, Normal Femoral Pulses, Normal Radial Pulses, Normal Dorsalis Pedal Pulse, Normal Posterior Tibial Pulses Abdomen: Bowel Sounds Present, Non Tender, No HSM, No Organomegaly, Ascites Extremities: No Cyanosis, No Clubbing, No edema Musculoskeletal: No Erythema Skin: No Rashes Lymphatic: No Lymph Node Enlargement Neurological: No Focal Motor or Sensory Deficit Psych/Mental Status: Appropriate 07/29/19 15:30: B-Natriuretic Peptide 101.3 H 07/30/19 05:05: WBC 5.8, RBC 3.16 L, Hgb 10.4 L, Hct 32.9 L, MCV 104.1 H, MCH 32.9 H, MCHC 31.6 L, Plt Count 296, MPV 9.4, Immature Gran % (Auto) 3.100 H, Neut % (Auto) 62.9, Lymph % (Auto) 16.5 L, Mel[place] % (Auto) 11.8 H, Eos % (Auto) 5.0, Baso % (Auto) 0.7, Absolute Neuts (auto) 3.7, Nucleated RBC % 0.5 07/30/19 05:05: Sodium 145, Potassium 3.7, Chloride 111 H, Carbon Dioxide 26.0, Anion Gap 8, BUN 18, Creatinine 1.44 H, Est GFR (MDRD) Af Amer 62, Est GFR (MDRD) Non-Af 51 L, BUN/Creatinine Ratio 12.5, Glucose 90, Calcium 8.0 L Rhythm: EKG: ECHO: Stress Test: Cardiac Cath: PCI: CT Surgery: Holter monitor: EPS: PPM: CXR: Chest CT Scan: Medical Necessity - Tobacco Use Smoking Status: Never smoker Assessment/Plan 1. Paroxysmal atrial fibrillation * Etiology of the above is likely secondary to the pericardial irritation from the pericardial effusion as well as the process which is ongoing. At this time he appears to be in sinus rhythm. My recommendation will be to continue his calcium channel lisa as was initiated during his preoperative evaluation.. * Due to his concomitant conditions I would not suggest the addition of anticoagulation at this particular time. * Continue to follow with you. * * 2. Shortness of breath * I suspect the above is noncardiac in etiology. His BT CONTENT WRITER was noted to be only 105. His previous echocardiogram also demonstrated preserved ejection fraction. In addition he has been maintaining sinus rhythm and his clinical condition is essentially unchanged. I suspect that his distended abdomen is contributing to the above. Would defer to the other physicians regarding the paracentesis. Would recommend to DC IV Lasix after today * Thank you for allowing me to participate in the care of your patient. Please don't hesitate to call if any issues arise
--- NOTE | 2019-07-30 07:53 | US_ITS ---
PROCEDURE: Ultrasound guided paracentesis. DATE OF EXAMINATION: July 30, 2019. INDICATION: Male, 73 years old. Ascites. PHYSICIAN: Lucho Bond M.D. TECHNIQUE: The risks, benefits, and alternatives to the procedure were explained to the patient. The specific risks of bleeding, infection, and damage to bowel were detailed and accepted. Witnessed informed consent was obtained. The abdomen was ultrasonographically surveyed. An appropriate pocket of fluid was identified at the right lower quadrant. The skin were cleaned and prepped in the usual sterile fashion. Using ultrasound guidance, the peritoneal cavity was accessed with a 5-H[place] Konger paracentesis needle/catheter system. The trocar was removed. A total of 910 ml of chylous fluid were removed from the peritoneal cavity. The catheter was removed and a sterile dressing was applied. The procedure was well tolerated. US/Paracentesis with US IMPRESSION: Ultrasound guided paracentesis. Electronically Signed: Lucho Bond, at 15:25 EDT , Service support ,
--- NOTE | 2019-07-30 07:55 | PCM.PN.BLA ---
Progress Note 73-year-old male with metastatic renal cell carcinoma, he has metastatic lesion on his spine also appears to have a metastatic lesion on his iliac wing, status post radical nephrectomy, during the nephrectomy had very thickened lymphatic. Has developed a chylous ascites so far no evidence of malignant ascites in the abdomen we will have radiology drain as much as possible from the callus ascites so the patient can have improved respiratory status. N.p.o. for procedure for today.
--- NOTE | 2019-07-30 08:32 | PCM.PN.BLA ---
Progress Note Oncology progress note: Patient is feeling somewhat better. He still have cough and shortness of breath secondary to increased ascites, exacerbation of asthma and recovering from pneumonia. 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 Stage 4 renal cell carcinoma; low risks (1 site of metastatic disease) Plan: Proceed with paracentesis today. Dietary consult for low salt low cholesterol/triglyceride diet. Spironolactone 25mg once daily Outpatient x-ray of the pelvis and bone scan; follow-up with Dr. Kirby next week to discuss treatment options for metastatic renal cell carcinoma. cc: Dr. Willard Kirby, Dr. Macho Adkins, Dr. Heaven Park
[2019-07-30 09:05] LABS: International Normalized Ratio 1.2; Prothrombin Time (Protime)PT. 14.9 SECONDS (11.7-14.9)
[2019-07-30] MEDS: Doxazosin 4 MG Tablet PO (09:05)
[2019-07-30] MEDS: Docusate Sodium 100 MG Capsule PO (09:05)
[2019-07-30] MEDS: Furosemide 40 MG/4 ML Vial IV (09:05)
[2019-07-30] MEDS: dilTIAZem CD 120 MG Capsule PO (09:05)
[2019-07-30 09:06] LABS: Partial Thromboplast Time 34.6 Seconds (24.1-36.2)
[2019-07-30] MEDS: 0.9% NaCl Peripheral Flush Adult/Peds IV (09:09)
[2019-07-30] MEDS: Spironolactone 25 MG Tablet PO (09:09)
[2019-07-30] MEDS: Ceftriaxone 1 GM/50 ML BAG IV (09:10)
--- NOTE | 2019-07-30 10:28 | DCINST_ITS ---
- Discharge Diagnoses Current Active Problems: Current Active and Chronic Problems (Last Updated 07/28/19 @ 17:08 by Caro Miller MD) Bone metastasis (Chronic) Spontaneous bacterial peritonitis (Acute) Paroxysmal atrial fibrillation (Chronic) You will use the following diet at home:: Cardiac, Other - Very low fat diet. Vital AF 237cc bottle three times daily with meals Your food should be the consistency of: Regular Your liquids should be the consistency of: Regular/Thin Discharge Activity: Return to Normal Activity Allergies/Adverse Reactions: Allergies No Known Allergies Allergy (Verified 07/28/19 12:25) Medications to take at Discharge Fluticasone/Vilanterol [Breo Ellipta 100-25 Mcg INH] 1 ea IH DAILY 06/03/19 Montelukast [Singulair] 10 mg PO DAILY 07/01/19 simvastatin 20 mg tablet 20 mg PO QHS 07/04/19 Oxycodone Myristate [Xtampza ER] 13.5 mg PO Q12H 07/09/19 Albuterol Sulfate [Proair Respiclick] 1 inh INHALATION 4X/DAY #1 aer.pow.ba 07/12/19 Ipratropium/Albuterol Sulfate [Duoneb] 3 ml INHALATION Q4HWA.RT #56 ampul.neb 07/17/19 Albuterol IH (ProAir) [Proair Hfa] 2 puff INHALATION Q6H PRN PRN 07/28/19 Docusate Sodium [Colace] 100 mg PO DAILY 07/28/19 Doxazosin Mesylate [Cardura] 4 mg PO BID 07/28/19 Lactobacillus Acidophilus [Acidophilus] 1 tab PO DAILY 07/28/19 Acetaminophen [Tylenol Tablet] 650 mg PO Q6H PRN PRN tablet 07/30/19 Benzonatate [Tessalon Perle] 100 mg PO Q4H PRN PRN #20 cap 07/30/19 Diltiazem CD [Cardizem CD] 120 mg PO DAILY #30 cap 07/30/19 Nut.tx.impaired Digest/Fiber [Vital AF 1.2 Leland Liquid] 237 ml PO TID #42 liquid 07/30/19 Spironolactone [Aldactone] 25 mg PO DAILY #30 tab 07/30/19 The following prescriptions were given: Spironolactone [Aldactone] 25 mg PO DAILY #30 tab Transmission Status: Pending to [id number] Diltiazem CD [Cardizem CD] 120 mg PO DAILY #30 cap Transmission Status: Pending to [id number] Benzonatate [Tessalon Perle] 100 mg PO Q4H PRN PRN #20 cap PRN Reason: COUGH Transmission Status: Pending to [facility] Nut.tx.impaired Digest/Fiber [Vital AF 1.2 Leland Liquid] 237 ml PO TID #42 liquid Transmission Status: Pending to [id number] Primary Care Physician: Kiara Spence DO [Primary Care Provider] - Please follow up with your Primary Care Physician in: 1-2 weeks Test Results: Test results from this visit will be discussed in further detail at your follow- up appointment, if applicable. Please Follow Up With: Tory Cade MD When: as needed Please Follow Up With: Willard Kirby DO When: as soon as possible Please Follow Up With: Kory Adkins MD When: as directed Please Follow Up With: Carter Bella MD When: as directed Proposed Discharge Date: 07/30/19
--- NOTE | 2019-07-30 11:32 | CASEMGMT ---
Addendum entered by Lisette Nice 07/30/19 12:39: Pt to be sent home with Vital AF supplement at discharge. Med e-scribed to [facility] previously and per [facility] pharmacy, they cannot get this for pt at this time. Per Haydee in dietary, they had ordered a case for pt but it will not be here until tomorrow. She states that pt could purchase the case from the cafeteria for $51.33 or it could try to be ordered through a medical supply company. Pt updated on all at this time and states that he lives in [place] and will not be coming back over tomorrow to get the case. Pt states that he feels he needs to get more information before he can make a decision. Pt keeps asking this RN CM how long he may need to take it and this RN CM advised him that it will be up to Dr. Adkins on how long he has to be on it. Calls to multiple medical supply companies and several cannot get and one of them states its a special order and may be several days to get. Pt updated on all at this time, voices understanding. Pt states 'maybe i will just order it off [employer].' On [employer], the supplement is around $200 for the case that is $51.33 here at [facility]. Pt updated that dietary can call him when the case comes in and he states he may be able to have someone come pick it up for him but he does not want to make the decision at this time. Pt does states that he will be back in [place] on sunday for f/u appt. Haydee from [employer] is aware to call pt when case arrives and that pt will decide at that time, voices understanding. Michelle SCHULER aware of all at this time, voices understanding. Hai Colón Original Note: Call to Christy at [facility] to advise that pt to be discharged today and resumption of care order placed in [facility] at this time. Hai BOWLING CM
--- NOTE | 2019-07-30 13:35 | DS.PCM_ITS ---
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 Adkins Hypertension (Chronic) Hyperlipidemia (Chronic) Bradycardia (Chronic) Thyroid nodule (Chronic) Moderate persistent asthma (Chronic) Arthritis (Chronic) Degenerative disc disease (Chronic) Hospital Course and Treatment Imaging Results: 07/30/19 07:53 Paracentesis with US [US] Stat RAD/Chest PA and Lateral IMPRESSION: Blunting of the right costophrenic angle. CT/CTA Chest W/WO Contrast IMPRESSION: Small right pleural effusion with right basilar atelectasis. No evidence of pulmonary embolism. Stable destruction of the right pedicle of the T12 vertebrae. Ascites. Fatty infiltration of the liver. CT/Abdomen/Pelvis W IV Cont ONLY IMPRESSION: Ascites. Small bilateral effusions slightly worse on the right side with right basilar atelectasis. Small pericardial effusion. 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 Lytic lesion in the left iliac bone. Status post right nephrectomy. Paracentesis #1 - 22cc purulent material aspirated. US/Kidney and Bladder IMPRESSION: Findings which may be consistent with neoplasm of the right posterior wall the bladder status post right nephrectomy. Cystoscopy recommended for further evaluation Consults: Urology - Jed Gen surgery - [place] Oncology - Lyly Cardiology - Shayne Operations: None, - - Right robotic radical nephrectomy Procedures: Paracentesis Summary of Care Provided: Hospital Course: The patient is a 73 year old M with pmhx of renal cell carcinoma with mets to T12, pt of Dr. Desouza and Jed, whom recently had a right nephrectomy who presented to the ER with complaints of Shortness of breath and abdominal distention. He also recently had Pseudomonas pneumonia for which he completed treatment with zosyn. He had a CTA of the chest which was negative. He had a CT abdomen with contrast with ascites, small BL pleural effusions, small pericardial effusion, T12 mets, and a lytic lesion in the left iliac bone (likely mets). He had no fever or leukocytosis. He went for an US guided paracentesis and 220 cc of purulent fluid was taken off. He was admitted with concerns for Spontaneous bacterial pericarditis and placed on rocephin. The fluids did not show any bacteria on gram stain, there was 1+ WBCs and no organisms to date. SBP was ruled out. Gen surgery and Urology were consulted. 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 They did not feel surgery was necessary at this time. Surgery recommended a very low fat / no triglyceride diet with medium chain peptide supplementation. The sand cleaning machine operator was consulted and provided him with a very low fat low trig diet plan, and also advised Vital AF TID with meals. The next day he had a therapeutic paracentesis. Oncology was consulted and recommended spironolactone and planned to discuss future treatment options with him at outpatient follow up. While here he also had mild tachycardia and went into Afib. Cardiology was consulted and recommended resumption of cardizem. His rate was controlled and he went back into NSR. He was discharged home in stable condition. He will need follow up with his PCP in 1-2 weeks, Oncology as soon as possible, Urology as directed, and cardiology as directed. This patient was seen by Apolinar Blackmon PA-C under the supervision of Dr. Park. [] Patient Problems: Active and Suspected Problems (Last Updated 07/28/19 @ 17:08 by Caro Miller MD) Chylous ascites (Acute) - Physical Exam General: Alert, Oriented x3, Cooperative HEENT: Atraumatic, PERRLA, EOMI, Normocephalic Neck: Supple, No JVD, Negative Carotid Bruits Lungs: Clear to auscultation, Normal air movement Cardiovascular: Regular rate, No murmurs Abdomen: Bowel Sounds Present, Soft, Non Tender, Distended Extremities: No edema, Capillary Refill Less than 3 Seconds Skin: No rashes, No breakdown Musculoskeletal: No Tenderness to Palpation of Joints or Extremities Neurological: Cranial nerves II-XII grossly intact Psych/Mental Status: Normal Affect, Appropriate, Alert and oriented to time, place, person, mood and affect Vital Signs Temp Pulse Resp BP Pulse Ox 98.1 F 108 H 18 125/78 H 95 07/30/19 09:00 07/30/19 09:00 07/30/19 09:00 07/30/19 09:00 07/30/19 09:00 Oxygen Delivery Method Room Air Weight: 173 lb 6.403 oz Body Mass Index (BMI) 23.5 Intake and Output for Last 24 Hours 07/28/19 07/29/19 07/30/19 23:59 23:59 23:59 Intake Total 1274.76 / 1274.76 2220.00 / 2220.00 170 / 170 Output Total 2075 / 2075 875 / 875 Balance 1274.76 / 1274.76 145.00 / 145.00 -705 / -705 Microbiology Past 72 Hours 07/28/19 23:20 Urine Culture - Preliminary Urine, Clean Catch Culture exhibits no growth. 07/29/19 12:10 Streptococcus pneumoniae Antigen (M - Final Urine, Clean Catch 07/29/19 12:10 Legionella Antigen - Final Urine, Clean Catch 07/28/19 15:45 Gram Stain - Final Fluid - Peritoneal Body Fluid Culture - Preliminary No growth-Final to follow Laboratory Tests Past 24 Hrs 07/28/19 07/29/19 07/30/19 09:00 15:30 05:05 WBC 5.8 RBC 3.16 L Hgb 10.4 L Hct 32.9 L MCV 104.1 H MCH 32.9 H MCHC 31.6 L RDW Std Deviation 57.0 H RDW Coeff of Santana 15.1 H Plt Count 296 MPV 9.4 Immature Gran % (Auto) 3.100 H Neut % (Auto) 62.9 Lymph % (Auto) 16.5 L Huron % (Auto) 11.8 H Eos % (Auto) 5.0 Baso % (Auto) 0.7 Absolute Neuts (auto) 3.7 Absolute Lymphs (auto) 0.96 Nucleated RBC % 0.5 Differential Comment SCANNED Platelet Estimate ADEQUATE Plt Morphology Comment LARGE PT INR APTT Sodium Potassium Chloride Carbon Dioxide Anion Gap BUN Creatinine Estim Creat Clear Calc Est GFR (MDRD) Af Amer Est GFR (MDRD) Non-Af BUN/Creatinine Ratio Glucose Calcium B-Natriuretic Peptide 101.3 H Albumin Miscellaneous Test Pending 07/30/19 07/30/19 07/30/19 05:05 05:05 08:50 WBC RBC Hgb Hct MCV MCH MCHC RDW Std Deviation RDW Coeff of Santana Plt Count MPV Immature Gran % (Auto) Neut % (Auto) Lymph % (Auto) [place] % (Auto) Eos % (Auto) Baso % (Auto) Absolute Neuts (auto) Absolute Lymphs (auto) Nucleated RBC % Differential Comment Platelet Estimate Plt Morphology Comment PT 14.9 INR 1.2 APTT 34.6 Sodium 145 Potassium 3.7 Chloride 111 H Carbon Dioxide 26.0 Anion Gap 8 BUN 18 Creatinine 1.44 H Estim Creat Clear Calc 50.15 Est GFR (MDRD) Af Amer 62 Est GFR (MDRD) Non-Af 51 L BUN/Creatinine Ratio 12.5 Glucose 90 Calcium 8.0 L B-Natriuretic Peptide Albumin Pending Miscellaneous Test Discharge Diet: - - Very low fat/low triglyceride plus supplements TID as directed by sand cleaning machine operator Discharge Activity: Return to Normal Activity Home Medications: Medications to take at Discharge RX: Fluticasone/Vilanterol [Breo Ellipta 100-25 Mcg INH] 1 ea IH DAILY 06/03/19 RX: Montelukast [Singulair] 10 mg PO DAILY 07/01/19 simvastatin 20 mg tablet 20 mg PO QHS 07/04/19 RX: Oxycodone Myristate [Xtampza ER] 13.5 mg PO Q12H 07/09/19 RX: Albuterol Sulfate [Proair Respiclick] 1 inh INHALATION 4X/DAY #1 aer.pow.ba 07/12/19 RX: Ipratropium/Albuterol Sulfate [Duoneb] 3 ml INHALATION Q4HWA.RT #56 ampul.neb 07/17/19 RX: Albuterol IH (ProAir) [Proair Hfa] 2 puff INHALATION Q6H PRN PRN 07/28/19 RX: Docusate Sodium [Colace] 100 mg PO DAILY 07/28/19 RX: Doxazosin Mesylate [Cardura] 4 mg PO BID 07/28/19 RX: Lactobacillus Acidophilus [Acidophilus] 1 tab PO DAILY 07/28/19 Nut.tx.impaired Digest/Fiber [Vital AF 1.2 Leland Liquid] 237 ml PO TID #42 liquid 07/30/19 RX: Acetaminophen [Tylenol Tablet] 650 mg PO Q6H PRN PRN tab 07/30/19 RX: Benzonatate [Tessalon Perle] 100 mg PO Q4H PRN PRN #20 cap 07/30/19 RX: Diltiazem CD [Cardizem CD] 120 mg PO DAILY #30 cap 07/30/19 RX: Spironolactone [Aldactone] 25 mg PO DAILY #30 tab 07/30/19 Following Prescrptions Were Given to Patient: RX: Spironolactone [Aldactone] 25 mg PO DAILY #30 tab Transmission Status: Received by [id number] RX: Diltiazem CD [Cardizem CD] 120 mg PO DAILY #30 cap Transmission Status: Received by [id number] RX: Benzonatate [Tessalon Perle] 100 mg PO Q4H PRN PRN #20 cap PRN Reason: COUGH Transmission Status: Received by [id number] Nut.tx.impaired Digest/Fiber [Vital AF 1.2 Leland Liquid] 237 ml PO TID #42 liquid Transmission Status: Received by [id number] Primary Care Physician: Kiara Spence DO [Primary Care Provider] - Please follow up with your Primary Care Physician in: 1-2 weeks Please Follow Up With: Tory Cade MD When: as needed Please Follow Up With: Willard Kirby DO When: as soon as possible Please Follow Up With: Kory Adkins MD When: as directed Please Follow Up With: Carter Bella MD When: as directed Please Follow Up With: Kiara Spence DO Disposition: Home Minutes spent on discharge:: 35 Patient Condition:: Stable Medical Necessity - Tobacco Use Smoking Status: Never smoker Meaningful Use Info Meaningful Use Diagnoses (Choose all that apply): None applicable <Terry Park - Last Filed: 07/30/19 16:19> Discharge Date and Diagnosis - Primary Discharge Diagnosis Active and Suspected Problems (Last Updated 07/28/19 @ 17:08 by Caro Miller MD) Spontaneous bacterial peritonitis (Acute) - Secondary Discharge Diagnosis Chronic Problems (Last Updated 07/28/19 @ 17:08 by Caro Miller MD) Bone metastasis (Chronic) H/O right nephrectomy (Chronic) Paroxysmal atrial fibrillation (Chronic) Chronic back pain (Chronic) Narcotic dependence (Chronic) Patent foramen ovale (Chronic) Per echo 05/12/2019@ [facility] Renal cancer (Chronic) S/P right nephrectomy 07/09/[address] Adkins Hypertension (Chronic) Hyperlipidemia (Chronic) Bradycardia (Chronic) Thyroid nodule (Chronic) Moderate persistent asthma (Chronic) Arthritis (Chronic) Degenerative disc disease (Chronic) Hospital Course and Treatment Imaging Results: 07/30/19 07:53 Paracentesis with US [US] Stat Summary of Care Provided: This patient was seen in conjunction with Apolinar DEUTSCH. I have independently interviewed and examined the patient and reviewed pertinent history, examination findings, laboratory and plan of management. I have reviewed the note and agree with the documented findings with the few additional points. In brief, patient is 72-year-old gentleman with history of metastatic renal cell cancer diagnosed biopsy from T12 metastatic lesion status post right laparoscopic radical nephrectomy on July 09, 2019, biopsy showed clear cell type was admitted for progressively increasing shortness of breath, cough with recent Pseudomonas pneumonia treated with 7 days of IV antibiotics Zosyn after discharge from hospital on July 17, 2019. This time, patient also had A. fib with RVR which got converted to normal sinus rhythm. Paroxysmal A. fib probably secondary to pericardial irritation from pericardial effusion or recent sickness with ascites. Patient seen by ragman. BNP 105. Shortness of breath mainly secondary to ascites. On diltiazem 120 mg daily. Patient had 220 mL diagnostic paracentesis about 220 mL of thick white color was removed. Initially was thought with purulent but from fluid cell count, it seems lymphocyte predominant with total protein 3.7. Cell count shows 1454 total WBC count, 92% mononuclear cell out of a 66% lymphocyte, 12% monocytes and about 8% polynuclear cells. Glucose 245. Total protein 3.7. It seems noninf ectious as neutrophil count is about 8%, no organisms seen on fluid culture and glucose is high 245. Pathologist reported negative for malignant cells, consistent with chylous effusion. Cytology report is pending. High glucose count, total protein, 3.7 goes against malignant effusion or infection. Patient seen by surgeon and ascites fluid triglyceride ordered. Patient put on a very low-fat diet. Patient had zoning administrator consult. Overall, on clinical background of recent right radical nephrectomy with lymph node dissection and removal, chylous effusion is most likely with milky ascites fluid color. Previous acetic fluid culture is negative for more than 48 hours. No organisms seen on Gram stain. Patient had therapeutic paracentesis of 910 ml of chylous fluid. Fluid culture, cell count, chemistry and cytology ordered. Follow-up with PCP in [address] Kirby next week. Patient also seen by urologist, Dr. Adkins. CT renal shows lytic lesion in left iliac wing and T12 vertebra. CT abdomen pelvis showed bony metastasis is involving the T12 vertebrae as well as osteopenia of the L1 vertebrae and Lytic lesion in the left iliac bone which as per urologist was present before the surgery. Patient seen by oncologist, Dr. Desouza. Earlier discussed with Dr. Kirby on 07/29/2019. Further immunotherapy is postponed until follow-up next week with Dr. Kirby in the clinic. CT abdomen showed possible papillary lesion in the bladder which may be just contrast from CAT scan as per urologist. He ordered ultrasound of bladder. Patient has elevated creatinine 1.62 at time of admission. Creatinine varies from 1.5-1.7 after surgery. Improved to 1.4. Probably it is elevated after right radical nephrectomy; expected from single kidney. DVT prophylaxis: Subcut heparin. Patient diagnosis, natural course of renal cancer with mets to bone vertebra, ascites, most probably from chylous ascites were discussed with and, patient's , 2 daughters and son present in the room. Discharge medication reconciliation done. Discharge follow-up instructions completed. Discharge process discussed with the patient and all questions were answered to patient's satisfaction. Total time spent, exact 35 minutes on discharge meds reconciliation, examination, review of imaging and blood test and discussion with the patient on follow-up instructions. I have discussed my assessment with Apolinar DEUTSCH and orders have been reviewed. Subjective: The patient was seen and examined. Patient does not have abdominal pain. He has significant ascites and feels abdominal discomfort and moving around and mild shortness of breath. Discussed in detail pathophysiology, clinical course and management of cholecystitis with the patient, patient's , son and 2 daughters present in the room. - Physical Exam General: Alert, Oriented x3, Cooperative HEENT: Atraumatic, PERRLA, EOMI, Normocephalic Neck: Supple, No JVD, Negative Carotid Bruits Lungs: Clear to auscultation, Normal air movement, No rhonchi, No wheeze, No rales, Diminished - Air entry mildly diminished in bilateral lung bases secondary to atelectasis and diaphragm pushed up from ascites Cardiovascular: Regular rate, Regular Rhythm, Normal S1, Normal S2, No murmurs Abdomen: Bowel Sounds Present, Soft, Non Tender, Distended - Massive ascites. Fluid thrill present. No tenderness or rebound tenderness. Extremities: No edema, Capillary Refill Less than 3 Seconds Skin: No rashes, No breakdown Musculoskeletal: No Tenderness to Palpation of Joints or Extremities, Arthritic Changes Neurological: Cranial nerves II-XII grossly intact Psych/Mental Status: Normal Affect, Appropriate Vital Signs Temp Pulse Resp BP Pulse Ox 98.1 F 108 H 18 125/78 H 95 07/30/19 09:00 07/30/19 09:00 07/30/19 09:00 07/30/19 09:00 07/30/19 09:00 Oxygen Delivery Method Room Air Weight: 173 lb 6.403 oz Body Mass Index (BMI) 23.5 Intake and Output for Last 24 Hours 07/28/19 07/29/19 07/30/19 23:59 23:59 23:59 Intake Total 1274.76 / 1274.76 2220.00 / 2220.00 170 / 170 Output Total 2075 / 2075 875 / 875 Balance 1274.76 / 1274.76 145.00 / 145.00 -705 / -705 Microbiology Past 72 Hours 07/28/19 23:20 Urine Culture - Preliminary Urine, Clean Catch Culture exhibits no growth. 07/29/19 12:10 Streptococcus pneumoniae Antigen (M - Final Urine, Clean Catch 07/29/19 12:10 Legionella Antigen - Final Urine, Clean Catch 07/28/19 15:45 Gram Stain - Final Fluid - Peritoneal Body Fluid Culture - Preliminary No growth-Final to follow Laboratory Tests Past 24 Hrs 07/28/19 07/29/19 07/30/19 09:00 15:30 05:05 WBC 5.8 RBC 3.16 L Hgb 10.4 L Hct 32.9 L MCV 104.1 H MCH 32.9 H MCHC 31.6 L RDW Std Deviation 57.0 H RDW Coeff of Santana 15.1 H Plt Count 296 MPV 9.4 Immature Gran % (Auto) 3.100 H Neut % (Auto) 62.9 Lymph % (Auto) 16.5 L [place]on % (Auto) 11.8 H Eos % (Auto) 5.0 Baso % (Auto) 0.7 Absolute Neuts (auto) 3.7 Absolute Lymphs (auto) 0.96 Nucleated RBC % 0.5 Differential Comment SCANNED Platelet Estimate ADEQUATE Plt Morphology Comment LARGE PT INR APTT Sodium Potassium Chloride Carbon Dioxide Anion Gap BUN Creatinine Estim Creat Clear Calc Est GFR (MDRD) Af Amer Est GFR (MDRD) Non-Af BUN/Creatinine Ratio Glucose Calcium B-Natriuretic Peptide 101.3 H Albumin Miscellaneous Test Pending 07/30/19 07/30/19 07/30/19 05:05 05:05 08:50 WBC RBC Hgb Hct MCV MCH MCHC RDW Std Deviation RDW Coeff of Santana Plt Count MPV Immature Gran % (Auto) Neut % (Auto) Lymph % (Auto) [place] % (Auto) Eos % (Auto) Baso % (Auto) Absolute Neuts (auto) Absolute Lymphs (auto) Nucleated RBC % Differential Comment Platelet Estimate Plt Morphology Comment PT 14.9 INR 1.2 APTT 34.6 Sodium 145 Potassium 3.7 Chloride 111 H Carbon Dioxide 26.0 Anion Gap 8 BUN 18 Creatinine 1.44 H Estim Creat Clear Calc 50.15 Est GFR (MDRD) Af Amer 62 Est GFR (MDRD) Non-Af 51 L BUN/Creatinine Ratio 12.5 Glucose 90 Calcium 8.0 L B-Natriuretic Peptide Albumin 2.0 L Miscellaneous Test Code Visit Inpatient E&M: 83935 Disch Hosp
--- NOTE | 2019-07-31 15:24 | CASEMGMT ---
Case Management DC F/u Call: DC Date: 07/30/19 DC Diagnosis: Chylous ascites (Acute) DC Disposition: Home with resumption of [facility]. Per [facility] Dietary supposed to call patient when Vital [employer] Nutritional Supplement comes in to see if patient wants to purchase and fish bait picker LACE/STRATA: 09/21 Called patient number on listed demographics, no answer and VM was unable to identify correct patient and therefore no VM was left. Ho Huffman RNCM
[2019-08-04 12:30] LABS: pH, Body Fluid 11254 7.8 (Not Estab.)
[2019-08-04 14:58] LABS: Amylase Body Fluid 25 U/L (.)
== END 2019-07-30 15:25 | disposition home or self-care (01) | DRG 920 ==
LOC: ED 13:11 → PCU 16:34
PROVIDERS: Internal Medicine Cardiovascular Disease; Physician Assistant; Surgery; Admitting Provider Hospitalist; Emergency Provider Emergency Medicine; Family Provider Internal Medicine; PCP Internal Medicine; Visit Provider Internal Medicine
DX: T81.89XA Other complications of procedures, not elsewhere classified, initial encounter (principal); C64.1 Malignant neoplasm of right kidney, except renal pelvis; C79.51 Secondary malignant neoplasm of bone; Q21.1 Atrial septal defect; I31.3 Pericardial effusion (noninflammatory); J90 Pleural effusion, not elsewhere classified; F11.20 Opioid dependence, uncomplicated; N17.9 Acute kidney failure, unspecified; I89.8 Other specified noninfective disorders of lymphatic vessels and lymph nodes; I12.9 Hypertensive chronic kidney disease with stage 1 through stage 4 chronic kidney disease, or unspecified chronic kidney disease; N18.3 Chronic kidney disease, stage 3 (moderate); I48.0 Paroxysmal atrial fibrillation; E78.5 Hyperlipidemia, unspecified; J45.40 Moderate persistent asthma, uncomplicated; Z90.5 Acquired absence of kidney; Z87.01 Personal history of pneumonia (recurrent); Z79.899 Other long term (current) drug therapy; F11.10 Opioid abuse, uncomplicated; E04.1 Nontoxic single thyroid nodule; M15.0 Primary generalized (osteo)arthritis; Z79.2 Long term (current) use of antibiotics; Z99.81 Dependence on supplemental oxygen
CPT/HCPCS: 36415; 49083; 71046; 71275; 74177; 76770; 80048; 80053; 80076; 81001; 82040; 82150; 82945; 83615; 83880; 83986; 84157; 84443; 84484; 85025; 85610; 85730; 87040; 87070; 87075; 87086; 87205; 87449; 88108; 88305; 88313; 89050; 93005; 94640; 94667; 97802; 99285; J7030; Q9967; A4216; J1940

== ENCOUNTER → 2019-08-29 09:29 | Outpatient (CLI) | payer MEDICARE, BC, SELFPAY ==
[2019-07-28 17:19] VITALS: BMI 23.5
--- NOTE | 2019-08-29 09:34 | RAD_ITS ---
STUDY: X-RAY CHEST REASON FOR EXAM: Male, 73 years old. Pleural effusion. Increased shortness of breath. TECHNIQUE: PA and lateral views of the chest. COMPARISON: July 28, 2019 FINDINGS: Right lower lung increased opacities with consolidation and small pleural effusion. Normal size heart. Normal mediastinum and teresa. Normal visualized pulmonary arteries. There is atherosclerotic calcification of the aortic arch. Normal visualized thoracic spine. There is degenerative osteoarthritis of the bilateral shoulders. There is no demonstrated abnormality of the visualized soft tissue structures of the upper abdomen. RAD/Chest PA and Lateral IMPRESSION: Right lower lung infiltrate and effusion. Electronically Signed: Robbi Benítez MD at 10:06 EDT , Service support ,
== END ==
PROVIDERS: Family Provider Internal Medicine; PCP Internal Medicine; Referring Provider Internal Medicine; Visit Provider Internal Medicine
DX: J90 Pleural effusion, not elsewhere classified (principal); R06.02 Shortness of breath
CPT/HCPCS: 71046

== ENCOUNTER → 2019-09-15 10:02 | Outpatient (CLI) | payer MEDICARE, BC, SELFPAY ==
[2019-07-28 17:19] VITALS: BMI 23.5
--- NOTE | 2019-09-15 10:12 | RAD_ITS ---
STUDY: X-RAY CHEST REASON FOR EXAM: Male, 73 years old. Cough and shortness of breath. TECHNIQUE: PA and lateral views of the chest. COMPARISON: Comparison is made with prior study dated August 29, 2019. FINDINGS: Residual blunting of both cause phrenic angles with mild bibasilar atelectasis slightly worse on the left side. There has been improvement as compared to prior study. Normal size heart. Normal mediastinum and teresa. Normal visualized pulmonary arteries. There is atherosclerotic calcification of the aortic arch with tortuosity. There are diffuse degenerative changes of the visualized thoracic spine. Normal visualized ribs, clavicles, and shoulders. There is no demonstrated abnormality of the visualized soft tissue structures of the upper abdomen. RAD/Chest PA and Lateral IMPRESSION: Residual blunting of both cosmetic angles with mild bibasilar atelectasis. There has been improvement as compared to prior study. Electronically Signed: Lucho Bond, at 11:23 EDT , Service support ,
--- NOTE | 2019-09-15 10:37 | RAD_ITS ---
STUDY: X-RAY CHEST REASON FOR EXAM: Male, 73 years old. Shortness of breath. Cough. TECHNIQUE: Right side down lateral decubitus. COMPARISON: Comparison is made with prior study dated August 29, 2019. FINDINGS: Small free flowing right pleural effusion. RAD/Special CXR (Obl/Decub/A/L) IMPRESSION: Small free-flowing right pleural effusion. Electronically Signed: Lucho Bond, at 11:25 EDT , Service support ,
--- NOTE | 2019-09-15 10:37 | RAD_ITS ---
STUDY: X-RAY CHEST REASON FOR EXAM: Male, 73 years old. Shortness of breath. TECHNIQUE: Left lateral decubitus view. COMPARISON: Comparison is made with prior examination August 29, 2019. FINDINGS: Small free flowing left pleural effusion. This is slightly more prominent than on the right side. RAD/Special CXR (Obl/Decub/A/L) IMPRESSION: Small free-flowing left pleural effusion. This is larger than the right side. Electronically Signed: Lucho Bond, at 11:27 EDT , Service support ,
== END ==
PROVIDERS: Family Provider Internal Medicine; PCP Internal Medicine; Referring Provider Internal Medicine Pulmonary Disease; Visit Provider Internal Medicine Pulmonary Disease
DX: J90 Pleural effusion, not elsewhere classified (principal)
CPT/HCPCS: 71046

== ENCOUNTER → 2019-09-24 15:27 | Outpatient (CLI) | payer MEDICARE, BC, SELFPAY ==
[2019-07-28 17:19] VITALS: BMI 23.5
--- NOTE | 2019-09-24 15:32 | VDLE_ITS ---
Reason For Study: EDEMA RIGHT LEFT GSV is normal. GSV is normal. CFV is compressible, spontaneous, phasic, RT CFV is PARTIALLY COMPRESSIBLE with mobile competent and demonstrates normal thrombus and partial flow . augmentation. RT SFJ is PARTIALLY COMPRESSIBLE with partial FV is compressible, spontaneous, phasic, flow. competent and demonstrates normal RT FV is dilated and NONCOMPRESSIBLE. augmentation. RT POPV is dilated and NONCOMPRESSIBLE. POP V is compressible, spontaneous, phasic, RT P/T Trunk is dillated and NONCOMPRESSIBLE. competent and demonstrates normal RT GastrocV are dialted and NONCOMPRESSIBLE. augmentation. RT PTV is compressible. RT T/P Trunk is dilated and NONCOMPRESSIBLE. RT PeroV is compressible. Rt Gastroc V is dilated and NONCOPMPRESSIBLE. Rt PTV is compressible to mid calf where it becomes dilated and NONCOMPRESSIBLE. Rt PeroV is compressible. Procedure Exam performed in department. A preliminary report was called to Dr Spence. Pt was released home . Dr Spence will contact patient with medical plan. Interpretation Summary Acute deep venous thrombosis right tibioperoneal trunk, gastrocnemius, and mid calf posterior tibial veins. Acute deep venous thrombosis left common femoral, femoral, popliteal, tibioperoneal trunk, and gastrocnemius veins. Patent and compressible bilateral great saphenous veins. Ordering Physician: Kiara Spence Referring Physician: Kiara Spence Performed By: Eleni Macdonald, RDCS, RVT
== END ==
PROVIDERS: Family Provider Internal Medicine; PCP Internal Medicine; Referring Provider Internal Medicine; Visit Provider Internal Medicine
DX: R60.0 Localized edema (principal)
CPT/HCPCS: 93970

== ENCOUNTER → 2020-04-15 09:13 | Outpatient (CLI) | payer MEDICARE, BC, SELFPAY ==
[2019-09-25 14:01] VITALS: BMI 24.5
[2020-04-13 14:58] VITALS: BMI 24.5
== END ==
PROVIDERS: PCP Internal Medicine; Referring Provider Internal Medicine; Visit Provider Internal Medicine
DX: I49.9 Cardiac arrhythmia, unspecified (principal)
CPT/HCPCS: 93225; 93226

== ENCOUNTER → 2020-04-27 12:26 | Outpatient (CLI) | payer MEDICARE, BC, SELFPAY ==
[2020-04-13 14:58] VITALS: BMI 24.5
--- NOTE | 2020-04-27 12:29 | ECHOD_ITS ---
Version 2 Reason For Study: SOB Procedure This was a 2D Doppler, Color Flow transthoracic echocardiogram. Myocardial strain analysis was performed in this exam to aid in the assessment of cardiac function. Exam performed in department. Left Ventricle Normal size and thickness. The estimated ejection fraction is 65 %. Stage 1 diastolic dysfunction. The prior global longitudinal strain was -17.8 % . No regional wall motion abnormalities noted. Right Ventricle Normal size and thickness. Normal systolic function. Atria Normal left atrium. Normal right atrium. Normal atrial septum. Mitral Valve The mitral valve is structurally normal. No prolapse or stenosis seen. Trivial mitral valve insufficiency. Tricuspid Valve Normal tricuspid valve. Mild (1+) tricuspid valve insufficiency. Right ventricular systolic pressure estimated to be 36 mmHg. Aortic Valve Trisinus/trileaflet aortic valve. Mild diffuse aortic valve thickening. Trivial aortic valve insufficiency. Pulmonic Valve Normal pulmonic valve. Great Vessels Normal aortic root. Normal arch. Normal inferior vena cava. Inferior vena cava collapse with sniff. Pericardium/Pleural No pericardial effusion. MMode/2D Measurements & Calculations LVIDd: 4.5 cm IVSd: 1.1 cm Ao root diam: 3.5 cm LVIDs: 2.8 cm LVPWd: 1.1 cm RVDd: 3.3 cm FS: 36.1 % LAV(MOD-bp): 66.3 ml LA A4 area: 19.4 cm2 LA dimension(2D): 4.9 cm LAV(MOD-bp) Indexed: 34.0 ml/m2 LAV(MOD-sp2): 78.4 ml LAV(MOD-sp4): 53.6 ml RA A4 area: 19.0 cm2 Doppler Measurements & Calculations MV E max adria: 49.1 cm/sec Lat Peak E' Adria: 13.2 cm/sec Med Peak E' Adria: 9.6 cm/sec MV A max adria: 85.0 cm/sec E/E' lat: 3.7 E/E' med: 5.1 MV E/A: 0.58 Ao V2 max: 134.5 cm/sec AI max adria: 402.2 cm/sec LV V1 max: 101.7 cm/sec Ao max P.2 mmHg AI max P.7 mmHg LV V1 max P.1 mmHg AI dec slope: 288.4 cm/sec2 AI P1/2t: 408.4 msec PA V2 max: 83.5 cm/sec TR max adria: 279.1 cm/sec TR max P.3 mmHg Interpretation Summary The estimated ejection fraction is 65 %. Stage 1 diastolic dysfunction. Trivial mitral valve insufficiency. Mild (1+) tricuspid valve insufficiency. Right ventricular systolic pressure estimated to be 36 mmHg. Trivial aortic valve insufficiency. Compared to echo report dated 05/12/2019, no appreciable changes noted. The prior global longitudinal strain was -17.8 % . Ordering Physician: Christy Thompson/Kiel Marquez Referring Physician: Kiara Spence D.O. Performed By: Brigid Bergeron RDCS
[2020-04-27 13:43] LABS: BNP,B-Type NATRIURETIC PEPTIDE 323.6 pg/mL (0-100)
== END ==
PROVIDERS: PCP Internal Medicine; Referring Provider Physician Assistant Medical; Visit Provider Physician Assistant Medical
DX: R06.00 Dyspnea, unspecified (principal)
CPT/HCPCS: 36415; 83880; 93306

== ENCOUNTER → 2020-05-04 12:32 | Outpatient (CLI) | payer MEDICARE, BC, SELFPAY ==
[2020-04-13 14:58] VITALS: BMI 24.5
--- NOTE | 2020-05-04 12:35 | RAD_ITS ---
STUDY: X-RAY - LUMBAR SPINE REASON FOR EXAM: Male, 74 years old. Back pain. TECHNIQUE: 3 view(s) of the lumbar spine were obtained. COMPARISON: None FINDINGS: Normal lumbar lordosis. There is a mild levoscoliosis of the lumbar spine. There is a normal alignment of the vertebrae. Loss of height of the superior endplate of the L1 vertebrae. There is multi-level degenerative disc disease with multi-level disc space narrowing. Spondylosis. There is atherosclerotic calcification of the abdominal aorta without a demonstrated aneurysm. RAD/Lumbar Spine 2 or 3 Views IMPRESSION: Degenerative changes of the spine, as detailed above. Loss of height of the superior endplate of the L1 vertebrae. Electronically Signed: Lucho Bond, at 15:46 EDT , Service support ,
== END ==
PROVIDERS: PCP Internal Medicine; Referring Provider Anesthesiology Pain Medicine; Visit Provider Anesthesiology Pain Medicine
DX: M54.9 Dorsalgia, unspecified (principal)
CPT/HCPCS: 72100

== ENCOUNTER → 2020-05-27 13:31 | Outpatient (CLI) | payer MEDICARE, BC, SELFPAY ==
[2020-04-13 14:58] VITALS: BMI 24.5
--- NOTE | 2020-05-27 13:35 | NM_ITS ---
CLINICAL: 74-year-old male with history of shortness of breath. VENTILATION-PERFUSION LUNG SCINTIGRAPHY COMPARISON: Plain film chest radiograph report 05/27/2020 FINDINGS: The patient was administered 50.0 mCi 99m Tc DTPA aerosol. The aerosol ventilation study demonstrates heterogeneous ventilation in the bilateral lung tsang without corresponding radiographic changes visualized on review of plain film chest x-ray dated 05/27/2020. Central clumping of the aerosol is identified in the bilateral hemithorax. Following the intravenous administration of 6.0 mCi of 99m Tc MAA, the pulmonary perfusion study reveals matching non-uniform perfusion in the right and left lungs correlating with the previously defined ventilation pattern. No moderate subsegmental or large segmental ventilation-perfusion mismatches are noted. There are regions of retained normal perfusion visualized. NM/Lung Scan Vent/Perf IMPRESSION: 1. VERY LOW PROBABILITY FOR PULMONARY EMBOLUS (<10%) 99m Tc DTPA aerosol ventilation / 99m Tc MAA pulmonary perfusion imaging examination, according to PIOPED II interpretive criteria with regard given to the presence of > 2 ventilation-perfusion matches without corresponding radiographic changes. (Sotsman et al, Radiology 246: 941, 2008 Soelvira et al, J Nucl Med 49: 1741, 2008). 2. Central clumping of the aerosol may be secondary to obstructive airway mechanics and or clinical tachypnea. Electronically Signed: Guilherme Houston DO at 20:17 EDT Tel , Service support ,
--- NOTE | 2020-05-27 14:15 | RAD_ITS ---
STUDY: X-RAY CHEST REASON FOR EXAM: Male, 74 years old. sob x 6 months. suspected lung nodule. TECHNIQUE: PA and lateral views of the chest. COMPARISON: None. FINDINGS: Cardiac silhouette unremarkable. Pulmonary vascularity unremarkable. Aorta unremarkable. No focal airspace opacities. No pleural effusions. Calcified granuloma in the right suprahilar lung. Upper abdomen unremarkable. Osseous structures intact. No pneumothorax. RAD/Chest PA and Lateral IMPRESSION: No acute cardiopulmonary process identified. Right lung granuloma. Electronically Signed: Flex Barillas, at 15:46 EDT Tel , Service support ,
== END ==
PROVIDERS: PCP Internal Medicine; Referring Provider Internal Medicine; Visit Provider Internal Medicine
DX: R06.09 Other forms of dyspnea (principal); R91.1 Solitary pulmonary nodule
CPT/HCPCS: 71046; 78582; A9540; A9567

== ENCOUNTER → 2020-07-27 14:52 | Outpatient (CLI) | payer MEDICARE, BC, SELFPAY ==
[2020-04-13 14:58] VITALS: BMI 24.5
--- NOTE | 2020-07-27 15:00 | PET_ITS ---
EXAMINATION: FDG PET-CT INDICATIONS: A 74-year-old male with history of renal cell carcinoma presenting for restaging examination. COMPARISON EXAMINATION: FDG PET study report impression dated 09/01/2019 INDEX LESION SIZE SUV INTERPRETATION PERSISTENT: right anterior iliac wing 8.0 (max) Fulfills quantitative criteria for viable neoplasm NEW: multifocal right lung linear densities 42.6-mm (largest) (frame 157) 4.4 (max) Low likelihood of viable neoplasm secondary to linear presentation, short-term reevaluation with FDG PET-CT imaging may be of benefit TECHNIQUE: Following the intravenous administration of 15.4 mCi of F-18 deoxyglucose via the left antecubital fossa, multiplanar image acquisitions of the neck, chest, abdomen and pelvis to level of mid thigh, obtained at one hour post radiopharmaceutical administration contemporaneously interpreted with the current CT of the neck, chest, abdomen and pelvis, to level of mid thigh, dated 07/27/2020 via coregistration and FDG PET study report impression dated 09/01/2019 reveals: BLOOD GLUCOSE LEVEL:?? 114 mg/dl?HEIGHT:?72 inches?WEIGHT: 163 lbs. FINDINGS: 1. Primarily linear parenchymal densities are multifocally apparent in the right mid-lower lung zones in the distribution of the right middle and right lower lobes. The calculated maximal standard uptake value is 4.4. The maximal axial diameter of the largest individual metabolic, morphologic abnormality on review of CT of the chest dated 07/27/2020 is 42.6-mm (transverse). 2. Presumably redefined asymmetric glucose concentration is observed in the right iliac bone, right anterior iliac wing associated with primarily destructive-lytic change and soft tissue expansile mass generating a calculated maximal standard uptake value of 8.0. 3. Normal physiologic distribution of the radiopharmaceutical is apparent in the hepatic (1.9) and splenic parenchyma, left renal unit, bladder and visualized intestinal tract. The visualized portion of the cerebral cortex demonstrate symmetric and preserved glucose metabolism. Prominent radiopharmaceutical concentration is defined in the anterior midline oral cavity in proximity to dental hardware placement most consistent with metallic reconstruction artifact. Facilitated tracer uptake is noted in the distribution of the left ventricular myocardium consistent with the fed state. The previously described twelfth thoracic vertebral hypermetabolic foci noted on the FDG PET study report dated 09/01/2019 are not identified on the present examination. There is significant skeletal muscle tension artifact identified. Pertinent CT findings are as follows: CHEST: A non-calcified parenchymal density noted in the left lower anterolateral lung-left upper lobe is ametabolic. There is atherosclerotic calcification defined in the thoracic aorta without evidence of dilatation-aneurysm formation. Coronary arterial calcification is observed. Calcified and non-calcified mediastinal and bilateral axillary soft tissue densities are ametabolic. A small right hemithorax pleural effusion demonstrates no evidence of increased glucose avidity. A calcified density noted in the right mid lung field-right upper lobe reveals no evidence of increased glucose avidity. ABDOMEN AND PELVIS: There is atherosclerotic calcification defined in the abdominal aorta without evidence of dilatation-aneurysm formation. Pelvic arterial calcification is observed. Surgical clips are noted in the abdominal retroperitoneum. 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 Calcification is noted in the left kidney. Bilateral inguinal soft tissue densities are ametabolic. Dystrophic calcification is manifest within the prostate gland without evidence of increased tracer uptake. Calcifications are defined in the bilateral lower hemipelvis. SKELETAL: The destructive change with associated soft tissue mass involving the anterior aspect of the iliac bone demonstrates quantitatively significant increased FDG uptake previously described. Degenerative changes are noted in the cervical, thoracic and lumbar spine. The compression deformity noted at the level of the eleventh thoracic and first lumbar vertebra demonstrate no evidence of increased tracer uptake. PET/PET/CT Tumor Base -Thigh Init IMPRESSION: 1. ABNORMAL EXAMINATION INDICATIVE OF MALIGNANT-METASTATIC VIABLE NEOPLASM. 2. Increased glucose concentration observed in the right iliac bone fulfills quantitative criteria for viable osseous neoplasm. (Sade, et al, Clinical Nuclear Medicine, 29:161, 2004). 3. Linear densities defined in the right hemithorax pulmonary parenchyma in the distribution of the right middle and right lower lobes may be secondary to an inflammatory-infectious process. If a conservative management approach is undertaken, repeat FDG PET-CT imaging in 9-12 weeks is recommended to ensure stability, involution. 4. 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 Electronic Signature Guilherme Houston D.O. Accurate Quantification of SUVs for this report are calculated using the exclusive [employer]. Electronically Signed: Guilherme Houston DO at 22:07 EDT Tel , Service support ,
== END ==
PROVIDERS: PCP Internal Medicine; Referring Provider Internal Medicine Hematology & Oncology; Visit Provider Internal Medicine Hematology & Oncology
DX: C64.1 Malignant neoplasm of right kidney, except renal pelvis (principal); C79.51 Secondary malignant neoplasm of bone
CPT/HCPCS: 78815; A9552

== ENCOUNTER → 2020-08-31 | Outpatient (CLI) | payer MEDICARE, BC, SELFPAY ==
[2020-04-13 14:58] VITALS: BMI 24.5
[2020-08-31 13:10] LABS: Absolute Lymphocyte Count 0.93 X10^3/uL (0.83-4.51); Absolute Neutrophil Count 1.9 X10^3/uL (2.0-7.7); Basophil# 0.01 X10^3/uL; Basophil% 0.3 % (0-1); Eosinophil# 0.27 X10^3/uL; Eosinophils% 7.9 % (0-5); Hematocrit 31.1 % (40-54); Hemoglobin 9.6 g/dL (13.0-16.5); Lymphocyte # 0.93 X10^3/ul (4.0); Lymphocyte % 27.4 % (19-41); Mean Corp Hgb Conc 30.9 g/dL (32-36); Mean Corpuscular Hgb 29.3 pg (27.0-32.0); Mean Corpuscular Volume 94.8 fL (80-94); Mean Platelet Vol. 9.8 fl (6.2-12.0); Monocyte# 0.27 X10^3/uL; Monocyte% 7.9 % (0-10); NRBC Flagged by Analyzer 0 % (0-5); Neutrophil # 1.91 X10^3/uL (2.7-7.7); Neutrophil % 56.2 % (47-70); Platelet Count 104 K/mm3 (150-450); RBC Distribution Width CV 17.1 % (11.6-14.6); Red Blood Count 3.28 M/mm3 (4.6-6.2); White Blood Count 3.4 K/mm3 (4.4-11.0)
[2020-08-31 13:34] LABS: AST(SGOT) 24 U/L (15-37); Alanine Aminotransfer ALT/SGPT 30 U/L (16-61); Alkaline Phosphatase 96 U/L (45-117); Anion Gap 8 (5-15); BUN 24 mg/dL (7-18); Chloride 111 mmol/L (98-107); Creatinine, Serum 1.41 mg/dL (0.70-1.30); EST Glomerular Filtration Rate 52 mL/min (>60); Est Glom Filt Rate - Afr Amer 63 mL/min (>60); Globulin 3.1 g/dL (2.2-4.2); Glucose 93 mg/dL (74-106); PSA,Total - Annual Screen 4.45 ng/mL (0.00-4.00); Potassium 4.2 mmol/L (3.5-5.1); Protein, Total 6.1 g/dL (6.4-8.2); Sodium Level 141 mmol/L (136-145)
== END | disposition home or self-care (01) ==
LOC: LABSPEC 12:36
PROVIDERS: PCP Internal Medicine; Referring Provider Internal Medicine; Visit Provider Internal Medicine
DX: K76.0 Fatty (change of) liver, not elsewhere classified (principal); R73.01 Impaired fasting glucose; Z12.5 Encounter for screening for malignant neoplasm of prostate
CPT/HCPCS: 80053; 84153; 85025; G0103

== ENCOUNTER → 2020-10-12 | Outpatient (CLI) | payer MEDICARE, BC, SELFPAY ==
[2020-04-13 14:58] VITALS: BMI 24.5
--- NOTE | 2020-10-12 | IMM_PTH ---
PATIENT: LUKE MENDEZ LOC: [facility] U#:[id number] AGE/SX: 75/M ROOM: RE10/12/[address]: Dr. Tory Cade MD : 1945 BED: DIS: 10/12/2020 SPEC #: [id number] RECD: 10/15/20 11:33 STATUS: NATY REQ #: [id number] NGA: 10/12/20 00:[address]: Tory Cade DEPT: IMMUNOHISTOCHEMISTRY RECD BY: Manuela Quiñones Tissues: A - Vertebra, NOS B - Vertebra, NOS Procedures: RCC (add) CK8 (initial) CK7 (add) Pankeratin (add) PHYSICIAN & INSTITUTION [place] [id number] SPECIMEN INFORMATION: Tissue Source: A - T12 vertebral body, B - T11 vertebral body Clinical Info: Compression fracture Specimen Number: [id number] A & B CPT code: 83475 x2, 24087 x6 METHODOLOGY: Deparaffinized sections of prefer/formalin-fixed tissue or PAP/DQ stained slides are incubated with monoclonal/polyclonal antibodies/oligonucleotide probes. Localization is made via biotin free immunoperoxidase method. Appropriate controls are performed and reacted as expected. Results on target cell population are indicated in the following table: RESULTS: ANTIBODY / CLONE RESULT Block A CK8 ([id number]) negative AE1-3 (AE1/AE3/PCK26) negative CK7 (OV-TL12/30) negative RCC (PN-15) negative Block B CK8 ([id number]) negative AE1-3 (AE1/AE3/PCK26) negative CK7 (OV-TL12/30) negative RCC (PN-15) negative These tests were developed and their performance characteristics determined by [facility]. They may not have been cleared or approved by the U.S. Food and Drug Administration. The FDA has determined that such clearance or approval is not necessary. The above immunohistochemical/dualISH markers are ordered and reviewed by the Pathologist. INTERPRETATION: A. T12 vertebral body, kyphoplasty: Negative for malignancy. B. T11 vertebral body, kyphoplasty: Negative for malignancy. MEGHANA:ruiz 10/15/20
--- NOTE | 2020-10-12 18:45 | BONBX_PTH ---
PATIENT: LUKE MENDEZ LOC: [facility] U#:[id number] AGE/SX: 75/M ROOM: RE10/12/[address]: Dr. Tory Cade MD : 1945 BED: DIS: 10/12/2020 SPEC #: [id number] RECD: 10/13/20 07:09 STATUS: NATY LUANA #: [id number] NGA: 10/12/20 18:[address]: Tory Cade DEPT: SURGICAL PATHOLOGY RECD BY: Gaye Noe Tissues: A - Vertebra, NOS B - Vertebra, NOS Procedures: Decalcification bone/plaque Surgery Specimen Level IV HEADER OPERATION: T12, T11 kyphoplasty PRE-OP DIAGNOSIS: Compression fracture TISSUE SUBMITTED: A - T12 vertebral body, B - T11 vertebral body MICROSCOPIC DIAGNOSIS A. T12 vertebral body, kyphoplasty: Negative for malignancy. See comment. B. T11 vertebral body, kyphoplasty: Negative for malignancy. See comment. SJ:rg 10/15/20 COMMENT A & B. Immunohistochemistry ([id number]) supports the above diagnosis. Both specimens show hematopoietic marrow with trilineage hematopoiesis. Please make reference to previous specimen ([id number]) T12 lesion, right side, CT-guided core biopsy with diagnosis of metastatic carcinoma, consistent with renal primary. The slides are reviewed again. Please also make reference to previous specimen ([id number]) right kidney, radical nephrectomy with diagnosis of renal cell carcinoma. MICROSCOPIC DESCRIPTION Slides are reviewed. GROSS DESCRIPTION A - Received in fixative is one container labeled with the patient's name and designated T12 vertebral body. The specimen consists of multiple fragments of blood clot mixed with fragments of bone that in aggregate measure 2.5 x 1 x 0.3 cm. The entire specimen is submitted in one cassette after decalcification. B - Received in fixative is one container labeled with the patient's name and designated T11 vertebral body. The specimen consists of scant fragments of brownish soft tissue mixed with possible fragments of bone that in aggregate measure 2 x 0.2 x 0.1 cm. The entire specimen is submitted in one cassette after decalcification. / MEGHANA:ruiz 10/13/20 TC:5 CPT: 28331 x2, 27607 x2
== END | disposition home or self-care (01) ==
PROVIDERS: Visit Provider Anesthesiology Pain Medicine
DX: M48.54XA Collapsed vertebra, not elsewhere classified, thoracic region, initial encounter for fracture (principal)
CPT/HCPCS: 88305; 88307; 88311; 88341; 88342

== ENCOUNTER 2021-04-19 10:07 | Emergency (ER) | payer MEDICARE, BC, SELFPAY ==
[2020-04-13 14:58] VITALS: BMI 24.5
[2021-04-19 10:09] VITALS: BP 116/103; PULSE 83; RESP 18; TEMP 37.3; O2SAT 88; BMI 22.6
[2021-04-19 10:12] VITALS: BP 116/103; PULSE 83; RESP 18; TEMP 37.3; O2SAT 94
--- NOTE | 2021-04-19 10:22 | EKG12_ITS ---
Test Reason : SYNCOPE Blood Pressure : / mmHG Vent. Rate : 118 BPM Atrial Rate : 118 BPM P-R Int : 288 ms QRS Dur : 074 ms QT Int : 342 ms P-R-T Axes : 000 -03 046 degrees QTc Int : 479 ms Sinus tachycardia with 1st degree A-V block Low voltage QRS (Limb Leads) Poor R wave progression Confirmed by CHRISTIANO GOETZ, ANTONETTE ([id number]), primer expeditor and drier MARIE PAGAN ([id number]) on 04/21/2021 12:25:48 PM Referred By: TEQUILA Confirmed By:ANTONETTE ALVARADO MD
--- NOTE | 2021-04-19 10:34 | EDS_ITS ---
HPI History of Present Illness Chief Complaint: Syncope Narrative Narrative: Patient presents from radiation therapy where he was being marked for radiation therapy sessions when he apparently was sitting down he had an episode he became unresponsive he woke right up he is back to baseline staff sent him to the emergency department. Patient has a history of renal cell carcinoma resected right kidney 2 years ago he was found to have metastases to his back and other bony areas, he has had chemotherapy ongoing for the last 2 years he is rescheduled now for radiation therapy recent PET scan, per the and the patient has had progressively worsening fatigue shortness of breath and spells where he simply has no energy that the been going on for weeks his oncology team is aware of the above. He has no history of CA PE or DVT he is resting cuffing the bed now his initial blood pressure was 85 it immediately improved to 122 without any therapy heart rate 110, he does have a history in the computer for paroxysmal atrial fibrillation. He does not recall having any recent episodes. He is eating and drinking well bowel bladder habits are unremarkable, he indicates he is back to his baseline he is smiling and laughing about these events as the pain is happened before [facility] Medical History (Updated 04/19/21 @ 11:21 by Korina Hodge) Arthritis Degenerative disc disease Hyperlipidemia Hypertension Moderate persistent asthma Patent foramen ovale Renal cancer Thyroid nodule Home Medications montelukast 10 mg PO DAILY 07/01/19 [History Last Taken 07/27/19] simvastatin 20 mg tablet 20 mg PO QHS 07/04/19 [History Last Taken 07/27/19] oxycodone myristate 13.5 mg PO Q12H 07/09/19 [History Last Taken 07/28/19] albuterol sulfate 2 puff INHALATION Q6H PRN PRN 07/28/19 [History Last Taken Unknown] acetaminophen 650 mg PO Q6H PRN PRN tab 07/30/19 [Rx Last Taken Unknown] apixaban 5 mg tablet 5 mg PO BID tab 09/25/19 [History Last Taken Unknown] axitinib 5 mg tablet 5 mg PO Q12H 09/25/19 [History Last Taken Unknown] budesonide 180 mcg/actuation breath activated powder inhaler 1 inh INHALATION BID 09/25/19 [History Last Taken Unknown] furosemide 40 mg tablet 40 mg PO .COMPLEX #3 tab 04/29/20 [Rx Last Taken Unknown] alpha lipoic acid 600 mg PO DAILY 04/19/21 [History Last Taken Unknown] amlodipine 5 mg PO DAILY 04/19/21 [History Last Taken Unknown] ascorbic acid (vitamin C) 4,000 mg PO DAILY 04/19/21 [History Last Taken Unknown] cyanocobalamin (vitamin B-12) 5,000 mcg SUBLINGUAL DAILY 04/19/21 [History Last Taken Unknown] doxazosin 4 mg PO QHS 04/19/21 [History Last Taken Unknown] duloxetine 30 mg PO DAILY 04/19/21 [History Last Taken Unknown] fluticasone furoate-vilanterol [Breo Ellipta] 1 inh INHALATION DAILY 04/19/21 [History Last Taken Unknown] zinc 50 mg PO DAILY 04/19/21 [History Last Taken Unknown] Allergy/AdvReac Type Severity Reaction Status Date / Time No Known Allergies Allergy Verified 04/13/20 14:50 Family History Mother Colon cancer Father Emphysema lung Surgical History (Updated 04/19/21 @ 11:21 by Korina Hodge) History of cystoscopy (06/22/17) History of repair of right rotator cuff history of transrectal biopsy ultrasound (06/22/17) Post-circumcision adhesion of penis (2014) Social History (Updated 04/13/20 @ 15:02 by Christy DEUTSCH, PA) Smoking Status: Never smoker second hand exposure: No alcohol intake: current alcohol intake frequency: a few times a month substance use type: does not use caffeine: Yes what type of physical activity do you participate in: bicycling frequency: 5-6 times per week duration: other details: 15 miles seatbelt use: always ROS ROS ED Constitutional Constitutional ED: Reports subjective, sweats and other; Denies chills, fever(s) or weight loss Eyes Eyes: Denies blurry vision or change in vision ENT ENT ED: Denies ear pain Cardiovascular Cardiovascular: Denies chest pain or palpitations Respiratory/Chest Respiratory/Chest: Denies dyspnea Gastrointestinal Gastrointestinal: Denies abdominal pain, nausea or vomiting Genitourinary Genitourinary ED: Denies dysuria or hematuria Musculoskeletal Musculoskeletal: Denies arthralgias or myalgias Integumentary Reports rash; Denies abscess Neurologic Neurologic: Denies weakness Psychiatric Psychiatric: Denies anxiety or depression Endocrine Endocrinology: Denies polydipsia or polyuria Allergic/Immunologic Allergic/Immunologic ED: Denies urticaria EXAM Physical Exam Const Vital Signs: 04/19/21 10:09 04/19/21 10:12 04/19/21 11:22 Temperature 99.2 F H 99.2 F H Temperature Source Temporal Temporal Pulse Rate 83 83 Respiratory Rate 18 18 Respiratory Effort Normal Respiratory Pattern Normal Blood Pressure 116/103 H 116/103 H Blood Pressure Mean 107 107 Pulse Ox 88 94 Oxygen Delivery Method Room Air Nasal Cannula Oxygen Flow Rate (L/min) 2 Positive well developed General Appearance ED: well developed HEENT Reports normocephalic Negative for trauma Eyes EOMs intact bilaterally Neck supple Chest Wall inspection of chest normal Resp normal respiratory effort Cardio regular rate Rate: tachycardic GI non-tender and non-distended Back/Spine Back/Spine Narrative: unremarkable Extremity normal to inspection Neuro oriented x3 and CN's II-XII intact bilaterally Sensorium / Orientation: alert Psych mental status grossly normal Skin no rashes or lesions noted MDM MDM MDM Narrative Medical decision making narrative: The patient is in no distress his current blood pressure is 122/80 his heart rate is 110 appears to be sinus with a long AR on the monitor EKG is pending his neurologic exam is normal he had no tongue biting no incontinence, he indicates he was not instrumented in any way the individual in the lab was simply trying to malgorzata his skin, given all the above evaluation will discuss with his oncology team Dr. Kirby Patient's ED screening evaluation is generally unremarkable chest x-ray shows nonspecific changes to the right lower lobe area to my review radiology see that report, ED screening labs unremarkable, his vital signs are now 120/80 his heart rate is 90 again he has intermittent A. fib he is taking anticoagulants, discussed the case with the patient his Dr. Guzman on-call for oncology discussed inpatient versus outpatient management Dr. Guzman indicates as far as he is informed his PET scan did not show any lesions in the lung rather metastasis to the bony skeleton, Dr. Guzman did see the patient in the clinic just as this episode was resolving and reports the patient was awake and alert with no complaints and no signs of seizure activity or anything acute or life- threatening the patient's had the chronic shortness of breath for over 2 years with prior V/Q scans and CTAs for PE there were unremarkable, discussed inpat ient versus outpatient management with the patient and his the patient does not wish to be admitted he wants to go home he has appointments to see oncology service tomorrow, concurs with patient's desire at this time given all the above patient discharged home follow-up with his oncology team and return for change in symptoms Home stable declined admission Final impression renal cell carcinoma with bony metastasis syncopal episode resolved Lab Data Labs: Laboratory Results - last 24 hr 04/19/21 04/19/21 04/19/21 10:37 10:37 10:37 WBC 4.9 RBC 3.34 L Hgb 9.6 L Hct 29.6 L MCV 88.6 MCH 28.7 MCHC 32.4 RDW Std Deviation 45.5 H RDW Coeff of Santana 13.9 Plt Count 156 MPV 9.6 Immature Gran % (Auto) 0.600 Neut % (Auto) 86.4 H Lymph % (Auto) 6.5 L [place] % (Auto) 5.3 Eos % (Auto) 1.0 Baso % (Auto) 0.2 Absolute Neuts (auto) 4.2 Absolute Lymphs (auto) 0.32 L Nucleated RBC % 0 Differential Comment COMMENT Sodium 136 Potassium 4.4 Chloride 101 Carbon Dioxide 27.0 Anion Gap 8 BUN 33 H Creatinine 2.15 H Estim Creat Clear Calc 31.83 Est GFR (MDRD) Af Amer 39 L Est GFR (MDRD) Non-Af 32 L BUN/Creatinine Ratio 15.3 Glucose 194 H Calcium 8.9 Troponin I 0.019 B-Natriuretic Peptide 440.8 H Discharge Plan Triage Chief Complaint: Syncope ED Provider: Marco Bennett Dx/Rx/DC Orders Prescriptions: No Action simvastatin 20 mg tablet 20 mg PO QHS RF: 0 Eliquis 5 mg tablet 5 mg PO BID RF: 0 budesonide 180 mcg/actuation aerosol powdr breath activated 1 inh INHALATION BID RF: 0 axitinib 5 mg tablet 5 mg PO Q12H RF: 0 montelukast 10 MG tablet 10 mg PO DAILY RF: 0 oxycodone myristate 13.5 MG cap,sprinkl,ER12hr(DONT CRUSH) 13.5 mg PO Q12H RF: 0 albuterol sulfate 1 PUFF inhaler 2 puff inhalation Q6H PRN PRN (Reason: Sob &/Or Wheezing) RF: 0 acetaminophen 325 MG tablet 650 mg PO Q6H PRN PRN (Reason: Mild pain 1-3/Temp > 100.7 F) RF: 0 ascorbic acid (vitamin C) 2,000 mg Tablet Extended Release 4,000 mg PO DAILY RF: 0 amlodipine 5 mg Tablet 5 mg PO DAILY RF: 0 zinc 50 mg Tablet 50 mg PO DAILY RF: 0 duloxetine 30 mg Capsule,Delayed Release(Dr/Ec) 30 mg PO DAILY RF: 0 alpha lipoic acid 600 mg Capsule 600 mg PO DAILY RF: 0 cyanocobalamin (vitamin B-12) 5,000 mcg Tablet, Sublingual 5,000 mcg SUBLINGUAL DAILY RF: 0 doxazosin 2 mg Tablet 4 mg PO QHS RF: 0 Breo Ellipta 200-25 mcg/dose Blister With Device 1 inh INHALATION DAILY RF: 0 furosemide [Lasix] 40 mg tablet 40 mg PO .COMPLEX Qty: 3 RF: 0 Primary Care Provider: Lucien Vásquez
[2021-04-19 10:53] LABS: Absolute Lymphocyte Count 0.32 X10^3/uL (0.83-4.51); Absolute Neutrophil Count 4.2 X10^3/uL (2.0-7.7); Basophil# 0.01 X10^3/uL; Basophil% 0.2 % (0-1); Eosinophil# 0.05 X10^3/uL; Hematocrit 29.6 % (40-54); Hemoglobin 9.6 g/dL (13.0-16.5); Lymphocyte # 0.32 X10^3/ul (0.83-4.51); Lymphocyte % 6.5 % (19-41); Mean Corp Hgb Conc 32.4 g/dL (32-36); Mean Corpuscular Hgb 28.7 pg (27.0-32.0); Mean Corpuscular Volume 88.6 fL (80-94); Mean Platelet Vol. 9.6 fl (6.2-12.0); Monocyte# 0.26 X10^3/uL; Monocyte% 5.3 % (0-10); NRBC Flagged by Analyzer 0 % (0-5); Neutrophil # 4.23 X10^3/uL (2.7-7.7); Neutrophil % 86.4 % (47-70); POSITIVE DIFFERENTIAL YES; Platelet Count 156 K/mm3 (150-450); RBC Distribution Width CV 13.9 % (11.6-14.6); RBC Distribution Width SD 45.5 fl (35.1-43.9); Red Blood Count 3.34 M/mm3 (4.6-6.2); White Blood Count 4.9 K/mm3 (4.4-11.0)
[2021-04-19 10:56] LABS: Differential Indicated SCAN CRITERIA MET
[2021-04-19 11:09] LABS: Anion Gap 8 (5-15); BUN 33 mg/dL (7-18); BUN/Creat Ratio 15.3 RATIO (10-20); Calcium,Total 8.9 mg/dL (8.5-10.1); Chloride 101 mmol/L (98-107); Creatinine, Serum 2.15 mg/dL (0.70-1.30); EST Glomerular Filtration Rate 32 mL/min (>60); Est Glom Filt Rate - Afr Amer 39 mL/min (>60); Estimated Creatinine Clearance 31.83 ml/min; Glucose 194 mg/dL (74-106); Potassium 4.4 mmol/L (3.5-5.1); Sodium Level 136 mmol/L (136-145)
--- NOTE | 2021-04-19 11:09 | RAD_ITS ---
STUDY: X-RAY CHEST REASON FOR EXAM: Male, 75 years old. Syncope TECHNIQUE: Single AP portable view of the chest. COMPARISON: Comparison is made with prior study dated 05/27/2020. FINDINGS: EKG electrodes are seen. Hyperinflation. Blunting of the right cusp angle with the increased markings at the right lung base suggestive of a possible infiltrate. Minimal increased markings at the left lung base. Normal size heart. Normal mediastinum and teresa. Normal visualized pulmonary arteries. There is atherosclerotic calcification of the aortic arch with tortuosity. Prior vertebroplasty of the T11 vertebrae. There is degenerative osteoarthritis of the bilateral shoulders. There is no demonstrated abnormality of the visualized soft tissue structures of the upper abdomen. RAD/Chest 1 View (Portable) IMPRESSION: Blunting of the right concerning angle with the patchy infiltrate and/or atelectasis at the right lung base. Electronically Signed: Lucho Bond MD at 12:00 EDT , Service support ,
[2021-04-19 11:35] LABS: BNP,B-Type NATRIURETIC PEPTIDE 440.8 pg/mL (0-100)
[2021-04-19 12:45] VITALS: BP 138/74; PULSE 62; RESP 15; O2SAT 98
== END 2021-04-19 12:45 | disposition home or self-care (01) ==
LOC: ED 11:40
PROVIDERS: Emergency Provider Emergency Medicine; PCP Family Medicine
DX: C64.1 Malignant neoplasm of right kidney, except renal pelvis (principal); C79.51 Secondary malignant neoplasm of bone; R06.02 Shortness of breath; R55 Syncope and collapse; I48.91 Unspecified atrial fibrillation; I10 Essential (primary) hypertension; E78.5 Hyperlipidemia, unspecified; M19.90 Unspecified osteoarthritis, unspecified site; Z79.01 Long term (current) use of anticoagulants; Z79.899 Other long term (current) drug therapy
CPT/HCPCS: 71045; 80048; 83880; 84484; 85025; 93005; 96360; 99285; J7030

== ENCOUNTER 2021-04-29 10:37 | Inpatient (IN) | payer MEDICARE, BC, SELFPAY ==
[2021-04-29] VITALS (15 sets, daily range): BP systolic 90–164; BP diastolic 55–99; PULSE 76–118; RESP 16–20; TEMP 36.4–36.8; O2SAT 91–99; BMI 22.2; BMI 22.1
--- NOTE | 2021-04-29 10:49 | EKG12_ITS ---
Test Reason : AFIB Blood Pressure : / mmHG Vent. Rate : 089 BPM Atrial Rate : 102 BPM P-R Int : 000 ms QRS Dur : 082 ms QT Int : 354 ms P-R-T Axes : 042 023 061 degrees QTc Int : 430 ms Sinus tachycardia with 2nd degree A-V block (Mobitz I) Abnormal ECG Confirmed by OLMAN GOETZ, JUSTO ([id number]), copy editor MARIE PAGAN ([id number]) on 05/02/2021 1:40:49 PM Referred By: SHERI/HEIDY Confirmed By:JUSTO THURMAN MD
[2021-04-29 11:22] LABS: Absolute Neutrophil Count 5.2 X10^3/uL (2.0-7.7); Basophil# 0.02 X10^3/uL; Basophil% 0.3 % (0-1); Eosinophil# 0.03 X10^3/uL; Eosinophils% 0.4 % (0-5); Hematocrit 28.5 % (40-54); Hemoglobin 8.9 g/dL (13.0-16.5); Lymphocyte % 7.4 % (19-41); Mean Corp Hgb Conc 31.2 g/dL (32-36); Mean Corpuscular Hgb 28.1 pg (27.0-32.0); Mean Corpuscular Volume 89.9 fL (80-94); Mean Platelet Vol. 10.2 fl (6.2-12.0); Monocyte# 0.77 X10^3/uL; Monocyte% 11.4 % (0-10); NRBC Flagged by Analyzer 0.7 % (0-5); Neutrophil # 5.18 X10^3/uL (2.7-7.7); Neutrophil % 77.1 % (47-70); POSITIVE DIFFERENTIAL YES; Platelet Count 219 K/mm3 (150-450); RBC Distribution Width CV 15.2 % (11.6-14.6); RBC Distribution Width SD 50.1 fl (35.1-43.9); Red Blood Count 3.17 M/mm3 (4.6-6.2); White Blood Count 6.7 K/mm3 (4.4-11.0)
[2021-04-29] MEDS: 0.9% Normal Saline 1,000 ML 150 ML IV ×2 (11:22→20:02)
[2021-04-29 11:23] LABS: Differential Indicated SCAN CRITERIA MET
[2021-04-29 11:38] LABS: Anion Gap 6 (5-15); BUN 32 mg/dL (7-18); BUN/Creat Ratio 14.3 RATIO (10-20); Calcium,Total 8.6 mg/dL (8.5-10.1); Chloride 100 mmol/L (98-107); Creatinine, Serum 2.23 mg/dL (0.70-1.30); EST Glomerular Filtration Rate 31 mL/min (>60); Est Glom Filt Rate - Afr Amer 37 mL/min (>60); Estimated Creatinine Clearance 30.12 ml/min; Glucose 161 mg/dL (74-106); Potassium 4.4 mmol/L (3.5-5.1); Sodium Level 134 mmol/L (136-145)
[2021-04-29 11:52] LABS: Lactic Acid 1.6 mmol/L (0.4-1.9)
[2021-04-29 11:56] LABS: Bacteria 0 SEEN /hpf (None Seen); Mucous, Urine 0 SEEN /hpf (<or=2+); Red Blood Cells-Urine 0 SEEN /hpf (0-5); Squamous Epithelial Cells - UA 0 SEEN /hpf (0-5); White Blood Cells 0 SEEN /hpf (0-5)
--- NOTE | 2021-04-29 12:03 | RAD_ITS ---
STUDY: X-RAY CHEST REASON FOR EXAM: Male, 75 years old. Hypotension. History of renal carcinoma. TECHNIQUE: Single AP portable view of the chest. COMPARISON: Comparison is made with prior study dated 04/19/2021. FINDINGS: EKG electrodes are seen. Stable pleural parenchymal changes at the right lung base. Stable mild increased markings at the left lung base suggestive of prior linear scarring and/or atelectasis. Normal size heart. Normal mediastinum and teresa. Normal visualized pulmonary arteries. There is atherosclerotic calcification of the aortic arch with tortuosity. Prior vertebroplasty of the T12 and L1 vertebrae. Normal visualized ribs, clavicles, and shoulders. There is no demonstrated abnormality of the visualized soft tissue structures of the upper abdomen. RAD/Chest 1 View (Portable) IMPRESSION: Stable pleural parenchymal changes at the right lung. Electronically Signed: Lucho Bond MD at 12:24 EDT , Service support ,
[2021-04-29 12:11] LABS: Color, Urine Yellow (Yellow); Glucose, Dipstick Normal (Normal); Ketone-Dipstick Negative (Negative); Leukocyte Esterase-Dipstick Negative /ul (Negative); Nitrite-Dipstick Negative (Negative); Occult Blood-Urine 10 /ul (Negative); Protein-Dipstick 100 mg/dl (Negative); Urine Bilirubin Dipstick Negative (Negative); Urine Clarity Clear (Clear); Urine Urobilinogen Normal (Normal)
--- NOTE | 2021-04-29 12:39 | CT_ITS ---
STUDY: CT CHEST, ABDOMEN T PELVIS WITHOUT CONTRAST REASON FOR EXAM: Male, 75 years old. Fever, unknown source. Hypotensive. History of a renal cell carcinoma and metastasis. RADIATION DOSAGE (If Supplied By Facility): CTDIvol = ( 17.07 ) mGy, DLP = ( 1632.33 ) mGycm TECHNIQUE: Transaxial imaging was performed without the administration of intravenous contrast material. Individualized dose optimization techniques were used for this CT. COMPARISON: Comparison is made with prior CT scan of the thorax dated 07/14/2019. FINDINGS: Atherosclerotic calcification of the carotid arteries bilaterally more prominent on the right side. CHEST Small bilateral pleural effusions. Hyperinflation. Minimal increased linear markings in the medial aspect of the left upper lobe suggestive of possible scarring. Thickening of the left major fissure with increased markings in the posterior aspect of the left upper lobe. Mild increased markings in the lingular segment of the left upper lobe suggestive of a groundglass appearance. Increased linear markings with areas of confluence and bronchiectasis in the lateral aspect of the right upper lobe. This abuts the pleural. This may represent areas of scarring. There is also evidence of a patchy areas of increased density with the subpleural blebs and bronchiectasis in the peripheral aspect of both lower lobes more prominent on the right side suggestive of scarring. There are several small pleural-based nodules in the left lower lung. Metastatic disease should be ruled out. These were not present on prior study. There are calcifications of the coronary arteries. [id number] size pericardial effusion. There are multiple small lymph nodes within the mediastinum, which are normal in size and morphology most compatible with reactive lymph hyperplasia. Calcified right paratracheal mediastinal lymph nodes. Normal hilar regions. Normal unenhanced pulmonary arteries. There is atherosclerotic calcification of the aortic arch . At least 50% loss of height of the T12 and L1 vertebrae. Prior vertebral plasty is seen. Loss of height of the L2 vertebrae. ABDOMEN Small to moderate pericardial effusion. Normal liver. Normal gallbladder and extrahepatic biliary system. Normal spleen. Normal pancreas. Normal bilateral adrenal glands. The patient is status post right nephrectomy. 3 mm nonobstructive calculus in the lower pole calyx of the left kidney. Normal visualized stomach. Normal small intestine. Normal colon. The appendix is visualized and appears normal. There is diffuse atherosclerotic calcification of the abdominal aorta and its major visceral branches, without a demonstrated aneurysm. Normal inferior vena cava. Normal retroperitoneum. Normal abdominal wall. There is evidence of a 6.1 cm x 5.7 cm there is also evidence of a 2.8 cm lytic lesion in the superior aspect of the left iliac wing. Soft tissue mass causing destruction of the anterior aspect of the right iliac bone along the superior and midportion of the iliac wing. Prior vertebroplasty of the T11 and T12 vertebrae with the least 50% loss of height. 50% loss of height of the superior endplate of the L1 vertebrae. Disc space narrowing and spondylosis at the L3-L4 level. PELVIS Minimal degree of bladder wall thickening. I suspect a 1.4 cm diverticulum in the anterior superior aspect of the urinary bladder. Prostatic enlargement with indentation of the bladder base. Prostatic radiation seeds are seen within the prostate. CT/CT Chest, Abd, Pelvis WO Cont IMPRESSION: Small bilateral pleural effusions with the findings suggestive of scarring in both lungs as described worse at the right lung base with evidence of bronchiectasis. Multiple small nodules are seen at the left lung base. Small to moderate-sized pericardial effusion. Bony metastasis as described. Prostatic indentation of the bladder base. Small diverticulum in the superior anterior aspect of the urinary bladder. Electronically Signed: Lucho Bond MD at 13:30 EDT , Service support ,
--- NOTE | 2021-04-29 16:34 | PCM.CONS.GEN ---
Assessment & Plan Assessment/Plan (1) Orthostatic hypotension: (2) Paroxysmal atrial fibrillation: (3) Renal cancer: QUALIFIERS: Laterality: right Qualified Code(s): C64.1 - Malignant neoplasm of right kidney, except renal pelvis PLAN: Proper examination not able to be completed as patient expressed that he would like to be discharged home after receiving fluid bolus and had no interest in being observed, even for a short amount of time in the hospital. Discussed with patient the risks of leaving early, and patient expressed that he understood and was willing to sign an AMA form, but that he would still like to return home. This provider contacted the ED physician to express patient wishes. Patient seen by Aguilar Marcum PA-C, under the supervision of Dr. Ibarra. HPI Consult Data Date of Consult: 04/29/21 HPI Narrative HPI Narrative: Is a 75-year-old male who presents to the ED at [facility] on 04/29/[address] Kirby for low blood pressure. Full HPI not able to be obtained due to patient expressing that he would like to be discharged home after receving fluid bolus in the ED. Patient expressed that he would like to talk to ED Physician, Dr. Rangel about his disposition. [facility] Medical History (Updated 04/29/21 @ 16:39 by Aguilar DEUTSCH) Arthritis Degenerative disc disease Hyperlipidemia Hypertension Moderate persistent asthma Patent foramen ovale Renal cancer Thyroid nodule Home Medications montelukast 10 mg PO QHS 07/01/19 [History Last Taken 04/28/21] simvastatin 20 mg tablet 20 mg PO QHS 07/04/19 [History Last Taken 04/28/21] albuterol sulfate 2 puff INHALATION Q6H PRN PRN 07/28/19 [History Last Taken Unknown] acetaminophen 650 mg PO Q6H PRN PRN tab 07/30/19 [Rx Last Taken Unknown] apixaban 5 mg tablet 2.5 mg PO BID tab 09/25/19 [History Last Taken 04/29/21] doxazosin 4 mg PO QHS 04/19/21 [History Last Taken 04/28/21] duloxetine 30 mg PO DAILY 04/19/21 [History Last Taken 04/29/21] fluticasone furoate-vilanterol [Breo Ellipta] 1 inh INHALATION DAILY 04/19/21 [History Last Taken 04/29/21] albuterol sulfate 2.5 mg INHALATION Q6H PRN 04/29/21 [History Last Taken Unknown] diazepam 5 mg PO QHS PRN 04/29/21 [History Last Taken 01/29/21] oxycodone myristate [Xtampza ER] 18 mg PO BID 04/29/21 [History Last Taken 04/29/21 07:30] Allergy/AdvReac Type Severity Reaction Status Date / Time No Known Allergies Allergy Verified 04/29/21 10:41 Family History Mother Colon cancer Father Emphysema lung Surgical History (Updated 04/29/21 @ 16:33 by Lisette Ca) History of cystoscopy (06/22/17) History of repair of right rotator cuff History of right nephrectomy (~07/09/19) history of transrectal biopsy ultrasound (06/22/17) Post-circumcision adhesion of penis (2014) Social History Smoking Status: Never smoker second hand exposure: No alcohol intake: current alcohol intake frequency: a few times a month substance use type: does not use caffeine: Yes what type of physical activity do you participate in: bicycling frequency: 5-6 times per week duration: other details: 15 miles seatbelt use: always Physical Exam Narrative Did not obtain, see HPI. Lab / Micro Data Result Diagrams: 04/29/21 11:10 04/29/21 11:10 Labs: Laboratory Results - last 24 hr 04/29/21 04/29/21 04/29/21 11:10 11:10 11:10 WBC 6.7 RBC 3.17 L Hgb 8.9 L Hct 28.5 L MCV 89.9 MCH 28.1 MCHC 31.2 L RDW Std Deviation 50.1 H RDW Coeff of Santana 15.2 H Plt Count 219 MPV 10.2 Immature Gran % (Auto) 3.400 H Neut % (Auto) 77.1 H Lymph % (Auto) 7.4 L [place] % (Auto) 11.4 H Eos % (Auto) 0.4 Baso % (Auto) 0.3 Absolute Neuts (auto) 5.2 Absolute Lymphs (auto) 0.50 L Nucleated RBC % 0.7 Differential Comment COMMENT Sodium 134 L Potassium 4.4 Chloride 100 Carbon Dioxide 28.0 Anion Gap 6 BUN 32 H Creatinine 2.23 H Estim Creat Clear Calc 30.12 Est GFR (MDRD) Af Amer 37 L Est GFR (MDRD) Non-Af 31 L BUN/Creatinine Ratio 14.3 Glucose 161 H Lactic Acid 1.6 Calcium 8.6 Troponin I < 0.015 Urine Color Urine Clarity Urine pH Ur Specific [place] Urine Protein Urine Glucose (UA) Urine Ketones Urine Occult Blood Urine Nitrite Urine Bilirubin Urine Urobilinogen Ur Leukocyte Esterase Urine RBC Urine WBC Ur Squamous Epith Cells Urine Bacteria Urine Mucus 04/29/21 11:39 WBC RBC Hgb Hct MCV MCH MCHC RDW Std Deviation RDW Coeff of Santana Plt Count MPV Immature Gran % (Auto) Neut % (Auto) Lymph % (Auto) [place] % (Auto) Eos % (Auto) Baso % (Auto) Absolute Neuts (auto) Absolute Lymphs (auto) Nucleated RBC % Differential Comment Sodium Potassium Chloride Carbon Dioxide Anion Gap BUN Creatinine Estim Creat Clear Calc Est GFR (MDRD) Af Amer Est GFR (MDRD) Non-Af BUN/Creatinine Ratio Glucose Lactic Acid Calcium Troponin I Urine Color Yellow Urine Clarity Clear Urine pH 7.0 Ur Specific [place] 1.010 Urine Protein 100 H Urine Glucose (UA) Normal Urine Ketones Negative Urine Occult Blood 10 H Urine Nitrite Negative Urine Bilirubin Negative Urine Urobilinogen Normal Ur Leukocyte Esterase Negative Urine RBC 0 SEEN Urine WBC 0 SEEN Ur Squamous Epith Cells 0 SEEN Urine Bacteria 0 SEEN Urine Mucus 0 SEEN Radiology Impression Chest X-Ray 04/29/21 12:03 IMPRESSION: Stable pleural parenchymal changes at the right lung. Electronically Signed: Lucho Bond MD at 12:24 EDT , Service support , Chest/Abdomen/Pelvis CT 04/29/21 12:39 IMPRESSION: Small bilateral pleural effusions with the findings suggestive of scarring in both lungs as described worse at the right lung base with evidence of bronchiectasis. Multiple small nodules are seen at the left lung base. Small to moderate-sized pericardial effusion. Bony metastasis as described. Prostatic indentation of the bladder base. Small diverticulum in the superior anterior aspect of the urinary bladder. Electronically Signed: Lucho Bond MD at 13:30 EDT , Service support , Charges/Coding Visit Charges Office Visits / Consults: [id number] OP Consult L2
--- NOTE | 2021-04-29 17:20 | EDS_ITS ---
HPI History of Present Illness Chief Complaint: Hypotension Informant: patient Narrative Narrative: Patient 75-year-old male with history of proximal atrial fibrillation, hypertension, hyperlipidemia and metastatic renal cancer presenting from his oncologist office, Dr. Kirby, for hypotension. Patient was in the office today was on a blood pressure of 80/50. He states that for the past 2 weeks he has been having daily fevers. This morning was 103.5 however t he fevers improve with Tylenol. Patient states that he has been feeling unwell and weak. He has had 1 episode of syncope this week and another episode of presyncope. He was placed on empiric course of antibiotics which he thinks started with an L, by his PCP 2 weeks ago which he finished. 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 Patient is not currently on chemotherapy and his last chemo was about 2 weeks ago per the . 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 Patient denies any chest pain or shortness of breath. He does report some increased dyspnea on exertion. Denies any associated orthopnea or cough. He had decreased oral intake. Denies any urinary symptoms. No other complaints at this time. [facility] Medical History Arthritis Degenerative disc disease Hyperlipidemia Hypertension Moderate persistent asthma Patent foramen ovale Renal cancer Thyroid nodule Home Medications montelukast 10 mg PO QHS 07/01/19 [History Last Taken 04/28/21] simvastatin 20 mg tablet 20 mg PO QHS 07/04/19 [History Last Taken 04/28/21] albuterol sulfate 2 puff INHALATION Q6H PRN PRN 07/28/19 [History Last Taken Unknown] acetaminophen 650 mg PO Q6H PRN PRN tab 07/30/19 [Rx Last Taken Unknown] apixaban 5 mg tablet 2.5 mg PO BID tab 09/25/19 [History Last Taken 04/29/21] doxazosin 4 mg PO QHS 04/19/21 [History Last Taken 04/28/21] duloxetine 30 mg PO DAILY 04/19/21 [History Last Taken 04/29/21] fluticasone furoate-vilanterol [Breo Ellipta] 1 inh INHALATION DAILY 04/19/21 [History Last Taken 04/29/21] albuterol sulfate 2.5 mg INHALATION Q6H PRN 04/29/21 [History Last Taken Unknown] diazepam 5 mg PO QHS PRN 04/29/21 [History Last Taken 01/29/21] oxycodone myristate [Xtampza ER] 18 mg PO BID 04/29/21 [History Last Taken 04/29/21 07:30] Allergy/AdvReac Type Severity Reaction Status Date / Time No Known Allergies Allergy Verified 04/29/21 10:41 Family History Mother Colon cancer Father Emphysema lung Surgical History History of cystoscopy (06/22/17) History of repair of right rotator cuff History of right nephrectomy (~07/09/19) history of transrectal biopsy ultrasound (06/22/17) Post-circumcision adhesion of penis (2014) Social History Smoking Status: Never smoker second hand exposure: No alcohol intake: current alcohol intake frequency: a few times a month substance use type: does not use caffeine: Yes what type of physical activity do you participate in: bicycling frequency: 5-6 times per week duration: other details: 15 miles seatbelt use: always ROS ROS ED Constitutional Constitutional ED: Reports fever(s) and other Details: Lightheaded, syncope ; Denies chills Eyes Eyes: Denies blurry vision, change in vision or loss of vision ENT ENT ED: Denies rhinorrhea or sore throat Cardiovascular Cardiovascular: Reports dyspnea on exertion; Denies chest pain Respiratory/Chest Respiratory/Chest: Denies cough or dyspnea Gastrointestinal Gastrointestinal: Denies nausea or vomiting Genitourinary Genitourinary ED: Denies dysuria or hematuria Musculoskeletal Musculoskeletal: Denies arthralgias or myalgias Integumentary Denies rash or wounds Neurologic Neurologic: Denies focal weakness or headache(s) Psychiatric Psychiatric: Denies anxiety or behavioral changes EXAM Physical Exam Const Vital Signs: 04/29/21 10:38 04/29/21 11:10 04/29/21 11:16 Temperature 98 F 98 F Temperature Source Temporal Temporal Pulse Rate 112 H 91 Pulse Rate [Lying] Pulse Rate [Sitting] Pulse Rate [Standing] Respiratory Rate 18 16 Respiratory Effort Non-Labored Short of Breath Respiratory Pattern Normal Blood Pressure 90/58 L 111/72 Blood Pressure [Lying] Blood Pressure [Sitting] Blood Pressure [Standing] Blood Pressure Mean 68 85 Blood Pressure Mean [Lying] Blood Pressure Mean [Sitting] Blood Pressure Mean [Standing] Pulse Ox 91 98 Oxygen Delivery Method Room Air Nasal Cannula Oxygen Flow Rate (L/min) 2 04/29/21 12:00 04/29/21 13:00 04/29/21 14:00 Temperature 97.5 F L 98.3 F 97.8 F Temperature Source Temporal Temporal Temporal Pulse Rate 94 99 101 H Pulse Rate [Lying] Pulse Rate [Sitting] Pulse Rate [Standing] Respiratory Rate 18 19 H 18 Respiratory Effort Respiratory Pattern Blood Pressure 125/78 H 124/78 H 116/77 Blood Pressure [Lying] Blood Pressure [Sitting] Blood Pressure [Standing] Blood Pressure Mean 93 93 90 Blood Pressure Mean [Lying] Blood Pressure Mean [Sitting] Blood Pressure Mean [Standing] Pulse Ox 93 95 95 Oxygen Delivery Method Room Air Room Air Room Air Oxygen Flow Rate (L/min) 04/29/21 15:00 04/29/21 15:23 04/29/21 16:55 Temperature 97.9 F 97.9 F Temperature Source Temporal Temporal Pulse Rate 76 87 Pulse Rate [Lying] 92 Pulse Rate [Sitting] 91 Pulse Rate [Standing] 97 Respiratory Rate 20 H 17 Respiratory Effort Respiratory Pattern Blood Pressure 126/84 H 148/72 H Blood Pressure [Lying] 133/72 H Blood Pressure [Sitting] 152/99 H Blood Pressure [Standing] 96/78 Blood Pressure Mean 98 97 Blood Pressure Mean [Lying] 92 Blood Pressure Mean [Sitting] 116 Blood Pressure Mean [Standing] 84 Pulse Ox 96 98 Oxygen Delivery Method Room Air Nasal Cannula Oxygen Flow Rate (L/min) 2 04/29/21 16:56 Temperature Temperature Source Pulse Rate Pulse Rate [Lying] 98 Pulse Rate [Sitting] 83 Pulse Rate [Standing] 87 Respiratory Rate Respiratory Effort Respiratory Pattern Blood Pressure Blood Pressure [Lying] 114/84 H Blood Pressure [Sitting] 146/82 H Blood Pressure [Standing] 164/87 H Blood Pressure Mean Blood Pressure Mean [Lying] 94 Blood Pressure Mean [Sitting] 103 Blood Pressure Mean [Standing] 112 Pulse Ox Oxygen Delivery Method Oxygen Flow Rate (L/min) Positive well nourished and well developed General Appearance ED: well developed HEENT Reports dry mucous membranes Mouth ED: Yes dry mucous membranes Mouth: dry mucous membranes Eyes PERRL and EOMs intact bilaterally Neck supple and no JVD Chest Wall inspection of chest normal Resp normal respiratory effort and clear to auscultation bilaterally Cardio Rate: tachycardic and other Other Details: Irregularly irregular GI normal to inspection, nondistended, normoactive bowel sounds Back/Spine no CVA tenderness Extremity normal to inspection General Extremety ED: Negative for edema or tenderness General Extremity: Negative for edema Psych mental status grossly normal Skin no rashes or lesions noted and no wounds MDM MDM MDM Narrative Medical decision making narrative: Patient evaluated for hypotension at his oncologist office. He had an episode of syncope this week. On arrival patient's blood pressure is low with 90/58 and he is tachycardic. He is in atrial fibrillation which he does have a history of. Patient is anticoagulated for history of DVTs. Patient is afebrile in the ER but states he took an extra strength Tylenol prior to arrival. He does have a slow decrease in his hemoglobin however is mostly stable. His hemoglobin is 8.9. It looks like his baseline is closer to 9.6. Patient is not have a neutropenia however he does have a left shift. His lactate is normal. His creatinine is elevated 2.23. 10 days ago he was also elevated at 2.15 however his baseline per his oncologist is 1.5-1.7. Given the fact he is anticoagulated I do not suspect a PE. His troponin is normal. Patient is orthostatic in the emergency room after receiving a liter of IV fluids. Discussed with his oncologist again who would like him to be observed in the hospital given his syncope, hypotension and fever of unknown origin. He would not like to give antibiotics at this time. As I do not have a source of infection did obtain a CT of the chest abdomen pelvis without contrast secondary to his DARREL/CKD and no obvious source was found. He was found to have a [id number] pericardial effusion of uncertain significance. Patient's initially was hesitant for admission but given his continued orthostatic hypotension and he is now interested in being evaluated by cardiology while in the hospital so he is now amenable to admission. I did speak with cardiology on-call, Dr. Watters, who feels that a cardiology consult is warranted and would be happy to see him. He does request that I order echocardiograms that can be performed tomorrow. I did place this order in. Patient is admitted for further IV fluids, evaluation for fever of unknown origin, evaluation of his orthostasis and cardiac evaluation for syncope. Lab Data Labs: Laboratory Results - last 24 hr 04/29/21 04/29/21 04/29/21 11:10 11:10 11:10 WBC 6.7 RBC 3.17 L Hgb 8.9 L Hct 28.5 L MCV 89.9 MCH 28.1 MCHC 31.2 L RDW Std Deviation 50.1 H RDW Coeff of Santana 15.2 H Plt Count 219 MPV 10.2 Immature Gran % (Auto) 3.400 H Neut % (Auto) 77.1 H Lymph % (Auto) 7.4 L P[place] % (Auto) 11.4 H Eos % (Auto) 0.4 Baso % (Auto) 0.3 Absolute Neuts (auto) 5.2 Absolute Lymphs (auto) 0.50 L Nucleated RBC % 0.7 Differential Comment COMMENT Sodium 134 L Potassium 4.4 Chloride 100 Carbon Dioxide 28.0 Anion Gap 6 BUN 32 H Creatinine 2.23 H Estim Creat Clear Calc 30.12 Est GFR (MDRD) Af Amer 37 L Est GFR (MDRD) Non-Af 31 L BUN/Creatinine Ratio 14.3 Glucose 161 H Lactic Acid 1.6 Calcium 8.6 Troponin I < 0.015 Urine Color Urine Clarity Urine pH Ur Specific [place] Urine Protein Urine Glucose (UA) Urine Ketones Urine Occult Blood Urine Nitrite Urine Bilirubin Urine Urobilinogen Ur Leukocyte Esterase Urine RBC Urine WBC Ur Squamous Epith Cells Urine Bacteria Urine Mucus 04/29/21 11:39 WBC RBC Hgb Hct MCV MCH MCHC RDW Std Deviation RDW Coeff of Santana Plt Count MPV Immature Gran % (Auto) Neut % (Auto) Lymph % (Auto) Pinal % (Auto) Eos % (Auto) Baso % (Auto) Absolute Neuts (auto) Absolute Lymphs (auto) Nucleated RBC % Differential Comment Sodium Potassium Chloride Carbon Dioxide Anion Gap BUN Creatinine Estim Creat Clear Calc Est GFR (MDRD) Af Amer Est GFR (MDRD) Non-Af BUN/Creatinine Ratio Glucose Lactic Acid Calcium Troponin I Urine Color Yellow Urine Clarity Clear Urine pH 7.0 Ur Specific [place] 1.010 Urine Protein 100 H Urine Glucose (UA) Normal Urine Ketones Negative Urine Occult Blood 10 H Urine Nitrite Negative Urine Bilirubin Negative Urine Urobilinogen Normal Ur Leukocyte Esterase Negative Urine RBC 0 SEEN Urine WBC 0 SEEN Ur Squamous Epith Cells 0 SEEN Urine Bacteria 0 SEEN Urine Mucus 0 SEEN Radiography Chest X-Ray - ED: 1 View, Read by ED Physician, Read by Radiologist and No Acute Disease Diagnostic Testing: Radiology Impression Chest X-Ray 04/29/21 12:03 IMPRESSION: Stable pleural parenchymal changes at the right lung. Electronically Signed: Lucho Bond MD at 12:24 EDT , Service support , Chest/Abdomen/Pelvis CT 04/29/21 12:39 IMPRESSION: Small bilateral pleural effusions with the findings suggestive of scarring in both lungs as described worse at the right lung base with evidence of bronchiectasis. Multiple small nodules are seen at the left lung base. Small to moderate-sized pericardial effusion. Bony metastasis as described. Prostatic indentation of the bladder base. Small diverticulum in the superior anterior aspect of the urinary bladder. Electronically Signed: Lucho Bond MD at 13:30 EDT , Service support , Rhythm Strip Rhythm Strip: A-fib Rate: 110 Ectopy: None EKG Initial EKG: Attestation: I personally reviewed and interpreted this EKG as follows: Interpretation: Sinus Rhythm Comments: Sinus rhythm with second-degree AV block type I Normal axis Normal QRS and QTc Normal ST segments Compared to prior EKG on 07/29/2019 patient is no acute changes Discharge Plan Triage Chief Complaint: Hypotension ED Provider: Claudine Rangel Dx/Rx/DC Orders Clinical Impression: Orthostatic hypotension, Fever, unknown origin, Syncope, DARREL (acute kidney injury) Prescriptions: No Action simvastatin 20 mg tablet 20 mg PO QHS RF: 0 Eliquis 5 mg tablet 2.5 mg PO BID RF: 0 montelukast 10 MG tablet 10 mg PO QHS RF: 0 albuterol sulfate 1 PUFF inhaler 2 puff inhalation Q6H PRN PRN (Reason: Sob &/Or Wheezing) RF: 0 acetaminophen 325 MG tablet 650 mg PO Q6H PRN PRN (Reason: Mild pain 1-3/Temp > 100.7 F) RF: 0 duloxetine 30 mg Capsule,Delayed Release(Dr/Ec) 30 mg PO DAILY RF: 0 doxazosin 2 mg Tablet 4 mg PO QHS RF: 0 Breo Ellipta 200-25 mcg/dose Blister With Device 1 inh INHALATION DAILY RF: 0 albuterol sulfate 2.5 mg /3 mL (0.083 %) solution for nebulization 2.5 mg inhalation Q6H PRN (Reason: Shortness Of Breath) RF: 0 diazepam 5 mg tablet 5 mg PO QHS PRN (Reason: Sleep) RF: 0 Xtampza ER 18 mg cap,sprinkl,ER12hr(DONT CRUSH) 18 mg PO BID RF: 0 Primary Care Provider: Kiara Spence Referrals: Kiara Spence DO [Primary Care Provider] -
--- NOTE | 2021-04-29 17:52 | ECHOD_ITS ---
Reason For Study: AFIB/FLUTTER Procedure This was a 2D Doppler, Color Flow transthoracic echocardiogram. Exam performed portable in patient room. Left Ventricle Normal left ventricle. The estimated ejection fraction is EF 55-60 %. Right Ventricle Normal right ventricle. Normal systolic function. Atria The left atrium is mildly enlarged. The right atrium is mildly enlarged. Mitral Valve The mitral valve is structurally normal. No prolapse or stenosis seen. Trivial mitral valve insufficiency. Tricuspid Valve Normal tricuspid valve. Mild tricuspid valve insufficiency. Aortic Valve Normal aortic valve. Trivial aortic valve insufficiency. Pulmonic Valve The pulmonic valve is not well visualized. Great Vessels Normal aortic root. Pericardium/Pleural Small pericardial effusion. MMode/2D Measurements & Calculations LVIDd: 4.7 cm IVSd: 1.3 cm Ao root diam: 3.5 cm LVIDs: 3.0 cm LVPWd: 1.3 cm RVDd: 3.2 cm FS: 36.0 % LAV(MOD-bp): 71.4 ml LVAd ap4: 27.5 cm2 LVAd ap2: 23.5 cm2 LAV(MOD-bp) Indexed: 36.6 ml/m2 LVLd ap4: 7.9 cm LVLd ap2: 8.8 cm LAV(MOD-sp2): 69.1 ml EDV(MOD-sp4): 82.4 ml EDV(MOD-sp2): 54.7 ml LAV(MOD-sp4): 61.6 ml EDV(sp4-el): 81.6 ml EDV(sp2-el): 53.6 ml LVAs ap4: 16.8 cm2 LVAs ap2: 14.4 cm2 LVLs ap4: 7.0 cm LVLs ap2: 7.6 cm ESV(MOD-sp4): 37.1 ml ESV(MOD-sp2): 24.2 ml ESV(sp4-el): 34.2 ml ESV(sp2-el): 23.0 ml EF(MOD-sp4): 55.0 % EF(MOD-sp2): 55.7 % EF(sp4-el): 58.0 % SV(MOD-sp4): 45.4 ml SV(MOD-sp2): 30.5 ml SV(sp4-el): 47.4 ml LA dimension(2D): 4.8 cm LA A4 area: 22.1 cm2 RA A4 area: 19.4 cm2 Doppler Measurements & Calculations MV E max usha: 85.6 cm/sec Ao V2 max: 132.3 cm/sec LV V1 max: 82.3 cm/sec Ao max P.0 mmHg LV V1 max P.7 mmHg PA V2 max: 109.8 cm/sec TR max usha: 309.8 cm/sec TR max P.4 mmHg ECHO/Echo Complete Interpretation Summary The estimated ejection fraction is EF 55-60 %. Mild TR RVSP calculated 43 mmhg consistent with Mild Pulmonary hypertension Small pericardial effusion with no haemodynamic comprimize Increased RVSP in comparison with echo in 04/2020(36mmhg) Ordering Physician: Claudine Rangel Referring Physician: Kiara Spence Performed By: Krystina Lewis, VALERIE, RVT
--- NOTE | 2021-04-29 18:50 | HP.PCM.HOS_ITS ---
HPI - General General Date of Admission: 04/29/21 Date of Service: 04/29/21 Chief Complaint: Fever HPI Narrative LUKE MENDEZ, is a 75 M who presents presents to the emergency room from referral from his oncologist office for low blood pressure. Patient was evaluated the emergency room and they are concerned about underlying infection and want to bring the patient in so that he could be monitored not started on antibiotics. I discussed with emergency room physician initially if he is stable it would not necessarily be warranted for the patient to stay in the hospital just to watch on echo be done at home. Later orthostatic vital signs were checked and patient was profoundly orthostatic and did receive fluids but was still remained orthostatic. Patient states that this is not uncommon. Patient initially was reticent to be admitted but did request a cardiology evaluation. Dr. Watkins was contacted through the emergency room and I would agree to see the patient in consultation. Patient states that he has just been having a fever and today was 103.5. Had been on levofloxacin which he had completed about a day prior. He stated that he is still having fevers despite that. [facility] Medical History Arthritis Degenerative disc disease Hyperlipidemia Hypertension Moderate persistent asthma Patent foramen ovale Renal cancer Thyroid nodule Home Medications montelukast 10 mg PO QHS 07/01/19 [History Last Taken 04/28/21] simvastatin 20 mg tablet 20 mg PO QHS 07/04/19 [History Last Taken 04/28/21] albuterol sulfate 2 puff INHALATION Q6H PRN PRN 07/28/19 [History Last Taken Unknown] acetaminophen 650 mg PO Q6H PRN PRN tab 07/30/19 [Rx Last Taken Unknown] apixaban 5 mg tablet 2.5 mg PO BID tab 09/25/19 [History Last Taken 04/29/21] doxazosin 4 mg PO QHS 04/19/21 [History Last Taken 04/28/21] duloxetine 30 mg PO DAILY 04/19/21 [History Last Taken 04/29/21] fluticasone furoate-vilanterol [Breo Ellipta] 1 inh INHALATION DAILY 04/19/21 [History Last Taken 04/29/21] albuterol sulfate 2.5 mg INHALATION Q6H PRN 04/29/21 [History Last Taken Unknown] diazepam 5 mg PO QHS PRN 04/29/21 [History Last Taken 01/29/21] oxycodone myristate [Xtampza ER] 18 mg PO BID 04/29/21 [History Last Taken 04/29/21 07:30] Allergy/AdvReac Type Severity Reaction Status Date / Time No Known Allergies Allergy Verified 04/29/21 10:41 Family History Mother Colon cancer Father Emphysema lung Surgical History History of cystoscopy (06/22/17) History of repair of right rotator cuff History of right nephrectomy (~07/09/19) history of transrectal biopsy ultrasound (06/22/17) Post-circumcision adhesion of penis (2014) Social History Smoking Status: Never smoker second hand exposure: No alcohol intake: current alcohol intake frequency: a few times a month substance use type: does not use caffeine: Yes what type of physical activity do you participate in: bicycling frequency: 5-6 times per week duration: other details: 15 miles seatbelt use: always ROS ROS Narrative No shortness of breath. No chest pain. No rashes. All review of systems were negative except as mentioned above in the history of present illness and the other review of systems. Vital Signs Vital Signs Vital Signs: 04/29/21 10:38 04/29/21 11:10 04/29/21 11:16 Temperature 36.6 C 36.6 C Temperature Source Temporal Temporal Pulse Rate 112 H 91 Pulse Rate [Lying] Pulse Rate [Sitting] Pulse Rate [Standing] Respiratory Rate 18 16 Respiratory Effort Non-Labored Short of Breath Respiratory Pattern Normal Blood Pressure 90/58 L 111/72 Blood Pressure [Lying] Blood Pressure [Sitting] Blood Pressure [Standing] Blood Pressure Mean 68 85 Blood Pressure Mean [Lying] Blood Pressure Mean [Sitting] Blood Pressure Mean [Standing] Pulse Ox 91 98 Oxygen Delivery Method Room Air Nasal Cannula Oxygen Flow Rate (L/min) 2 04/29/21 12:00 04/29/21 13:00 04/29/21 14:00 Temperature 36.4 C L 36.8 C 36.6 C Temperature Source Temporal Temporal Temporal Pulse Rate 94 99 101 H Pulse Rate [Lying] Pulse Rate [Sitting] Pulse Rate [Standing] Respiratory Rate 18 19 H 18 Respiratory Effort Respiratory Pattern Blood Pressure 125/78 H 124/78 H 116/77 Blood Pressure [Lying] Blood Pressure [Sitting] Blood Pressure [Standing] Blood Pressure Mean 93 93 90 Blood Pressure Mean [Lying] Blood Pressure Mean [Sitting] Blood Pressure Mean [Standing] Pulse Ox 93 95 95 Oxygen Delivery Method Room Air Room Air Room Air Oxygen Flow Rate (L/min) 04/29/21 15:00 04/29/21 15:23 04/29/21 16:55 Temperature 36.6 C 36.6 C Temperature Source Temporal Temporal Pulse Rate 76 87 Pulse Rate [Lying] 92 Pulse Rate [Sitting] 91 Pulse Rate [Standing] 97 Respiratory Rate 20 H 17 Respiratory Effort Respiratory Pattern Blood Pressure 126/84 H 148/72 H Blood Pressure [Lying] 133/72 H Blood Pressure [Sitting] 152/99 H Blood Pressure [Standing] 96/78 Blood Pressure Mean 98 97 Blood Pressure Mean [Lying] 92 Blood Pressure Mean [Sitting] 116 Blood Pressure Mean [Standing] 84 Pulse Ox 96 98 Oxygen Delivery Method Room Air Nasal Cannula Oxygen Flow Rate (L/min) 2 04/29/21 16:56 04/29/21 18:17 Temperature 36.4 C L Temperature Source Temporal Pulse Rate 82 Pulse Rate [Lying] 98 Pulse Rate [Sitting] 83 Pulse Rate [Standing] 87 Respiratory Rate 18 Respiratory Effort Respiratory Pattern Blood Pressure 97/67 Blood Pressure [Lying] 114/84 H Blood Pressure [Sitting] 146/82 H Blood Pressure [Standing] 164/87 H Blood Pressure Mean 77 Blood Pressure Mean [Lying] 94 Blood Pressure Mean [Sitting] 103 Blood Pressure Mean [Standing] 112 Pulse Ox 97 Oxygen Delivery Method Room Air Oxygen Flow Rate (L/min) Weight Weight: 74.389 kg Body Mass Index (BMI) 22.2 Physical Exam Const alert General Appearance: cooperative HEENT normocephalic Eyes PERRL Resp normal respiratory effort Resp Narrative: Bibasilar crackles Cardio regular rate, regular rhythm, S1 normal heart sound and S2 normal heart sound GI normal to inspection, nondistended, normoactive bowel sounds, non-tender and non-distended Extremity normal to inspection Skin no rashes or lesions noted Neuro Sensorium / Orientation: awake and alert Psych affect normal Results Lab / Micro Data Attestation: I reviewed the patient's lab results. Result Diagrams: 04/29/21 11:10 04/29/21 11:10 Labs: Laboratory Results - last 24 hr 04/29/21 04/29/21 04/29/21 11:10 11:10 11:10 WBC 6.7 RBC 3.17 L Hgb 8.9 L Hct 28.5 L MCV 89.9 MCH 28.1 MCHC 31.2 L RDW Std Deviation 50.1 H RDW Coeff of Santana 15.2 H Plt Count 219 MPV 10.2 Immature Gran % (Auto) 3.400 H Neut % (Auto) 77.1 H Lymph % (Auto) 7.4 L [place] % (Auto) 11.4 H Eos % (Auto) 0.4 Baso % (Auto) 0.3 Absolute Neuts (auto) 5.2 Absolute Lymphs (auto) 0.50 L Nucleated RBC % 0.7 Differential Comment COMMENT Sodium 134 L Potassium 4.4 Chloride 100 Carbon Dioxide 28.0 Anion Gap 6 BUN 32 H Creatinine 2.23 H Estim Creat Clear Calc 30.12 Est GFR (MDRD) Af Amer 37 L Est GFR (MDRD) Non-Af 31 L BUN/Creatinine Ratio 14.3 Glucose 161 H Lactic Acid 1.6 Calcium 8.6 Troponin I < 0.015 Urine Color Urine Clarity Urine pH Ur Specific [place] Urine Protein Urine Glucose (UA) Urine Ketones Urine Occult Blood Urine Nitrite Urine Bilirubin Urine Urobilinogen Ur Leukocyte Esterase Urine RBC Urine WBC Ur Squamous Epith Cells Urine Bacteria Urine Mucus 04/29/21 11:39 WBC RBC Hgb Hct MCV MCH MCHC RDW Std Deviation RDW Coeff of Santana Plt Count MPV Immature Gran % (Auto) Neut % (Auto) Lymph % (Auto) [place] % (Auto) Eos % (Auto) Baso % (Auto) Absolute Neuts (auto) Absolute Lymphs (auto) Nucleated RBC % Differential Comment Sodium Potassium Chloride Carbon Dioxide Anion Gap BUN Creatinine Estim Creat Clear Calc Est GFR (MDRD) Af Amer Est GFR (MDRD) Non-Af BUN/Creatinine Ratio Glucose Lactic Acid Calcium Troponin I Urine Color Yellow Urine Clarity Clear Urine pH 7.0 Ur Specific [place] 1.010 Urine Protein 100 H Urine Glucose (UA) Normal Urine Ketones Negative Urine Occult Blood 10 H Urine Nitrite Negative Urine Bilirubin Negative Urine Urobilinogen Normal Ur Leukocyte Esterase Negative Urine RBC 0 SEEN Urine WBC 0 SEEN Ur Squamous Epith Cells 0 SEEN Urine Bacteria 0 SEEN Urine Mucus 0 SEEN Rhythm Strip Rhythm Strip: A-fib Rate: 110 Ectopy: None Radiology Impression Chest X-Ray 04/29/21 12:03 IMPRESSION: Stable pleural parenchymal changes at the right lung. Electronically Signed: Lucho Bond MD at 12:24 EDT , Service support , Chest/Abdomen/Pelvis CT 04/29/21 12:39 IMPRESSION: Small bilateral pleural effusions with the findings suggestive of scarring in both lungs as described worse at the right lung base with evidence of bronchiectasis. Multiple small nodules are seen at the left lung base. Small to moderate-sized pericardial effusion. Bony metastasis as described. Prostatic indentation of the bladder base. Small diverticulum in the superior anterior aspect of the urinary bladder. Electronically Signed: Lucho Bond MD at 13:30 EDT , Service support , Assessment & Plan Assessment/Plan (1) Fever, unknown origin: PLAN: 1. Fever * Possibilities could be bilateral pneumonia but I did tell him that this could be related with radiation changes with radiation that he has received for spine and rib lesions. Other possibilities could be his underlying malignancy as patient stated that he did not have any improvement with the levofloxacin. * Cultures performed in the emergency room and currently pending. * Will treat the patient accordingly with pneumonia with ceftriaxone and a zithromycin. Check urinary antigens for Streptococcus and Legionella. 2. Orthostatic hypotension * Most recent patient dropped from 1 64-1 14 systolic from standing to lying, respectively. * Hold doxazosin * IV fluids and recheck 3. Paroxysmal atrial fibrillation * EKG here shows secondary AV block with Mobitz type I * Reviewing the patient's previous EKGs and patient did have A. fib noted 2019 * Cardiology consultation * Check echocardiogram * Anticoagulated on apixaban 4. Renal cell carcinoma * Metastatic lesions * Follow-up with medical and radiation oncology 5. VTE prophylaxis: Not indicated as patient is observation status but also already on anticoagulation. Case discussed with the patient's at bedside. Reviewed images with the patient as well as EKGs. Charges/Coding Visit Charges OBSV E&M: 44504 Initial observation care L3
[2021-04-29] MEDS: Ceftriaxone 1 GM/50 ML BAG IV (20:01)
[2021-04-29 20:16] LABS: Bedside Glucose 108 mg/dL (70-110)
[2021-04-29] MEDS: Albuterol 2.5 MG/3 ML VIAL.NEB. INHALATION (20:42)
[2021-04-29] MEDS: Budesonide Respules 0.5 MG/2 ML AMPUL.NEB. INHALATION (20:42)
[2021-04-29] MEDS: Montelukast 10 MG Tablet PO (22:10)
[2021-04-29] MEDS: oxyCODONE HCl Cr 10 MG Tablet 20 MG PO (22:10)
[2021-04-29] MEDS: Atorvastatin Calcium 10 MG Tablet PO (22:11)
[2021-04-29] MEDS: APIXABAN 2.5 MG TABLET PO (22:24)
[2021-04-30] VITALS (16 sets, daily range): BP systolic 108–138; BP diastolic 54–76; PULSE 80–109; RESP 16–20; TEMP 36.6–38.4; O2SAT 94–98
[2021-04-30] MEDS: 0.9% Normal Saline 1,000 ML 150 ML IV ×2 (03:22→10:36)
[2021-04-30 06:36] LABS: Bedside Glucose 103 mg/dL (70-110)
[2021-04-30 06:40] LABS: Absolute Lymphocyte Count 0.63 X10^3/uL (0.83-4.51); Absolute Neutrophil Count 3.6 X10^3/uL (2.0-7.7); Basophil# 0.01 X10^3/uL; Basophil% 0.2 % (0-1); Eosinophil# 0.04 X10^3/uL; Eosinophils% 0.8 % (0-5); Hemoglobin 7.8 g/dL (13.0-16.5); Lymphocyte # 0.63 X10^3/ul (0.83-4.51); Lymphocyte % 12.2 % (19-41); Mean Corp Hgb Conc 31.2 g/dL (32-36); Mean Corpuscular Volume 89.6 fL (80-94); Mean Platelet Vol. 10.2 fl (6.2-12.0); Monocyte# 0.74 X10^3/uL; Monocyte% 14.3 % (0-10); NRBC Flagged by Analyzer 0.8 % (0-5); Neutrophil # 3.57 X10^3/uL (2.7-7.7); Platelet Count 237 K/mm3 (150-450); RBC Distribution Width CV 15.5 % (11.6-14.6); RBC Distribution Width SD 50.5 fl (35.1-43.9); Red Blood Count 2.79 M/mm3 (4.6-6.2); White Blood Count 5.2 K/mm3 (4.4-11.0)
[2021-04-30 06:57] LABS: International Normalized Ratio 1.4; Prothrombin Time (Protime)PT. 16.5 SECONDS (11.7-14.9)
[2021-04-30 07:19] LABS: Anion Gap 6 (5-15); BUN 26 mg/dL (7-18); Calcium,Total 8.2 mg/dL (8.5-10.1); Chloride 105 mmol/L (98-107); Creatinine, Serum 1.53 mg/dL (0.70-1.30); EST Glomerular Filtration Rate 47 mL/min (>60); Est Glom Filt Rate - Afr Amer 57 mL/min (>60); Estimated Creatinine Clearance 43.72 ml/min; Glucose 98 mg/dL (74-106); Potassium 4.1 mmol/L (3.5-5.1); Sodium Level 137 mmol/L (136-145); Thyroid Stim Hormone (TSH) 0.91 uIU/mL (0.358-3.74)
--- NOTE | 2021-04-30 08:27 | NURSING ---
Patient temperature elevated 101.3. Offered Tylenol per order, patient refused. Will recheck vital signs and monitor.
[2021-04-30] MEDS: APIXABAN 2.5 MG TABLET PO ×2 (10:37→21:27)
[2021-04-30] MEDS: DULoxetine Hcl 30 MG Capsule PO (10:37)
[2021-04-30] MEDS: oxyCODONE HCl Cr 10 MG Tablet 20 MG PO ×2 (10:38→21:29)
[2021-04-30 10:45] LABS: Bedside Glucose 115 mg/dL (70-110)
--- NOTE | 2021-04-30 10:53 | NURSING ---
Blood Glucose 115
--- NOTE | 2021-04-30 12:05 | CASEMGMT ---
TAWNYA EDWARDS Face to Face with patient for initial transition planning/care coordination assessment. RN CM introduced self and role at [facility]. Patient lying in bed, alert and oriented, family at bedside. Patient willing to participate in assessment and is able to answer all questions appropriately. Care providers, pharmacy, and demographics verified. Patient wishes to discharge home, denies need for home health at this time. Patient states he has no further needs or concerns at this time. CM to follow for discharge planning needs that may arise. PCP: Jordy Specialists: Kofi oncologist Preferred Pharmacy: [facility] Insurance: Christian VELASQUEZ Prescription Benefit: yes Living Will/HPOA: yes, Eden King LNOK: , daughters Living Arrangements: Patient lives with in a 2 story home with bed and bath on first floor. Patient states he is independent at home. Transportation: self/ DME/HHC: Patient states he has a walker and nebulizer. Patient has had [facility] HHC in the past. Will monitor for need for home oxygen. Patient provided with list of DME providers and patient prefers [employer]. Disposition Plan: Patient to discharge home with family support and follow-up plans in place. Lisette OMALLEY, RN, CM
--- NOTE | 2021-04-30 15:15 | CON.PCM.CA_ITS ---
Assessment & Plan Assessment/Plan (1) Fever, unknown origin: (2) Syncope: (3) Orthostatic hypotension: PLAN: Patient 75-year-old seen today at bedside with the nursing staff. Patient has metastatic renal cell carcinoma status post right nephrectomy. Admitted from the oncologist office with hypotension and had fever. Here on progressive care unit he has abnormal cardiac rhythm with evidence of Mobitz type I AV block Currently he is not on any beta-lisa or AV blocking medication He had fever with a negative urine test and pending blood culture result Cardiac exam essentially normal Chest exam has bilateral inspiratory rales Review of the echocardiogram showed LV function is preserved with mild pulmonary hypertension Assessment and plan; 1. Patient had a history of paroxysmal atrial fibrillation and has been on anticoagulation. 2. We will start on heparin 3. He had syncope with dizziness, underlying etiology will be sick sinus syndrome, will continue to monitor on telemetry 4. Would recommend loop recorder implant for further evaluation. 5. We will need further evaluation for the sick sinus syndrome with possible loop recorder implant and once is stable and fever has been evaluated and is sta ble clinically possible consideration for pacemaker implant. (4) Paroxysmal atrial fibrillation: (5) H/O right nephrectomy: (6) Bone metastasis: (7) Moderate persistent asthma: (8) Degenerative disc disease: HPI Consult Data Date of Consult: 04/30/21 HPI Narrative Reason for Consultation: Admitted from oncologist office with hypertension and syncope with fever HPI Narrative: LUKE MENDEZ, is a 75 M who presents [facility] Medical History Arthritis Degenerative disc disease Hyperlipidemia Hypertension Moderate persistent asthma Patent foramen ovale Renal cancer Thyroid nodule Home Medications montelukast 10 mg PO QHS 07/01/19 [History Last Taken 04/28/21] simvastatin 20 mg tablet 20 mg PO QHS 07/04/19 [History Last Taken 04/28/21] albuterol sulfate 2 puff INHALATION Q6H PRN PRN 07/28/19 [History Last Taken Unknown] acetaminophen 650 mg PO Q6H PRN PRN tab 07/30/19 [Rx Last Taken Unknown] apixaban 5 mg tablet 2.5 mg PO BID tab 09/25/19 [History Last Taken 04/29/21] doxazosin 4 mg PO QHS 04/19/21 [History Last Taken 04/28/21] duloxetine 30 mg PO DAILY 04/19/21 [History Last Taken 04/29/21] fluticasone furoate-vilanterol [Breo Ellipta] 1 inh INHALATION DAILY 04/19/21 [History Last Taken 04/29/21] albuterol sulfate 2.5 mg INHALATION Q6H PRN 04/29/21 [History Last Taken Unknown] diazepam 5 mg PO QHS PRN 04/29/21 [History Last Taken 01/29/21] oxycodone myristate [Xtampza ER] 18 mg PO BID 04/29/21 [History Last Taken 04/29/21 07:30] Allergy/AdvReac Type Severity Reaction Status Date / Time No Known Allergies Allergy Verified 04/29/21 10:41 Family History Mother Colon cancer Father Emphysema lung Surgical History History of cystoscopy (06/22/17) History of repair of right rotator cuff History of right nephrectomy (~07/09/19) history of transrectal biopsy ultrasound (06/22/17) Post-circumcision adhesion of penis (2014) Social History Smoking Status: Never smoker second hand exposure: No alcohol intake: current alcohol intake frequency: a few times a month substance use type: does not use caffeine: Yes what type of physical activity do you participate in: bicycling frequency: 5-6 times per week duration: other details: 15 miles seatbelt use: always Physical Exam Narrative At bedside today along with the nursing staff Has shortness of breath on minimal exertion walking to the bathroom And also noted to have orthostatic hypotension with a blood pressure lying 137/71 understanding his blood pressure 108/61 with tachycardia heart rate of 108 Review of the monitoring analyst revealed underlying sinus with first degree AV block and Mobitz type I Cardiac exam S1-S2 is regular there is no murmur Chest exam has bilateral inspiratory rales Examination abdomen soft Patient had left nephrectomy scar. Examination lower extremity no clubbing no cyanosis no lower extremity edema Examination of central nervous system no focal neurological deficit. Objective Data Vital Signs: Vital Signs Temp Pulse Resp BP Pulse Ox 99.0 F 96 18 124/68 H 95 06/12/21 10:30 04/30/21 10:30 04/30/21 14:00 04/30/21 10:30 04/30/21 10:30 Oxygen Flow Rate (L/min) 3.5 Oxygen Delivery Method Nasal Cannula Weight: 163 lb 5.655 oz Body Mass Index (BMI) 22.1 Orthostatic Vital Signs Start: 04/29/21 22:29 Freq: 0600 Status: Active Protocol: Activity Type Activity Date Activity User E-Sign Co-Sign Detail Recorded Client Recorded Date Recorded By Document 04/30/21 05:49 AF [id number] 04/30/21 05:49 AF 04/30/21 05:49 Orthostatic Vitals Standing -Blood Pressure (90/60-120/80) 108/61 -Extremity Use Left Arm -Pulse Rate (60-100) 108 H Sitting -Blood Pressure (90/60-120/80) 118/54 L -Extremity Use Left Arm Lying -Blood Pressure (90/60-120/80) 137/71 H -Extremity Use Left Arm -Pulse Rate (60-100) 96 Intake & Output: Intake and Output for Last 24 Hours 04/28/21 04/29/21 04/30/21 23:59 23:59 23:59 Intake Total 1305 / 1605 2917.5 / 2917.5 Output Total 200 / 200 Balance 1305 / 1605 2717.5 / 2717.5 Lab / Micro Data Result Diagrams: 04/30/21 06:08 04/30/21 06:08 Labs: Laboratory Results - last 24 hr 04/29/21 04/30/21 04/30/21 20:12 06:08 06:08 WBC 5.2 RBC 2.79 L Hgb 7.8 L Hct 25.0 L MCV 89.6 MCH 28.0 MCHC 31.2 L RDW Std Deviation 50.5 H RDW Coeff of [place]ana 15.5 H Plt Count 237 MPV 10.2 Immature Gran % (Auto) 3.500 H Neut % (Auto) 69.0 Lymph % (Auto) 12.2 L [place] % (Auto) 14.3 H Eos % (Auto) 0.8 Baso % (Auto) 0.2 Absolute Neuts (auto) 3.6 Absolute Lymphs (auto) 0.63 L Nucleated RBC % 0.8 PT 16.5 H INR 1.4 Sodium Potassium Chloride Carbon Dioxide Anion Gap BUN Creatinine Estim Creat Clear Calc Est GFR (MDRD) Af Amer Est GFR (MDRD) Non-Af BUN/Creatinine Ratio Glucose Calcium TSH POC Glucose 108 04/30/21 04/30/21 04/30/21 06:08 06:33 10:33 WBC RBC Hgb Hct MCV MCH MCHC RDW Std Deviation RDW Coeff of [place]ana Plt Count MPV Immature Gran % (Auto) Neut % (Auto) Lymph % (Auto) [place] % (Auto) Eos % (Auto) Baso % (Auto) Absolute Neuts (auto) Absolute Lymphs (auto) Nucleated RBC % PT INR Sodium 137 Potassium 4.1 Chloride 105 Carbon Dioxide 26.0 Anion Gap 6 BUN 26 H Creatinine 1.53 H Estim Creat Clear Calc 43.72 Est GFR (MDRD) Af Amer 57 L Est GFR (MDRD) Non-Af 47 L BUN/Creatinine Ratio 17.0 Glucose 98 Calcium 8.2 L TSH 0.91 POC Glucose 103 115 H Rhythm Strip Rhythm Strip: A-fib Rate: 110 Ectopy: None Cardiology Labs/Tests 04/30/21 06:08: WBC 5.2, RBC 2.79 L, Hgb 7.8 L, Hct 25.0 L, MCV 89.6, MCH 28.0, MCHC 31.2 L, Plt Count 237, MPV 10.2, Immature Gran % (Auto) 3.500 H, Neut % (Auto) 69.0, Lymph % (Auto) 12.2 L, [place] % (Auto) 14.3 H, Eos % (Auto) 0.8, Baso % (Auto) 0.2, Absolute Neuts (auto) 3.6, Nucleated RBC % 0.8 04/30/21 06:08: PT 16.5 H, INR 1.4 04/30/21 06:08: Sodium 137, Potassium 4.1, Chloride 105, Carbon Dioxide 26.0, Anion Gap 6, BUN 26 H, Creatinine 1.53 H, Est GFR (MDRD) Af Amer 57 L, Est GFR (MDRD) Non-Af 47 L, BUN/Creatinine Ratio 17.0, Glucose 98, Calcium 8.2 L Rhythm: Mobitz type I AV block EKG: Abnormal electrocardiogram, Mobitz type I AV block ECHO: Normal LV systolic function, mild pulmonary hypertension Radiography Diagnostic Testing: Radiology Impression Echocardiogram 04/29/21 17:52 Interpretation Summary The estimated ejection fraction is EF 55-60 %. Mild TR RVSP calculated 43 mmhg consistent with Mild Pulmonary hypertension Small pericardial effusion with no haemodynamic comprimize Increased RVSP in comparison with echo in 04/2020(36mmhg) Ordering Physician: Claudine Rangel Referring Physician: Kiara Spence Performed By: Krystina Lewis, VALERIE, RVT
[2021-04-30] MEDS: Furosemide 20 MG/2 ML VIAL IV (18:09)
--- NOTE | 2021-04-30 19:52 | NURSING ---
DR LOGAN CALLED STATES HE IS NO LONGER PLANNING A PACEMAKER BUT [employer]AD IS PLANNING TO MONITOR HIM WITH AN EVENT MONITOR AT DISCHARGE. ORDER TO RESUME ELIQUIS AND DC HEPARIN RECEIVED.
[2021-04-30] MEDS: Montelukast 10 MG Tablet PO (21:27)
[2021-04-30] MEDS: Atorvastatin Calcium 10 MG Tablet PO (21:28)
[2021-04-30 22:00] LABS: Bedside Glucose 118 mg/dL (70-110)
[2021-05-01] VITALS (10 sets, daily range): BP systolic 107–137; BP diastolic 64–82; PULSE 75–119; RESP 16–18; TEMP 36.9–37.3; O2SAT 87–95
[2021-05-01 05:34] LABS: Anion Gap 6 (5-15); Chloride 105 mmol/L (98-107); Potassium 4.2 mmol/L (3.5-5.1); Sodium Level 138 mmol/L (136-145)
--- NOTE | 2021-05-01 07:58 | PN.HOSP_ITS ---
Subjective Subjective Late entry note: Patient was seen and examined on 04/30/21 am. He was seen and examined. He denied any new complains. Objective Data Objective Data Vital Signs: Vital Signs Temp Pulse Resp BP Pulse Ox 98.5 F 92 16 107/64 94 05/01/21 07:20 05/01/21 07:34 05/01/21 07:20 05/01/21 07:20 05/01/21 07:20 Oxygen Flow Rate (L/min) 3 Oxygen Delivery Method Nasal Cannula Weight: 74.096 kg Body Mass Index (BMI) 22.1 Orthostatic Vital Signs Start: 04/29/21 22:29 Freq: Q12H Status: Active Protocol: Activity Type Activity Date Activity User E-Sign Co-Sign Detail Recorded Client Recorded Date Recorded By Document 05/01/21 07:20 AF [id number] 05/01/21 07:38 AF 05/01/21 07:20 Orthostatic Vitals Standing -Blood Pressure (90/60-120/80) 132/71 H -Extremity Use Left Arm -Pulse Rate (60-100) 75 Sitting -Blood Pressure (90/60-120/80) 130/73 H -Extremity Use Left Arm -Pulse Rate (60-100) 91 Lying -Blood Pressure (90/60-120/80) 107/64 -Extremity Use Left Arm -Pulse Rate (60-100) 114 H Intake & Output: Intake and Output for Last 24 Hours 04/29/21 04/30/21 05/01/21 23:59 23:59 23:59 Intake Total 1305 / 1605 4347.5 / 4347.5 200 / 200 Output Total 400 / 400 Balance 1305 / 1605 3947.5 / 3947.5 200 / 200 Lab / Micro Data Result Diagrams: 05/01/21 07:36 05/01/21 07:36 Labs: Laboratory Results - last 24 hr 04/30/21 04/30/21 05/01/21 10:33 21:54 04:39 Sodium 138 Potassium 4.2 Chloride 105 Carbon Dioxide 27.0 Anion Gap 6 POC Glucose 115 H 118 H Micro: Microbiology 04/29/21 11:48 Blood Culture (Wb) - Anticubital Right Blood Culture - Preliminary No growth in 48 hours. 04/29/21 11:10 Blood Culture (Wb) - Anticubital Right Blood Culture - Preliminary No growth in 48 hours. Radiography Diagnostic Testing: Radiology Impression Echocardiogram 04/29/21 17:52 Interpretation Summary The estimated ejection fraction is EF 55-60 %. Mild TR RVSP calculated 43 mmhg consistent with Mild Pulmonary hypertension Small pericardial effusion with no haemodynamic comprimize Increased RVSP in comparison with echo in 04/2020(36mmhg) Ordering Physician: Claudine Rangel Referring Physician: Kiara Spence Performed By: Krystina Lewis, VALERIE, RVT Rhythm Strip Rhythm Strip: A-fib Rate: 110 Ectopy: None Physical Exam Narrative General: Alert, Oriented x3, Cooperative, No apparent distress HEENT: Atraumatic, PERRLA, EOMI, Normocephalic Oral: Moist Mucosa Neck: Supple Lungs: Normal air movement, Diminished Cardiovascular: Regular rate, Regular Rhythm, Normal S1, Normal S2, No murmurs Abdomen: Bowel Sounds Present, Soft, Non Tender, Non-Distended, No Hepato- splenomegaly Extremities: No edema Skin: No rashes Neurological: Cranial nerves II-XII grossly intact, Neuro grossly intact Psych/Mental Status: Normal Affect, Appropriate Assessment & Plan Assessment/Plan (1) Fever, unknown origin: (2) Syncope: QUALIFIERS: Syncope type: unspecified Qualified Code(s): R55 - Syncope and collapse (3) DARREL (acute kidney injury): (4) Orthostatic hypotension: (5) Bradycardia: PLAN: 1. Recurrent episodes of syncope likely secondary to dehydration Patient's orthostatic vitals were positive, continue on IV fluids 2. Fever of unknown origin, presumed pneumonia No fever since admission, no WBC count Continue on IV ceftriaxone azithromycin, check urine Legionella and streptococcal antigen 3. DARREL on CKD stage IIIa, admitting creatinine was 2.23, baseline creatinine is between 1.3?1.4 Creatinine today is 1.53, will continue on IV fluids 4. Bradycardia, history of paroxysmal A. fib, EKG shows second-degree AV block, Mobitz 1, cardiology consulted 2D echo pending 5. Rest of chronic medical problems including renal cancer, anemia all remained stable Patient will follow up with oncology in the outpatient Charges/Coding Visit Charges Inpatient E&M: 35330 Subs Hosp L2
[2021-05-01 08:06] LABS: Hematocrit 25.2 % (40-54); Hemoglobin 7.9 g/dL (13.0-16.5); Mean Corp Hgb Conc 31.3 g/dL (32-36); Mean Corpuscular Hgb 28.5 pg (27.0-32.0); POSITIVE COUNT YES; POSITIVE MORPHOLOGY YES; Platelet Count 289 K/mm3 (150-450); RBC Distribution Width CV 15.6 % (11.6-14.6); RBC Distribution Width SD 52.3 fl (35.1-43.9); Red Blood Count 2.77 M/mm3 (4.6-6.2)
[2021-05-01 08:07] LABS: Differential Indicated MANUAL DIFF
[2021-05-01 08:15] LABS: Magnesium 1.8 mg/dL (1.6-2.6)
[2021-05-01 08:23] LABS: ALB/GLOB Ratio 0.5 RATIO (0.9-2.4); AST(SGOT) 31 U/L (15-37); Alanine Aminotransfer ALT/SGPT 34 U/L (16-61); Alkaline Phosphatase 113 U/L (45-117); Anion Gap 8 (5-15); BUN 20 mg/dL (7-18); BUN/Creat Ratio 14.6 RATIO (10-20); Calcium,Total 8.4 mg/dL (8.5-10.1); Chloride 106 mmol/L (98-107); Creatinine, Serum 1.37 mg/dL (0.70-1.30); EST Glomerular Filtration Rate 54 mL/min (>60); Est Glom Filt Rate - Afr Amer 65 mL/min (>60); Estimated Creatinine Clearance 48.83 ml/min; Globulin 3.8 g/dL (2.2-4.2); Glucose 94 mg/dL (74-106); Potassium 4.1 mmol/L (3.5-5.1); Protein, Total 5.8 g/dL (6.4-8.2); Sodium Level 138 mmol/L (136-145)
[2021-05-01 08:47] LABS: Eosinophil 5 % (0-5); Lymphocyte 29 % (19-41); Metamyelocyte 7 % (0-1); Monocyte 1 % (0-10); Neutrophil-Band 1 % (0-5); Neutrophil-Segmented 57 % (47-70); Platelet Estimate ADEQUATE (ADEQ); Total Cells Counted 100 (MANUAL DIFF)
[2021-05-01 08:48] LABS: Red Cell Morphology NORM C+C NORMAL (NORM C&C)
[2021-05-01 08:49] LABS: Absolute Lymphocyte Count 1.73 X10^3/uL (0.83-4.51); Absolute Neutrophil Count 3.5 X10^3/uL (2.0-7.7); Lymphocyte # 1.73 X10^3/ul (0.83-4.51); Neutrophil # 3.46 X10^3/uL (2.7-7.7)
[2021-05-01] MEDS: APIXABAN 2.5 MG TABLET PO (10:34)
[2021-05-01] MEDS: DULoxetine Hcl 30 MG Capsule PO (10:34)
[2021-05-01] MEDS: oxyCODONE HCl Cr 10 MG Tablet 20 MG PO (10:34)
--- NOTE | 2021-05-01 12:53 | PN.CARD_ITS ---
Subjective Subjective Seen today at bedside, at bedside at time of evaluation Feeling better still having shortness of breath on exertion Has no active chest pain or palpitation. Objective Data Vital Signs: Vital Signs Temp Pulse Resp BP Pulse Ox 98.4 F 78 16 118/76 94 05/01/21 11:21 05/01/21 11:21 05/01/21 11:21 05/01/21 11:21 05/01/21 11:21 Oxygen Flow Rate (L/min) 3 Oxygen Delivery Method Nasal Cannula Weight: 163 lb 5.655 oz Body Mass Index (BMI) 22.1 Orthostatic Vital Signs Start: 04/29/21 22:29 Freq: Q12H Status: Active Protocol: Activity Type Activity Date Activity User E-Sign Co-Sign Detail Recorded Client Recorded Date Recorded By Document 05/01/21 07:20 AF [id number] 05/01/21 07:38 AF 05/01/21 07:20 Orthostatic Vitals Standing -Blood Pressure (90/60-120/80) 132/71 H -Extremity Use Left Arm -Pulse Rate (60-100) 75 Sitting -Blood Pressure (90/60-120/80) 130/73 H -Extremity Use Left Arm -Pulse Rate (60-100) 91 Lying -Blood Pressure (90/60-120/80) 107/64 -Extremity Use Left Arm -Pulse Rate (60-100) 114 H Intake & Output: Intake and Output for Last 24 Hours 04/29/21 04/30/21 05/01/21 23:59 23:59 23:59 Intake Total 1305 / 1605 4347.5 / 4347.5 954 / 954 Output Total 400 / 400 200 / 200 Balance 1305 / 1605 3947.5 / 3947.5 754 / 754 Lab / Micro Data Result Diagrams: 05/01/21 07:36 05/01/21 07:36 Labs: Laboratory Results - last 24 hr 04/30/21 05/01/21 05/01/21 21:54 04:39 04:39 WBC RBC Hgb Hct MCV MCH MCHC RDW Std Deviation RDW Coeff of Santana Plt Count MPV Neut % (Auto) Absolute Neuts (auto) Absolute Lymphs (auto) Total Counted Neutrophils % (Manual) Band Neutrophils % Lymphocytes % (Manual) Monocytes % (Manual) Eosinophils % (Manual) Metamyelocytes % Diff Path Review Platelet Estimate RBC Morphology Sodium 138 Potassium 4.2 Chloride 105 Carbon Dioxide 27.0 Anion Gap 6 BUN Creatinine Estim Creat Clear Calc Est GFR (MDRD) Af Amer Est GFR (MDRD) Non-Af BUN/Creatinine Ratio Glucose Calcium Magnesium 1.8 Total Bilirubin AST ALT Alkaline Phosphatase Total Protein Albumin Globulin Albumin/Globulin Ratio POC Glucose 118 H 05/01/21 05/01/21 07:36 07:36 WBC 6.0 RBC 2.77 L Hgb 7.9 L Hct 25.2 L MCV 91.0 MCH 28.5 MCHC 31.3 L RDW Std Deviation 52.3 H RDW Coeff of Santana 15.6 H Plt Count 289 MPV 10.0 Neut % (Auto) Not Reportable Absolute Neuts (auto) 3.5 Absolute Lymphs (auto) 1.73 Total Counted 100 Neutrophils % (Manual) 57 Band Neutrophils % 1 Lymphocytes % (Manual) 29 Monocytes % (Manual) 1 Eosinophils % (Manual) 5 Metamyelocytes % 7 H Diff Path Review May foll Platelet Estimate ADEQUATE RBC Morphology NORM C+C Sodium 138 Potassium 4.1 Chloride 106 Carbon Dioxide 24.0 Anion Gap 8 BUN 20 H Creatinine 1.37 H Estim Creat Clear Calc 48.83 Est GFR (MDRD) Af Amer 65 Est GFR (MDRD) Non-Af 54 L BUN/Creatinine Ratio 14.6 Glucose 94 Calcium 8.4 L Magnesium Total Bilirubin 0.40 AST 31 ALT 34 Alkaline Phosphatase 113 Total Protein 5.8 L Albumin 2.0 L Globulin 3.8 Albumin/Globulin Ratio 0.5 L POC Glucose Micro: Microbiology 04/29/21 11:48 Blood Culture (Wb) - Anticubital Right Blood Culture - Preliminary No growth in 48 hours. 04/29/21 11:10 Blood Culture (Wb) - Anticubital Right Blood Culture - Preliminary No growth in 48 hours. Rhythm Strip Rhythm Strip: A-fib Rate: 110 Ectopy: None Cardiology Labs/Tests 05/01/21 04:39: Sodium 138, Potassium 4.2, Chloride 105, Carbon Dioxide 27.0, Anion Gap 6 05/01/21 04:39: Magnesium 1.8 05/01/21 07:36: WBC 6.0, RBC 2.77 L, Hgb 7.9 L, Hct 25.2 L, MCV 91.0, MCH 28.5, MCHC 31.3 L, Plt Count 289, MPV 10.0, Neut % (Auto) Not Reportable, Absolute Neuts (auto) 3.5, Total Counted 100, Neutrophils % (Manual) 57, Band Neutrophils % 1, Lymphocytes % (Manual) 29, Monocytes % (Manual) 1, Eosinophils % (Manual) 5, Metamyelocytes % 7 H 05/01/21 07:36: Sodium 138, Potassium 4.1, Chloride 106, Carbon Dioxide 24.0, Anion Gap 8, BUN 20 H, Creatinine 1.37 H, Est GFR (MDRD) Af Amer 65, Est GFR (MDRD) Non-Af 54 L, BUN/Creatinine Ratio 14.6, Glucose 94, Calcium 8.4 L, Total Bilirubin 0.40 Rhythm: As underlying Mobitz type I AV block. EKG: Mobitz type I AV block Radiography Diagnostic Testing: Radiology Impression Echocardiogram 04/29/21 17:52 Interpretation Summary The estimated ejection fraction is EF 55-60 %. Mild TR RVSP calculated 43 mmhg consistent with Mild Pulmonary hypertension Small pericardial effusion with no haemodynamic comprimize Increased RVSP in comparison with echo in 04/2020(36mmhg) Ordering Physician: Claudine Rangel Referring Physician: Kiara Spence Performed By: Krystina Lewis, VALERIE, RVT Physical Exam Narrative Patient seen and examined at bedside today Also cardiac monitors have been reviewed and the underlying rhythm is a Mobitz type I AV block Symptoms of dizziness syncope shortness of breath improving gradually Cardiac examination S1-S2 is regular there is no murmur no systolic or diastolic murmur Chest examination has a minimal basilar rales more prominent in the left lower lobe Central nervous system exam no focal neurological deficit Examination lower extremity no clubbing no cyanosis no lower extremity edema. Assessment & Plan Assessment/Plan (1) Syncope: QUALIFIERS: Syncope type: unspecified Qualified Code(s): R55 - Syncope and collapse PLAN: 75-year-old patient with metastatic renal cell carcinoma Status post right nephrectomy Patient admitted from oncologist office with hypotension dizziness and syncope Noted has abnormal electrocardiogram and on quality assurance monitor body showed Mobitz type I AV block and also had orthostatic hypotension Patient had a history of paroxysmal atrial fibrillation, chronic renal insufficiency. On continuous monitor here and telemetry no evidence of high-grade AV block noted Plan and recommendations; I discussed I reviewed his current medication as well as echocardiographic findings With recommend loop recorder implant as an outpatient 2. High risk for stroke continue on anticoagulation with Eliquis renal dose 2.5 g twice a day He will follow-up with his primary cutter grinder Dr. Bella for loop recorder implant. (2) DARREL (acute kidney injury): (3) Orthostatic hypotension: (4) Paroxysmal atrial fibrillation: (5) H/O right nephrectomy: (6) Bone metastasis: (7) Hyperlipidemia: (8) Moderate persistent asthma: (9) Degenerative disc disease:
--- NOTE | 2021-05-01 13:15 | PCM.DC ---
Discharge Instructions Diet Discharge Diet: Low fat / Low cholesterol and 2000 mg Sodium Diet Activity Discharge Activity: Return to Normal Activity Follow Up Care Test Results: Test results from this visit will be discussed in further detail at your follow-up appointment, if applicable. Discharge Plan Admission Admit Date/Time: 04/29/21 18:29 Primary Reason for Your Visit: Recurrent syncope Attending Provider: Jessica Bro Primary Care Provider: Kiara Spence Consulting Providers: Ailyn Watkins Instructions Additional Instructions / Restrictions: Continue to keep yourself hydrated. You should follow-up with cardiology within a week for the loop recorder. Discharge Orders/Prescriptions Prescriptions: New cefdinir 300 mg capsule 300 mg PO Q12H Qty: 10 RF: 0 azithromycin 500 mg tablet 500 mg PO DAILY Qty: 2 RF: 0 Continued simvastatin 20 mg tablet 20 mg PO QHS RF: 0 Eliquis 5 mg tablet 2.5 mg PO BID RF: 0 montelukast 10 MG tablet 10 mg PO QHS RF: 0 albuterol sulfate 1 PUFF inhaler 2 puff inhalation Q6H PRN PRN (Reason: Sob &/Or Wheezing) RF: 0 acetaminophen 325 MG tablet 650 mg PO Q6H PRN PRN (Reason: Mild pain 1-3/Temp > 100.7 F) RF: 0 duloxetine 30 mg Capsule,Delayed Release(Dr/Ec) 30 mg PO DAILY RF: 0 Breo Ellipta 200-25 mcg/dose Blister With Device 1 inh INHALATION DAILY RF: 0 albuterol sulfate 2.5 mg /3 mL (0.083 %) solution for nebulization 2.5 mg inhalation Q6H PRN (Reason: Shortness Of Breath) RF: 0 diazepam 5 mg tablet 5 mg PO QHS PRN (Reason: Sleep) RF: 0 Xtampza ER 18 mg cap,sprinkl,ER12hr(DONT CRUSH) 18 mg PO BID RF: 0 Discontinued doxazosin 2 mg Tablet 4 mg PO QHS RF: 0 Referrals / Follow Up: Carter Bella MD [STAFF PHYSICIAN] - In 1 Week Kiara Spence DO [Primary Care Provider] - Willard Kirby DO [STAFF PHYSICIAN] - Within 2 Weeks Disposition Disposition (needs filled in before D/C Order can be placed): Home, self care
--- NOTE | 2021-05-01 13:19 | DS.PCM_ITS ---
Providers Date of Admission: 04/29/21 Date of Discharge: 05/01/21 Primary Care Physician: Dr. Kiara Spence, DO Consultations 04/29/21 18:28 Consult: Cardiology Routine Consulting Provider: Ailyn Watkins Reason for Consult: Syncope secondary to orthostatis hypotension. EMERGENT Consult: No MD Notified: Yes Date Notified: 04/29/21 Time Notified: 18:33 Method of Notification: Provider Initiated Reason For Visit: SYNCOPE Diagnosis Discharge Diagnosis (1) Syncope: Status: Resolved Code(s): R55 - Syncope and collapse Qualifiers: Syncope type: unspecified Qualified Code(s): R55 - Syncope and collapse (2) DARREL (acute kidney injury): Status: Resolved Code(s): N17.9 - Acute kidney failure, unspecified (3) Orthostatic hypotension: Status: Resolved Code(s): I95.1 - Orthostatic hypotension (4) Paroxysmal atrial fibrillation: Status: Chronic Code(s): I48.0 - Paroxysmal atrial fibrillation (5) H/O right nephrectomy: Status: Chronic Code(s): Z90.5 - Acquired absence of kidney (6) Bone metastasis: Status: Chronic Code(s): C79.51 - Secondary malignant neoplasm of bone (7) Hyperlipidemia: Status: Chronic Code(s): E78.5 - Hyperlipidemia, unspecified (8) Moderate persistent asthma: Status: Chronic Code(s): J45.40 - Moderate persistent asthma, uncomplicated (9) Degenerative disc disease: Status: Chronic Medications at Discharge Home Medications montelukast 10 mg PO QHS 07/01/19 simvastatin 20 mg tablet 20 mg PO QHS 07/04/19 albuterol sulfate 2 puff INHALATION Q6H PRN PRN 07/28/19 acetaminophen 650 mg PO Q6H PRN PRN tab 07/30/19 apixaban 5 mg tablet 2.5 mg PO BID tab 09/25/19 Breo Ellipta 1 inh INHALATION DAILY 04/19/21 duloxetine 30 mg PO DAILY 04/19/21 Xtampza ER 18 mg PO BID 04/29/21 albuterol sulfate 2.5 mg INHALATION Q6H PRN 04/29/21 diazepam 5 mg PO QHS PRN 04/29/21 azithromycin 500 mg PO DAILY #2 tab 05/01/21 cefdinir 300 mg PO Q12H #10 cap 05/01/21 Hospital Course Summary of Care Provided Minutes Spent on Discharge: 50 Hospital Course: 75-year-old male with multiple comorbidities who presented from his oncologist office with hypotension. Patient was recently treated for some infection of unknown etiology and completed Levaquin. Patient was profoundly orthostatic in the emergency room. He was started on IV fluids. His EKG showed second-degree A-V block with Mobitz 1. He had a fever of 103.5F. Patient's chest x-ray and CT of the abdomen and chest was suggestive of irregular infiltrates. He was managed empirically as pneumonia. He was continued on IV ceftriaxone and azithromycin. Patient continued to improve. He had acute kidney injury that was believed to be prerenal from dehydration that improved back to his baseline. Cardiology was consulted and recommended a loop recorder/pacemaker Patient remained on 2 L of oxygen at discharge. He was discharged home on oxygen. He will follow up with cardiology within a week for evaluation for loop recorder. He was discharged home on cefdinir for 5 days and 2 more days of azithromycin Physical Exam Narrative General: Alert, Oriented x3, Cooperative, No apparent distress HEENT: Atraumatic, PERRLA, EOMI, Normocephalic Oral: Moist Mucosa Neck: Supple Lungs: Normal air movement, Diminished Cardiovascular: Regular rate, Regular Rhythm, Normal S1, Normal S2, No murmurs Abdomen: Bowel Sounds Present, Soft, Non Tender, Non-Distended, No Hepato- splenomegaly Extremities: No edema Skin: No rashes Neurological: Cranial nerves II-XII grossly intact, Neuro grossly intact Psych/Mental Status: Normal Affect, Appropriate Weight / BMI Weight Weight: 74.096 kg Body Mass Index (BMI) 22.1 ABG / Lab / Microbiology Data Result Diagrams: 05/01/21 07:36 05/01/21 07:36 Laboratory: Laboratory Results - last 24 hr 04/30/21 05/01/21 05/01/21 21:54 04:39 04:39 WBC RBC Hgb Hct MCV MCH MCHC RDW Std Deviation RDW Coeff of Santana Plt Count MPV Neut % (Auto) Absolute Neuts (auto) Absolute Lymphs (auto) Total Counted Neutrophils % (Manual) Band Neutrophils % Lymphocytes % (Manual) Monocytes % (Manual) Eosinophils % (Manual) Metamyelocytes % Diff Path Review Platelet Estimate RBC Morphology Sodium 138 Potassium 4.2 Chloride 105 Carbon Dioxide 27.0 Anion Gap 6 BUN Creatinine Estim Creat Clear Calc Est GFR (MDRD) Af Amer Est GFR (MDRD) Non-Af BUN/Creatinine Ratio Glucose Calcium Magnesium 1.8 Total Bilirubin AST ALT Alkaline Phosphatase Total Protein Albumin Globulin Albumin/Globulin Ratio POC Glucose 118 H 05/01/21 05/01/21 07:36 07:36 WBC 6.0 RBC 2.77 L Hgb 7.9 L Hct 25.2 L MCV 91.0 MCH 28.5 MCHC 31.3 L RDW Std Deviation 52.3 H RDW Coeff of Santana 15.6 H Plt Count 289 MPV 10.0 Neut % (Auto) Not Reportable Absolute Neuts (auto) 3.5 Absolute Lymphs (auto) 1.73 Total Counted 100 Neutrophils % (Manual) 57 Band Neutrophils % 1 Lymphocytes % (Manual) 29 Monocytes % (Manual) 1 Eosinophils % (Manual) 5 Metamyelocytes % 7 H Diff Path Review May foll Platelet Estimate ADEQUATE RBC Morphology NORM C+C Sodium 138 Potassium 4.1 Chloride 106 Carbon Dioxide 24.0 Anion Gap 8 BUN 20 H Creatinine 1.37 H Estim Creat Clear Calc 48.83 Est GFR (MDRD) Af Amer 65 Est GFR (MDRD) Non-Af 54 L BUN/Creatinine Ratio 14.6 Glucose 94 Calcium 8.4 L Magnesium Total Bilirubin 0.40 AST 31 ALT 34 Alkaline Phosphatase 113 Total Protein 5.8 L Albumin 2.0 L Globulin 3.8 Albumin/Globulin Ratio 0.5 L POC Glucose Microbiology: Microbiology 04/29/21 11:48 Blood Culture - Preliminary Blood Culture (Wb) - Anticubital Right No growth in 48 hours. 04/29/21 11:10 Blood Culture - Preliminary Blood Culture (Wb) - Anticubital Right No growth in 48 hours. Microbiology 04/29/21 11:48 Blood Culture (Wb) - Anticubital Right Blood Culture - Preliminary No growth in 48 hours. 04/29/21 11:10 Blood Culture (Wb) - Anticubital Right Blood Culture - Preliminary No growth in 48 hours. Radiography Diagnostic Testing: Radiology Impression Echocardiogram 04/29/21 17:52 Interpretation Summary The estimated ejection fraction is EF 55-60 %. Mild TR RVSP calculated 43 mmhg consistent with Mild Pulmonary hypertension Small pericardial effusion with no haemodynamic comprimize Increased RVSP in comparison with echo in 04/2020(36mmhg) Ordering Physician: Claudine Rangel Referring Physician: Kiara Spence Performed By: Krystina Lewis, VALERIE, RVT D/C Instructions Discharge Diet: Low fat / Low cholesterol and 2000 mg Sodium Diet Meaningful Use Info Meaningful Use Diagnoses (Choose all that apply): None applicable Discharge Plan Admission Admit Date/Time: 04/29/21 18:29 Primary Reason for Your Visit: Recurrent syncope Attending Provider: Jessica Bro Primary Care Provider: Kiara Spence Consulting Providers: Ailyn Watkins Instructions Additional Instructions / Restrictions: Patient Problems: Altered Health Status related to Hospitalization Patient Goals: *Optimal Level of Health *Keep Appointments *Medication Compliance *Remain SafeContinue to keep yourself hydrated. You should follow-up with cardiology within a week for the loop recorder. Discharge Orders/Prescriptions Prescriptions: New cefdinir 300 mg capsule 300 mg PO Q12H Qty: 10 RF: 0 azithromycin 500 mg tablet 500 mg PO DAILY Qty: 2 RF: 0 Continued simvastatin 20 mg tablet 20 mg PO QHS RF: 0 Eliquis 5 mg tablet 2.5 mg PO BID RF: 0 montelukast 10 MG tablet 10 mg PO QHS RF: 0 albuterol sulfate 1 PUFF inhaler 2 puff inhalation Q6H PRN PRN (Reason: Sob &/Or Wheezing) RF: 0 acetaminophen 325 MG tablet 650 mg PO Q6H PRN PRN (Reason: Mild pain 1-3/Temp > 100.7 F) RF: 0 duloxetine 30 mg Capsule,Delayed Release(Dr/Ec) 30 mg PO DAILY RF: 0 Breo Ellipta 200-25 mcg/dose Blister With Device 1 inh INHALATION DAILY RF: 0 albuterol sulfate 2.5 mg /3 mL (0.083 %) solution for nebulization 2.5 mg inhalation Q6H PRN (Reason: Shortness Of Breath) RF: 0 diazepam 5 mg tablet 5 mg PO QHS PRN (Reason: Sleep) RF: 0 Xtampza ER 18 mg cap,sprinkl,ER12hr(DONT CRUSH) 18 mg PO BID RF: 0 Discontinued doxazosin 2 mg Tablet 4 mg PO QHS RF: 0 Referrals / Follow Up: Carter Bella MD [STAFF PHYSICIAN] - In 1 Week Kiara Spence DO [Primary Care Provider] - Willard Kirby DO [STAFF PHYSICIAN] - Within 2 Weeks Disposition Disposition (needs filled in before D/C Order can be placed): Home, self care Charges/Coding Visit Charges Inpatient E&M: 30508 Disch Hosp
--- NOTE | 2021-05-02 13:27 | NURSING ---
MARVIN DC F/u Call: DC Date: 04/29/21 Discharge Diagnosis: (1) Syncope (2) DARREL (acute kidney injury) (3) Orthostatic hypotension (4) Paroxysmal atrial fibrillation (5) H/O right nephrectomy (6) Bone metastasis (7) Hyperlipidemia (8) Moderate persistent asthma (9) Degenerative disc disease DC Disposition: Home Lace/Strata: 09/21 Called patient listed cell phone, forwarded to automated Vm with no patient identifier and therefore no VM left. MARVIN Caal
[2021-05-02 13:56] LABS: Pathologist Review Reviewed
== END 2021-05-01 16:42 | disposition home or self-care (01) | DRG 312 ==
LOC: ED 17:33 → PCU 19:10
PROVIDERS: Internal Medicine Interventional Cardiology; Physician Assistant; Emergency Provider Emergency Medicine; PCP Internal Medicine; Visit Provider Internal Medicine
DX: I95.1 Orthostatic hypotension (principal); J18.9 Pneumonia, unspecified organism; Q21.1 Atrial septal defect; N17.9 Acute kidney failure, unspecified; C64.1 Malignant neoplasm of right kidney, except renal pelvis; C79.51 Secondary malignant neoplasm of bone; I12.9 Hypertensive chronic kidney disease with stage 1 through stage 4 chronic kidney disease, or unspecified chronic kidney disease; N18.31 Chronic kidney disease, stage 3a; E86.0 Dehydration; I48.0 Paroxysmal atrial fibrillation; I27.20 Pulmonary hypertension, unspecified; J45.40 Moderate persistent asthma, uncomplicated; E04.1 Nontoxic single thyroid nodule; E78.5 Hyperlipidemia, unspecified; M19.90 Unspecified osteoarthritis, unspecified site; Z79.01 Long term (current) use of anticoagulants; Z79.899 Other long term (current) drug therapy; Z86.718 Personal history of other venous thrombosis and embolism; Z90.5 Acquired absence of kidney
CPT/HCPCS: 36415; 71045; 71250; 74176; 80048; 80051; 80053; 81001; 82962; 83605; 83735; 84443; 84484; 85025; 85610; 87040; 87449; 90471; 93005; 93306; 94640; 94667; 97161; 97165; 99285; J7030; J7040; A4216; J1940; J3490

== ENCOUNTER → 2021-07-20 08:06 | Outpatient (CLI) | payer MEDICARE, BC, SELFPAY ==
[2021-05-05 11:28] VITALS: BMI 22.2
--- NOTE | 2021-07-20 08:09 | CT_ITS ---
INDICATION: PNEUMONIA EXAMINATION: CT CHEST WITHOUT CONTRAST - CT Chest W/O Contrast Injection TECHNIQUE: Helically acquired images were obtained of the chest. A radiation dose optimization technique was used for this scan. IV Contrast dosage and agent: None. COMPARISON: 04/29/2021. FINDINGS: LUNGS, PLEURA AND LARGE AIRWAYS: 1.9 cm pleural-based patchy density visualized in the posterolateral left lower lobe, which could represent pleural reaction, small pleural reaction visualized in the right lower lobe. A 0.9 x 0.5 cm nodular density is visualized in the posterior lateral left lower lobe seen on axial series 4 image 89, this demonstrates slight decrease in size in comparison to the prior study. Mild prominence of the interstitial lung markings is visualized, subtle scarring visualized in the lower lung tsang with mild bronchial wall thickening no evidence of parenchymal lung masses is seen. 0.8 cm groundglass density/nodularity visualized in the medial right lower lobe seen best on axial series 4 image 75, this was not seen on the prior study. Subtle scattered areas of hazy patchy groundglass density visualized. THYROID: No thyroid lesions. HEART AND PERICARDIUM: Heart size is normal. Small pericardial effusion. VESSELS: Thoracic aorta is not dilated. MEDIASTINUM AND CARISSA: Scattered subtle hilar mediastinal lymph nodes visualized largest measuring 1.2 cm seen on axial series 2 image 63. Calcified mediastinal lymph nodes seen largest in the right peritracheal group measuring 2.2 cm.. Esophagus is unremarkable. No hiatal hernia. UPPER ABDOMEN: No acute pathology. BONES: No suspicious lytic or blastic abnormality. CT/Chest without Contrast IMPRESSION: Scattered areas of patchy lung densities visualized demonstrating significant improved aeration in comparison to the prior study. Nodularities visualized in the lower lung tsang measuring 0.9 and 0.8 cm would recommend clinical correlation and if clinically indicated follow-up evaluation with low dose CT scan in 12 months. Lung RADS category 3. Electronically Signed: Joss Bates MD at 9:50 EDT Tel , Service support ,
== END ==
PROVIDERS: PCP Internal Medicine; Referring Provider Internal Medicine Pulmonary Disease; Visit Provider Internal Medicine Pulmonary Disease
DX: J84.89 Other specified interstitial pulmonary diseases (principal)
CPT/HCPCS: 71250

== ENCOUNTER → 2021-11-15 | Outpatient (CLI) | payer MEDICARE, BC, SELFPAY | END | disposition home or self-care (01) | LOC: LABSPEC 13:13 | PROVIDERS: PCP Internal Medicine; Visit Provider Dermatology | DX: T81.89XA Other complications of procedures, not elsewhere classified, initial encounter (principal); D48.5 Neoplasm of uncertain behavior of skin; L57.0 Actinic keratosis | CPT/HCPCS: 87070; 87077; 87186; 87205 ==

== ENCOUNTER → 2022-03-08 | Outpatient (CLI) | payer MEDICARE, BC, SELFPAY ==
[2022-03-08 08:27] VITALS: BP 137/86; PULSE 71; RESP 16; TEMP 36; O2SAT 97; BMI 23.8
[2022-03-08] MEDS: Cosyntropin 0.25 MG Vial IM (08:55)
== END | disposition home or self-care (01) ==
LOC: MEDOUTP 08:16
PROVIDERS: PCP Internal Medicine; Referring Provider Internal Medicine Pulmonary Disease; Visit Provider Internal Medicine Pulmonary Disease
DX: Z79.899 Other long term (current) drug therapy (principal)
CPT/HCPCS: 36415; 82533; 96372; J0834

== ENCOUNTER → 2022-03-13 | Outpatient (CLI) | payer MEDICARE, BC, SELFPAY ==
--- NOTE | 2022-03-13 | IMM_PTH ---
PATIENT: LUKE MENDEZ LOC: U#:[id number] AGE/SX: 76/M ROOM: RE03/13/[address]: Dr. Willard Kirby DO : 1945 BED: DIS: 03/13/2022 SPEC #: [id number] RECD: 03/15/22 14:03 STATUS: NATY REQ #: [id number] NGA: 03/13/22 00:[address]: Willard Kirby DEPT: IMMUNOHISTOCHEMISTRY RECD BY: Manuela Quiñones ENTERED: 03/15/22 14:05 SP TYPE: IMMUNO OTHR DR: Dr. Kiara Spence DO Tissues: THORACIC FLUID Procedures: RCC (add) NAPSIN A (add) Leland Ret (add) CD10 (add) CK20 (add) CK5-6 (add) CK7 (add) CK8 (add) HEP PAR (add) MACRO (add) TTF1 (add) Vimentin (add) Pankeratin (initial) P40 (add) PSAP (add) PHYSICIAN & [address] [address] SPECIMEN INFORMATION: Tissue Source: Thoracentesis fluid Clinical Info: Primary malignancy, pleural effusion Specimen Number: [id number] CPT code: 56660, 75139 x14 METHODOLOGY: Deparaffinized sections of prefer/formalin-fixed tissue or PAP/DQ stained slides are incubated with monoclonal/polyclonal antibodies/oligonucleotide probes. Localization is made via biotin free immunoperoxidase method. Appropriate controls are performed and reacted as expected. Results on target cell population are indicated in the following table: RESULTS: ANTIBODY / CLONE RESULT AE1-3 (AE1/AE3/PCK26) negative * CK7 (OV-TL12/30) negative * CK8 (20hoodJ43) negative * CK20 (KS20.8) negative Vimentin (V9) negative * Macro (HAM-56) negative TTF-1 (8G7G3/1) negative Napsin A (Rabbit Polyclonal) negative HepPar (OCh1E5) negative RCC (PN-15) negative PSAP (PASE/4LJ) negative CK5-6 (D5 & 1684) negative * P40 (BC28) negative CD10 (56C6) negative CALRET (polyclonal) Negative * * positive in mesothelial cells These tests were developed and their performance characteristics determined by [facility]. They may not have been cleared or approved by the U.S. Food and Drug Administration. The FDA has determined that such clearance or approval is not necessary. The above immunohistochemical/dualISH markers are ordered and reviewed by the Pathologist. INTERPRETATION: Thoracentesis fluid (cell block): Negative. See comment. Comment: Markedly reactive mesothelial cells are noted. This case has been reviewed in consultation with Dr. Adams who concurs with the above diagnosis. 03/20/2022
--- NOTE | 2022-03-13 12:01 | US_ITS ---
PROCEDURE: Ultrasound guided therapeutic thoracentesis. INDICATION: 76-year-old male with history of metastatic renal cell carcinoma. Patient has had a persistent small right pleural effusion with concerns for metastasis to the lungs and is here for therapeutic thoracentesis. PHYSICIAN: Dr. Burak Gregory INFORMED CONSENT: The right lung was surveyed with ultrasound demonstrating trace right pleural effusion. Given that there is not enough fluid, decision was made not to proceed with therapeutic/diagnostic thoracentesis using 5 Greek needle/catheter system. However given that there are concerns for malignancy, decision was made to offer patient simple aspiration of the trace effusion utilizing a 22-gauge spinal needle under ultrasound guidance in order to possibly obtain sample for labs/pathology.. The risks, benefits, and alternatives to the procedure were explained to the patient. The specific risks of bleeding, infection, and pneumothorax were detailed and accepted. The patient was agreeable to procedure as he felt it could be useful even if sample was not adequate for appropriate diagnosis and written informed consent was obtained. TECHNIQUES: The right lower lung was ultrasonographically surveyed. The trace pocket of right pleural effusion was identified and the skin was marked. The skin was cleaned and prepped in the usual sterile fashion. The superficial skin surface was first injected with approximately 3 to 4 mL of local 1% LIDOCAINE utilizing a 25-gauge needle. Using direct ultrasound guidance, the skin and lung pleura were then injected with 5 to 6 mL of local 1% LIDOCAINE utilizing a 22-gauge spinal needle. A new 22-gauge spinal needle was then inserted into the effusion under direct ultrasound guidance and approximately 8.5 cc of red slightly cloudy fluid was aspirated. The needle was withdrawn when minimal residual fluid was identified. Immediate post procedure ultrasound assessment demonstrated minimal residual pleural effusion. Immediate post procedure x-ray demonstrated no sizable pneumothorax. The procedure was well tolerated. The patient was discharged in stable condition. SPECIMEN: 8.5 cc of red slightly cloudy fluid aspirated and sent to lab/pathology. US/Thoracentesis W US IMPRESSION: Ultrasound guided diagnostic aspiration of trace right pleural effusion as detailed above. Electronically Signed: Burak Gregory, at 14:38 EDT ,
[2022-03-13 12:22] LABS: Platelet Count 187 K/mm3 (150-450)
[2022-03-13 12:34] LABS: Partial Thromboplast Time 27.8 Seconds (24.1-36.2); Prothrombin Time (Protime)PT. 12.9 SECONDS (11.7-14.9)
[2022-03-13 12:45] VITALS: BP 132/79; BP 146/75; BP 148/81; BP 153/75; PULSE 71; PULSE 77; PULSE 83; RESP 18; TEMP 36.7; O2SAT 94; O2SAT 95; O2SAT 96
--- NOTE | 2022-03-13 13:10 | FLU_PTH ---
PATIENT: LUKE MENDEZ LOC: [facility]#:[id number] AGE/SX: 76/M ROOM: RE03/13/[address]: Dr. Willard Kirby DO : 1945 BED: DIS: 03/13/2022 SPEC #: [id number] RECD: 03/13/22 13:38 STATUS: NATY RESaumya #: [id number] NGA: 03/13/22 13:[address]: Willard Kirby DEPT: CYTOLOGY RECD BY: Manish Pruitt ENTERED: 03/15/22 08:41 SP TYPE: Fluid OTHR DR: Dr. Kiara Spence DO Tissues: THORACIC FLUID Procedures: Special Stain Group II Surgery Specimen Level IV Cytospin Fluid HEADER OPERATION: Ultrasound-guided thoracentesis PRE-OP DIAGNOSIS: Primary malignancy, pleural effusion TISSUE SUBMITTED: Thoracentesis fluid for cytology DIAGNOSIS CYTOLOGY Thoracentesis fluid for cytology (cytospin and cell block): Negative for malignant cells. See comment. SJ:ruiz 03/15/2022 COMMENT Numerous markedly reactive mesothelial cells are noted. Immunohistochemistry ([id number]) supports the above diagnosis. Please make reference to previous specimens ([id number]) T12 lesion, right side, CT-guided core biopsy with diagnosis of ?metastatic carcinoma, consistent with renal primary? and ([id number]) right kidney, radical nephrectomy with diagnosis of ?renal cell carcinoma, mixed clear cell and chromophobe type.? This case has been reviewed in consultation with Dr. Adams who concurs with the above diagnosis. CYTOLOGY STUDY Slides are reviewed. CYTOLOGY GROSS Received is 9 ml of red cloudy fluid labeled with the patient's name and and designated per the requisition as thoracentesis. Submitted for cytology preparation including cell block. / ruiz 03/15/2022 TC:0 CPT: 88875, 68717
--- NOTE | 2022-03-13 13:10 | RAD_ITS ---
INDICATION: post thora EXAMINATION/TECHNIQUE: X-RAY - XR Chest 2 Views COMPARISON: Chest radiograph from 04/29/2021. Chest CT from 07/20/2021. FINDINGS/ RAD/Chest Insp/Exp 2 View IMPRESSION: LINES/DEVICES: New from prior is a left chest wall pacemaker with 2 leads, one likely terminating in the right atrium and the other likely terminating in the right ventricle. Near complete resolution of the trace right pleural effusion status post thoracentesis. Minimal residual fibrotic changes in the bilateral lung bases. No sizable pleural effusion or pneumothorax. 1.8 cm right hilar oval radio opaque opacity is new from prior examination and may relate to an enlarged lymph node or a nodule. Follow-up with CT chest on surveillance imaging recommended. Heart size is stable. No acute findings in the bones or soft tissues. Electronically Signed: Burak Gregory, at 14:01 EDT ,
[2022-03-13] MEDS: Lidocaine 2% (20 ml mdv) 20 ML Vial INFILT (13:36)
== END | disposition home or self-care (01) ==
PROVIDERS: PCP Internal Medicine; Referring Provider Internal Medicine Hematology & Oncology; Visit Provider Internal Medicine Hematology & Oncology
DX: J90 Pleural effusion, not elsewhere classified (principal); C79.9 Secondary malignant neoplasm of unspecified site; C64.1 Malignant neoplasm of right kidney, except renal pelvis; R06.00 Dyspnea, unspecified; R06.89 Other abnormalities of breathing; R55 Syncope and collapse
CPT/HCPCS: 32555; 36415; 71046; 85049; 85610; 85730; 88108; 88305; 88313; 88341; 88342

== ENCOUNTER 2022-03-17 09:36 | Outpatient (RCR) | payer MEDICARE, BC, SELFPAY ==
[2022-03-17 10:26] VITALS: BP 129/93; PULSE 85; RESP 18; TEMP 36.3
--- NOTE | 2022-03-17 14:37 | PCM.WC.HP ---
History of Present Illness Date of Service: 03/17/22 Chief Complaint: nonhealing ulcer of left lower leg and skin tear of right medial thigh History of Wound: Carlos presents to the wound healing center today for continuation of care from a wound care center in [place] where he was being treated by Dr. Juan Aguilar for a nonhealing ulcer of his left lateral lower leg that started as a trauma to a varicose vein and developed into an ulcer. This occurred in approx. October and he required hospitalization and debridement for cellulitis and necrotic tissue and was being seen at the wound center afterward. He returned to [place] this week for the spring/summer and will continue treatment here. He has been using endoform and hydrofera blue to the ulcer as dressings for the last week. He incidentally was scratched by his son's dog on the inside of his right thigh on Monday 03/12 and has skin tears. He has been using the same treatment that he was on his left leg to this area. He denies fever, chills, increased pain, increased drainage or odor or erythema. He is currently undergoing treatment for metastatic renal cell carcinoma. [facility] Medical History Arthritis Degenerative disc disease Hyperlipidemia Hypertension Moderate persistent asthma Patent foramen ovale Renal cancer Thyroid nodule Home Medications montelukast 10 mg PO QHS 07/01/19 [History Last Taken 04/28/21] simvastatin 20 mg tablet 20 mg PO QHS 07/04/19 [History Last Taken 04/28/21] albuterol sulfate 2 puff INHALATION Q6H PRN PRN 07/28/19 [History Last Taken Unknown] apixaban 5 mg tablet 2.5 mg PO BID tab 09/25/19 [History Last Taken 04/29/21] Breo Ellipta 1 inh INHALATION DAILY 04/19/21 [History Last Taken 04/29/21] Xtampza ER 18 mg PO BID 04/29/21 [History Last Taken 04/29/21 07:30] albuterol sulfate 2.5 mg INHALATION Q6H PRN 04/29/21 [History Last Taken Unknown] diazepam 5 mg PO QHS PRN 04/29/21 [History Last Taken 01/29/21] amlodipine 5 mg PO DAILY 03/08/22 [History Last Taken Unknown] furosemide [Lasix] 20 mg PO BID 03/08/22 [History Last Taken Unknown] everolimus (antineoplastic) 5 mg PO DAILY 03/17/22 [History Last Taken Unknown] lenvatinib [Lenvima] 18 mg PO DAILY 03/17/22 [History Last Taken Unknown] Allergy/AdvReac Type Severity Reaction Status Date / Time No Known Allergies Allergy Verified 03/17/22 10:41 Family History Mother Colon cancer Father Emphysema lung Surgical History History of cystoscopy (06/22/17) History of repair of right rotator cuff History of right nephrectomy (~07/09/19) history of transrectal biopsy ultrasound (06/22/17) Post-circumcision adhesion of penis (2014) Social History Smoking Status: Never smoker second hand exposure: No alcohol intake: current alcohol intake frequency: a few times a month substance use type: does not use caffeine: Yes what type of physical activity do you participate in: bicycling frequency: 5-6 times per week duration: other details: 15 miles seatbelt use: always ROS Constitutional Constitutional: Denies fatigue, headache(s) or weakness Eyes Eyes: Denies blurry vision or loss of vision ENT HEENT: Denies dizziness, headache(s) or nasal congestion Cardiovascular Cardiovascular: Denies chest pain, dyspnea, edema or fatigue Respiratory/Chest Respiratory/Chest: Denies cough or dyspnea Gastrointestinal Gastrointestinal: Denies abdominal pain, diarrhea, melena, nausea or vomiting Genitourinary Genitourinary: Denies difficulty urinating Musculoskeletal Musculoskeletal: Reports arthralgias and joint pain Integumentary Integumentary: Reports wounds Neurologic Neurologic: Denies dizziness, memory loss or weakness Psychiatric Psychiatric: Denies anxiety or depression Hematologic/Lymphatic Hematologic/Lymphatic: Reports easy bleeding and easy bruising Vital Signs Vital Signs Vital Signs: 03/17/22 10:26 Temperature 97.4 F L Temperature Source Temporal Pulse Rate 85 Respiratory Rate 18 Blood Pressure 129/93 H Blood Pressure Mean 105 Blood Pressure Source Monitor Physical Exam Const alert, oriented x3 and no apparent distress General Appearance: cooperative and comfortable HEENT normocephalic and head/scalp atraumatic Resp normal respiratory effort Effort and Inspection: able to speak in complete sentences Cardio regular rate and regular rhythm Skin Wounds: wounds noted Wound Narrative: as in clinical panel Psych mental status grossly normal, thought process normal, cooperative and affect normal Debridement Note Debridement Note Wound debrided: right medial thigh Laterality: Right Type of Debridement: Excisional debridement Anesthesia Used: 4% Lidocaine Solution and 5% Lidocaine Gel Depth: Down to and including healthy tissue and in the subcutaneous layer Percentage of wound debrided: 100 Instrument Used: #15 blade and Forceps Tissue Removed: Yellow slough, devitalized tissue Severity: Fat Layer Exposed Amount of bleeding with debridement: Mild Bleeding Controlled with: Compression and gauze Patient tolerated procedure: Patient tolerated procedure well Post-Debridement Measurements and Additional Note: Post-Debridement Measurements/Treatment - Nurse 1 - General Ulcer Assessment Start: 03/17/22 10:12 Freq: Status: Active Protocol: NIKOLAS Activity Type Activity Date Activity User E-Sign Co-Sign Detail Recorded Client Recorded Date Recorded By Document 03/17/22 10:26 DL [id number] 03/17/22 10:35 DL 03/17/22 10:26 - Today's Visit Information Type of service Initial Visit Arrival Mode Ambulatory Transfer Assistance None Patient Identification Verified (Name & Yes ) Patient Requires Transmission-Based No Precautions Vital Signs Temperature (97.8 F-99.1 F) 97.4 F L Temperature Source Temporal Pulse Rate (60-100) 85 Pulse Location Monitor Respiratory Rate (12-18) 18 Respiratory rate source Observation Blood Pressure (90/60-120/80) 129/93 H Blood Pressure Mean (mm Hg) 105 Source Monitor Pain Scale: 0-10 Numeric Is Patient Pain Free? Yes Communication Assessment Preferred language Maori Able to Read Yes Able to Write Yes Communication Tools None Right Hearing Abillity Normal Left Hearing Abillity Normal Visual Assistive Devices Glasses Teaching Assessment Preferences Verbal,Written Barriers to Learning None Readiness To Learn Good Willingness to Engage in Self Management Med Activies Readiness to Engage in Self Management Med Activities Anxiety Level Calm Cooperation Cooperative Perception Coherent Interest in Health Problem Asks Questions Education Importance Acknowledges Need Does Patient Smoke tobacco or other No substances Smoking Status Never smoker Is Patient Diabetic No Functional Assessment Recent Decline in Ability to Perform Denies Any Declines Culture/Gnosticist/Regional Environmental Manager Cultural/Gnosticist Needs that may affect No Treatment Plan Would you allow our [facility] can patcher to No meet you for the purpose of spiritual/ emotional support? Regional Environmental Manager to contact place of jainism No Teaching: Wound Center Dressing Your Wound -Person Taught Patient *Welcome to the Wound Center -Person Taught Patient *Venous -Person Taught Patient WC - Nurse 1 - General Ulcer Measurement Start: 03/17/22 10:12 Freq: Status: Active Protocol: Activity Type Activity Date Activity User E-Sign Co-Sign Detail Recorded Client Recorded Date Recorded By Document 03/17/22 10:26 DL [id number] 03/17/22 10:35 DL 03/17/22 10:26 Wound Center Nurse 1 #2 R Med thigh -Current Size (cm) - Length 10 -Current Size (cm) - Width 1.8 -Current Size (cm) - Depth 0.1 -Total Square Cm 18.0 -Photo Taken Yes -Exudate Amt Small -Wound Margin Indistinct, Non -Visible -Granulation Amt Large (67-100%) -Granulation Quality [place] -Necrosis Amt None Present (0 %) -Structure Exposed N/A -Texture (Corin-wound Skin Appearance) Friable -Moisture (Corin-wound Skin Appearance) No Abnormality -Color (Corin-wound Skin Appearance) No Abnormality -Temperature (Corin-wound Skin No Abnormality Appearance) (Pt Warm) -Tenderness on Palpation (Corin-wound No Skin Appearance) -Ulcer Cleansing Soap and Water -Foul Odor after Cleansing No -Anesthetic Used 5% Lidocaine Gel #1 LLE Lat -Current Size (cm) - Length 0.7 -Current Size (cm) - Width 0.2 -Current Size (cm) - Depth 0.1 -Total Square Cm 0.14 -Photo Taken Yes -Exudate Amt None Present -Wound Margin Thickened -Granulation Amt Large (67-100%) -Granulation Quality Pale -Necrosis Amt None Present (0 %) -Structure Exposed N/A -Texture (Corin-wound Skin Appearance) Scarring -Moisture (Corin-wound Skin Appearance) No Abnormality -Color (Corin-wound Skin Appearance) No Abnormality -Temperature (Corin-wound Skin No Abnormality Appearance) (Pt Warm) -Tenderness on Palpation (Corin-wound No Skin Appearance) -Ulcer Cleansing Rinsed/ Irrigated with Saline -Foul Odor after Cleansing No -Anesthetic Used 5% Lidocaine Gel - Nurse 2 - General Ulcer CM Notes Start: 03/17/22 10:12 Freq: Status: Active Protocol: Activity Type Activity Date Activity User E-Sign Co-Sign Detail Recorded Client Recorded Date Recorded By Document 03/17/22 11:37 MW [id number] 03/17/22 11:52 MW 03/17/22 11:37 Wound Center Nurse 2 #2 R [facility] thigh -Time 11:40 -Correct Patient Yes -Correct Side, Site, Position Yes -Correct Procedure Yes -Procedure Performed Yes -Type of Procedure Debridement -Clinical Debridement Subcutaneous -Tissue Removed Subcutaneous -Post Debridement (cm) - Length 9.5 -Post Debridement (cm) - Width 2.0 -Post Debridement (cm) - Depth 0.1 -Total Square (Post) (cm) 19.00 -Area of Debridement (cm) - Length 9.5 -Area of Debridement (cm) - Width 2.0 -Total Square (Area) (cm) 19.00 -Tunneling No -Undermining/Tunneling No -Circular Undermining No -Wound/Ulcer Outcome Not Healed -Ulcer Cleansing Rinsed/ Irrigated with Saline -Foul Odor after Cleansing No -Bioengineered Tissue No -Bleeding Controlled with Pressure -Treatment Response Procedure Tolerated Well -Offloading No -Debridement - Subq, 1st 20sq cm Yes #1 LLE Lat -Time 11:42 -Correct Patient Yes -Correct Side, Site, Position Yes -Correct Procedure Yes -Procedure Performed Yes -Type of Procedure Debridement -Clinical Debridement Subcutaneous -Tissue Removed Subcutaneous -Post Debridement (cm) - Length 0.7 -Post Debridement (cm) - Width 0.1 -Post Debridement (cm) - Depth 0.1 -Total Square (Post) (cm) 0.07 -Area of Debridement (cm) - Length 0.7 -Area of Debridement (cm) - Width 0.1 -Total Square (Area) (cm) 0.07 -Tunneling No -Undermining/Tunneling No -Circular Undermining No -Wound/Ulcer Outcome Not Healed -Ulcer Cleansing Rinsed/ Irrigated with Saline -Foul Odor after Cleansing No -Bioengineered Tissue No -Bleeding Controlled with Pressure -Treatment Response Procedure Tolerated Well -Offloading No -Debridement - Subq, 1st 20sq cm No Pain Scale: 0-10 Numeric Is Patient Pain Free? Yes - Nurse 3 - General Ulcer D/C NN Start: 03/17/22 10:12 Freq: Status: Active Protocol: Activity Type Activity Date Activity User E-Sign Co-Sign Detail Recorded Client Recorded Date Recorded By Document 03/17/22 12:09 RB [id number] 03/17/22 12:10 RB 03/17/22 12:09 Wound Care Nurse 3 #2 R Med thigh -Ulcer Cleansing Wound Cleanser -Primary Dressing Applied C Hydrogel ($), NonAdherent Contact Layer -Primary Dressing Covered/Secured with Dry Gauze, Secured with Tape #1 LLE Lat -Ulcer Cleansing Wound Cleanser -Primary Dressing Applied NonAdherent Contact Layer -Other Dressing hydrogel -Primary Dressing Covered/Secured with Dry Gauze, Secured with Tape Treatment Response Procedure Tolerated Well Pain Scale: 0-10 Numeric Is Patient Pain Free? Yes WC - Visit Discharge Discharge Condition Stable Ambulatory Status Ambulatory Transportation Private Auto Medication Reconcilliation completed & No provided to patient/care provider Clinical Summary of Care Provided Yes Additional Wound Wound debrided: LLE lateral Laterality: Left Type of Debridement: Excisional debridement Anesthesia Used: 4% Lidocaine Solution Depth: Down to and including healthy tissue and in the subcutaneous layer Percentage of wound debrided: 100 Instrument Used: Forceps Tissue Removed: Yellow slough, devitalized tissue Severity: Fat Layer Exposed Amount of bleeding with debridement: Mild Bleeding Controlled with: Compression and gauze Patient tolerated procedure: Patient tolerated procedure well Assessment/Plan Assessment/Plan (1) Paroxysmal atrial fibrillation: CODE(S): I48.0 - Paroxysmal atrial fibrillation (2) Chronic back pain: CODE(S): M54.9 - Dorsalgia, unspecified; G89.29 - Other chronic pain QUALIFIERS: Back pain laterality: unspecified Back pain location: back pain in unspecified location Qualified Code(s): M54.9 - Dorsalgia, unspecified; G89.29 - Other chronic pain (3) H/O right nephrectomy: CODE(S): Z90.5 - Acquired absence of kidney (4) Bone metastasis: CODE(S): C79.51 - Secondary malignant neoplasm of bone (5) Renal cancer: CODE(S): C64.9 - Malignant neoplasm of unspecified kidney, except renal pelvis QUALIFIERS: Laterality: right Qualified Code(s): C64.1 - Malignant neoplasm of right kidney, except renal pelvis (6) Hypertension: CODE(S): I10 - Essential (primary) hypertension QUALIFIERS: Hypertension type: unspecified Qualified Code(s): I10 - Essential (primary) hypertension (7) Hyperlipidemia: CODE(S): E78.5 - Hyperlipidemia, unspecified QUALIFIERS: Hyperlipidemia type: unspecified Qualified Code(s): E78.5 - Hyperlipidemia, unspecified (8) Moderate persistent asthma: CODE(S): J45.40 - Moderate persistent asthma, uncomplicated QUALIFIERS: Asthma complication type: unspecified Qualified Code(s): J45.40 - Moderate persistent asthma, uncomplicated (9) Degenerative disc disease: QUALIFIERS: Spinal region: lumbar Qualified Code(s): M51.36 - Other intervertebral disc degeneration, lumbar region (10) Arthritis: CODE(S): M19.90 - Unspecified osteoarthritis, unspecified site (11) Skin tear of right lower leg without complication: CODE(S): S81.811A - Laceration without foreign body, right lower leg, initial encounter QUALIFIERS: Encounter type: initial encounter Qualified Code(s): S81.811A - Laceration without foreign body, right lower leg, initial encounter (12) 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 There is marked improvement of the left LE venous ulcer and it is nearly healed. The skin tears on his right medial thigh do not have any signs of infection. Will have him wash the ulcer and skin tear with soap and water and pat dry daily to every other day and apply hydrogel and adaptic to the ulcer and open areas and then cover with gauze for light drainage. He was advised to call the wound center if he develops any fever, chills, increased erythema or drainage, odor or pain. He was encouraged to increase protein intake in order to heal his ulcers and to avoid pressure to the areas. He will follow up in 2 weeks unless needing to be seen sooner.
== END 2022-03-18 23:59 | disposition home or self-care (01) ==
LOC: WC 09:36
PROVIDERS: PCP Internal Medicine; Visit Provider Family Medicine
DX: I83.028 Varicose veins of left lower extremity with ulcer other part of lower leg (principal); C79.51 Secondary malignant neoplasm of bone; L97.822 Non-pressure chronic ulcer of other part of left lower leg with fat layer exposed; C64.1 Malignant neoplasm of right kidney, except renal pelvis; I48.0 Paroxysmal atrial fibrillation; M51.36 Other intervertebral disc degeneration, lumbar region; J45.40 Moderate persistent asthma, uncomplicated; M19.90 Unspecified osteoarthritis, unspecified site; E78.5 Hyperlipidemia, unspecified; I10 Essential (primary) hypertension; S71.111A Laceration without foreign body, right thigh, initial encounter; W26.8XXA Contact with other sharp object(s), not elsewhere classified, initial encounter; Q21.1 Atrial septal defect; Z79.899 Other long term (current) drug therapy; Z90.5 Acquired absence of kidney
CPT/HCPCS: 11042; 99213; G0463

== ENCOUNTER → 2022-04-26 | Outpatient (CLI) | payer MEDICARE, BC, SELFPAY ==
--- NOTE | 2022-04-26 17:45 | PET_ITS ---
PROCEDURE: WHOLE BODY PET/CT SCAN, MID SKULL TO MID THIGH REASON FOR EXAM: Renal cell carcinoma, restaging COMPARISON EXAMINATION: 07/27/2020. TECHNIQUE: Following the intravenous administration of 11.1 mCi of F-18 FDG, multiplanar imaging acquisitions of the neck, chest, abdomen/pelvis to the mid thigh, obtained at 1 hour post radiopharmaceutical administration. Interpretation is with co-registeration of similar anatomic distribution of CT. Findings: Normal and physiologic distribution of radioisotope identified in the expected intensity of the hepatic and splenic parenchyma, urinary tract and gastrointestinal structures. There is gross anatomic distribution of the intracranial contents. INDEX LESION SIZE SUV INTERPRETATION: 1. Lytic lesion of the right anterior iliac bone as seen on image 218 of series 202 measuring approximately 2.4 x 3.0 cm, however, there is NO abnormal FDG activity (SUV 1.9, previously measured SUV 8.0). 2. 1.5 cm lesion of the anterior third rib with FDG measuring 4.9 on image 99 of series 301 and image 93 of fused images. In addition, focal lesion of the left side of the sacrum on image 215 of series 301 (image 203 fused images) with SUV measuring 6.1 is new (correlating sclerotic lesion on image 406 of series 201). Focal lesion of the left pedicle of L3 as seen on image 183 of series 301 (image 173 fused images) with SUV measuring 4.4. T2 vertebral body lesion on image 63 of series 301 (image 59 of fusion images) with SUV measuring 5.1. CT portion of the exam: Residual subpleural reticulation likely fibrotic changes related to previous infection. There is no demonstrated pleural abnormality. There is mild cardiac enlargement. Small pericardial effusion. Normal mediastinum. Normal hilar regions. Normal unenhanced pulmonary arteries. There is atherosclerotic calcification of the aortic arch with tortuosity and elongation of the aortic arch and descending thoracic aorta. Normal liver. Distended gallbladder without demonstrated calculi or wall thickening. Normal spleen. Normal pancreas. Normal bilateral adrenal glands. Absent right kidney. Simple cysts of the left kidney. Nonobstructing calculus of the inferior left kidney. Normal visualized stomach. Normal small intestine. Normal colon. The appendix is visualized and appears normal. There is diffuse atherosclerotic calcification of the abdominal aorta, without a demonstrated aneurysm. Normal inferior vena cava. Anterior wall urinary bladder diverticulum. No new lytic or sclerotic bone lesion. PET/PET/CT Tumor Base -Thigh Subs IMPRESSION: 1. Since 07/27/2020, mixed interval change. Multiple NEW lesions of anterior right third rib, thoracic spine, lumbar spine and sacrum meet criteria for viable neoplasm/osseous metastasis. 2. Lytic lesion of anterior right iliac crest NO longer demonstrates abnormal FDG activity. 3. Peripheral parenchymal fibrotic changes likely sequela of previous infection/pneumonia. 4. Chronic changes, as detailed above. Electronically Signed: Mikey Jamison MD ([place]) at 16:12 EDT ,
== END | disposition home or self-care (01) ==
LOC: ONC 17:25
PROVIDERS: PCP Internal Medicine; Referring Provider Internal Medicine Hematology & Oncology; Visit Provider Internal Medicine Hematology & Oncology
DX: C64.1 Malignant neoplasm of right kidney, except renal pelvis (principal); C79.51 Secondary malignant neoplasm of bone
CPT/HCPCS: 78815; A9552

== ENCOUNTER 2022-09-27 14:25 | Outpatient (CLI) | payer MEDICARE, BC, SELFPAY ==
[2022-09-27] MEDS: 0.9% Saline Lock 10 ML Syringe IV ×3 (14:47→15:08)
[2022-09-27 14:52] VITALS: BP 136/79; PULSE 90; RESP 18; TEMP 36.6; O2SAT 94; BMI 21.7
[2022-09-27] MEDS: BEBTELOVIMAB 175 MG/2 ML VIAL IV (15:05)
[2022-09-27 15:35] VITALS: BP 124/69; PULSE 63; RESP 16; TEMP 36.5; O2SAT 94
[2022-09-27 15:53] VITALS: BP 127/68; PULSE 63; RESP 16; TEMP 36.3; O2SAT 98
== END 2022-09-27 16:05 | disposition home or self-care (01) ==
LOC: MS3OUT 14:26 → MS2 14:26
PROVIDERS: PCP Internal Medicine; Referring Provider Nurse Practitioner Acute Care; Visit Provider Nurse Practitioner Acute Care
DX: U07.1 COVID-19 (principal)
CPT/HCPCS: M0222; Q0222; A4216